=== PATIENT | male | born 1940 | race Caucasian/White ===

== ENCOUNTER → 2017-02-19 | Outpatient (CLI) | payer OTHER ==
[~2017-02-19] MED LIST: ACET-1256 PO; FINA5TAB PO; IMD/2 PO; ONDA-63 PO; XLD/500 PO
[2017-02-19 14:03] VITALS: BP 155/88; PULSE 72; TEMP 36.8; O2SAT 99
--- NOTE | 2017-02-19 16:13 | Radiation Oncology Follow-Up ---
Radiation Oncology Follow-Up Date of Visit Feb 19, 2017. (Kimberly Prince PA-C) Reason For Visit 6 month follow-up (Kimberly Prince PA-C) Radiation Completion Date finished 07-18-2016 (Kimberly Prince PA-C) Diagnosis (1) Rectal cancer Status: Resolved Onset Date: 04/24/2016 Histology Subtype: adenocarcinoma Stage: lll Permanent Comment: DIAGNOSIS: Rectal cancer, adenocarcinoma, [id number], stage IIIC with invasion into anterior pelvic structures (potentially bladder) 1 cycle of XELOX Status post completion of combined radiation and chemotherapy 07/18/2016 received 5040 cGy Chemotherapy comprised of Xeloda Status post low anterior resection 09/10/2016 coloproctostomy and diverting colostomy Stage ypT3 ypN0 Status post reversal of ileostomy 11/28/2016 Last Edited By: Kimberly Prince on Feb 19, 2017 15:00 (Kimberly Prince PA-C) History of Present Illness Mr. Burciaga is a 76-year-old gentleman who initially presented with bright red blood per rectum which started earlier this year. He was referred to Dr. Garcia for a colonoscopy on 03/07/2016 which revealed a friable and infiltrative partially obstructing large mass in the rectal sigmoid region that was about 15 cm from the anal verge. At the time of the procedure, the mass was noted to be circumferential in the scope could not pass through it. Biopsies were obtained which revealed invasive adenocarcinoma that was moderately differentiated. He then did undergo a CT abdomen and pelvis and thorax on 03/10/2016 which revealed indeterminate bilateral pulmonary nodules and a mass at the rectosigmoid junction. The patient was going to be set up for consideration of chemoradiation therapy however he did develop an obstruction which required admission to the hospital. He underwent an exploratory laparotomy by Dr. Esqueda in at the time of the procedure they found that the tumor was invading into the anterior pelvic wall and was deemed unresectable. During this procedure, the did perform a diverting colostomy. Additionally, they noted that there was potentially involvement of the bladder with fistula formation. During his procedure, he did develop several intra- abdominal abscesses and these were drained during his hospitalization. He did have a repeat imaging completed on April 302015 of the abdomen and pelvis which again revealed a proximal rectal mass as well as multiple pelvic abscesses and bilateral hydronephrosis. He was recently discharged to subacute rehabilitation and is now finally home. He was seen in consultation by Dr. Adnreas Barlow who discussed chemotherapy and radiation therapy consideration of surgery if the patient has an adequate response to treatment. He completed radiation therapy 07/18/2016. He received 5040 cGy. Chemotherapy was comprised of Xeloda. (Kimberly Prince PA-C) Interim History He underwent his planned low anterior resection and ileostomy formation on 09/10. The tumor was found to be 2.0 cm. The histology was high grade. Tumor invaded through the muscularis propria into the subserosal adipose tissue or the non-. Denies pericolonic and perirectal soft tissue but does not extend to the serosal surface. He had 12 lymph nodes examined and they were all negative for metastatic disease. (Kimberly Prince PA-C) Allergies Coded Allergies: No Known Allergies (Unverified , 10/17/16) Home Medications Scheduled Finasteride (Proscar), 5 MG PO QAM Scheduled PRN Acetaminophen (Tylenol), 500 MG PO for PRN Review of Systems Gastrointestinal: GI Comments: " stools are back to normal " Oral: Symptoms: No Problems Respiratory: Symptoms: WNL Urinary: Symptoms: Nocturia Comments: nocturia 1 to 2 times Skin: Symptoms: No Problems (Kimberly Prince PA-C) Physical Exam Vital Signs Date Time Temp Pulse Resp B/P Pulse Ox O2 Delivery O2 Flow Rate FiO2 02/19/17 14:03 36.8 72 18 155/88 99 Pain: Side: Bilateral Patient Pain Scale: 0 - 10 Initial Pain Intensity: 0.0 Fatigue: None General Appearance: no apparent distress Eyes: normal inspection, EOMI ENT: normal ENT inspection, hearing grossly normal Neck: no adenopathy Respiratory/Chest: lungs clear, no respiratory distress, no accessory muscle use Cardiovascular: regular rate, rhythm, no gallop, no murmur Abdomen: non tender, soft, no organomegaly Anal / Rectum: Rectal examination reveals normal sphincter tone. Suture line can be palpated and there are no masses. Prostate is enlarged. No rectal bleeding. Extremities: no pedal edema Neurologic/Psychiatric: no motor/sensory deficits, alert, normal mood/affect Skin: warm/dry Lymphatic: no adenopathy (Kimberly Prince PA-C) Laboratory Studies Test 11/21/16 05:11 11/22/16 05:40 11/23/16 05:11 White Blood Count 4.07 K/uL (4.8-10.8) 4.01 K/uL (4.8-10.8) Red Blood Count 5.46 M/uL (4.7-6.1) 5.57 M/uL (4.7-6.1) Hemoglobin 15.9 g/dL (14.0-18.0) 15.8 g/dL (14.0-18.0) Hematocrit 44.9 % (42-52) 45.1 % (42-52) Mean Corpuscular Volume 82.2 fL (80-100) 81.0 fL (80-100) Mean Corpuscular Hemoglobin 29.1 pg (25-34) 28.4 pg (25-34) Mean Corpuscular Hemoglobin Concent 35.4 g/dl (32-36) 35.0 g/dl (32-36) RDW Standard Deviation 40.9 fL (36.4-46.3) 38.9 fL (36.4-46.3) RDW Coefficient of Variation 15.1 % (11.5-14.5) 15.0 % (11.5-14.5) Platelet Count 227 K/uL (130-400) 232 K/uL (130-400) Mean Platelet Volume 9.7 fL (7.4-10.4) 9.9 fL (7.4-10.4) Nucleated RBC Absolute Count (auto) 0.02 K/uL (0-0) Nucleated Red Blood Cells % 0.6 % Total Bilirubin 0.9 mg/dl (0.2-1) Aspartate Amino Transferase (AST) 176 U/L (15-37) Alanine Aminotransferase (ALT) 397 U/L (12-78) Alkaline Phosphatase 183 U/L (45-117) Total Protein 6.3 gm/dl (6.4-8.2) Albumin 3.0 gm/dl (3.4-5.0) Globulin 3.3 gm/dl (2.5-4.0) Albumin/Globulin Ratio 0.9 (0.9-2) Sodium Level 136 mmol/L (136-145) 133 mmol/L (136-145) Potassium Level 3.2 mmol/L (3.5-5.1) 3.4 mmol/L (3.5-5.1) Chloride Level 99 mmol/L (98-107) 97 mmol/L (98-107) Carbon Dioxide Level 25 mmol/L (21-32) 25 mmol/L (21-32) Anion Gap 12.0 mmol/L (3-11) 11.0 mmol/L (3-11) Blood Urea Nitrogen 52 mg/dl (7-18) 50 mg/dl (7-18) Creatinine 1.20 mg/dl (0.60-1.40) 1.10 mg/dl (0.60-1.40) Est Creatinine Clear Calc Drug Dose 49.4 ml/min 50.6 ml/min Estimated GFR () 68.1 75.7 Estimated GFR (Non- 58.8 65.3 BUN/Creatinine Ratio 43.5 (10-20) 45.4 (10-20) Random Glucose 110 mg/dl (70-99) 99 mg/dl (70-99) Calcium Level 8.8 mg/dl (8.5-10.1) 9.0 mg/dl (8.5-10.1) (Kimberly Prince PA-C) Additional Studies Patient Information Name: GERMÁN BURCIAGA Leopoldo MCCANN (AGE) Sex: 1940 (76) M Billing #: [id number] MRN (Client MRN): [id number] Order #: Client Information Specimen Information Location: [facility] Collected Date: 09/10/2016 Copy To: Accession Date: 09/10/2016 Client Case #: Outside Client.: Reported Date: 09/14/2016 Report Type: Final Report Submitting: - Delano Esqueda DO Procedures/Addenda Present SURGICAL PATHOLOGY DIAGNOSIS Electronically Signed Out: Yin Mustafa MD -[facility] Lab A. Small bowel, resection: Portion of small bowel with mucosal erosion, acute serositis, and serosal fibrous adhesions. Surgical resection margins are viable. B. Appendix, appendectomy: Appendix with focal active inflammation and reactive epithelial change. Serosal fibrous adhesions. C. Rectum, lower anterior resection: Adenocarcinoma, poorly differentiated, 2.0 cm. Surgical resection margins are negative for carcinoma. Twelve lymph nodes, negative for carcinoma; (0/12). See synoptic report. D. 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 Stapled margin is negative for carcinoma. E. Colostomy and portion of colon, takedown: Portion of colon with focal ulceration and adjacent skin, consistent with colostomy site. F. EEA donuts, resection: Portion of colon with no specific pathologic change. Clinical History Rectal cancer, exploratory laparotomy. Synoptic Data Specimen: Rectum Procedure: Low anterior resection Specimen Length: 9.5 cm Tumor Site: Rectum Tumor Location: Not Specified Tumor Size: Greatest dimension: 2.0 cm Macroscopic Tumor Perforation: Not identified GERMÁN BURCIAGA [id number] Page 2 of 4 [facility] ([facility]), [address] [place] [address] [place] [address] . [facility] ([facility]), [address] [place] [address] [facility] ([facility]), [address] [place] [place] [address] . [facility] ([facility]), [address] [place] [address]. [facility] ([facility]), [address] [place] [address] [address] . Macroscopic Intactness of Mesorectum: Complete Histologic Type: Adenocarcinoma Histologic Grade: High-grade (poorly differentiated to undifferentiated) Microscopic Tumor Extension: Tumor invades through the muscularis propria into the subserosal adipose tissue or the nonperitonealized pericolic or perirectal soft tissues but does not extend to the serosal surface Margins: If all margins uninvolved by invasive carcinoma - Distance of invasive carcinoma from closest margin: 17 mm Specify margin: distal Treatment Effect: Residual cancer with evident tumor regression, but more than single cells or rare small groups of cancer cells (partial response, score 2) Lymph-Vascular Invasion: Not identified Perineural Invasion: Present Tumor Deposits: Not identified Pathologic Staging (pTNM): y (post-treatment) Primary Tumor (pT): pT3: Tumor invades through the muscularis propria into the subserosa or the nonperitonealized pericolic or perirectal soft tissues Regional Lymph Nodes (pN): pN0: No regional lymph node metastasis Number of lymph nodes examined: 12 Number of lymph nodes involved: 0 [This staging is based on AJCC cancer staging manual, 7th edition] Gross Description *A: Received fresh with a container labeled with "GERMÁN BURCIAGA", "[id number]" and "small bowel". The specimen consists of an intact dilated unoriented portion of small bowel measuring 22.0 x 3.0 cm. There is minimal attached mesenteric fat. The serosa is largely covered in thick fibrous adhesions. A measurable perforation is not identified. The lumen contains a scant amount of brown green fluid. The mucosa is focally flattened but has otherwise normal intestinal folding. The wall is slightly thickened and fibrous with edematous areas measuring up to 0.5 cm. Lesions or masses are not identified. Music Promoter sections are submitted in 5 cassettes with margins in cassettes A1-A2. *B: Received fresh with a container labeled with "GERMÁN BURCIAGA", "[id number]" and "appendix". The specimen consists of a slightly distorted intact appendix focally encased in mesoappendix measuring 7.0 x 1.5 cm. The visible serosa is ballard-pink and covered in adhesions. Sectioning reveals a slightly dilated lumen with plush mucosa and an edematous thickened fibrous wall measuring up to 0.4 cm. Measurable lesions or masses are not identified. Music Promoter sections are submitted in 3 cassettes with proximal margin in cassette B1 and bisected appendiceal tip in cassette B2. *C: Received fresh for frozen with a container labeled with "GERMÁN BURCIAGA", "[id number]" and "rectum". The specimen consists of a focally torn irregular portion of large bowel that has been previously oriented per the surgeon with a suture indicating distal measuring 9.5 cm in length and 3.5 cm in maximum diameter. There is a large tear in the approximate center of the specimen nearly the colon into two portions. There is moderate attached fat with prominent adhesions. The presumed mesorectum distal to the large tear appears complete and intact. The serosa at the proximal aspect is largely covered with adhesions. The lumen is empty and the mucosa is plush with faint polypoid-appearing areas in the distal half. Further sectioning reveals slightly indurated and fibrous change with adjacent fat necrosis extending into the soft tissues with an overall measurement of 2.0 x 2.0 x 1.2 cm. Measurable residual tumor is not grossly identified within this area. The area of polyploid change with associated fat necrosis and fibrous thickening are located 1.7 cm from the distal margin. The attached adipose tissues are removed and palpated for lymph nodes. A shave section of the distal margin is submitted in cassette FS C1. Benign. Frozen section diagnosis per Dr. Pierson to Dr. Esqueda. Additional hospital insurance representative sections are submitted. *D: Received fresh with a container labeled with "GERMÁN BURCIAGA", "[id number]" and "mucous fistula". The specimen consists of an irregular portion of bowel stapled at one end measuring 6.0 x 3.5 x 3.0 cm. The opposite end has a 0.4 x 0.4 cm fully probe patent fistula extending the length of the specimen. The mucosa is diffusely flattened and there are multiple hawk deeply embedded within the tissue at the end that corresponds to the fistula. Other lesions or masses are not identified. Music Promoter sections are submitted in 2 cassettes with stapled margin in cassette D1 and sections adjacent to end of fistula in cassette D2. GERMÁN BURCIAGA [id number] Page 3 of 4 [facility] ([facility]), [address] [place] [address] . [facility] ([facility]), [address] [place] [address] [facility] ([facility]), [address] [address] . [facility] ([facility]), [address] [place] [address]. [facility] ([facility]), [address] [place] [address] . *E: Received fresh with a container labeled with "GERMÁN BURCIAGA", "[id number]" and "colostomy and portion of colon". The specimen consists of an intact fully patent ostomy measuring 3.5 x 2.5 x 2.5 cm. There is a peripheral portion of attached skin measuring less than 0.1 cm in thickness. The lumen is empty and the mucosa is glistening and flat. Lesions or masses are not identified. Music Promoter sections are submitted in cassette E1 to include skin. An additional hospital insurance representative section to include skin is submitted in cassette E2 on 09/12/2016. *F: Received fresh with a container labeled with "GERMÁN BURCIAGA", "[id number]" and "EARL bridges". The specimen consists of 2 intact undesignated annular portions of bowel each with multiple hawk and sutures throughout measuring 1.9 and 2.4 cm. A hospital insurance representative section of each piece is submitted in cassette F1. Grossed By: NT Summary of Sections: *C: C1 proximal margin, C2 perpendicular section of radial margin, C3-C7 distal aspect of specimen with polypoid appearing mucosa and underlying fibrous areas with fat necrosis, C8 hospital insurance representative proximal bowel , C9-C11 each contain 4 intact lymph nodes, C12 contains 2 intact lymph nodes [facility] Intraoperative Diagnosis *C: FROZEN SECTION DIAGNOSIS: Benign. Frozen section diagnosis per Dr. Pierson to Dr. Esqueda. Microscopic Findings Part C: Histologic sections show a poorly differentiated invasive adenocarcinoma corresponding to the indurated area in the distal rectum identified grossly. There are scattered granulomas and numerous multinucleated giant cells surrounding calcified and foreign-type material. Case was discussed with Dr. Esqueda on 09/13/16. Microsatellite Instability Date Ordered: 09/13/2016 Electronically Signed Out: Yin Mustafa MD -[facility] Lab Date completed: 09/13/2016 Date Reported: 09/14/2016 Immunohistochemical Detection of Mismatch Repair Proteins Results: Normal (intact) expression of MLH1, MSH-2, MSH-6 and PMS2 in both adenocarcinoma cells and normal tissue. Table1. Summary of Immunostaining Results Marker/Tissue Adenocarcinoma Normal Tissue MLH-1 Positive Positive PMS-2 Positive Positive MSH-2 Positive Positive MSH-6 Positive Positive Comment: Deficient mismatch repair function usually manifests as immunohistochemically detectable absence of one or more mismatch repair (MMR) proteins (MLH-1, MSH-2, MSH-6 and PMS-2), which is the basis of our test. Immunohistochemical stains were performed on formalin-fixed, paraffin-embedded tissue block using antibodies against DNA MMR proteins including MLH-1, MSH-2, MSH-6, and PMS-2 with appropriate controls (including internal positive control). The sensitivity of immunohistochemical test of MMR GERMÁN BURCIAGA [id number] Page 4 of 4 [facility] ([facility]), [facility] [address] [facility] [address] . [facility] ([facility]), [address] [place] [address] [facility] ([facility]), [address] [facility] [place] [address] . [facility] ([facility]), [address] [place] [address]. [facility] ([facility]), [address] [place] [address] . [phone] proteins as a surrogate test for microsatellite instability (MSI) is approximately 90-95%. References: Misty SKINNER and Pernell ROLAND. 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 Adv Viktoria Pathol. 16(6):405-17, 2009. CPT Patient Information Name: GERMÁN BURCIAGA (AGE) Sex: 1940 (76) M Billing #: [id number] MRN (Client MRN): [id number] Order #: Client Information Specimen Information Location: DISCHARGE Collected Date: 11/28/2016 Copy To: Tati Cortes MD Accession Date: 11/28/2016 Client Case #: Outside Client.: Reported Date: 11/30/2016 Report Type: Final Report Submitting: - Delano Esqueda DO SURGICAL PATHOLOGY DIAGNOSIS Electronically Signed Out: Martha Pierson MD - [facility] Lab A. Ileostomy site, take down: Skin and small intestine anastomosis, consistent with ileostomy site. Clinical History Ileostomy status. Reversal ileostomy. Gross Description *A: Received fresh with a container labeled with "GERMÁN BURCIAGA", "[id number]" and "ileostomy" are 2 segments of unoriented small bowel which are partially joined to create a double barrel ostomy site. The ostomy site includes a 3.5 x 2.8 cm ring of pink-ballard skin. The deep small bowel margins of resection have been surgically stapled closed. The ostomy openings have been partially sutured. There is a very minimal amount of attached yellow adipose tissues. The bowel segments measure 4.5 and 3.5 cm in length. The ostomy sites are reopened and demonstrate patent lumens with intact and unremarkable appearing small bowel mucosa present. Music Promoter sections are submitted in cassette A1. Grossed By: LWN Microscopic Findings Microscopic examination performed. CPT Code(s): A; 12052 (Kimberly Prince PA-C) Assessment & Plan 9 plan: Continue regular follow-up with his PCP, Dr. Barlow, and colorectal surgeon. He does have an appointment to see Dr. Barlow 03/01/2017. He has an appointment to see 04/01/2017. We asked him to return to our office in 1 year. He may call if he has any questions or concerns in the interim. I reviewed with him Dr. Barlow will follow him in regards to any laboratory studies , scanning, or any further treatment post surgery. (Kimberly Prince PA-C) I agree with note created by Kimberly Prince PA-C. I reviewed the patient's chart and information with her. (Veeral. Espana MD) Total Time In Follow-Up I spent 25 minutes speaking to the patient performing examination. I spent 15 minutes reviewing information and completing this note. (Kimberly Prince PA-C) Copy To Delano Esqueda D.O.; Donnie Cates; Andreas Barlow M.D.
== END | disposition home or self-care (01) ==
LOC: C.ONC 13:52
PROVIDERS: ATTEND Physician Assistant Medical
DX: Z08 Encounter for follow-up examination after completed treatment for malignant neoplasm (principal); Z92.3 Personal history of irradiation; Z85.048 Personal history of other malignant neoplasm of rectum, rectosigmoid junction, and anus

== ENCOUNTER → 2017-11-18 | Day surgery (SDC) | payer OTHER ==
[~2017-11-18] VITALS: Ht 177.8 cm; Wt 94.5 kg
[~2017-11-18] MED LIST changes: +CEFAZOLIN 2000MG IV PUSH 10 ML IV SCH; -IMD/2 PO; +LACTATED RINGER'S 1000ML 1,000 ML IV SCH; -ONDA-63 PO; +ULT50X PO; -XLD/500 PO
[2017-11-18 10:10] VITALS: BP 178/91; PULSE 66; TEMP 36.4; O2SAT 97; Ht 177.8 cm; Wt 94.5 kg
== END | disposition home or self-care (01) ==
LOC: C.ACU 09:33
PROVIDERS: ATTEND Surgery
DX: C20 Malignant neoplasm of rectum (principal); C78.00 Secondary malignant neoplasm of unspecified lung

== ENCOUNTER 2017-11-21 04:55 | Inpatient (IN) | payer OTHER ==
[~2017-11-21] VITALS: Ht 177.8 cm; Wt 94.0 kg
[2017-11-21] VITALS (9 sets, daily range): BP systolic 122–156; BP diastolic 73–98; PULSE 63–102; TEMP 36.5–36.9; O2SAT 94–97; Ht 177.8 cm; Wt 94.0 kg
[~2017-11-21 04:55] MED LIST changes: -CEFAZOLIN 2000MG IV PUSH 10 ML IV SCH; -LACTATED RINGER'S 1000ML 1,000 ML IV SCH; -ULT50X PO
[2017-11-21] MEDS ORDERED: LACTATED RINGER'S 1000ML 1,000 ML IV SCH (06:00)
[2017-11-21] MEDS ORDERED: ONDANSETRON INJ 2 MG/ML 2 ML VIAL IV PRN ×2 (07:00→09:45)
[2017-11-21] MEDS ORDERED: EpHEDrine SULFATE INJ 50 MG/ML AMP IV PRN ×2 (07:00)
[2017-11-21] MEDS ORDERED: FENTANYL CITRATE INJ 50 MCG/1 ML 2 ML VIAL IV PRN (07:00)
[2017-11-21] MEDS ORDERED: ATROPINE SULFATE 0.1 MG/ML 5ML SYR IV PRN ×2 (07:00)
[2017-11-21] MEDS ORDERED: HYDROmorphone INJ 1 MG/ML SYR IV PRN (07:00)
[2017-11-21] MEDS ORDERED: PROPOFOL IV EMULSION 10 MG/ML 20 ML VIAL IV ONE (07:03)
[2017-11-21] MEDS ORDERED: ROCURONIUM BROMIDE 10 MG/ML 5 ML VIAL IV ONE (07:03)
[2017-11-21] MEDS ORDERED: LIDOCAINE HCL 2% 2 ML VIAL (20MG/ML) ONE (07:03)
[2017-11-21] MEDS ORDERED: FENTANYL CITRATE INJ 50 MCG/1 ML 2 ML VIAL ONE (07:04)
[2017-11-21] MEDS ORDERED: MIDAZOLAM HCL 1 MG/ML 2ML VIAL ONE (07:04)
[2017-11-21] MEDS ORDERED: LIDOCAINE HCL 1% 20 ML VIAL ONE (07:14)
[2017-11-21] MEDS ORDERED: BACITRACIN OINT 15 GM TUBE ONE (07:14)
[2017-11-21] MEDS ORDERED: BUPIVACAINE 0.5 % 5 MG/1 ML MPF 30ML VIAL ONE (07:14)
[2017-11-21] MEDS ORDERED: SODIUM CHLORIDE 0.9% PF 50 ML VIAL ONE (07:15)
[2017-11-21] MEDS ORDERED: BUPIVACAINE LIPOSOME 1/3% 266 MG/20 ML VIAL INFIL ONE (07:15)
--- NOTE | 2017-11-21 07:20 | History & Physical Bridge Note ---
H&P Re-Evaluation Bridge Note: I have examined the patient, reviewed the History & Physical and in the interval since the performance of the History & Physical I have noted the following changes of clinical significance: No changes noted
[2017-11-21] MEDS ORDERED: CEFAZOLIN SOD 2000MG/10 ML IV PUSH IV ONE (07:28)
--- NOTE | 2017-11-21 08:41 | [facility] Post Operative Brief Note ---
Immediate Operative Summary Operative Date Nov 21, 2017. Pre-Operative Diagnosis lung cancer, need port insertion for chemo Post-Operative Diagnosis same Procedure(s) Performed insertion port on LIJ Surgeon Genoveva Burton [employer] Promoter Surgeon(s) MARIBETH Ponce Estimated Blood Loss 5ml Findings patent LIJ Fluids (cc crystalloids) 300ml Specimens none Drains none Anesthesia general Complication(s) None Disposition
[2017-11-21] MEDS ORDERED: CEFAZOLIN SOD 1 GM VIAL ONE (08:47)
[2017-11-21] MEDS ORDERED: ONDANSETRON INJ 2 MG/ML 2 ML VIAL ONE (08:47)
[2017-11-21] MEDS ORDERED: DEXAMETHASONE SOD INJ 4 MG/ML VIAL ONE (08:47)
[2017-11-21] MEDS ORDERED: EpHEDrine SULFATE 50MG/5ML SYR ONE (08:59)
[2017-11-21] MEDS ORDERED: NEOSTIGMINE METHYLSULFATE 5 MG/5 ML SYR ONE (09:15)
[2017-11-21] MEDS ORDERED: GLYCOPYRROLATE INJ 0.2 MG/ML VIAL ONE (09:15)
--- NOTE | 2017-11-21 09:26 | OPERATIVE REPORT ---
DATE OF OPERATION: 11/21/2017 PREOPERATIVE DIAGNOSIS: Lung cancer in need of port reinserted for chemotherapy. POSTOPERATIVE DIAGNOSIS: Same. PROCEDURE: Port insertion on the left internal jugular vein. SURGEON: Dr. Genoveva Burton. EXHIBITION DESIGNER: Gala Cleveland PA-C. ANESTHESIA: General. ESTIMATED BLOOD LOSS: About 5 mL. FINDINGS: Patent left internal jugular vein. COMPLICATIONS: None. INDICATIONS FOR THE PROCEDURE: This is a 77-year-old gentleman who has new diagnosis of lung cancer of lung cancer. The patient will be required to do port insertion for the chemo. I did talk to the patient about the benefit and risk, alternate procedure. I indicated the risks may include but not limited such as bleeding, infection, injury to the lung, blood clot, dysfunction catheter. The patient understands. She signed informed consent and I answered all questions. DETAILS OF PROCEDURE: We brought the patient to the OR, put the patient in the supine position. The patient received SCD on bilateral legs to prevent DVT. Also, the patient received 2 grams Ancef IV for prophylactic antibiotic. The patient received general anesthesia without difficulty. Then the patient's left side of the neck and the left side upper chest tube was prepped and draped in routine sterile fashion. After time out, I put the patient on the Trendelenburg position and injection of local anesthesia on the left neck and left side upper chest by using 1% lidocaine mixed with 0.5% Marcaine then I made a 0.5 cm incision on the left side of the neck. Then I used ultrasound to guide, and used 15 gauge needle to puncture the left internal jugular vein without difficulty and easy blood return. We passed a wire through the needle, removed the needle. Then I used fluoro to confirm the wire into the right superior vena cava. In this moment, we catheter through left side upper chest to left side neck. Then we used the dilator catheter, advanced over the guidewire and removed the wire passed the catheter into the dilator sheath. Then we removed the sheath and used fluoro to confirm the catheter tip located superior vena cava. Then we fixed the port by using 2-0 Prolene on the chest wall at 3 points. Hemostasis was obtained using 2-0 Vicryl, closed the subcutaneous layer continuous running, used 4-0 Vicryl to close skin continuous running. Then we put the dressing on. The patient tolerated the procedure well and after the procedure the thoracic surgeon will do the lung procedure on this patient. After the procedure, I did talk to the patient and family member about OR finding and procedure we did. All the instrument, needle and sponge count correct x2 at the end of case. Also we used needle to puncture the port easily blood return and injection 10 mL heparin with saline. I attest to the content of the Intraoperative Record and any orders documented therein. Any exceptions are noted below. EL
[2017-11-21] MEDS ORDERED: ACETAMINOPHEN 500 MG TAB PO PRN (09:45)
[2017-11-21] MEDS ORDERED: MoRPHine SULFATE 2 MG/ML CARP IV PRN (09:45)
--- NOTE | 2017-11-21 09:48 | OPERATIVE REPORT ---
DATE OF OPERATION: 11/21/2017 PREOPERATIVE DIAGNOSIS: Multiple bilateral pulmonary nodules. POSTOPERATIVE DIAGNOSIS: Probable colorectal metastases. PROCEDURE: Left thoracoscopy with wedge resection left upper lobe nodule. SURGEON: Dr. León. ANESTHESIA: General anesthesia endotracheal intubation using a single lumen tube. SPECIFICS OF PROCEDURE: Mr. Baez is a 77-year-old male who has undergone a low anterior resection for a colorectal carcinoma which appears to have recurred. Interestingly enough, the patient's CEA level is normal. At any rate, he has evidence of spread in his abdomen but also has multiple pulmonary nodules. Dr. Bernardo Espana and I discussed this case and we have been unable to get a biopsy to give us histologic evidence that these nodules are indeed from his colorectal carcinoma. On 11/21/2017, the patient was brought to the operating room and underwent a Port-A-Cath insertion by Dr. Burton. This is in the left infraclavicular and internal jugular area. At the same time, I then turned the patient and did an uncomplicated thoracoscopic wedge resection. We did an Exparel block. He tolerated it well. PROCEDURE: The patient was brought to the operating room and placed in supine position. General anesthesia induced and after Dr. Burton had inserted the left internal jugular port which had its reservoir positioned in the infraclavicular area the patient was turned in the right lateral decubitus position and left chest prepped, draped in usual sterile fashion. We had a single lumen intubation, but we simply stopped ventilating for several seconds and I placed a Veress needle in about the fifth interspace anterior to the latissimus dorsi muscle and insufflated CO2. We then put a 5 mm port here and could see there were no adhesions. His lungs actually looked quite good. I then put a 5 mm port posteriorly at about the seventh interspace and another one at about the 7th interspace anteriorly. This was a 12 mm port. We then found the nodule in the upper lobe and using Endo-WILLIAM staplers I fired this several times to remove a generous wedge, put it in an Endobag and removed it through the 12 mm port. This was sent for frozen section. Exparel 266 mg and 20 mL of solution was mixed with 40 mL of normal saline to get a total of 60 mL. This was then used to perform an intrathoracic intercostal nerve block from the 2nd to the 11th rib by injecting in the interspace. A 24-American chest tube was then directed towards the apex through the 12 mm port anteriorly. It was sutured in place with heavy silk suture. The 4-0 Monocryl was used in running subcuticular fashion to reapproximate the wound edges. He tolerated it well and was extubated in the room. We essentially had no blood loss. I attest to the content of the Intraoperative Record and any orders documented therein. Any exception s are noted below.
--- NOTE | 2017-11-21 10:08 | Anesthesiology Progress Note ---
Anesthesia Post Op Note Date & Time Nov 21, 2017 at 10:08 Vital Signs Pain Intensity: 0 Vital Signs Past 12 Hours Date Time Temp Pulse Resp B/P (MAP) Pulse Ox O2 Delivery O2 Flow Rate FiO2 11/21/17 09:55 60 15 143/78 96 Oxymask 10 11/21/17 09:45 63 15 143/101 98 Oxymask 10 11/21/17 09:36 36.5 71 15 129/75 98 Oxymask 10 11/21/17 05:54 36.9 72 20 156/94 95 Room Air Notes Mental Status: alert / awake / arousable, participated in evaluation Pt Amnestic to Procedure: Yes Nausea / Vomiting: adequately controlled Pain: adequately controlled Airway Patency, RR, SpO2: stable & adequate BP & HR: stable & adequate Hydration State: stable & adequate Anesthetic Complications: no major complications apparent
--- NOTE | 2017-11-21 10:11 | DIAGNOSTIC IMAGING REPORT ---
CHEST ONE VIEW PORTABLE CLINICAL HISTORY: s/p aport insertion COMPARISON STUDY: PET/CT October 20, 2017 and chest radiograph December 07, 2016. FINDINGS: There has been interval placement of a left internal jugular [id number]. Catheter tip projects over the distal left brachiocephalic vein. A left-sided chest tube is in place. No pneumothorax is identified. Multiple pulmonary nodules are better depicted on recent PET CT and are consistent with metastatic disease. Cardiomediastinal silhouette is stable. There are postsurgical findings with a staple line within left upper lung. IMPRESSION: 1. No pneumothorax following placement of a left internal jugular [id number]. Catheter tip projects over distal left brachiocephalic vein. 2. No pneumothorax. Left chest tube in place. 3. Redemonstration of multiple pulmonary nodules which are better depicted on prior PET/CT and are consistent with metastatic disease. Electronically signed by: Todd Singleton M.D. 11/21/2017 10:09 AM Dictated Date/Time: 11/21/2017 10:06 AM
[2017-11-21] MEDS ORDERED: D5W AND 1/2NSS 1,000 ML IV SCH (12:20)
[2017-11-21] MEDS: OXYCODONE/ACETAMINOPHEN 5-325 TAB PO PRN ×2 (12:30→22:10)
[2017-11-21] MEDS ORDERED: KETOROLAC TROMETHAMINE 15 MG/ML VIAL IV. SCH (14:00)
[2017-11-21] MEDS: CEFAZOLIN IV 2,000 MG in SYRINGE 0 ML IV SCH (15:46)
[2017-11-21] MEDS: DOCUSATE SODIUM 100 MG CAP PO SCH (20:19)
[2017-11-21] MEDS: ENOXAPARIN 40 MG/0.4 ML SYR SQ SCH (20:19)
[2017-11-22] MEDS: CEFAZOLIN IV 2,000 MG in SYRINGE 0 ML IV SCH (00:11)
[2017-11-22 02:27] VITALS: BP 125/79; PULSE 64; TEMP 36.7; O2SAT 95
[2017-11-22] MEDS ORDERED: CEFAZOLIN SOD 2000MG/10 ML IV PUSH IV ONE (06:00)
[2017-11-22 07:39] VITALS: BP 158/90; PULSE 60; TEMP 36.8; O2SAT 96
[2017-11-22] MEDS ORDERED: ULT50X PO (07:47)
--- NOTE | 2017-11-22 07:50 | Discharge Instructions ---
Discharge Instructions Date of Service Nov 22, 2017. Admission Reason for Admission: Pulmonary Nodule, Rectal Cancer Mets To Lungs Discharge Discharge Diagnosis / Problem: colorectal carcinoma metastsis to lungs Discharge Goals Goal(s): Decrease discomfort (Use Tramadol as needed) Activity Recommendations Activity Limitations: as noted below Lifting Limitations: gradually increase as tolerated Exercise/Sports Limitations: gradually increase as tolerated May Resume Sexual Activity: when tolerated Shower/Bathe: may shower/bathe in 3 days Driving or Machine Use: resume 3 days after discharge . Instructions / Follow-Up Instructions / Follow-Up Remove all dressings on [place] and shower. My office will call you and arrange appointment for next week. Current Hospital Diet Patient's current hospital diet: Regular Diet Discharge Diet Recommended Diet: Regular Diet Procedures Procedures Performed: A-Port Insertion in Left Intrajugular vein - Dr. Burton Left Thoracoscopy with Wedge Resection - Dr. León Pending Studies Studies pending at discharge: yes List of pending studies: Final pathology Medical Emergencies . Who to Call and When: Medical Emergencies: If at any time you feel your situation is an emergency, please call 911 immediately. . Non-Emergent Contact Non-Emergency issues call your: Primary Care Provider, Surgeon Call Non-Emergent contact if: temperature is above 101.5 . "Provider Documentation" section prepared by Josiah León. . VTE Core Measure Inpt VTE Proph given/why not?: Enoxaparin (Lovenox)SQ, SCD's
--- NOTE | 2017-11-22 08:13 | DIAGNOSTIC IMAGING REPORT ---
CHEST ONE VIEW PORTABLE CLINICAL HISTORY: Chest tube removal. COMPARISON STUDY: Chest radiograph November 21, 2017. FINDINGS: The left chest tube has been removed. There is no pneumothorax. Multiple pulmonary nodules are again noted. These are unchanged. Cardiomediastinal silhouette is stable. There is no evidence of pulmonary edema. Surgical staple line within the left upper lung is noted. A left internal jugular [id number] remains in place. IMPRESSION: No pneumothorax following left chest tube removal. Electronically signed by: Todd Singleton M.D. 11/22/2017 8:11 AM Dictated Date/Time: 11/22/2017 8:09 AM
--- NOTE | 2017-11-22 08:16 | DISCHARGE SUMMARY ---
DATE OF DISCHARGE: 11/22/2017 DISCHARGE DIAGNOSES: Colorectal metastases to left lung. HOSPITAL COURSE: This is a very nice 77-year-old male who underwent a low anterior resection for his colorectal carcinoma. It appears he has recurrence. Dr. Bernardo Espana asked if we would do a biopsy and we felt that a thoracoscopic biopsy would be best. On 11/21/2017 the patient underwent a simple thoracoscopy with two 5 mm ports and a single 12 mm port. We wedged out a mass. On frozen section, this does appear to be colorectal metastases. He tolerated it well with no blood loss. He had no air leak. I pulled his chest tube out in less than 24 hours and discharged him. He tolerated it very well. Discharge instructions were given and I will see him next week in the office.
[2017-11-22 08:24] VITALS: BP 158/90; PULSE 60; TEMP 36.8; O2SAT 96
--- NOTE | 2017-11-22 08:27 | Anesthesiology Progress Note ---
Anesthesia Post Op Note Date & Time Nov 22, 2017 at 08:26 Vital Signs Pain Intensity: 1.0 Vital Signs Past 12 Hours Date Time Temp Pulse Resp B/P (MAP) Pulse Ox O2 Delivery O2 Flow Rate FiO2 11/22/17 07:39 36.8 60 16 158/90 (112) 96 Room Air 11/22/17 02:27 36.7 64 18 125/79 (94) 95 Room Air 11/22/17 00:22 Room Air 11/21/17 23:16 36.7 64 18 127/83 (98) 95 Room Air 11/21/17 20:49 36.8 77 17 129/80 (96) 94 Room Air Notes Mental Status: alert / awake / arousable, participated in evaluation Pt Amnestic to Procedure: Yes Nausea / Vomiting: adequately controlled Pain: adequately controlled Airway Patency, RR, SpO2: stable & adequate BP & HR: stable & adequate Hydration State: stable & adequate Anesthetic Complications: no major complications apparent
[2017-11-22] MEDS ORDERED: FINASTERIDE 5 MG TAB PO SCH (09:00)
[2017-11-22] MEDS: DOCUSATE SODIUM 100 MG CAP PO SCH (09:48)
[2017-11-22] MEDS: ENOXAPARIN 40 MG/0.4 ML SYR SQ SCH (10:25)
== END 2017-11-22 12:00 | disposition home or self-care (01) | DRG 167 ==
LOC: C.ACU 04:55 → C.MSN 07:15 → ENRESERV 09:59
PROVIDERS: ADMIT Surgery; ATTEND Surgery
PROC: 0BBG4ZX Excision of Left Upper Lung Lobe, Percutaneous Endoscopic Approach, Diagnostic (ICD-10-PCS; principal; 2017-11-21 07:15)
PROC: 0B9P30Z Drainage of Left Pleura with Drainage Device, Percutaneous Approach (ICD-10-PCS; principal; 2017-11-21 07:15)
PROC: 0JH60XZ Insertion of Tunneled Vascular Access Device into Chest Subcutaneous Tissue and Fascia, Open Approach (ICD-10-PCS; 2017-11-21 07:15)
PROC: 02HV33Z Insertion of Infusion Device into Superior Vena Cava, Percutaneous Approach (ICD-10-PCS; 2017-11-21 07:15)
DX: C78.02 Secondary malignant neoplasm of left lung (principal); C19 Malignant neoplasm of rectosigmoid junction; N40.0 Benign prostatic hyperplasia without lower urinary tract symptoms; I10 Essential (primary) hypertension; F17.200 Nicotine dependence, unspecified, uncomplicated; Z79.899 Other long term (current) drug therapy; Z80.0 Family history of malignant neoplasm of digestive organs

== ENCOUNTER 2017-11-22 23:22 | Inpatient (IN) | payer OTHER ==
[~2017-11-22] VITALS: Ht 177.8 cm; Wt 93.5 kg
[~2017-11-22 23:22] MED LIST changes: -ACET-1256 PO; +ULT50X PO
--- NOTE | 2017-11-22 23:41 | EMERGENCY ROOM VISIT NOTE ---
History Report prepared by Gr[place]: Kamran Lemus Under the Supervision of: Dr. Royer Alcantara M.D. First contact with patient: 23:27 Chief Complaint: ABDOMINAL PAIN Stated Complaint: UNABLE TO PEE, ABD PAIN History of Present Illness The patient is a 77 year old male who presents to the Emergency Room with complaints of intermittent abdominal pain that started at 1400. He rates his discomfort as a 6/10 in severity. The patient states that he has not been able to have a bowel movement starting two days ago. He reports that today he started to experience abdominal pain around 1400. The patient states that he took a Dulcolax to attempt to have a bowel movement, but denies any relief. He reports that he also took Tylenol at 2100 for his symptoms. The patient denies nausea, vomiting, urinary symptoms, and troubles with breathing. The patient reports a history of rectal cancer, which he had chemotherapy and an ileostomy for. He states that yesterday, he had a lung biopsy and a port put into place due to a concern for metastases of his rectal cancer. He reports that he also has a history of constipation. Source of History: patient Onset: 1400 Position: abdomen Symptom Intensity: 6/10 Timing: intermittent Modifying Factors (Relieving): tylenol, other (Dulcolax) Associated Symptoms: No SOB, No nausea, No vomiting, No urinary symptoms Review of Systems See HPI for pertinent positives & negatives. A total of 10 systems reviewed and were otherwise negative. Past Medical & Surgical Medical Problems: (1) Colorectal carcinoma (2) Lung metastases (3) Rectal cancer Family History FH: cancer FH: hypertension Heart disease Social History Smoking Status: Former Smoker Alcohol Use: none Drug Use: none Marital Status: Housing Status: lives with significant other Occupation Status: unemployed Current/Historical Medications Scheduled Finasteride (Proscar), 5 MG PO QAM Scheduled PRN Acetaminophen (Tylenol), 500 MG PO for PRN Allergies Coded Allergies: No Known Allergies (Unverified , 11/21/17) Physical Exam Vital Signs Date Time Temp Pulse Resp B/P (MAP) Pulse Ox O2 Delivery O2 Flow Rate FiO2 11/23/17 00:36 62 18 140/88 93 Room Air 11/22/17 23:24 36.5 93 20 160/95 95 Room Air Physical Exam GENERAL: Patient is well appearing and in no acute distress. HEENT: No acute trauma, normocephalic atraumatic, mucous membranes moist, no nasal congestion, no scleral icterus. NECK: No stridor, no adenopathy, no meningismus, trachea is midline. LUNGS: No dyspnea. Clear to auscultation and equal bilaterally. No wheeze, no rhonchi. HEART: Regular rate and rhythm. No murmurs, rubs, gallops appreciated. ABDOMEN: Soft, nontender, hyperactive bowel sound throughout the left abdomen, extensive scarring , no masses appreciated, no peritonitis. BACK: No midline tenderness, no CVA tenderness EXTREMITIES: Normal motion all extremities, no cyanosis, no edema. NEUROLOGIC: Alert and oriented, no acute motor or sensory deficits, no focal weakness, cranial nerves grossly intact. SKIN: No rash, no jaundice, no diaphoresis. Wound dressing over left flank and left upper chest. Medical Decision & Procedures ER Provider Diagnostic Interpretation: Radiology results and stated below per my review and radiologist interpretation: CT ABDOMEN & PELVIS: Impression: Postsurgical changes within the small bowel and colon. Dilated loops of small bowel seen throughout the abdomen, There are multiple focal areas of narrowing within the right hemipelvis. Findings my represent low-grade small bowel obstruction versus a nonspecific inflammatory or infectious enteritis. There is soft tissue density which adheres to the serosa of the small bowel loop in the mid pelvis (2-127), as well as within the small bowel mesentery (2-126) which is concerning for tumor implant. There is presacral thickening with nodular densities which may represent posttreatment changes versus metastatic disease. Numerous pulmonary nodules seen throughout the visualized lungs concerning for metastatic disease. Additional findings: Gallstones without CT evidence of acute cholecystitis. There are a couple punctate calcifications within the head of the pancreas, which are nonspecific. Left adrenal gland nodule measuring 2.7 cm, which measures low density suggesting a lipid rich adenoma. Spleen and right adrenal gland are unremarkable. Peripelvic cysts. Non-obstructing calculus within left kidney. No hydronephrosis. Calcifications within the posterior urinary bladder which may be prostatic in origin versus urinary bladder calculi. Enlarged prostate gland. Appendix is not visualized. Ventral hernia containing nonobstructed bowel. Radiologist: Sterling Hayden MD. Phone: Laboratory Results 11/23/17 00:24 Red Blood Count 4.87, Mean Corpuscular Volume 89.1, Mean Corpuscular Hemoglobin 31.0, Mean Corpuscular Hemoglobin Concent 34.8, Mean Platelet Volume 10.6, Neutrophils (%) (Auto) 84.8, Lymphocytes (%) (Auto) 5.5, Monocytes (%) (Auto) 9.2, Eosinophils (%) (Auto) 0.2, Basophils (%) (Auto) 0.1, Neutrophils # (Auto) 8.28, Lymphocytes # (Auto) 0.54, Monocytes # (Auto) 0.90, Eosinophils # (Auto) 0.02, Basophils # (Auto) 0.01 11/23/17 00:24 Test 11/23/17 00:10 11/23/17 00:24 Urine Color YELLOW Urine Appearance CLEAR (CLEAR) Urine pH 6.5 (4.5-7.5) Urine Specific Bolt 1.018 (1.000-1.030) Urine Protein NEG (NEG) Urine Glucose (UA) NEG (NEG) Urine Ketones NEG (NEG) Urine Occult Blood TRACE (NEG) Urine Nitrite NEG (NEG) Urine Bilirubin NEG (NEG) Urine Urobilinogen NEG (NEG) Urine Leukocyte Esterase NEG (NEG) Urine WBC (Auto) 1-5 /hpf (0-5) Urine RBC (Auto) 5-10 /hpf (0-4) Urine Hyaline Casts (Auto) 1-5 /lpf (0-5) Urine Epithelial Cells (Auto) 5-10 /lpf (0-5) Urine Bacteria (Auto) NEG (NEG) White Blood Count 9.77 K/uL (4.8-10.8) Red Blood Count 4.87 M/uL (4.7-6.1) Hemoglobin 15.1 g/dL (14.0-18.0) Hematocrit 43.4 % (42-52) Mean Corpuscular Volume 89.1 fL (80-100) Mean Corpuscular Hemoglobin 31.0 pg (25-34) Mean Corpuscular Hemoglobin Concent 34.8 g/dl (32-36) Platelet Count 178 K/uL (130-400) Mean Platelet Volume 10.6 fL (7.4-10.4) Neutrophils (%) (Auto) 84.8 % Lymphocytes (%) (Auto) 5.5 % Monocytes (%) (Auto) 9.2 % Eosinophils (%) (Auto) 0.2 % Basophils (%) (Auto) 0.1 % Neutrophils # (Auto) 8.28 K/uL (1.4-6.5) Lymphocytes # (Auto) 0.54 K/uL (1.2-3.4) Monocytes # (Auto) 0.90 K/uL (0.11-0.59) Eosinophils # (Auto) 0.02 K/uL (0-0.5) Basophils # (Auto) 0.01 K/uL (0-0.2) RDW Standard Deviation 45.5 fL (36.4-46.3) RDW Coefficient of Variation 13.9 % (11.5-14.5) Immature Granulocyte % (Auto) 0.2 % Immature Granulocyte # (Auto) 0.02 K/uL (0.00-0.02) Prothrombin Time 10.1 SECONDS (9.0-12.0) Prothromb Time International Ratio 1.0 (0.9-1.1) Activated Partial Thromboplast Time 26.3 SECONDS (21.0-31.0) Partial Thromboplastin Ratio 1.0 Anion Gap 8.0 mmol/L (3-11) Est Creatinine Clear Calc Drug Dose 73.3 ml/min Estimated GFR () 85.4 Estimated GFR (Non- 73.7 BUN/Creatinine Ratio 28.8 (10-20) Calcium Level 8.5 mg/dl (8.5-10.1) Total Bilirubin 0.6 mg/dl (0.2-1) Direct Bilirubin 0.1 mg/dl (0-0.2) Aspartate Amino Transf (AST/SGOT) 25 U/L (15-37) Alanine Aminotransferase (ALT/SGPT) 25 U/L (12-78) Alkaline Phosphatase 80 U/L (45-117) Total Protein 6.6 gm/dl (6.4-8.2) Albumin 3.1 gm/dl (3.4-5.0) Lipase 80 U/L (73-393) Laboratory results as reviewed by me. Medications Administered Medications (Trade) Dose Ordered Sig/Donny Route Start Time Stop Time Status Last Admin Dose Admin Sodium Chloride 1,000 ml @ 75 mls/hr [id number] STAT IV 11/23/17 00:13 11/23/17 02:36 DC 11/23/17 00:35 75 MLS/HR ED Course 2328: The patient was evaluated in room A03. A complete history and physical exam was performed. 0008: I reevaluated the patient and he is stable. 0013: Ordered Sodium Chloride 1000 ml @ 75 mls/hr IV. 0042: I discussed the patients case with Matt Ortega. He understands the patients condition and agrees to accept the patient. Medical Decision Differential: Functional, Impaction, Obstruction, Volvulus, Ischemic Bowel, Infectious, Neurologic, Metabolic, amongst other pathologies entertained. 77 yr old male arrives with constipation last few days and intermittent abdominal pain. History of extensive abdominal surgery. Sent for CT revealing SBO and with amount fluid in stomach felt that prophylactic NG tube reasonable. Fluids, NPO, and will bring in to medical service as he has current surgical abdomen. Medication Reconcilliation Current Medication List: was personally reviewed by me Blood Pressure Screening Patient's blood pressure: Elevated blood pressure Monitored by Hospitalist. Consults Time Called: 41 Consulting Physician: Matt Ortega Returned Call: 41 I discussed the patients case with Matt Ortega. He understands the patients condition and agrees to accept the patient. Impression Primary Impression: SBO (small bowel obstruction) Scribe Attestation The scribe's documentation has been prepared under my direction and personally reviewed by me in its entirety. I confirm that the note above accurately reflects all work, treatment, procedures, and medical decision making performed by me. Departure Information Dispostion Being Evaluated By Hospitalist Referrals Donnie Cates (PCP) Patient Instructions My [facility]
[2017-11-23] MEDS ORDERED: SODIUM CHLORIDE 0.9% 1000ML 1,000 ML IV STA (00:13)
[2017-11-23 00:37] LABS: BASO % 0.1 %; BASO ABS # 0.01 K/uL (0-0.2); EOS % 0.2 %; EOS ABS # 0.02 K/uL (0-0.5); HEMATOCRIT 43.4 % (42-52); HEMOGLOBIN 15.1 g/dL (14.0-18.0); IG# 0.02 K/uL (0.00-0.02); LYMPH % 5.5 %; LYMPH ABS # 0.54 K/uL (1.2-3.4); MEAN CELL VOLUME 89.1 fL (80-100); MEAN CORPUSCULAR HGB CONC 34.8 g/dl (32-36); MEAN PLATELET VOLUME 10.6 fL (7.4-10.4); MONO % 9.2 %; NEUT % 84.8 %; NEUT ABS # 8.28 K/uL (1.4-6.5); PLATELET COUNT 178 K/uL (130-400); RED CELL DISTRIBUTION WIDTH CV 13.9 % (11.5-14.5); RED CELL DISTRIBUTION WIDTH SD 45.5 fL (36.4-46.3); WHITE BLOOD COUNT 9.77 K/uL (4.8-10.8)
[2017-11-23 00:50] LABS: PTT PATIENT 26.3 SECONDS (21.0-31.0)
--- NOTE | 2017-11-23 00:53 | History and Physical ---
History & Physical Date & Time of Service: Nov 23, 2017 at 00:53 . Chief Complaint: abdominal pain . Primary Care Physician: Donnie Cates PA-C . History of Present Illness Source: patient, family, clinic records, hospital records 77 YO male followed by Donnie Cates PA-C for primary care and Dr. Bernardo Espana for Medical Oncology. History of rectal carcinoma diagnosed March 2016. [place] [facility] Takedown of colostomy, resection, ileostomy performed Sep 2016. Ileostomy reversed Nov. Received adjuvant chemotherapy and radiation. PET 10/30/07 showed multiple active lung nodules and multiple peritoneal implants. Colonoscopy 11/08/17 demonstrated stenosis at anastomosis. Admitted to [facility] 11/21 for thorascopic biopsy of left lung mass and placement of port for venous access. 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 Discharged yesterday morning. Presented to ED tonight with abdominal discomfort and distention. Abdominal pain is diffuse, moderately severe. Experiencing nausea, but no emesis. Last bowel movement 2-3 days prior to admission. Not passing any flatus. No fever. Tried Dulcolax tablets at home without relief. NGT placed in ED with some relief of the abdominal discomfort. . Past Medical/Surgical History Chronic and Resolved Medical Problems: (1) BPH (benign prostatic hypertrophy) Status: Chronic (2) Lung metastases Permanent Comment: thorascopic biopsy 11/21/17 - adenocarcinoma Status: Chronic (3) Rectal cancer Permanent Comment: DIAGNOSIS: Rectal cancer, adenocarcinoma, [id number], stage IIIC with invasion into anterior pelvic structures (potentially bladder) 1 cycle of XELOX Status post completion of combined radiation and chemotherapy 07/18/2016 received 5040 cGy Chemotherapy comprised of Xeloda Status post low anterior resection 09/10/2016 coloproctostomy and diverting colostomy Stage ypT3 ypN0 Status post reversal of ileostomy 11/28/2016 Status: Chronic Surgical Problems: (1) History of vascular access device Permanent Comment: Dr. Burton 11/21/17 Status: Chronic (2) Status post colostomy Permanent Comment: diverting colostomy for rectal Ca with obstruction 04/24/16 [facility] [place]: Chronic (3) Status post colostomy takedown Permanent Comment: with LAR and diverting loop ileostomy 09/10/16 [facility] Status: Chronic (4) Status post ileostomy Permanent Comment: 09/10/16, reversed 11/20/16 [facility] Status: Chronic . Family History FH: cancer FH: hypertension Heart disease Social History Smoking Status: Former Smoker Alcohol Use: none Drug Use: none Marital Status: Occupational Status: unemployed Immunizations History of Influenza Vaccine: Yes History of Pneumococcal: Yes Multi-Drug Resistant Organisms History of MDRO: No Allergies Coded Allergies: No Known Allergies (Unverified , 11/21/17) Home Medications Scheduled Finasteride (Proscar), 5 MG PO QAM Scheduled PRN Acetaminophen (Tylenol), 500 MG PO for PRN Review of Systems Constitutional: No fever, No weight loss (none recently) Eyes: No worsening of vision, No diplopia ENT: No nasal symptoms, No sore throat Respiratory: No cough, No shortness of breath Cardiovascular: No chest pain, No edema Abdomen: + problem reported (per HPI) Musculoskeletal: + joint pain (shoulder pain) Genitourinary - Male: + problem reported (nocturia x 2-3), No hematuria, No dysuria Neurologic: + problem reported (no headahces) Endocrine: No excessive thirst, No excessive urination Hematologic / Lymphatic: + abnormal bleeding/bruising (bruises easily), No swollen lymph nodes Integumentary: No rash Physical Exam Vital Signs Date Time Temp Pulse Resp B/P (MAP) Pulse Ox O2 Delivery O2 Flow Rate FiO2 11/23/17 00:36 62 18 140/88 93 Room Air 11/22/17 23:24 36.5 93 20 160/95 95 Room Air General Appearance: + moderate distress Head: normocephalic, atraumatic Eyes: normal inspection, PERRL, EOMI, sclerae normal, + pertinent finding ( conjunctivae clear) ENT: hearing grossly normal, pharynx normal, + pertinent finding (NGT with fresh blood) Neck: supple, no adenopathy, thyroid normal, no JVD, trachea midline, + pertinent finding (left neck bandaged) Respiratory/Chest: lungs clear, no respiratory distress, no accessory muscle use, + pertinent finding (left chest bandaged) Cardiovascular: regular rate, rhythm, no edema, no gallop, no JVD, no murmur, normal peripheral pulses Abdomen/GI: + pertinent finding (quiet bowel sounds, moderately distended, firm , diffuse moderate tenderness without rebound, no palpable masses or hepatosplenomegaly apprecated) Extremities/Musculoskelatal: normal inspection, no calf tenderness, normal capillary refill, no pedal edema Neurologic/Psych: director index II-XII nml as tested (PERRL, EOMI, no facial palsy), no motor/sensory deficits (motor strength upper and lower extremities grossly intact), alert, normal mood/affect, oriented x 3 Skin: normal color, warm/dry, no rash Lymphatic: no adenopathy (cervical) Diagnostics Laboratory Results Results Past 24 Hours Test 11/23/17 00:10 11/23/17 00:24 Range/Units Urine Color YELLOW Urine Appearance CLEAR CLEAR Urine pH 6.5 4.5-7.5 Urine Specific [place] 1.018 1.000-1.030 Urine Protein NEG NEG Urine Glucose (UA) NEG NEG Urine Ketones NEG NEG Urine Occult Blood TRACE NEG Urine Nitrite NEG NEG Urine Bilirubin NEG NEG Urine Urobilinogen NEG NEG Urine Leukocyte Esterase NEG NEG Urine WBC (Auto) 1-5 0-5 /hpf Urine RBC (Auto) 5-10 0-4 /hpf Urine Hyaline Casts (Auto) 1-5 0-5 /lpf Urine Epithelial Cells (Auto) 5-10 0-5 /lpf Urine Bacteria (Auto) NEG NEG White Blood Count 9.77 4.8-10.8 K/uL Red Blood Count 4.87 4.7-6.1 M/uL Hemoglobin 15.1 14.0-18.0 g/dL Hematocrit 43.4 42-52 % Mean Corpuscular Volume 89.1 80-100 fL Mean Corpuscular Hemoglobin 31.0 25-34 pg Mean Corpuscular Hemoglobin Concent 34.8 32-36 g/dl Platelet Count 178 130-400 K/uL Mean Platelet Volume 10.6 7.4-10.4 fL Neutrophils (%) (Auto) 84.8 % Lymphocytes (%) (Auto) 5.5 % Monocytes (%) (Auto) 9.2 % Eosinophils (%) (Auto) 0.2 % Basophils (%) (Auto) 0.1 % Neutrophils # (Auto) 8.28 1.4-6.5 K/uL Lymphocytes # (Auto) 0.54 1.2-3.4 K/uL Monocytes # (Auto) 0.90 0.11-0.59 K/uL Eosinophils # (Auto) 0.02 0-0.5 K/uL Basophils # (Auto) 0.01 0-0.2 K/uL RDW Standard Deviation 45.5 36.4-46.3 fL RDW Coefficient of Variation 13.9 11.5-14.5 % Immature Granulocyte % (Auto) 0.2 % Immature Granulocyte # (Auto) 0.02 0.00-0.02 K/uL Prothrombin Time 10.1 9.0-12.0 SECONDS Prothromb Time International Ratio 1.0 0.9-1.1 Activated Partial Thromboplast Time 26.3 21.0-31.0 SECONDS Partial Thromboplastin Ratio 1.0 Diagnostic Radiology ABDOMEN AND PELVIS CT WITHOUT CONTRAST FINDINGS: Multiple bilateral pulmonary nodules with the largest in the left lower lobe measuring 23 mm. Small foci of gas within the upper left abdominal wall may be due to prior chest tube placement. No pneumoperitoneum. No pneumatosis. Bilateral sacral insufficiency fractures. Cholelithiasis. A few punctate pancreatic calcifications. Mild intrahepatic bile duct dilatation the unenhanced spleen, and right adrenal gland are unremarkable. Left-sided nephrolithiasis. Multiple bilateral peripelvic renal cysts. An indeterminate 2.6 cm left adrenal gland nodule. Mild left hydroureteronephrosis to the level of the distal ureter as it crosses the iliac vessels. There is an abnormal soft tissue nodule/lymph node adjacent to the ureter at the site of transition which measures 1 cm. No obstructing stones. No bladder wall thickening. The bladder is mildly distended. There is enlarged prostate gland. Moderate rectal wall thickening. Presacral soft tissue abnormality. Anastomotic suture material at the rectosigmoid junction. Moderate well-formed stool within the majority of the colon. The appendix is likely surgically absent. A 1.9 cm ileocolic lymph node/soft tissue nodule. Small focal hernia within the left anterior abdominal wall containing a knuckle of small bowel. Trace mesenteric edema. Multiple distended gas and fluid-filled loops of small bowel seen within the abdomen. Mildly thickened loops of small bowel seen within the right lower quadrant which are slightly decompressed. Therefore, findings likely represent a partial small bowel obstruction. There is also a proximal transition point with the distended small bowel best seen on image 82 of 203 within the left midabdomen. Postsurgical changes seen within the left mid abdominal small bowel. 1.6 cm soft tissue nodule within the central mesentery and a 9 mm soft tissue nodule within the central mesentery on images 128 and 118. These abut a loop of small bowel. This is consistent with metastatic disease. IMPRESSION: 1. A few scattered soft tissue nodules seen within the abdomen consistent with metastatic disease. One of the soft tissue nodules is adjacent to the distal left ureter at the level of the iliac vessels with an associated transition point. Therefore, this could result in the mild left hydroureteronephrosis. 2. Bilateral pulmonary nodules consistent with metastatic disease. 3. Distended loops of small bowel within the mid to lower abdomen with mild thickening and narrowing within the distal loops of small bowel. Therefore, this favors a partial small bowel obstruction. There may also be a proximal transition point at the distended small bowel. Therefore, a developing closed loop obstruction is considered less likely but not entirely excluded. Surgical consultation is recommended. 4. Presacral soft tissue thickening which is nonspecific. However, this has a slightly nodular appearance and could also represent metastatic disease. 5. Moderate rectal wall thickening consistent with a nonspecific proctitis. 6. Cholelithiasis. 7. Left-sided nephrolithiasis. 8. Small left-sided ventral hernia containing a knuckle of small bowel. However, this does not result in a site of obstruction. Electronically signed by: Carlos Schafer M.D. 11/23/2017 7:06 AM Dictated Date/Time: 11/23/2017 6:52 AM . Impression Assessment and Plan BOWEL OBSTRUCTION History per HPI. CT demonstrates bowel obstruction as described. NGT placed in ED. Bowel rest, IV fluids, analgesics, anti-emetics. Consult General Surgery. Hopefully obstruction will improve with conservative management. If not, patient would like to return to [facility] where he has been followed by surgical team there. UGI BLEED Fresh blood noted via NGT after insertion. No melena reported. Suspect trauma from NGT placement. Empiric famotidine. Consult GI if ongoing concern. RECTAL CA History as summarized in HPI. Recently diagnosed with pulmonary mets. Management per Dr. sEpana. BPH Resume finasteride when able to take PO meds. VTE PROPHYLAXIS No anticoagulants due to bleeding via NGT + possible need for surgical intervention. SCD's. Ambulate as able. RESUSCITATION STATUS Discussed with patient and his family. He has a living will. He would like resuscitation attempted in the event of a cardiopulmonary arrest if there is a reasonable chance of a meaningful recovery, but does not want prolonged extraordinary measures if prognosis is poor. Therefore, code status = "Level 1" (full resuscitation). DISPOSITION Admit to Med-Surg Unit. Discharge disposition to be determined. Primary care follow-up with Donnie Cates PA-C. Medical Oncology follow-up with Dr. Espana. . Additional Copies To Donnie Cates
[2017-11-23 00:55] LABS: ALBUMIN 3.1 gm/dl (3.4-5.0); CALCIUM 8.5 mg/dl (8.5-10.1); CREATININE 0.99 mg/dl (0.60-1.40)
[2017-11-23 00:58] LABS: TOTAL PROTEIN 6.6 gm/dl (6.4-8.2)
[2017-11-23] MEDS ORDERED: ONDANSETRON INJ 2 MG/ML 2 ML VIAL IV PRN (01:00)
[2017-11-23] MEDS ORDERED: FAMOTIDINE IV INJ 20 MG in DEXTROSE 5% 100ML 100 ML IV ONE (02:30)
[2017-11-23] MEDS ORDERED: COUGH DROP (SUGAR FREE) LOZ 24 LOZ/1 BOX PO PRN (02:30)
[2017-11-23] MEDS ORDERED: LORAZEPAM INJ 0.5 MG in SYRINGE 0.25 ML IV PRN (02:45)
[2017-11-23] MEDS: FAMOTIDINE IV INJ 20 MG in SYRINGE 3 ML IV SCH ×3 (03:04→21:11)
[2017-11-23] MEDS: D5W AND 1/2NSS + 20MEQ KCL 1,000 ML IV SCH ×3 (03:07→16:11)
[2017-11-23 03:10] VITALS: BP 158/94
[2017-11-23 03:57] VITALS: O2SAT 93; Ht 177.8 cm; Wt 93.5 kg
[2017-11-23] MEDS: ACETAMINOPHEN IV 100 ML IV PRN ×2 (06:25→16:10)
[2017-11-23 06:52] LABS: HEMATOCRIT 42.3 % (42-52); HEMOGLOBIN 14.4 g/dL (14.0-18.0); MEAN CELL VOLUME 89.2 fL (80-100); MEAN CORPUSCULAR HEMOGLOBIN 30.4 pg (25-34); MEAN PLATELET VOLUME 10.5 fL (7.4-10.4); PLATELET COUNT 174 K/uL (130-400); RED CELL DISTRIBUTION WIDTH CV 13.8 % (11.5-14.5); RED CELL DISTRIBUTION WIDTH SD 45.3 fL (36.4-46.3); WHITE BLOOD COUNT 9.52 K/uL (4.8-10.8)
[2017-11-23 07:07] LABS: CALCIUM 8.3 mg/dl (8.5-10.1); CREATININE 0.89 mg/dl (0.60-1.40)
--- NOTE | 2017-11-23 07:07 | DIAGNOSTIC IMAGING REPORT ---
ABDOMEN AND PELVIS CT WITHOUT CONTRAST CT DOSE: 1092.14 mGy.cm HISTORY: Generalized abdominal pain. TECHNIQUE: Multiaxial CT images of the abdomen and pelvis were performed without the use of intravenous and oral contrast according to the standard department stone protocol. A dose lowering technique was utilized adhering to the principles of ALARA. COMPARISON STUDY: Outside hospital PET/CT 10/30/2017. FINDINGS: Multiple bilateral pulmonary nodules with the largest in the left lower lobe measuring 23 mm. Small foci of gas within the upper left abdominal wall may be due to prior chest tube placement. No pneumoperitoneum. No pneumatosis. Bilateral sacral insufficiency fractures. Cholelithiasis. A few punctate pancreatic calcifications. Mild intrahepatic bile duct dilatation the unenhanced spleen, and right adrenal gland are unremarkable. Left-sided nephrolithiasis. Multiple bilateral peripelvic renal cysts. An indeterminate 2.6 cm left adrenal gland nodule. Mild left hydroureteronephrosis to the level of the distal ureter as it crosses the iliac vessels. There is an abnormal soft tissue nodule/lymph node adjacent to the ureter at the site of transition which measures 1 cm. No obstructing stones. No bladder wall thickening. The bladder is mildly distended. There is enlarged prostate gland. Moderate rectal wall thickening. Presacral soft tissue abnormality. Anastomotic suture material at the rectosigmoid junction. Moderate well-formed stool within the majority of the colon. The appendix is likely surgically absent. A 1.9 cm ileocolic lymph node/soft tissue nodule. Small focal hernia within the left anterior abdominal wall containing a knuckle of small bowel. Trace mesenteric edema. Multiple distended gas and fluid-filled loops of small bowel seen within the abdomen. Mildly thickened loops of small bowel seen within the right lower quadrant which are slightly decompressed. Therefore, findings likely represent a partial small bowel obstruction. There is also a proximal transition point with the distended small bowel best seen on image 82 of 203 within the left midabdomen. Postsurgical changes seen within the left mid abdominal small bowel. 1.6 cm soft tissue nodule within the central mesentery and a 9 mm soft tissue nodule within the central mesentery on images 128 and 118. These abut a loop of small bowel. This is consistent with metastatic disease. IMPRESSION: 1. A few scattered soft tissue nodules seen within the abdomen consistent with metastatic disease. One of the soft tissue nodules is adjacent to the distal left ureter at the level of the iliac vessels with an associated transition point. Therefore, this could result in the mild left hydroureteronephrosis. 2. Bilateral pulmonary nodules consistent with metastatic disease. 3. Distended loops of small bowel within the mid to lower abdomen with mild thickening and narrowing within the distal loops of small bowel. Therefore, this favors a partial small bowel obstruction. There may also be a proximal transition point at the distended small bowel. Therefore, a developing closed loop obstruction is considered less likely but not entirely excluded. Surgical consultation is recommended. 4. Presacral soft tissue thickening which is nonspecific. However, this has a slightly nodular appearance and could also represent metastatic disease. 5. Moderate rectal wall thickening consistent with a nonspecific proctitis. 6. Cholelithiasis. 7. Left-sided nephrolithiasis. 8. Small left-sided ventral hernia containing a knuckle of small bowel. However, this does not result in a site of obstruction. Electronically signed by: Carlos Schafer M.D. 11/23/2017 7:06 AM Dictated Date/Time: 11/23/2017 6:52 AM
--- NOTE | 2017-11-23 07:18 | Medical Consult ---
Consultation Date of Consultation: Nov 23, 2017. Attending Physician: Aldair Lambert MD Reason for Consultation: Small Bowel Obstruction History of Present Illness Patient presented to the ED last night with intermittent abdominal pain that started around 1400. States he has not had a bowel movement in 2 days. He has tried taking tylenol for his pain without relief. He also tried taking some dulcolax to stimulate his bowels without success. Denies nausea and vomiting yesterday. States he felt a little nausea earlier this morning but that has passed. He feels his pain comes and goes but it is tolerable. Denies any problems with urination. Patient does have a history of colon cancer and underwent a bowel resection with ileostomy formation/reversal at [facility] in 2016. At this time he states he was started on chemo but never finished his regiment. He did however complete his post-surgical radiation therapy. States he had a recent PET scan performed which showed metastatic nodules in his lungs and what he believes was something in his colon as well. He underwent a Left thoracoscopy with wedge resection left upper lobe nodule with Dr. León on . The same day he also had a port placed with Dr. Burton. He was sent to have the port placed by Dr. Espana who will be managing his chemotherapy. Patient does state he has a history of constipation as well. Patient was admitted NPO with IV fluids and bowel rest due to a low grade SBO on CT. At this time some fluid was appreciated in his stomach and an NG tube was placed prophylactically. Patient does state that he had a colonoscopy with Dr. Bangura at [facility] approximately 2 weeks ago. He is unsure of the results. Past Medical/Surgical History Medical Problems: (1) Acute renal failure Status: Acute (2) Dehydration Status: Acute (3) SBO (small bowel obstruction) Status: Acute (4) Severe dehydration Status: Acute (5) Weakness Status: Acute Family History FH: cancer FH: hypertension Heart disease Social History Smoking Status: Former Smoker Drug Use: none Marital Status: Housing Status: lives with significant other Occupation Status: unemployed Allergies Coded Allergies: No Known Allergies (Unverified , 11/21/17) Current Inpatient Medications Current Inpatient Medications Medications (Trade) Dose Ordered Sig/Donny Route Start Time Stop Time Status Last Admin Dose Admin Ondansetron HCl (Zofran Inj) 4 mg Q6H PRN IV 11/23/17 01:00 12/23/17 00:59 Potassium Chloride/Dextrose/ Sod Cl 1,000 ml @ 150 mls/hr Q6H40M IV 11/23/17 03:00 12/23/17 02:59 11/23/17 03:07 150 MLS/HR Acetaminophen 100 ml @ 400 mls/hr Q8H PRN IV 11/23/17 02:30 12/23/17 02:29 Hydromorphone HCl (Dilaudid Inj) 0.5 mg Q2H PRN IV 11/23/17 02:30 12/07/17 02:29 Menthol (Nice Josse) 1 josse Q2H PRN PO 11/23/17 02:30 12/23/17 02:29 Famotidine 20 mg/ Syringe 5 ml @ 2.5 mls/min Q12 IV 11/23/17 03:00 12/23/17 02:59 11/23/17 03:04 2.5 MLS/MIN Lorazepam 0.5 mg/ Syringe 0.5 ml @ 0.5 mls/min Q6H PRN IV 11/23/17 02:45 12/23/17 02:44 Review of Systems Constitutional: No fever, No chills, No sweats, No weight loss Cardiovascular: No chest pain Abdomen: + pain (intermittent, generalized, reports 6/10 at worst), + nausea, No vomiting (reports some mild nausea this AM), No diarrhea, No constipation Genitourinary - Male: + urinary frequency, + urinary urgency, No dysuria Integumentary: No rash, No color change Physical Exam Date Time Temp Pulse Resp B/P (MAP) Pulse Ox O2 Delivery O2 Flow Rate FiO2 11/23/17 03:57 93 Room Air 11/23/17 03:10 158/94 (115) 11/23/17 01:33 62 18 151/89 93 11/23/17 00:36 62 18 140/88 93 Room Air 11/22/17 23:24 36.5 93 20 160/95 95 Room Air General Appearance: WD/WN, no apparent distress Head: normocephalic, atraumatic Eyes: normal inspection ENT: + pertinent finding (NG tube in place, right nare 250ml output today) Neck: trachea midline Respiratory/Chest: no respiratory distress, no accessory muscle use Abdomen/GI: no organomegaly, no pulsatile mass, + tenderness (mild, generalized ), + abnormal bowel sounds (mildly hyperactive), + distended (epigastric and periumbilical areas) Neurologic/Psych: alert, normal mood/affect, oriented x 3 Skin: normal color, warm/dry, no rash Laboratory Results Last 24 Hours Test 11/23/17 00:10 11/23/17 00:24 11/23/17 05:59 Urine Color YELLOW Urine Appearance CLEAR Urine pH 6.5 Urine Specific [place] 1.018 Urine Protein NEG Urine Glucose (UA) NEG Urine Ketones NEG Urine Occult Blood TRACE Urine Nitrite NEG Urine Bilirubin NEG Urine Urobilinogen NEG Urine Leukocyte Esterase NEG Urine WBC (Auto) 1-5 /hpf Urine RBC (Auto) 5-10 /hpf Urine Hyaline Casts (Auto) 1-5 /lpf Urine Epithelial Cells (Auto) 5-10 /lpf Urine Bacteria (Auto) NEG White Blood Count 9.77 K/uL Red Blood Count 4.87 M/uL Hemoglobin 15.1 g/dL Hematocrit 43.4 % Mean Corpuscular Volume 89.1 fL Mean Corpuscular Hemoglobin 31.0 pg Mean Corpuscular Hemoglobin Concent 34.8 g/dl Platelet Count 178 K/uL Mean Platelet Volume 10.6 fL Neutrophils (%) (Auto) 84.8 % Lymphocytes (%) (Auto) 5.5 % Monocytes (%) (Auto) 9.2 % Eosinophils (%) (Auto) 0.2 % Basophils (%) (Auto) 0.1 % Neutrophils # (Auto) 8.28 K/uL Lymphocytes # (Auto) 0.54 K/uL Monocytes # (Auto) 0.90 K/uL Eosinophils # (Auto) 0.02 K/uL Basophils # (Auto) 0.01 K/uL RDW Standard Deviation 45.5 fL RDW Coefficient of Variation 13.9 % Immature Granulocyte % (Auto) 0.2 % Immature Granulocyte # (Auto) 0.02 K/uL Prothrombin Time 10.1 SECONDS Prothromb Time International Ratio 1.0 Activated Partial Thromboplast Time 26.3 SECONDS Partial Thromboplastin Ratio 1.0 Sodium Level 138 mmol/L Potassium Level 4.0 mmol/L Chloride Level 106 mmol/L Carbon Dioxide Level 24 mmol/L Anion Gap 8.0 mmol/L Blood Urea Nitrogen 29 mg/dl Creatinine 0.99 mg/dl Est Creatinine Clear Calc Drug Dose 73.3 ml/min Estimated GFR () 85.4 Estimated GFR (Non- 73.7 BUN/Creatinine Ratio 28.8 Random Glucose 120 mg/dl Calcium Level 8.5 mg/dl Total Bilirubin 0.6 mg/dl Direct Bilirubin 0.1 mg/dl Aspartate Amino Transf (AST/SGOT) 25 U/L Alanine Aminotransferase (ALT/SGPT) 25 U/L Alkaline Phosphatase 80 U/L Total Protein 6.6 gm/dl Albumin 3.1 gm/dl Lipase 80 U/L Assessment & Plan Partial small bowel obstruction vs. enteritis Will discuss findings with Dr. Ellis Pain controlled, No leukocytosis Keep NPO, IV fluids, bowel rest. Keep NG tube for now (250ml output since placement) Will continue to follow Please contact with questions or concerns.
--- NOTE | 2017-11-23 10:47 | CONSULTATION REPORT ---
DATE OF CONSULTATION: 11/23/2017 HISTORY OF PRESENT ILLNESS: Mr. Baez is a very nice 77-year-old male who has metastatic colorectal carcinoma which is recurrent. Two days ago, I performed a thoracoscopic biopsy to prove that he does indeed have metastases. He did well and was discharged home in last 24 hours, only to return late last evening with signs and symptoms consistent with a small-bowel obstruction. Quite frankly, this is not surprising given his PET scan. His dressings are dry and this CT scan of his abdomen got his lower chest and there is no evidence of any fluid pneumothorax in his chest. Unfortunately, I believe this is probably due to his recurrent disease. Hopefully, he will open up. [facility]ERKeron
--- NOTE | 2017-11-23 11:10 | Surgery Progress Note ---
Surgery Progress Note Date of Service Nov 23, 2017. Subjective + feeling well, + flatus, + pain controlled, No bowel movement, No nausea, No vomiting Objective Vital Signs: Date Time Temp Pulse Resp B/P (MAP) Pulse Ox O2 Delivery O2 Flow Rate FiO2 11/23/17 08:31 Room Air 11/23/17 03:57 93 Room Air 11/23/17 03:10 158/94 (115) 11/23/17 01:33 62 18 151/89 93 11/23/17 00:36 62 18 140/88 93 Room Air 11/22/17 23:24 36.5 93 20 160/95 95 Room Air Laboratory Results: Results Past 24 Hours Test 11/23/17 00:10 11/23/17 00:24 11/23/17 05:59 Range/Units Urine Color YELLOW Urine Appearance CLEAR CLEAR Urine pH 6.5 4.5-7.5 Urine Specific [place] 1.018 1.000-1.030 Urine Protein NEG NEG Urine Glucose (UA) NEG NEG Urine Ketones NEG NEG Urine Occult Blood TRACE NEG Urine Nitrite NEG NEG Urine Bilirubin NEG NEG Urine Urobilinogen NEG NEG Urine Leukocyte Esterase NEG NEG Urine WBC (Auto) 1-5 0-5 /hpf Urine RBC (Auto) 5-10 0-4 /hpf Urine Hyaline Casts (Auto) 1-5 0-5 /lpf Urine Epithelial Cells (Auto) 5-10 0-5 /lpf Urine Bacteria (Auto) NEG NEG White Blood Count 9.77 9.52 4.8-10.8 K/uL Red Blood Count 4.87 4.74 4.7-6.1 M/uL Hemoglobin 15.1 14.4 14.0-18.0 g/dL Hematocrit 43.4 42.3 42-52 % Mean Corpuscular Volume 89.1 89.2 80-100 fL Mean Corpuscular Hemoglobin 31.0 30.4 25-34 pg Mean Corpuscular Hemoglobin Concent 34.8 34.0 32-36 g/dl Platelet Count 178 174 130-400 K/uL Mean Platelet Volume 10.6 10.5 7.4-10.4 fL Neutrophils (%) (Auto) 84.8 % Lymphocytes (%) (Auto) 5.5 % Monocytes (%) (Auto) 9.2 % Eosinophils (%) (Auto) 0.2 % Basophils (%) (Auto) 0.1 % Neutrophils # (Auto) 8.28 1.4-6.5 K/uL Lymphocytes # (Auto) 0.54 1.2-3.4 K/uL Monocytes # (Auto) 0.90 0.11-0.59 K/uL Eosinophils # (Auto) 0.02 0-0.5 K/uL Basophils # (Auto) 0.01 0-0.2 K/uL RDW Standard Deviation 45.5 45.3 36.4-46.3 fL RDW Coefficient of Variation 13.9 13.8 11.5-14.5 % Immature Granulocyte % (Auto) 0.2 % Immature Granulocyte # (Auto) 0.02 0.00-0.02 K/uL Prothrombin Time 10.1 9.0-12.0 SECONDS Prothromb Time International Ratio 1.0 0.9-1.1 Activated Partial Thromboplast Time 26.3 21.0-31.0 SECONDS Partial Thromboplastin Ratio 1.0 Sodium Level 138 139 136-145 mmol/L Potassium Level 4.0 4.0 3.5-5.1 mmol/L Chloride Level 106 108 98-107 mmol/L Carbon Dioxide Level 24 25 21-32 mmol/L Anion Gap 8.0 6.0 3-11 mmol/L Blood Urea Nitrogen 29 26 7-18 mg/dl Creatinine 0.99 0.89 0.60-1.40 mg/dl Est Creatinine Clear Calc Drug Dose 73.3 81.1 ml/min Estimated GFR () 85.4 96.3 Estimated GFR (Non- 73.7 83.1 BUN/Creatinine Ratio 28.8 28.7 10-20 Random Glucose 120 127 70-99 mg/dl Calcium Level 8.5 8.3 8.5-10.1 mg/dl Total Bilirubin 0.6 0.2-1 mg/dl Direct Bilirubin 0.1 0-0.2 mg/dl Aspartate Amino Transf (AST/SGOT) 25 15-37 U/L Alanine Aminotransferase (ALT/SGPT) 25 12-78 U/L Alkaline Phosphatase 80 45-117 U/L Total Protein 6.6 6.4-8.2 gm/dl Albumin 3.1 3.4-5.0 gm/dl Lipase 80 73-393 U/L Assessment & Plan 77-year-old male with small bowel obstruction Patient seen and examined with Dr. Galvez Pain is controlled, denies nausea, passing gas. Will keep NG tube until patient has bowel movement. Will continue to follow. Partial small bowel obstruction vs. enteritis Will discuss findings with Dr. Ellis Pain controlled, No leukocytosis Keep NPO, IV fluids, bowel rest. Keep NG tube for now (250ml output since placement) Will continue to follow Please contact with questions or concerns.
[2017-11-23] MEDS: HYDROmorphone INJ 0.5 MG/0.5 ML SYR IV PRN ×2 (12:50→21:07)
[2017-11-23 15:38] VITALS: BP 161/88; PULSE 63; TEMP 36.9; O2SAT 97
--- NOTE | 2017-11-23 18:13 | Progress Note ---
Internal Med Progress Note Date of Service: Nov 23, 2017. Provider Documentation: SUBJECTIVE: says he is feeling better abdominal pain improved no nausea says he is passing some gas afebrile no sob OBJECTIVE: Vital Signs-as noted below Exam: General alert and awake . not in distress ENT-Normal hearing Neck-no neck masses Lungs-Cta b/l no wheezing or crackles Heart-S1 and S2 heard regular No murmurs Abdomen-Soft Bowel sounds very sluggish non tender No distension Extremities-no edema no erythema Neuro-alert and awake moves extremities Lab data as noted below. ASSESSMENT & PLAN: BOWEL OBSTRUCTION on ct scan on NG tube iv fluids iv antiemetics and iv pain meds prn improving to continue ng tube for now appreciate surgery inputs. UGI BLEED Fresh blood noted via NGT after insertion. most likely trauma from NGT placement. On Empiric famotidine. Currently green fluid draining into NG tube Will Consult GI if ongoing concern. RECTAL CA History as per HPI. Recently diagnosed with pulmonary mets. Management per Heme/onco Dr. Espana. BPH To start on finasteride when able to take PO meds. VTE PROPHYLAXIS Not on anticoagulants due to bleeding via NGT and possible need for surgical intervention. SCD's. Ambulate as able. RESUSCITATION STATUS Full as per HPI DISPOSITION to be determined expect tp d/c home and f/u with pcp and heme/onco Vital Signs: Date Time Temp Pulse Resp B/P (MAP) Pulse Ox O2 Delivery O2 Flow Rate FiO2 11/23/17 15:38 36.9 63 16 161/88 (112) 97 Room Air 11/23/17 08:31 Room Air 11/23/17 03:57 93 Room Air 11/23/17 03:10 158/94 (115) 11/23/17 01:33 62 18 151/89 93 11/23/17 00:36 62 18 140/88 93 Room Air 11/22/17 23:24 36.5 93 20 160/95 95 Room Air Lab Results: Results Past 24 Hours Test 11/23/17 00:10 11/23/17 00:24 11/23/17 05:59 Range/Units Urine Color YELLOW Urine Appearance CLEAR CLEAR Urine pH 6.5 4.5-7.5 Urine Specific [place] 1.018 1.000-1.030 Urine Protein NEG NEG Urine Glucose (UA) NEG NEG Urine Ketones NEG NEG Urine Occult Blood TRACE NEG Urine Nitrite NEG NEG Urine Bilirubin NEG NEG Urine Urobilinogen NEG NEG Urine Leukocyte Esterase NEG NEG Urine WBC (Auto) 1-5 0-5 /hpf Urine RBC (Auto) 5-10 0-4 /hpf Urine Hyaline Casts (Auto) 1-5 0-5 /lpf Urine Epithelial Cells (Auto) 5-10 0-5 /lpf Urine Bacteria (Auto) NEG NEG White Blood Count 9.77 9.52 4.8-10.8 K/uL Red Blood Count 4.87 4.74 4.7-6.1 M/uL Hemoglobin 15.1 14.4 14.0-18.0 g/dL Hematocrit 43.4 42.3 42-52 % Mean Corpuscular Volume 89.1 89.2 80-100 fL Mean Corpuscular Hemoglobin 31.0 30.4 25-34 pg Mean Corpuscular Hemoglobin Concent 34.8 34.0 32-36 g/dl Platelet Count 178 174 130-400 K/uL Mean Platelet Volume 10.6 10.5 7.4-10.4 fL Neutrophils (%) (Auto) 84.8 % Lymphocytes (%) (Auto) 5.5 % Monocytes (%) (Auto) 9.2 % Eosinophils (%) (Auto) 0.2 % Basophils (%) (Auto) 0.1 % Neutrophils # (Auto) 8.28 1.4-6.5 K/uL Lymphocytes # (Auto) 0.54 1.2-3.4 K/uL Monocytes # (Auto) 0.90 0.11-0.59 K/uL Eosinophils # (Auto) 0.02 0-0.5 K/uL Basophils # (Auto) 0.01 0-0.2 K/uL RDW Standard Deviation 45.5 45.3 36.4-46.3 fL RDW Coefficient of Variation 13.9 13.8 11.5-14.5 % Immature Granulocyte % (Auto) 0.2 % Immature Granulocyte # (Auto) 0.02 0.00-0.02 K/uL Prothrombin Time 10.1 9.0-12.0 SECONDS Prothromb Time International Ratio 1.0 0.9-1.1 Activated Partial Thromboplast Time 26.3 21.0-31.0 SECONDS Partial Thromboplastin Ratio 1.0 Sodium Level 138 139 136-145 mmol/L Potassium Level 4.0 4.0 3.5-5.1 mmol/L Chloride Level 106 108 98-107 mmol/L Carbon Dioxide Level 24 25 21-32 mmol/L Anion Gap 8.0 6.0 3-11 mmol/L Blood Urea Nitrogen 29 26 7-18 mg/dl Creatinine 0.99 0.89 0.60-1.40 mg/dl Est Creatinine Clear Calc Drug Dose 73.3 81.1 ml/min Estimated GFR () 85.4 96.3 Estimated GFR (Non- 73.7 83.1 BUN/Creatinine Ratio 28.8 28.7 10-20 Random Glucose 120 127 70-99 mg/dl Calcium Level 8.5 8.3 8.5-10.1 mg/dl Total Bilirubin 0.6 0.2-1 mg/dl Direct Bilirubin 0.1 0-0.2 mg/dl Aspartate Amino Transf (AST/SGOT) 25 15-37 U/L Alanine Aminotransferase (ALT/SGPT) 25 12-78 U/L Alkaline Phosphatase 80 45-117 U/L Total Protein 6.6 6.4-8.2 gm/dl Albumin 3.1 3.4-5.0 gm/dl Lipase 80 73-393 U/L
[2017-11-23 18:26] VITALS: BP 154/77; PULSE 63
[2017-11-23 23:01] VITALS: BP 152/83; PULSE 61; TEMP 36.8; O2SAT 95
[2017-11-24] MEDS: D5W AND 1/2NSS + 20MEQ KCL 1,000 ML IV SCH ×3 (00:06→16:50)
[2017-11-24] MEDS: ACETAMINOPHEN IV 100 ML IV PRN (02:26)
[2017-11-24 05:41] LABS: HEMATOCRIT 39.8 % (42-52); HEMOGLOBIN 13.3 g/dL (14.0-18.0); MEAN CELL VOLUME 90.5 fL (80-100); MEAN CORPUSCULAR HEMOGLOBIN 30.2 pg (25-34); MEAN CORPUSCULAR HGB CONC 33.4 g/dl (32-36); MEAN PLATELET VOLUME 9.9 fL (7.4-10.4); PLATELET COUNT 157 K/uL (130-400); RED CELL DISTRIBUTION WIDTH CV 13.9 % (11.5-14.5); WHITE BLOOD COUNT 7.62 K/uL (4.8-10.8)
[2017-11-24 07:31] VITALS: BP 170/93; PULSE 68; TEMP 37.1; O2SAT 93
--- NOTE | 2017-11-24 07:55 | Surgery Progress Note ---
Surgery Progress Note Date of Service Nov 24, 2017. Subjective + feeling well, + ambulating, + bowel movement, + flatus, + pain controlled, No complaints, No nausea, No vomiting When entering room- NG tube was being clamped so patient could ambulate to bathroom. Objective Vital Signs: Date Time Temp Pulse Resp B/P (MAP) Pulse Ox O2 Delivery O2 Flow Rate FiO2 11/24/17 07:31 37.1 68 16 170/93 (118) 93 Room Air 11/23/17 23:45 Room Air 11/23/17 23:01 36.8 61 16 152/83 (106) 95 Room Air 11/23/17 18:26 63 154/77 (102) 11/23/17 16:30 Room Air 11/23/17 15:38 36.9 63 16 161/88 (112) 97 Room Air 11/23/17 08:31 Room Air Physical Exam: nasogastric drainage (output yesterday 480cc, 150cc so far today. ) General Appearance: WD/WN, no apparent distress Head: normocephalic, atraumatic Abdomen: non tender, + distended (improvment from yesterday ) Laboratory Results: Results Past 24 Hours Test 11/24/17 05:20 11/24/17 07:15 Range/Units White Blood Count 7.62 4.8-10.8 K/uL Red Blood Count 4.40 4.7-6.1 M/uL Hemoglobin 13.3 14.0-18.0 g/dL Hematocrit 39.8 42-52 % Mean Corpuscular Volume 90.5 80-100 fL Mean Corpuscular Hemoglobin 30.2 25-34 pg Mean Corpuscular Hemoglobin Concent 33.4 32-36 g/dl RDW Standard Deviation 46.0 36.4-46.3 fL RDW Coefficient of Variation 13.9 11.5-14.5 % Platelet Count 157 130-400 K/uL Mean Platelet Volume 9.9 7.4-10.4 fL Assessment & Plan 11/24/2017- Small Bowel Obstruction Pain controlled, denies nausea or vomiting, passing flatus, +BM NG tube in place- can remove. Will start patient on clear liquids and see how he tolerates. Afebrile Will continue to follow. Patient seen and examined with Dr. Ellis. 11/23/2017 77-year-old male with small bowel obstruction Patient seen and examined with Dr. Galvez Pain is controlled, denies nausea, passing gas. Will keep NG tube until patient has bowel movement. Will continue to follow. Partial small bowel obstruction vs. enteritis Will discuss findings with Dr. Ellis Pain controlled, No leukocytosis Keep NPO, IV fluids, bowel rest. Keep NG tube for now (250ml output since placement) Will continue to follow Please contact with questions or concerns.
[2017-11-24 08:03] LABS: CALCIUM 7.8 mg/dl (8.5-10.1); CREATININE 0.94 mg/dl (0.60-1.40)
[2017-11-24] MEDS: FAMOTIDINE IV INJ 20 MG in SYRINGE 3 ML IV SCH ×2 (08:44→20:42)
--- NOTE | 2017-11-24 09:44 | Progress Note ---
Progress Note Date of Service Nov 24, 2017. Progress Note Mr Baez looks good. NG is out. Tolerated a clear liquid breakfast. Left thoracoscopy incisions are clean, and dressings removed. May shower. Dr León
[2017-11-24 15:06] VITALS: BP 159/91; PULSE 67; TEMP 36.9; O2SAT 96
--- NOTE | 2017-11-24 16:28 | Progress Note ---
Internal Med Progress Note Date of Service: Nov 24, 2017. Provider Documentation: SUBJECTIVE: moved bowels- actually having diarrhea NG tube taken off tolerating liquid diet no nausea or abdominal pain no sob OBJECTIVE: Vital Signs-as noted below Exam: General alert and awake . not in distress ENT-Normal hearing Neck-no neck masses Lungs-Cta b/l no wheezing or crackles Heart-S1 and S2 heard regular No murmurs Abdomen-Soft Bowel sounds active non tender No distension Extremities-no edema no erythema Neuro-alert and awake moves extremities Lab data as noted below. ASSESSMENT & PLAN: BOWEL OBSTRUCTION on ct scan on NG tube iv fluids iv antiemetics and iv pain meds prn moving bowels off of NG tube tolerating liquid diet continue to monitor UGI BLEED Fresh blood noted via NGT after insertion. most likely trauma from NGT placement. On Empiric famotidine. Currently green fluid draining into NG tube Will Consult GI if ongoing concern. stable RECTAL CA History as per HPI. Recently diagnosed with pulmonary mets. Management per Heme/onco Dr. Espana. BPH Proscar VTE PROPHYLAXIS Not on anticoagulants due to bleeding via NGT and possible need for surgical intervention. SCD's. Ambulate RESUSCITATION STATUS Full as per HPI DISPOSITION possible d/c in am expect tp d/c home and f/u with pcp and heme/onco Vital Signs: Date Time Temp Pulse Resp B/P (MAP) Pulse Ox O2 Delivery O2 Flow Rate FiO2 11/24/17 15:06 36.9 67 16 159/91 (113) 96 Room Air 11/24/17 07:49 Room Air 11/24/17 07:31 37.1 68 16 170/93 (118) 93 Room Air 11/23/17 23:45 Room Air 11/23/17 23:01 36.8 61 16 152/83 (106) 95 Room Air 11/23/17 18:26 63 154/77 (102) 11/23/17 16:30 Room Air Lab Results: Results Past 24 Hours Test 11/24/17 05:20 11/24/17 07:15 Range/Units White Blood Count 7.62 4.8-10.8 K/uL Red Blood Count 4.40 4.7-6.1 M/uL Hemoglobin 13.3 14.0-18.0 g/dL Hematocrit 39.8 42-52 % Mean Corpuscular Volume 90.5 80-100 fL Mean Corpuscular Hemoglobin 30.2 25-34 pg Mean Corpuscular Hemoglobin Concent 33.4 32-36 g/dl RDW Standard Deviation 46.0 36.4-46.3 fL RDW Coefficient of Variation 13.9 11.5-14.5 % Platelet Count 157 130-400 K/uL Mean Platelet Volume 9.9 7.4-10.4 fL Sodium Level 138 136-145 mmol/L Potassium Level 4.0 3.5-5.1 mmol/L Chloride Level 108 98-107 mmol/L Carbon Dioxide Level 25 21-32 mmol/L Anion Gap 5.0 3-11 mmol/L Blood Urea Nitrogen 18 7-18 mg/dl Creatinine 0.94 0.60-1.40 mg/dl Est Creatinine Clear Calc Drug Dose 76.8 ml/min Estimated GFR () 90.9 Estimated GFR (Non- 78.4 BUN/Creatinine Ratio 19.4 10-20 Random Glucose 104 70-99 mg/dl Calcium Level 7.8 8.5-10.1 mg/dl
[2017-11-24 23:50] VITALS: BP 142/86; PULSE 71; TEMP 36.9; O2SAT 93
--- NOTE | 2017-11-25 07:19 | Surgery Progress Note ---
Surgery Progress Note Date of Service Nov 25, 2017. Subjective + feeling well, + ambulating, + bowel movement, + flatus, + pain controlled, No complaints, No nausea, No vomiting Objective Vital Signs: Date Time Temp Pulse Resp B/P (MAP) Pulse Ox O2 Delivery O2 Flow Rate FiO2 11/24/17 23:50 36.9 71 16 142/86 (104) 93 Room Air 11/24/17 23:00 Room Air 11/24/17 16:00 Room Air 11/24/17 15:06 36.9 67 16 159/91 (113) 96 Room Air 11/24/17 07:49 Room Air 11/24/17 07:31 37.1 68 16 170/93 (118) 93 Room Air General Appearance: WD/WN, no apparent distress Head: normocephalic, atraumatic Respiratory/Chest: no respiratory distress, no accessory muscle use Abdomen: soft, + pertinent finding (distention improving. ) Assessment & Plan 11/22/2017- Small Bowel Obstruction NG tube out- patient denies nausea or vomiting. Pain controlled. Tolerating clear liquids- will advance to full liquids and see how he does. Reporting multiple episodes of diarrhea between last night and this AM- reassured patient that this is not uncommon with a resolving SBO. Possible discharge today if pain is controlled and he tolerates advancing diet. 11/24/2017- Small Bowel Obstruction Pain controlled, denies nausea or vomiting, passing flatus, +BM NG tube in place- can remove. Will start patient on clear liquids and see how he tolerates. Afebrile Will continue to follow. Patient seen and examined with Dr. Ellis. 11/23/2017 77-year-old male with small bowel obstruction Patient seen and examined with Dr. Galvez Pain is controlled, denies nausea, passing gas. Will keep NG tube until patient has bowel movement. Will continue to follow. Partial small bowel obstruction vs. enteritis Will discuss findings with Dr. Ellis Pain controlled, No leukocytosis Keep NPO, IV fluids, bowel rest. Keep NG tube for now (250ml output since placement) Will continue to follow Please contact with questions or concerns.
[2017-11-25 07:51] VITALS: BP 150/84; PULSE 69; TEMP 37; O2SAT 93
[2017-11-25] MEDS: FAMOTIDINE IV INJ 20 MG in SYRINGE 3 ML IV SCH ×2 (08:21→20:40)
[2017-11-25] MEDS: D5W AND 1/2NSS + 20MEQ KCL 1,000 ML IV SCH (11:08)
[2017-11-25 15:40] VITALS: O2SAT 95
[2017-11-25 15:47] VITALS: BP 159/95; PULSE 61; TEMP 36.7; O2SAT 95
--- NOTE | 2017-11-25 19:02 | Progress Note ---
Internal Med Progress Note Date of Service: Nov 25, 2017. Provider Documentation: SUBJECTIVE: still having diarrhea but getting better denies nausea or abdominal pain tolerating regular diet' afebrile OBJECTIVE: Vital Signs-as noted below Exam: General alert and awake . not in distress ENT-Normal hearing Neck-no neck masses Lungs-Cta b/l no wheezing or crackles Heart-S1 and S2 heard regular No murmurs Abdomen-Soft Bowel sounds active non tender No distension Extremities-no edema no erythema Neuro-alert and awake moves extremities Lab data as noted below. ASSESSMENT & PLAN: BOWEL OBSTRUCTION on ct scan on NG tube iv fluids iv antiemetics and iv pain meds prn moving bowels off of NG tube tolerating regular having diarrhea now continue to monitor UGI BLEED Fresh blood noted via NGT after insertion. most likely trauma from NGT placement. On Empiric famotidine. Currently green fluid draining into NG tube Will Consult GI if ongoing concern. stable RECTAL CA History as per HPI. Recently diagnosed with pulmonary mets. Management per Heme/onco Dr. Espana. BPH Proscar VTE PROPHYLAXIS Not on anticoagulants due to bleeding via NGT and possible need for surgical intervention. SCD's. Ambulate RESUSCITATION STATUS Full as per HPI DISPOSITION possible d/c in am expect to d/c home and f/u with pcp and heme/onco Vital Signs: Date Time Temp Pulse Resp B/P (MAP) Pulse Ox O2 Delivery O2 Flow Rate FiO2 11/25/17 15:47 36.7 61 17 159/95 (116) 95 Room Air 11/25/17 15:40 95 Room Air 11/25/17 07:51 37.0 69 20 150/84 (106) 93 Room Air 11/25/17 07:35 Room Air 11/24/17 23:50 36.9 71 16 142/86 (104) 93 Room Air 11/24/17 23:00 Room Air
[2017-11-25 23:40] VITALS: BP 162/83; PULSE 64; TEMP 36.7; O2SAT 93
[2017-11-26 07:09] VITALS: BP 151/89; PULSE 60; TEMP 36.6; O2SAT 95
[2017-11-26] MEDS: D5W AND 1/2NSS + 20MEQ KCL 1,000 ML IV SCH (07:16)
[2017-11-26] MEDS ORDERED: FINASTERIDE 5 MG TAB PO SCH (09:00)
[2017-11-26] MEDS: FAMOTIDINE IV INJ 20 MG in SYRINGE 3 ML IV SCH (09:08)
--- NOTE | 2017-11-26 09:09 | Surgery Progress Note ---
Surgery Progress Note Date of Service Nov 26, 2017. Subjective + feeling well, + ambulating, + bowel movement, + flatus, + pain controlled, No complaints, No nausea, No vomiting Objective Vital Signs: Date Time Temp Pulse Resp B/P (MAP) Pulse Ox O2 Delivery O2 Flow Rate FiO2 11/26/17 07:09 36.6 60 19 151/89 (109) 95 Room Air 11/26/17 00:05 Room Air 11/25/17 23:40 36.7 64 16 162/83 (109) 93 Room Air 11/25/17 15:47 36.7 61 17 159/95 (116) 95 Room Air 11/25/17 15:40 95 Room Air 11/25/17 07:51 37.0 69 20 150/84 (106) 93 Room Air General Appearance: WD/WN, no apparent distress Respiratory/Chest: no respiratory distress, no accessory muscle use Abdomen: non tender, soft, + pertinent finding (abdominal distention greatly improved. ) Assessment & Plan 11/26/2017- Small Bowel Obstruction Patient happy that he stayed one more day- diarrhea stopped yesterday afternoon, tolerated regular diet, denies nausea or vomiting. Return precautions discussed with patient. Ok to discharge from gen sx standpoint- discharge per medicine team. 11/25/2017- Small Bowel Obstruction NG tube out- patient denies nausea or vomiting. Pain controlled. Tolerating clear liquids- will advance to full liquids and see how he does. Reporting multiple episodes of diarrhea between last night and this AM- reassured patient that this is not uncommon with a resolving SBO. Possible discharge today if pain is controlled and he tolerates advancing diet.
--- NOTE | 2017-11-26 12:21 | Discharge Instructions ---
Discharge Instructions Date of Service Nov 26, 2017. Admission Reason for Admission: Bowel Obstruction Discharge Discharge Diagnosis / Problem: SBO Discharge Goals Goal(s): Decrease discomfort, Improve function Activity Recommendations Activity Limitations: resume your previous activity . Instructions / Follow-Up Instructions / Follow-Up FOLLOWUP WITH FAMILY DOCTOR ON Nov 9:45AM FOLLOWUP WITH HEME/ONCO SCHEDULED Current Hospital Diet Patient's current hospital diet: Regular Diet Discharge Diet Recommended Diet: Regular Diet Pending Studies Studies pending at discharge: no Medical Emergencies . Who to Call and When: Medical Emergencies: If at any time you feel your situation is an emergency, please call 911 immediately. . Non-Emergent Contact Non-Emergency issues call your: Primary Care Provider . . "Provider Documentation" section prepared by Aldair Lambert. . VTE Core Measure Inpt VTE Proph given/why not?: SCD's
[2017-11-26 13:02] VITALS: BP 151/89; PULSE 60; TEMP 36.6; O2SAT 95
--- NOTE | 2017-11-26 14:07 | Progress Note ---
Internal Med Progress Note Date of Service: Nov 26, 2017. Provider Documentation: SUBJECTIVE: DIARRHEA ALMOST RESOLVED TOLERATING REGULAR DIET NO NAUSEA OR ABDOMINAL PAIN AFEBRILE OK TO GO HOME OBJECTIVE: Vital Signs-as noted below Exam: General alert and awake . not in distress ENT-Normal hearing Neck-no neck masses Lungs-Cta b/l no wheezing or crackles Heart-S1 and S2 heard regular No murmurs Abdomen-Soft Bowel sounds active non tender No distension Extremities-no edema no erythema Neuro-alert and awake moves extremities Lab data as noted below. ASSESSMENT & PLAN: BOWEL OBSTRUCTION on ct scan on NG tube iv fluids iv antiemetics and iv pain meds prn moving bowels off of NG tube tolerating regular then had diarrhea for couple of days which is resolved now continue to monitor UGI BLEED Fresh blood noted via NGT after insertion. most likely trauma from NGT placement. On Empiric famotidine. Will Consult GI if ongoing concern. stable RECTAL CA History as per HPI. Recently diagnosed with pulmonary mets. Management per Heme/onco Dr. Espana. BPH Proscar discharged home Vital Signs: Date Time Temp Pulse Resp B/P (MAP) Pulse Ox O2 Delivery O2 Flow Rate FiO2 11/26/17 13:02 36.6 60 19 95 Room Air 11/26/17 07:50 Room Air 11/26/17 07:09 36.6 60 19 151/89 (109) 95 Room Air 11/26/17 00:05 Room Air 11/25/17 23:40 36.7 64 16 162/83 (109) 93 Room Air 11/25/17 15:47 36.7 61 17 159/95 (116) 95 Room Air 11/25/17 15:40 95 Room Air
--- NOTE | 2017-11-26 14:08 | Discharge Summary ---
Discharge Summary Date of Service Nov 26, 2017. Discharge Summary Admission Date: Nov 23, 2017 at 00:56 Discharge Date: Nov 26, 2017 Discharge Disposition: Home Principal Diagnosis: SBO Secondary Diagnoses/Problems: (1) BPH (benign prostatic hypertrophy) Status: Chronic (2) Lung metastases Permanent Comment: thorascopic biopsy 11/21/17 - adenocarcinoma Status: Chronic (3) Rectal cancer Permanent Comment: DIAGNOSIS: Rectal cancer, adenocarcinoma, [id number], stage IIIC with invasion into anterior pelvic structures (potentially bladder) 1 cycle of XELOX Status post completion of combined radiation and chemotherapy 07/18/2016 received 5040 cGy Chemotherapy comprised of Xeloda Status post low anterior resection 09/10/2016 coloproctostomy and diverting colostomy Stage ypT3 ypN0 Status post reversal of ileostomy 11/28/2016 Status: Chronic Procedures: CT ABD/PELVIS: 1. A few scattered soft tissue nodules seen within the abdomen consistent with metastatic disease. One of the soft tissue nodules is adjacent to the distal left ureter at the level of the iliac vessels with an associated transition point. Therefore, this could result in the mild left hydroureteronephrosis. 2. Bilateral pulmonary nodules consistent with metastatic disease. 3. Distended loops of small bowel within the mid to lower abdomen with mild thickening and narrowing within the distal loops of small bowel. Therefore, this favors a partial small bowel obstruction. There may also be a proximal transition point at the distended small bowel. Therefore, a developing closed loop obstruction is considered less likely but not entirely excluded. Surgical consultation is recommended. 4. Presacral soft tissue thickening which is nonspecific. However, this has a slightly nodular appearance and could also represent metastatic disease. 5. Moderate rectal wall thickening consistent with a nonspecific proctitis. 6. Cholelithiasis. 7. Left-sided nephrolithiasis. 8. Small left-sided ventral hernia containing a knuckle of small bowel. However, this does not result in a site of obstruction. Consultations: SURGERY Medication Reconciliation Continued Medications: Acetaminophen (Tylenol) 500 Mg Tab 500 MG PO PRN for PRN, TAB Finasteride (Proscar) 5 Mg Tab 5 MG PO QAM, TAB Admission Information HPI (per Admitting provider): 77 YO male followed by Donnie Cates PA-C for primary care and Dr. Bernardo Espana for Medical Oncology. History of rectal carcinoma diagnosed March 2016. [place] [facility] [place] Takedown of colostomy, resection, ileostomy performed Sep 2016. Ileostomy reversed Nov. Received adjuvant chemotherapy and radiation. PET 10/30/07 showed multiple active lung nodules and multiple peritoneal implants. Colonoscopy 11/08/17 demonstrated stenosis at anastomosis. Admitted to [facility] 11/21 for thorascopic biopsy of left lung mass and placement of port for venous access. 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 Discharged yesterday morning. Presented to ED tonight with abdominal discomfort and distention. Abdominal pain is diffuse, moderately severe. Experiencing nausea, but no emesis. Last bowel movement 2-3 days prior to admission. Not passing any flatus. No fever. Tried Dulcolax tablets at home without relief. NGT placed in ED with some relief of the abdominal discomfort. . Physical Exam (per Admitting): General Appearance: + moderate distress Head: normocephalic, atraumatic Eyes: normal inspection, PERRL, EOMI, sclerae normal, + pertinent finding ( conjunctivae clear) ENT: hearing grossly normal, pharynx normal, + pertinent finding (NGT with fresh blood) Neck: supple, no adenopathy, thyroid normal, no JVD, trachea midline, + pertinent finding (left neck bandaged) Respiratory/Chest: lungs clear, no respiratory distress, no accessory muscle use, + pertinent finding (left chest bandaged) Cardiovascular: regular rate, rhythm, no edema, no gallop, no JVD, no murmur , normal peripheral pulses Abdomen/GI: + pertinent finding (quiet bowel sounds, moderately distended, firm, diffuse moderate tenderness without rebound, no palpable masses or hepatosplenomegaly apprecated) Extremities/Musculoskelatal: normal inspection, no calf tenderness, normal capillary refill, no pedal edema 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 most likely trauma from NGT placement. On Empiric famotidine. Will Consult GI if ongoing concern. stable RECTAL CA History as per HPI. Recently diagnosed with pulmonary mets. Management per Heme/onco Dr. Espana. BPH Proscar discharged home Total time spent on discharge = 35MINUTES This includes examination of the patient, discharge planning, medication reconciliation, and communication with other providers. Discharge Instructions Discharge Instructions Date of Service Nov 26, 2017. Admission Reason for Admission: Bowel Obstruction Discharge Discharge Diagnosis / Problem: SBO Discharge Goals Goal(s): Decrease discomfort, Improve function Activity Recommendations Activity Limitations: resume your previous activity . Instructions / Follow-Up Instructions / Follow-Up FOLLOWUP WITH FAMILY DOCTOR ON Nov 9:45AM FOLLOWUP WITH DANA/ONCErnesto SCHEDULED Current Hospital Diet Patient's current hospital diet: Regular Diet Discharge Diet Recommended Diet: Regular Diet Pending Studies Studies pending at discharge: no Medical Emergencies . Who to Call and When: Medical Emergencies: If at any time you feel your situation is an emergency, please call 911 immediately. . Non-Emergent Contact Non-Emergency issues call your: Primary Care Provider . . "Provider Documentation" section prepared by Aldair Lambert. . VTE Core Measure Inpt VTE Proph given/why not?: SCD's
[2018-01-02] MEDS ORDERED: ACET-1256 PO (08:33)
== END 2017-11-26 13:50 | disposition home or self-care (01) | DRG 389 ==
LOC: C.EDB 23:22 → C.MSN 11-23 00:56 → ENRESERV 11-23 01:07
PROVIDERS: ADMIT Hospitalist; ATTEND Internal Medicine
DX: K56.690 Other partial intestinal obstruction (principal); C20 Malignant neoplasm of rectum; C78.02 Secondary malignant neoplasm of left lung; C78.01 Secondary malignant neoplasm of right lung; K91.89 Other postprocedural complications and disorders of digestive system; K92.2 Gastrointestinal hemorrhage, unspecified; T88.8XXA Other specified complications of surgical and medical care, not elsewhere classified, initial encounter; N40.0 Benign prostatic hyperplasia without lower urinary tract symptoms; Z98.890 Other specified postprocedural states; Z90.49 Acquired absence of other specified parts of digestive tract; Z92.21 Personal history of antineoplastic chemotherapy; Z92.3 Personal history of irradiation; Z87.891 Personal history of nicotine dependence; Z82.49 Family history of ischemic heart disease and other diseases of the circulatory system

== ENCOUNTER → 2017-12-04 | Outpatient (CLI) | payer OTHER ==
[~2017-12-04] MED LIST changes: +ACET-1256 PO; +CHOL4POW PO; +DIPH-416 PO; +DPH/ PO; +ONDA-63 PO; +PROC10TA5 PO; +PRS5 PO; -ULT50X PO
--- NOTE | 2017-12-04 12:27 | DIAGNOSTIC IMAGING REPORT ---
CHEST 2 VIEWS ROUTINE CLINICAL HISTORY: R91.1 Pulmonary [id number] lung nodule COMPARISON STUDY: 11/22/2017 FINDINGS: Bilateral pulmonary nodules are again noted. These involve the right hilar region, as well as mid to lower lung regions on the left as well as right. These appear slightly increased in prominence bilaterally. No significant new or interval nodules are present. No evidence for cardiac enlargement. Central catheter at the juncture of the subclavian and superior vena cava regions. IMPRESSION: Bilateral parenchymal nodularity slightly increased in prominence compared to the prior study. The above report was generated using voice recognition software. It may contain grammatical, syntax or spelling errors. Electronically signed by: Saul Merino M.D. 12/04/2017 12:26 PM Dictated Date/Time: 12/04/2017 12:24 PM
== END | disposition home or self-care (01) ==
LOC: C.RAD1850 12:08
PROVIDERS: ATTEND Surgery
DX: R91.1 Solitary pulmonary nodule (principal)

== ENCOUNTER 2018-01-02 19:01 | Emergency (ER) | payer OTHER ==
[~2018-01-02] VITALS: Ht 177.8 cm; Wt 87.0 kg
[~2018-01-02 19:01] MED LIST changes: -CHOL4POW PO; -DIPH-416 PO; -DPH/ PO; -ONDA-63 PO; -PROC10TA5 PO; -PRS5 PO
[2018-01-02 19:16] VITALS: Ht 177.8 cm; Wt 87.0 kg
[2018-01-02] MEDS ORDERED: ONDA-63 PO (21:35)
[2018-01-02] MEDS ORDERED: DIPH-416 PO (21:35)
[2018-01-02] MEDS ORDERED: CMP/10 PO (21:35)
[2018-01-02] MEDS ORDERED: PRS5 PO (21:35)
[2018-01-02] MEDS ORDERED: ONDANSETRON INJ 2 MG/ML 2 ML VIAL IV STA (22:40)
[2018-01-02] MEDS ORDERED: SODIUM CHLORIDE 0.9% 1000ML 1,000 ML IV STA (22:40)
[2018-01-02 23:07] LABS: BASO % 0.1 %; BASO ABS # 0.01 K/uL (0-0.2); EOS % 2.5 %; HEMATOCRIT 44.3 % (42-52); HEMOGLOBIN 15.3 g/dL (14.0-18.0); IG# 0.06 K/uL (0.00-0.02); LYMPH % 11.6 %; LYMPH ABS # 0.94 K/uL (1.2-3.4); MEAN CELL VOLUME 87.4 fL (80-100); MEAN CORPUSCULAR HEMOGLOBIN 30.2 pg (25-34); MEAN CORPUSCULAR HGB CONC 34.5 g/dl (32-36); MEAN PLATELET VOLUME 10.5 fL (7.4-10.4); MONO % 9.4 %; MONO ABS # 0.76 K/uL (0.11-0.59); NEUT % 75.7 %; NEUT ABS # 6.12 K/uL (1.4-6.5); PLATELET COUNT 212 K/uL (130-400); RED CELL DISTRIBUTION WIDTH CV 13.4 % (11.5-14.5); RED CELL DISTRIBUTION WIDTH SD 42.4 fL (36.4-46.3); WHITE BLOOD COUNT 8.09 K/uL (4.8-10.8)
[2018-01-02 23:16] LABS: CALCIUM 8.8 mg/dl (8.5-10.1); CREATININE 1.08 mg/dl (0.60-1.40); POTASSIUM 3.2 mmol/L (3.5-5.1)
[2018-01-02 23:19] LABS: TOTAL PROTEIN 6.8 gm/dl (6.4-8.2)
--- NOTE | 2018-01-02 23:42 | EMERGENCY ROOM VISIT NOTE ---
History Report prepared by Grayson: Tasia Romero Under the Supervision of: Dr. Akshat Simmons M.D. First contact with patient: 22:23 Chief Complaint: DIARRHEA Stated Complaint: CHEMO TX LAST SAT, EXTREME DIARRHEA Nursing Triage Summary: Pt complains of diarrhea for a week. Pt has history of rectal cancer and is receiving chemo. History of Present Illness The patient is a 77 year old male with a past medical history of rectal cancer who presents to the ED with a cc of constant diarrhea beginning a few weeks ago. The patient notes that he is on chemotherapy and had his last chemo treatment last week. He states that he had a colonic stent placed with an endo clip on the . Positive for drinking well water, but notes that no one else is sick. Negative recent travel, recent antibiotic use, being outdoors recently, nausea, vomiting, and hematochezia. Source of History: patient Onset: a few weeks ago Position: other (global) Quality: other (global) Timing: constant Associated Symptoms: No nausea, No vomiting, No hematochezia Review of Systems See HPI for pertinent positives and negatives. A total of ten systems were reviewed and were otherwise negative. Past Medical & Surgical Medical Problems: (1) BPH (benign prostatic hypertrophy) (2) Lung metastases (3) Rectal cancer Surgical Problems: (1) History of vascular access device (2) Status post colostomy (3) Status post colostomy takedown (4) Status post ileostomy Family History FH: cancer FH: hypertension Heart disease Social History Smoking Status: Former Smoker Alcohol Use: none Drug Use: none Marital Status: Housing Status: lives with significant other Occupation Status: unemployed Current/Historical Medications Scheduled Cholestyramine Light (Cholestyramine Light), 1 PKT PO BID Diphenoxylate W/ Atropine (Lomotil), 1 TAB PO BID Finasteride (Finasteride), 5 MG PO QAM Scheduled PRN Acetaminophen (Tylenol), 1,000 MG PO Q8 PRN for Pain or Fever Diphenoxylate/Atropine (Lomotil), 1 TAB PO QID PRN for Diarrhea Ondansetron (Ondansetron HCl), 8 MG PO Q8H PRN for Nausea Prochlorperazine Maleate (Prochlorperazine Maleate), 10 MG PO Q6H PRN for Nausea Allergies Coded Allergies: No Known Allergies (Unverified , 11/21/17) Physical Exam Vital Signs Date Time Temp Pulse Resp B/P (MAP) Pulse Ox O2 Delivery O2 Flow Rate FiO2 01/03/18 01:26 36.8 99 19 132/102 96 01/03/18 00:35 92 19 137/96 94 Room Air 01/02/18 23:12 96 17 118/96 96 Room Air 01/02/18 21:16 91 01/02/18 21:10 94 20 130/94 95 Room Air 01/02/18 19:16 36.8 115 20 139/93 97 Room Air Physical Exam GENERAL: Awake, alert, well-appearing, NAD HENT: Normocephalic, atraumatic. EYES: Normal conjunctiva. Sclera non-icteric. NECK: Supple. No nuchal rigidity. FROM. RESPIRATORY: CTAB, no rhonchi, wheezing, crackles CARDIAC: RRR, no MRG ABDOMEN: Soft, NTND, BS+, surgical scars over the abdomen MSK: No chest wall TTP, no LE edema, port in left chest NEURO: GCS 15, CN 2-12 intact, moves all 4s on command SKIN: No rash or jaundice noted. Medical Decision & Procedures Laboratory Results 01/02/18 21:00 Red Blood Count 5.07, Mean Corpuscular Volume 87.4, Mean Corpuscular Hemoglobin 30.2, Mean Corpuscular Hemoglobin Concent 34.5, Mean Platelet Volume 10.5, Neutrophils (%) (Auto) 75.7, Lymphocytes (%) (Auto) 11.6, Monocytes (%) (Auto) 9.4, Eosinophils (%) (Auto) 2.5, Basophils (%) (Auto) 0.1, Neutrophils # (Auto) 6.12, Lymphocytes # (Auto) 0.94, Monocytes # (Auto) 0.76, Eosinophils # (Auto) 0.20, Basophils # (Auto) 0.01 01/02/18 21:00 Test 01/02/18 21:00 01/02/18 23:32 White Blood Count 8.09 K/uL (4.8-10.8) Red Blood Count 5.07 M/uL (4.7-6.1) Hemoglobin 15.3 g/dL (14.0-18.0) Hematocrit 44.3 % (42-52) Mean Corpuscular Volume 87.4 fL (80-100) Mean Corpuscular Hemoglobin 30.2 pg (25-34) Mean Corpuscular Hemoglobin Concent 34.5 g/dl (32-36) Platelet Count 212 K/uL (130-400) Mean Platelet Volume 10.5 fL (7.4-10.4) Neutrophils (%) (Auto) 75.7 % Lymphocytes (%) (Auto) 11.6 % Monocytes (%) (Auto) 9.4 % Eosinophils (%) (Auto) 2.5 % Basophils (%) (Auto) 0.1 % Neutrophils # (Auto) 6.12 K/uL (1.4-6.5) Lymphocytes # (Auto) 0.94 K/uL (1.2-3.4) Monocytes # (Auto) 0.76 K/uL (0.11-0.59) Eosinophils # (Auto) 0.20 K/uL (0-0.5) Basophils # (Auto) 0.01 K/uL (0-0.2) RDW Standard Deviation 42.4 fL (36.4-46.3) RDW Coefficient of Variation 13.4 % (11.5-14.5) Immature Granulocyte % (Auto) 0.7 % Immature Granulocyte # (Auto) 0.06 K/uL (0.00-0.02) Anion Gap 10.0 mmol/L (3-11) Est Creatinine Clear Calc Drug Dose 60.1 ml/min Estimated GFR () 76.9 Estimated GFR (Non- 66.3 BUN/Creatinine Ratio 20.9 (10-20) Calcium Level 8.8 mg/dl (8.5-10.1) Total Bilirubin 0.5 mg/dl (0.2-1) Direct Bilirubin 0.1 mg/dl (0-0.2) Aspartate Amino Transf (AST/SGOT) 37 U/L (15-37) Alanine Aminotransferase (ALT/SGPT) 60 U/L (12-78) Alkaline Phosphatase 111 U/L (45-117) Total Protein 6.8 gm/dl (6.4-8.2) Albumin 3.0 gm/dl (3.4-5.0) Lipase 78 U/L (73-393) Urine Color YELLOW Urine Appearance CLEAR (CLEAR) Urine pH 5.0 (4.5-7.5) Urine Specific Beasley 1.020 (1.000-1.030) Urine Protein NEG (NEG) Urine Glucose (UA) NEG (NEG) Urine Ketones 1+ (NEG) Urine Occult Blood NEG (NEG) Urine Nitrite NEG (NEG) Urine Bilirubin NEG (NEG) Urine Urobilinogen NEG (NEG) Urine Leukocyte Esterase NEG (NEG) Date/Time Source Procedure Growth Status 01/02/18 21:00 Stool C.difficile Toxin B Gene (PCR) - Final No C. difficile toxin B gene detected Complete Medications Administered Medications (Trade) Dose Ordered Sig/Donny Route Start Time Stop Time Status Last Admin Dose Admin Sodium Chloride 1,000 ml @ 999 mls/hr Q1H1M STAT IV 01/02/18 22:40 01/02/18 23:40 DC 01/02/18 22:40 999 MLS/HR Ondansetron HCl (Zofran Inj) 4 mg NOW STAT IV 01/02/18 22:40 01/02/18 22:42 DC 01/02/18 23:05 4 MG Magnesium Oxide (Mag-Ox Tab) 800 mg ONE STAT PO 01/03/18 00:47 01/03/18 00:48 DC 01/03/18 01:01 800 MG Potassium Chloride (Klor-Con M10) 40 meq STK-MED ONCE .ROUTE 01/03/18 00:54 01/03/18 00:55 DC 01/03/18 01:00 40 MEQ ECG Indication: weakness Rate (beats per minute): 92 Rhythm: sinus rhythm Findings: 1st degree AV block, Q waves (in leads 3 and aVF), left axis deviation, other (no other STS or TWI changes) Comparison ECG Date: 11/19/2016 Change: no significant change Change: Patient's electrocardiogram interpreted by me. ED Course 2232: The patient was evaluated in room C9. A complete history and physical exam was performed. 0048: I reevaluated the patient. Discussed results and discharge instructions: He verbalized understanding and agreement. The patient is ready for discharge. Medical Decision The patient is a 77 year old male with a past medical history of rectal cancer who presents to the ED with a cc of constant diarrhea beginning a few weeks ago. Differential diagnosis: Etiologies such as appendicitis, diverticulitis, PUD, biliary pathology, UTI, pancreatitis, obstruction, mesenteric ischemia, aortic pathology, infections, inflammatory bowel disease, renal colic, as well as others were entertained. Patient was seen and evaluated the bedside. Patient has had some persistent diarrhea has been ongoing for several weeks. Patient feels that he is dehydrated. Patient has had no blood. Patient had chemotherapy last week. No radiation. Patient did have a colonic sent as well as an occult click placed [place] [facility] [place] his colorectal surgeon. On exam the patient is fairly well- appearing. Patient does have a port in the left chest. Patient did have blood work completed. Patient's blood work was fairly unremarkable. Patient does have some prerenal azotemia likely consistent with dehydration. Patient did receive fluids. Patient did have mild hypokalemia which was repleted with magnesium and potassium. I do not believe that that the patient requires further evaluation and treatment at this time. Patient is otherwise fairly well -appearing has a normal white blood cell count. Patient is without fever. Patient was told he may try a short course of antidiarrheals. He was also told he may try some cholestyramine. Patient was told to follow-up with his PCP. Patient was deemed suitable for outpatient follow-up and treatment at this time. Patient was given strict follow-up, discharge, and return precautions. All questions were answered. Patient was deemed suitable for outpatient follow- up at this time. Patient agreed with the plan of care and was safely discharged home. The chart was completed utilizing [employer] Speech voice recognition software. Grammatical errors, random word insertions, pronoun errors, and incomplete sentences are an occasional consequence of this system due to software limitations, ambient noise, and hardware issues. Any formal questions or concerns about the content, text, or information contained within the body of this dictation should be directly addressed to the physician for clarification. Medication Reconcilliation Current Medication List: was personally reviewed by me Blood Pressure Screening Patient's blood pressure: Normal blood pressure Blood pressure disposition: Did not require urgent referral Impression Primary Impression: Diarrhea Additional Impression: Hypokalemia Scribe Attestation The scribe's documentation has been prepared under my direction and personally reviewed by me in its entirety. I confirm that the note above accurately reflects all work, treatment, procedures, and medical decision making performed by me. Departure Information Dispostion Home / Self-Care Prescriptions Diphenoxylate W/ Atropine (LOMOTIL) 1 Tab Tab 1 TAB PO BID for 5 Days, #10 TAB Prov: Akshat Simmons M.D. 01/03/18 Cholestyramine Light (CHOLESTYRAMINE LIGHT) 4 Gm/Dose Pow 1 PKT PO BID for 30 Days, #60 PKT Prov: Akshat Simmons M.D. 01/03/18 Referrals No Doctor, Assigned (PCP) Forms HOME CARE DOCUMENTATION FORM, IMPORTANT VISIT INFORMATION, WORK / SCHOOL INSTRUCTIONS Patient Instructions Diarrhea, Hypokalemia Dc, My [facility] Additional Instructions Please return to the emergency department if you have worsening or recurrent symptoms not amenable to at-home treatment. Please call for a follow-up appointment with her primary care physician. Please take your medications as prescribed. If you have other concerns and/or complaints please feel free to also call your primary care physician's office or return the ED for further evaluation, management, and treatment. You may take the Lomotil as directed. If you're diarrhea improves you may stop taking this. You may also take the cholestyramine. I would take this for the entire month to see if it helps with her diarrhea. Take your medications as prescribed. If taking an antibiotic consider taking a probiotic and/or eating yogurt, but at the least, please take with food as it can cause upset stomach. If culture results are not available at discharge, if they are positive for concern of infection, you will be informed of the results as soon as they are available. If you were seen between 11pm and 7AM all radiology reads will be re-read by our in house staff. If any major discrepancies are discovered, you will be notified. You have been examined and treated today on an emergency basis only. This is not a substitute for, or an effort to provide, complete comprehensive medical care. It is impossible to recognize and treat all injuries or illnesses in a single emergency department visit. It is therefore important that you follow up closely with [facility], your PCP, and/or your specialist(s). Call as soon as possible for an appointment. Thank you for your time and consideration. I look forward to speaking with you again soon. Please don't hesitate to call us if you have any questions. Problem Qualifiers Primary Impression: Diarrhea Diarrhea type: unspecified type Qualified Codes: R19.7 - Diarrhea, unspecified
[2018-01-03] MEDS ORDERED: POTASSIUM CHLORIDE 20 MEQ TABCR PO STA (00:47)
[2018-01-03] MEDS ORDERED: MAGNESIUM OXIDE 400 MG TAB PO STA (00:47)
[2018-01-03] MEDS ORDERED: POTASSIUM CHLORIDE 10 MEQ TABCR ONE (00:54)
[2018-01-03] MEDS ORDERED: CHOL4POW PO (01:00)
[2018-01-03] MEDS ORDERED: DPH/ PO (01:00)
[2018-01-03 01:26] VITALS: BP 132/102; PULSE 99; TEMP 36.8; O2SAT 96
== END 2018-01-03 01:27 | disposition home or self-care (01) ==
LOC: C.EDB 19:02 → C.EDC 01-03 01:27
DX: R19.7 Diarrhea, unspecified (principal); E87.6 Hypokalemia; C20 Malignant neoplasm of rectum; N40.0 Benign prostatic hyperplasia without lower urinary tract symptoms; Z87.891 Personal history of nicotine dependence; Z93.3 Colostomy status; Z93.2 Ileostomy status; Z98.890 Other specified postprocedural states; Z82.49 Family history of ischemic heart disease and other diseases of the circulatory system; Z79.899 Other long term (current) drug therapy

== ENCOUNTER 2018-12-23 21:45 | Inpatient (IN) ==
[2018-12-23] MEDS ORDERED: DICYCLOMINE HCL 10 MG/ML 2 ML AMP/VIAL IM ONE (22:11)
--- NOTE | 2018-12-23 22:12 | Emergency Department Note ---
ED Visit Note I have seen and examined this patient with Leidy Mayers and generally agree with the treatment plan as discussed. .
[2018-12-23] MEDS ORDERED: ONDANSETRON INJ 2 MG/ML 2 ML VIAL IV STA (22:13)
[2018-12-23] MEDS ORDERED: SODIUM CHLORIDE 0.9% 1000ML 1,000 ML IV SCH (22:15)
--- NOTE | 2018-12-23 23:04 | XRay Report ---
XR chest 1V portable CLINICAL HISTORY: Weakness. History of malignancy. COMPARISON STUDY: Chest radiograph November 22, 2017. FINDINGS: A left internal jugular [id number] is unchanged in position. 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 The lung volumes are diminished. There is no pneumo thorax. Note is made of cardiomegaly without evidence for pulmonary edema. There are suspected small bilateral pleural effusions. IMPRESSION: 1. Suspected small bilateral pleural effusions. 2. Diminished lung volumes. 3. Cardiomegaly without evidence for pulmonary edema. Electronically signed by: Todd Singleton M.D. 12/23/2018 11:03 PM
[2018-12-23 23:13] LABS: Alanine Aminotransferase 81 U/L (12-78); Albumin Level 2.9 gm/dl (3.4-5.0); Aspartate Aminotransferase 47 U/L (15-37); BUN Creatinine Ratio 20.2 (10-20); Blood Urea Nitrogen 27 mg/dl (7-18); Calcium 8.4 mg/dl (8.5-10.1); Carbon Dioxide 23 mmol/L (21-32); Chloride 99 mmol/L (98-107); Creatinine Clr Calc Pharmacy 52.4 ml/min; Est GFR (African American) 58.3; Est GFR (Non-African American) 50.3; Glucose 140 mg/dl (70-99); Magnesium 1.8 mg/dl (1.8-2.4); Potassium 4.1 mmol/L (3.5-5.1); Sodium 132 mmol/L (136-145)
[2018-12-23 23:23] LABS: Albumin Globulin Ratio 0.7 (0.9-2); Alkaline Phosphatase 109 U/L (45-117); Bilirubin,Total 1.4 mg/dl (0.2-1); Total Protein 6.9 gm/dl (6.4-8.2); Troponin I < 0.015 ng/ml (0-0.045)
[2018-12-23 23:29] LABS: ALC (manual) 0.15 K/uL (1.2-3.4); Dohle Bodies 1+; Hematocrit (blood only) 46.7 % (42-52); Hemoglobin 15.6 g/dL (14.0-18.0); Lymphocytes # (manual) 0.15 K/uL (1.2-3.4); Lymphocytes % (manual) 18.8 %; Mean Corpuscular Hgb Conc 33.4 g/dL (32-36); Mean Corpuscular Volume 92.3 fL (80-100); Mean Platelet Volume 10.4 fL (7.4-10.4); Monocytes % (manual) 12.5 %; Neutrophils % (manual) 68.7 %; Platelet Count 203 K/uL (130-400); Red Blood Count 5.06 M/uL (4.7-6.1); Toxic Vacuolation 1+; White Blood Count 0.81 K/uL (4.8-10.8)
[2018-12-24] MEDS ORDERED: IOVERSOL 100ml IV PRN (00:14)
[2018-12-24 00:50] LABS: Hepatitis B Surface Antigen Neg (Neg)
[2018-12-24] MEDS ORDERED: metroNIDAZOLE 500 MG/100 ML BAG IV STA (01:02)
[2018-12-24] MEDS ORDERED: DEXAMETHASONE SOD PHOSPHATE 4 MG in SYRINGE 0 ML IV STA (01:14)
[2018-12-24] MEDS ORDERED: SODIUM CHLORIDE 0.9% 1000ML 1,000 ML IV ONE ×3 (01:14→06:10)
[2018-12-24 01:18] LABS: Hepatitis C IgG 13Yrs+Old_Rflx Neg (Neg)
[2018-12-24 01:19] LABS: Appearance Urine Clear (Clear); Bilirubin Urine Negative (Negative); Color Urine Orange; Glucose Urine UA Negative (Negative); Ketones Urine Negative (Negative); Leukocyte Esterase Urine Negative (Negative); Nitrite Urine Negative (Negative); Protein Urine Negative (Negative); Specific Gravity Urine > 1.045 (1.000-1.030); Urobilinogen Urine Negative (Negative)
[2018-12-24] MEDS ORDERED: DEXAMETHASONE SOD INJ 4 MG/ML VIAL ONE (01:20)
--- NOTE | 2018-12-24 01:54 | History & Physical Report ---
Date of Service December 24, 2018 Assessment & Plan (1) Hypotension: Secondary to hypovolemia secondary to diarrheal illness secondary to chemotherapy induced colitis rule out C. difficile Possible sepsis in an immunocompromised patient metastatic colorectal cancer status post surgery, radiation, ongoing chemotherapy Rule out cardiac dysfunction as cause of hypotension given pericardial effusion on initial CT read Rule out adrenal insufficiency (hx steroid rx during chemotherapy sessions) Hyperglycemia possibly secondary to steroid Rx from recent chemotherapy rule out DM BPH past tobacco abuse Medical telemetry IVF, Decadron 1 dose now for possible adrenal insufficiency Stool C. difficile, IV Flagyl 1 dose for presumptive C. difficile for now Oral vancomycin course if stool C. difficile positive GI consult if with worsening diarrhea symptoms and stool C. difficile negative Cultures, lactic acid TTE RE hypotension, pericardial effusion on CT Check hemoglobin A1c DVT prophylaxis. Lovenox subcu Full code Total critical time was 40 minutes. History of Present Illness Chief Complaint: Diarrhea Primary Care Provider: Donnie Cates History obtained from patient, family, and records. Medical history significant for metastatic colorectal cancer status post surgery , radiation, ongoing chemotherapy, BPH status post surgery, past tobacco abuse. Recent confinement November 2017 for small bowel obstruction which improved with nonoperative management. Patient started by [facility] [place] on new chemotherapy medication 2 weeks ago due to disease progression noted on follow-up PET/CT done last November 2018. 3 days ago patient noted intermittent diarrhea symptoms at home about 10 times a day, with abdominal cramping. Watery, nonbloody. No nausea, no emesis, no chest pain no shortness of breath. Poor appetite. SBP noted to be 80s at the ER. Medical History as above Surgical History : Urologic procedures, bowel surgery, a port placement, TURP Family History : Stomach cancer Personal/Social history : Past tobacco abuse, no EtOH intake, lives with Allergies Allergy/AdvReac Type Severity Reaction Status Date / Time No Known Allergies Allergy Unverified 12/24/18 02:27 Home Medications Home Medications Medication Instructions Recorded Confirmed Type diphenoxylate-atropine [Lomotil] 1 tab PO QID PRN 12/24/18 12/24/18 History finasteride 5 mg PO QAM 12/24/18 12/24/18 History ibuprofen [Advil] 400 mg PO QID PRN 12/24/18 12/24/18 History ondansetron HCl 8 mg PO TID PRN 12/24/18 12/24/18 History pregabalin [Lyrica] 75 mg PO BID 12/24/18 12/24/18 History prochlorperazine maleate 10 mg PO DAILY PRN 12/24/18 12/24/18 History [Compazine] Past Med/Surg History Medical History BPH (benign prostatic hypertrophy) (Chronic) Lung metastases (Chronic) "thorascopic biopsy 11/21/17 - adenocarcinoma" Rectal cancer (Chronic 04/24/16) "DIAGNOSIS: Rectal cancer, adenocarcinoma, [id number], stage IIIC with invasion into anterior pelvic structures (potentially bladder) 1 cycle of XELOX Status post completion of combined radiation and chemotherapy 07/18/2016 received 5040 cGy Chemotherapy comprised of Xeloda Status post low anterior resection 09/10/2016 coloproctostomy and diverting colostomy Stage ypT3 ypN0 Status post reversal of ileostomy 11/28/2016" On 07/30/16 14:39 Kimberly Prince wrote "DIAGNOSIS: Rectal cancer, adenocarcinoma, [id number], stage IIIC with invasion into anterior pelvic structures (potentially bladder) Status post completion of combined radiation and chemotherapy 07/18/2016 received 5040 cGy Chemotherapy comprised of Xeloda" On 05/15/16 10:17 Verónica Espana wrote "DIAGNOSIS: Rectal cancer, adenocarcinoma, [id number], stage IIIC with invasion into anterior pelvic structures (potentially bladder) " Surgical History Status post colostomy (Chronic) "diverting colostomy for rectal Ca with obstruction [place]/16 [facility] [place] Status post colostomy takedown (Chronic) "with LAR and diverting loop ileostomy 09/10/16 [facility] [place] Status post ileostomy (Chronic) "09/10/16, reversed 11/20/16 [facility] [place] Social History Current Living Situation: Spouse Other Information That Helps Us Care for You: No Feels Safe at Home: Yes Safety Concerns: Feels Safe At This Time Smoking Status: Former smoker Hx Alcohol Use: No Beliefs That Will Affect Care: None Preferred Language: Luxembourgish Communication Ability: Effective Black Puller Required: No Review of Systems As per HPI, all 10 systems reviewed, all other ROS negative Physical Exam 2 Vital Signs (Past 24 Hours): Last Vital Signs Temp 37.3 C 12/23/18 21:45 Pulse 99 H 12/24/18 01:40 Resp 23 12/24/18 01:40 BP 95/66 L 12/24/18 00:38 Pulse Ox 94 12/24/18 01:40 Physical Exam: GENERAL: Comfortable, slightly anxious, no respiratory distress SKIN: Normal color, cool HEENT: Bespectacled, pink palpebral conjunctivae, no ptosis, dry buccal mucosa, surgical mask covering face NECK : Supple, no tenderness CHEST : CTA, no tenderness HEART : RRR, no obvious murmurs ABDOMEN: Some distention, healed incisional scars, nontender EXTREMITIES : No LE swelling/tenderness, no other conspicuous deformities noted NEUROLOGIC : Coherent, no facial asymmetry, no other gross focality Results & Data Laboratory Results Laboratory Results WBC 0.81 K/uL (4.8-10.8) L* 12/23/18 22:42 RBC 5.06 M/uL (4.7-6.1) 12/23/18 22:42 Hgb 15.6 g/dL (14.0-18.0) 12/23/18 22:42 Hct 46.7 % (42-52) 12/23/18 22:42 MCV 92.3 fL (80-100) 12/23/18 22:42 MCH 30.8 pg (25-34) 12/23/18 22:42 MCHC 33.4 g/dL (32-36) 12/23/18 22:42 RDW Std Deviation 47.0 fL (36.4-46.3) H 12/23/18 22:42 RDW Coeff of [place]ilda 14.0 % (11.5-14.5) 12/23/18 22:42 Plt Count 203 K/uL (130-400) 12/23/18 22:42 MPV 10.4 fL (7.4-10.4) 12/23/18 22:42 Neutrophils % (Manual) 68.7 % 12/23/18 22:42 Lymphocytes % (Manual) 18.8 % 12/23/18 22:42 Monocytes % (Manual) 12.5 % 12/23/18 22:42 Neutrophils # (Manual) 0.56 K/uL (1.4-6.5) L 12/23/18 22:42 Total Absolute Neuts 0.56 K/uL (1.4-6.5) L* 12/23/18 22:42 Lymphocytes # (Manual) 0.15 K/uL (1.2-3.4) L 12/23/18 22:42 Total Abs Lymphocytes 0.15 K/uL (1.2-3.4) L 12/23/18 22:42 Monocytes # (Manual) 0.10 K/uL (0.11-0.59) L 12/23/18 22:42 Toxic Vacuolation 1+ 12/23/18 22:42 Dohle Bodies 1+ 12/23/18 22:42 Sodium 132 mmol/L (136-145) L 12/23/18 22:42 Potassium 4.1 mmol/L (3.5-5.1) 12/23/18 22:42 Chloride 99 mmol/L (98-107) 12/23/18 22:42 Carbon Dioxide 23 mmol/L (21-32) 12/23/18 22:42 Anion Gap 10.0 (3-11) 12/23/18 22:42 BUN 27 mg/dl (7-18) H 12/23/18 22:42 Creatinine 1.35 mg/dl (0.6-1.4) 12/23/18 22:42 Est Cr Clr Drug Dosing 52.4 ml/min 12/23/18 22:42 Est GFR ( Amer) 58.3 12/23/18 22:42 Est GFR (Non-Af Amer) 50.3 12/23/18 22:42 BUN/Creatinine Ratio 20.2 (10-20) H 12/23/18 22:42 Glucose 140 mg/dl (70-99) H 12/23/18 22:42 Calcium 8.4 mg/dl (8.5-10.1) L 12/23/18 22:42 Magnesium 1.8 mg/dl (1.8-2.4) 12/23/18 22:42 Total Bilirubin 1.4 mg/dl (0.2-1) H 12/23/18 22:42 AST 47 U/L (15-37) H 12/23/18 22:42 ALT 81 U/L (12-78) H 12/23/18 22:42 Alkaline Phosphatase 109 U/L (45-117) 12/23/18 22:42 Troponin I < 0.015 ng/ml (0-0.045) 12/23/18 22:42 Total Protein 6.9 gm/dl (6.4-8.2) 12/23/18 22:42 Albumin 2.9 gm/dl (3.4-5.0) L 12/23/18 22:42 Globulin 4.0 gm/dl (2.5-4.0) 12/23/18 22:42 Albumin/Globulin Ratio 0.7 (0.9-2) L 12/23/18 22:42 TSH 0.905 uIu/ml (0.300-4.500) 12/23/18 22:42 Urine Color [place] 12/24/18 01:05 Urine Appearance Clear (Clear) 12/24/18 01:05 Urine pH 5.0 (4.5-7.5) 12/24/18 01:05 Ur Specific [place] > 1.045 (1.000-1.030) H 12/24/18 01:05 Urine Protein Negative (Negative) 12/24/18 01:05 Urine Glucose (UA) Negative (Negative) 12/24/18 01:05 Urine Ketones Negative (Negative) 12/24/18 01:05 Urine Blood Negative (Negative) 12/24/18 01:05 Urine Nitrite Negative (Negative) 12/24/18 01:05 Urine Bilirubin Negative (Negative) 12/24/18 01:05 Urine Urobilinogen Negative (Negative) 12/24/18 01:05 Ur Leukocyte Esterase Negative (Negative) 12/24/18 01:05 Hep Bs Antigen Neg (Neg) 12/23/18 22:42 Hepatitis C Antibody Neg (Neg) 12/23/18 22:42 Diagnostic Findings Chest x-ray showed 1. Suspected small bilateral pleural effusions. 2. Diminished lung volumes. 3. Cardiomegaly without evidence for pulmonary edema. EKG as per my interpretation : 120, sinus tachycardia, LAD, LAE CT abdomen pelvis initial read: Cholelithiasis, mild biliary dilatation without visualized intraductal stone. Diffuse colonic wall thickening suggesting colitis. Presacral edema. Appendectomy. Hernia through left rectus sheath at level of umbilicus containing short segment of small bowel without clear findings of strangulation. 2.7 cm left adrenal nodule. Trace pericardial effusion again noted.
--- NOTE | 2018-12-24 02:50 | Emergency Department Note ---
History of Present Illness General Chief complaint: Weakness Stated complaint: DIARRHEA, WEAKNESS History of Present Illness This 78-year-old presents to the ER complaining of weakness, nausea, diarrhea and abdominal cramping who is currently on chemotherapy for rectal carcinoma Location: Abdomen Quality: Weak Severity: Moderate Duration: Past few days Timing: Past few days Context: Symptoms persisted and patient came here Modifying factors: better with nothing; worse with activity Patient is on well water. No recent antibiotics. Patient denies chest pain, dyspnea, fevers, vomiting, back pain, urinary symptoms. He receives chemotherapy for 2 weeks and then he is off for a week. Dr. Espana is his oncologist. Home Medications Home Medications Medication Instructions Recorded Confirmed Type diphenoxylate-atropine [Lomotil] 1 tab PO QID PRN 12/24/18 12/24/18 History finasteride 5 mg PO QAM 12/24/18 12/24/18 History ibuprofen [Advil] 400 mg PO QID PRN 12/24/18 12/24/18 History ondansetron HCl 8 mg PO TID PRN 12/24/18 12/24/18 History pregabalin [Lyrica] 75 mg PO BID 12/24/18 12/24/18 History prochlorperazine maleate 10 mg PO DAILY PRN 12/24/18 12/24/18 History [Compazine] Allergies Allergy/AdvReac Type Severity Reaction Status Date / Time No Known Allergies Allergy Unverified 12/24/18 02:27 Past Med/Surg History Medical History BPH (benign prostatic hypertrophy) (Chronic) Lung metastases (Chronic) "thorascopic biopsy 11/21/17 - adenocarcinoma" Rectal cancer (Chronic 04/24/16) "DIAGNOSIS: Rectal cancer, adenocarcinoma, [id number], stage IIIC with invasion into anterior pelvic structures (potentially bladder) 1 cycle of XELOX Status post completion of combined radiation and chemotherapy 07/18/2016 received 5040 cGy Chemotherapy comprised of Xeloda Status post low anterior resection 09/10/2016 coloproctostomy and diverting colostomy Stage ypT3 ypN0 Status post reversal of ileostomy 11/28/2016" On 07/30/16 14:39 Kimberly Prince wrote "DIAGNOSIS: Rectal cancer, adenocarcinoma, [id number], stage IIIC with invasion into anterior pelvic structures (potentially bladder) Status post completion of combined radiation and chemotherapy 07/18/2016 received 5040 cGy Chemotherapy comprised of Xeloda" On 05/15/16 10:17 Rebeccaoni Espana wrote "DIAGNOSIS: Rectal cancer, adenocarcinoma, [id number], stage IIIC with invasion into anterior pelvic structures (potentially bladder) " Surgical History Status post colostomy (Chronic) "diverting colostomy for rectal Ca with obstruction 04/24/16 [facility] [place]" Status post colostomy takedown (Chronic) "with LAR and diverting loop ileostomy 09/10/16 [facility] [place]" Status post ileostomy (Chronic) "09/10/16, reversed 11/20/16 [facility] [place]" Social History Feels Safe at Home: Yes Smoking Status: Former smoker Review of Systems All systems reviewed & are unremarkable except as noted in HPI & below Physical Exam Vital Signs Vital Signs - 24 hr 12/23/18 21:45 12/23/18 22:04 12/23/18 22:45 Temperature 37.3 C Temperature Source Oral Sepsis Recent Fever Within 48 Hours No Sepsis New/Unexplained Change in Mental Status No Sepsis Action Taken by Nursing No Action Required Pulse Rate 122 H 119 H Respiratory Rate 19 29 H Respiratory Effort / Characteristics Non-Labored Respiratory Depth Normal Respiratory Pattern Regular Blood Pressure 123/90 Blood Pressure Mean 101 Pulse Oximetry 92 92 Oxygen Delivery Method Room Air Room Air 12/23/18 22:46 12/23/18 23:14 12/23/18 23:21 Temperature Temperature Source Sepsis Recent Fever Within 48 Hours Sepsis New/Unexplained Change in Mental Status Sepsis Action Taken by Nursing Pulse Rate 115 H 108 H Respiratory Rate 20 24 Respiratory Effort / Characteristics Respiratory Depth Respiratory Pattern Blood Pressure Blood Pressure Mean Pulse Oximetry 92 93 Oxygen Delivery Method Room Air 12/24/18 00:03 12/24/18 00:06 12/24/18 00:20 Temperature Temperature Source Sepsis Recent Fever Within 48 Hours Sepsis New/Unexplained Change in Mental Status Sepsis Action Taken by Nursing Pulse Rate 100 H 95 H Respiratory Rate 26 H 22 Respiratory Effort / Characteristics Respiratory Depth Respiratory Pattern Blood Pressure 101/63 Blood Pressure Mean 75 Pulse Oximetry 93 93 95 Oxygen Delivery Method Room Air 12/24/18 00:30 12/24/18 00:38 12/24/18 00:40 Temperature Temperature Source Sepsis Recent Fever Within 48 Hours Sepsis New/Unexplained Change in Mental Status Sepsis Action Taken by Nursing Pulse Rate 98 H 97 H 96 H Respiratory Rate 24 24 23 Respiratory Effort / Characteristics Respiratory Depth Respiratory Pattern Blood Pressure 83/61 L 95/66 L Blood Pressure Mean 68 75 Pulse Oximetry 90 94 93 Oxygen Delivery Method Room Air 12/24/18 01:09 12/24/18 01:20 12/24/18 01:40 Temperature Temperature Source Sepsis Recent Fever Within 48 Hours Sepsis New/Unexplained Change in Mental Status Sepsis Action Taken by Nursing Pulse Rate 99 H Respiratory Rate 23 Respiratory Effort / Characteristics Respiratory Depth Respiratory Pattern Blood Pressure Blood Pressure Mean Pulse Oximetry 95 93 94 Oxygen Delivery Method VITALS: Vitals are noted on the nurse's note and reviewed by myself. Vital signs mildly tachycardic. Slightly low blood pressure. GENERAL: White male dehydrated appearing, in no acute distress, nondiaphoretic, well-developed well-nourished. SKIN: The skin was without rashes, erythema, edema, or bruising. There is no tenting of the skin. Capillary reflex less than 2 seconds. HEAD: Normocephalic atraumatic. EARS: External auditory canals clear, tympanic membranes pearly harris without erythema or effusion bilaterally. EYES: Pupils equal round and reactive to light and accommodation. Conjunctivae without injection, sclerae without icterus. Extraocular movements intact. NOSE: Patent, turbinates without inflammation or discharge. No sinus tenderness. MOUTH: Mucous membranes dry. Pharynx without erythema or exudate. Uvula midline. Airway patent. Tongue does not deviate. NECK: Supple without nuchal rigidity. No lymphadenopathy. No thyromegaly. Cervical spine is nontender. No JVD. HEART: Regular rate and rhythm LUNGS: Clear to auscultation bilaterally without wheezes, rales or rhonchi. No retractions or accessory muscle use. ABDOMEN: Positive bowel sounds x 4. Normal tympanic percussion. Soft, mild diffuse tenderness without localized pain, without masses or organomegaly. Shirley sign negative. No guarding or rebound tenderness. No CVA tenderness MUSCULOSKELETAL: No muscle atrophy, erythema, or edema noted. NEURO: Patient was alert and oriented to person place and time. Normal sensation to light and sharp touch. No focal neurological deficits. Course Administered Medications Ioversol (Optiray 320 100ml) 100 ml IV ONCE PRN PRN Reason: Interaction Checking Stop: 12/28/18 00:13 Last Admin: 12/24/18 00:15 Dose: 92 ml Discontinued Medications Dexamethasone (Decadron) Confirm Administered Dose 4 mg .ROUTE .STK-MED ONE Stop: 12/24/18 01:21 Last Admin: 12/24/18 01:43 Dose: Not Given Dicyclomine HCl (Bentyl) 20 mg IM NOW ONE Stop: 12/23/18 22:12 Last Admin: 12/23/18 22:59 Dose: 20 mg Sodium Chloride (Nss 1000ml) 1,000 mls @ 999 mls/hr IV .Q1H1M CAROLINE Stop: 12/23/18 23:15 Last Infusion: 12/23/18 23:53 Dose: 0 mls/hr Admin: 12/23/18 23:00 Dose: 999 mls/hr Metronidazole (Flagyl) 500 mg in 100 mls @ 100 mls/hr IV NOW STA Stop: 12/24/18 02:01 Last Admin: 12/24/18 01:38 Dose: 100 mls/hr Sodium Chloride (Nss 1000ml) 1,000 mls @ 999 mls/hr IV .Q1H1M ONE Stop: 12/24/18 02:14 Last Admin: 12/24/18 01:43 Dose: 999 mls/hr Dexamethasone Sodium Phosphate (4 mg/ Syringe) 1 mls @ 1 mls/min IV NOW STA Stop: 12/24/18 01:15 Last Admin: 12/24/18 01:43 Dose: 1 mls/min Ondansetron HCl (Zofran) 4 mg IV NOW STA Stop: 12/23/18 22:14 Last Admin: 12/23/18 22:59 Dose: 4 mg Medical Decision Making Medical Records Attestation: I reviewed the patient's medical records. Home Medications Current Medication List: was personally reviewed by me Laboratory Data Attestation: I reviewed the patient's lab results. Result diagrams: 12/23/18 22:42 12/23/18 22:42 Lab Results 12/23/18 12/23/1819 Range/Units 22:42 22:42 22:42 WBC 0.81 L* (4.8-10.8) K/uL RBC 5.06 (4.7-6.1) M/uL Hgb 15.6 (14.0-18.0) g/dL Hct 46.7 (42-52) % MCV 92.3 (80-100) fL MCH 30.8 (25-34) pg MCHC 33.4 (32-36) g/dL RDW Std Deviation 47.0 H (36.4-46.3) fL RDW Coeff of Awilda 14.0 (11.5-14.5) % Plt Count 203 (130-400) K/uL MPV 10.4 (7.4-10.4) fL Neutrophils % (Manual) 68.7 % Lymphocytes % (Manual) 18.8 % Monocytes % (Manual) 12.5 % Neutrophils # (Manual) 0.56 L (1.4-6.5) K/uL Total Absolute Neuts 0.56 L* (1.4-6.5) K/uL Lymphocytes # (Manual) 0.15 L (1.2-3.4) K/uL Total Abs Lymphocytes 0.15 L (1.2-3.4) K/uL Monocytes # (Manual) 0.10 L (0.11-0.59) K/uL Toxic Vacuolation 1+ Dohle Bodies 1+ Sodium 132 L (136-145) mmol/L Potassium 4.1 (3.5-5.1) mmol/L Chloride 99 (98-107) mmol/L Carbon Dioxide 23 (21-32) mmol/L Anion Gap 10.0 (3-11) BUN 27 H (7-18) mg/dl Creatinine 1.35 (0.6-1.4) mg/dl Est Cr Clr Drug Dosing 52.4 ml/min Est GFR ( Amer) 58.3 Est GFR (Non-Af Amer) 50.3 BUN/Creatinine Ratio 20.2 H (10-20) Glucose 140 H (70-99) mg/dl Lactate (0.4-2.0) mmol/L Calcium 8.4 L (8.5-10.1) mg/dl Magnesium 1.8 (1.8-2.4) mg/dl Total Bilirubin 1.4 H (0.2-1) mg/dl AST 47 H (15-37) U/L ALT 81 H (12-78) U/L Alkaline Phosphatase 109 (45-117) U/L Troponin I < 0.015 (0-0.045) ng/ml Total Protein 6.9 (6.4-8.2) gm/dl Albumin 2.9 L (3.4-5.0) gm/dl Globulin 4.0 (2.5-4.0) gm/dl Albumin/Globulin Ratio 0.7 L (0.9-2) Procalcitonin (0-0.5) ng/ml TSH 0.905 (0.300-4.500) uIu/ml Urine Color Urine Appearance (Clear) Urine pH (4.5-7.5) Ur Specific Franklin (1.000-1.030) Urine Protein (Negative) Urine Glucose (UA) (Negative) Urine Ketones (Negative) Urine Blood (Negative) Urine Nitrite (Negative) Urine Bilirubin (Negative) Urine Urobilinogen (Negative) Ur Leukocyte Esterase (Negative) Stl C. diff Tox B Gene (Neg) Hep Bs Antigen Neg (Neg) Hepatitis C Antibody Neg (Neg) 12/24/18 12/24/18 12/24/18 Range/Units 01:05 01:05 01:28 WBC (4.8-10.8) K/uL RBC (4.7-6.1) M/uL Hgb (14.0-18.0) g/dL Hct (42-52) % MCV (80-100) fL MCH (25-34) pg MCHC (32-36) g/dL RDW Std Deviation (36.4-46.3) fL RDW Coeff of Awilda (11.5-14.5) % Plt Count (130-400) K/uL MPV (7.4-10.4) fL Neutrophils % (Manual) % Lymphocytes % (Manual) % Monocytes % (Manual) % Neutrophils # (Manual) (1.4-6.5) K/uL Total Absolute Neuts (1.4-6.5) K/uL Lymphocytes # (Manual) (1.2-3.4) K/uL Total Abs Lymphocytes (1.2-3.4) K/uL Monocytes # (Manual) (0.11-0.59) K/uL Toxic Vacuolation Dohle Bodies Sodium (136-145) mmol/L Potassium (3.5-5.1) mmol/L Chloride (98-107) mmol/L Carbon Dioxide (21-32) mmol/L Anion Gap (3-11) BUN (7-18) mg/dl Creatinine (0.6-1.4) mg/dl Est Cr Clr Drug Dosing ml/min Est GFR ( Amer) Est GFR (Non-Af Amer) BUN/Creatinine Ratio (10-20) Glucose (70-99) mg/dl Lactate 2.9 H* (0.4-2.0) mmol/L Calcium (8.5-10.1) mg/dl Magnesium (1.8-2.4) mg/dl Total Bilirubin (0.2-1) mg/dl AST (15-37) U/L ALT (12-78) U/L Alkaline Phosphatase (45-117) U/L Troponin I (0-0.045) ng/ml Total Protein (6.4-8.2) gm/dl Albumin (3.4-5.0) gm/dl Globulin (2.5-4.0) gm/dl Albumin/Globulin Ratio (0.9-2) Procalcitonin (0-0.5) ng/ml TSH (0.300-4.500) uIu/ml Urine Color [place] Urine Appearance Clear (Clear) Urine pH 5.0 (4.5-7.5) Ur Specific Franklin > 1.045 H (1.000-1.030) Urine Protein Negative (Negative) Urine Glucose (UA) Negative (Negative) Urine Ketones Negative (Negative) Urine Blood Negative (Negative) Urine Nitrite Negative (Negative) Urine Bilirubin Negative (Negative) Urine Urobilinogen Negative (Negative) Ur Leukocyte Esterase Negative (Negative) Stl C. diff Tox B Gene Neg C.diff Toxin B (Neg) Hep Bs Antigen (Neg) Hepatitis C Antibody (Neg) 12/24/18 Range/Units 01:28 WBC (4.8-10.8) K/uL RBC (4.7-6.1) M/uL Hgb (14.0-18.0) g/dL Hct (42-52) % MCV (80-100) fL MCH (25-34) pg MCHC (32-36) g/dL RDW Std Deviation (36.4-46.3) fL RDW Coeff of Awilda (11.5-14.5) % Plt Count (130-400) K/uL MPV (7.4-10.4) fL Neutrophils % (Manual) % Lymphocytes % (Manual) % Monocytes % (Manual) % Neutrophils # (Manual) (1.4-6.5) K/uL Total Absolute Neuts (1.4-6.5) K/uL Lymphocytes # (Manual) (1.2-3.4) K/uL Total Abs Lymphocytes (1.2-3.4) K/uL Monocytes # (Manual) (0.11-0.59) K/uL Toxic Vacuolation Dohle Bodies Sodium (136-145) mmol/L Potassium (3.5-5.1) mmol/L Chloride (98-107) mmol/L Carbon Dioxide (21-32) mmol/L Anion Gap (3-11) BUN (7-18) mg/dl Creatinine (0.6-1.4) mg/dl Est Cr Clr Drug Dosing ml/min Est GFR ( Amer) Est GFR (Non-Af Amer) BUN/Creatinine Ratio (10-20) Glucose (70-99) mg/dl Lactate (0.4-2.0) mmol/L Calcium (8.5-10.1) mg/dl Magnesium (1.8-2.4) mg/dl Total Bilirubin (0.2-1) mg/dl AST (15-37) U/L ALT (12-78) U/L Alkaline Phosphatase (45-117) U/L Troponin I (0-0.045) ng/ml Total Protein (6.4-8.2) gm/dl Albumin (3.4-5.0) gm/dl Globulin (2.5-4.0) gm/dl Albumin/Globulin Ratio (0.9-2) Procalcitonin 2.36 H (0-0.5) ng/ml TSH (0.300-4.500) uIu/ml Urine Color Urine Appearance (Clear) Urine pH (4.5-7.5) Ur Specific Franklin (1.000-1.030) Urine Protein (Negative) Urine Glucose (UA) (Negative) Urine Ketones (Negative) Urine Blood (Negative) Urine Nitrite (Negative) Urine Bilirubin (Negative) Urine Urobilinogen (Negative) Ur Leukocyte Esterase (Negative) Stl C. diff Tox B Gene (Neg) Hep Bs Antigen (Neg) Hepatitis C Antibody (Neg) Imaging Data Attestation: I personally reviewed and interpreted this imaging study as follows : Blood Pressure Blood Pressure Findings: Low blood pressure Blood Pressure Disposition: further management by hospitalist [facility] Narrative Prior records/ancillary studies reviewed and summarized above. Nursing notes reviewed. Additional history obtained from family. The patient's history was concerning for weakness, nausea, diarrhea, abdominal cramping. Differential diagnosis: Etiologies such as metabolic, infection, hypo/hyperglycemia, electrolyte abnormalities, cardiac sources, intracerebral event, toxicologic, neurologic, as well as others were entertained. Physical examination: As above. ER treatment provided: IV Lock IV fluids On reassessment the patient felt better. Diagnostics interpretation by me: ECG: Normal sinus, normal intervals, first-degree AV block, no acute ST-T wave changes, rate of 118. Left axis deviation. Impression sinus tachycardia with a first-degree AV block with left axis deviation interpreted by myself. Prior EKG is similar. Patient also has Q waves in the inferior leads. I think arrhythmia is unlikely. EKG shows normal sinus rhythm with no interval abnormalities such as QT prolongation or WPW. There are no findings to suggest Brugada syndrome. Cardiac monitoring in the emergency department reveals no tachycardic or bradycardic dysrhythmia. Hypertrophic cardiomyopathy was considered but there are no clear historical elements pointing toward this. EKG is not suggestive. The QRS voltage is not extremely large and there are no suggestive Q waves. The labs revealed negative urine. Mildly elevated LFTs. Hepatitis panel was sent Elevated lactic acid. Elevated pro-calcitonin. Euthyroid. Elevated glucose. White blood cell at 800. Imaging studies: CT ABDOMEN & PELVIS With Contrast: Compared to 11/22/17 Redemonstrated cholelithiasis. Mild biliary dilation without visualized intraductal stone. More focal right lobe intrahepatic dilation is a stable finding. Interval placement of a rectal stent. No obstruction. Diffuse colonic wall thickening with liquid luminal contents suggesting colitis/diarrheal illness. Presacral edema again noted. No loculated abscess. Multiple bowel anastomoses appear intact. Appendectomy. Multiple ventral hernias. Hernia through the left rectus sheath at the level of the umbilicus contains a short segment of small bowel. No clear findings of strangulation. 2.7 cm left adrenal nodule is stable in the interval. Trace pericardial effusion is again noted Radiologist: Romeo Pérez M.D. XR chest 1V portable CLINICAL HISTORY: Weakness. History of malignancy. COMPARISON STUDY: Chest radiograph November 22, 2017. FINDINGS: A left internal jugular [id number] is unchanged in position. 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 The lung volumes are diminished. There is no pneumothorax. Note is made of cardiomegaly without evidence for pulmonary edema. There are suspected small bilateral pleural effusions. IMPRESSION: 1. Suspected small bilateral pleural effusions. 2. Diminished lung volumes. 3. Cardiomegaly without evidence for pulmonary edema. Electronically signed by: Todd Singleton M.D. Consultation: A consultation was placed with the hospitalist, Dr. Cooley. The case was discussed and diagnostics were reviewed. The patient was evaluated in the ER for further treatment. Exam and history seem consistent with hypotension with weakness and diarrhea. He is dehydrated. He was hydrated as above. Blood pressure did slightly improve. Medicine was consulted. CT and x-rays with no acute findings. Stool sample was sent. C. difficile is negative. Patient is agreeable treatment plan of admission. By the evaluation outlined above emergent etiologies such as cardiac sources, intracerebral event, toxologic, neurologic, abnormalities blood glucose, metabolic, as well as others were deemed relatively unlikely. The pt informed about the findings as listed above. All questions were answered and pleased with the treatment. Case reviewed with my attending The chart was completed utilizing [employer] Speech voice recognition software. Grammatical errors, random word insertions, pronoun errors, and incomplete sentences are an occassional consequence of this system due to software limitations, ambient noise, and hardware issues. Any formal questions or concerns about the content, text, or information contained within the body of this dictation should be directly addressed to the physician bilingual medical assistant for clarification. Impression & Plan Acute hypotension, Diarrhea, Weakness, Acute dehydration Discharge Plan Visit Data Chief Complaint: Weakness Stated Complaint: DIARRHEA, WEAKNESS ED Provider: Baldemar Giordano ED Midlevel Provider: Flaquita Mayers Discharge Problem: Acute hypotension, Diarrhea, Weakness, Acute dehydration Patient Disposition: Being Evaluated by Hospitalist Condition: Fair Forms Stand Alone Forms: [facility] Prescriptions Prescriptions: No Action ondansetron HCl 8 mg Tablet 8 mg PO TID PRN (Reason: Nausea) RF: 0 diphenoxylate-atropine [Lomotil] 2.5-0.025 mg Tablet 1 tab PO QID PRN (Reason: Diarrhea) RF: 0 prochlorperazine maleate [Compazine] 10 mg Tablet 10 mg PO DAILY PRN (Reason: Nausea) RF: 0 ibuprofen [Advil] 200 mg Tablet 400 mg PO QID PRN (Reason: Pain) RF: 0 finasteride 5 mg tablet 5 mg PO QAM RF: 0 pregabalin [Lyrica] 75 mg capsule 75 mg PO BID RF: 0 Referrals Referrals: Donnie Cates PA [Primary Care Provider] -
[2018-12-24] MEDS ORDERED: SODIUM CHLORIDE 0.9% 1000ML 1,000 ML IV SCH ×2 (03:15→05:02)
[2018-12-24] MEDS ORDERED: TRAMADOL HCL 50 MG TABLET PO PRN (05:02)
[2018-12-24] MEDS ORDERED: NITROGLYCERIN SL 0.4 MG/TAB TAB SL PRN (05:02)
[2018-12-24] MEDS ORDERED: MAGNESIUM SULFATE / D5W 1 GM/100 ML BAG IV ONE (05:02)
[2018-12-24] MEDS ORDERED: ACETAMINOPHEN 325 MG TAB PO PRN (05:02)
[2018-12-24] MEDS ORDERED: MoRPHine SULFATE 2 MG/ML CARP IV PRN (05:02)
[2018-12-24] MEDS ORDERED: LORazepam 0.25 MG/0.5 ML VIAL IV PRN (05:02)
[2018-12-24 05:42] LABS: Hemoglobin 12.3 g/dL (14.0-18.0); Mean Corpuscular Hgb Conc 33.2 g/dL (32-36); Mean Corpuscular Volume 91.8 fL (80-100); Platelet Count 151 K/uL (130-400); RDW Coefficient of Variation 13.9 % (11.5-14.5); RDW Standard Deviation 46.4 fL (36.4-46.3); Red Blood Count 4.03 M/uL (4.7-6.1); White Blood Count 1.18 K/uL (4.8-10.8)
[2018-12-24 05:58] LABS: Albumin Level 2.1 gm/dl (3.4-5.0); BUN Creatinine Ratio 23.6 (10-20); Calcium 7.1 mg/dl (8.5-10.1); Creatinine Clr Calc Pharmacy 58.1 ml/min; Est GFR (African American) 67.2; Potassium 4.3 mmol/L (3.5-5.1)
[2018-12-24 06:00] LABS: Albumin Globulin Ratio 0.7 (0.9-2); Globulin 3.1 gm/dl (2.5-4.0); Total Protein 5.2 gm/dl (6.4-8.2)
[2018-12-24 06:04] LABS: Dohle Bodies 1+; Lymphocytes # (manual) 0.15 K/uL (1.2-3.4); Lymphocytes % (manual) 12.6 %; Monocytes # (manual) 0.14 K/uL (0.11-0.59); Monocytes % (manual) 11.7 %; Myelocytes # (manual) 0.01 K/uL (0-0); Myelocytes % (manual) 0.9 %; Neutrophils % (manual) 62.2 %; Reactive Lymphocytes # (manual) 0.15 K/uL; Toxic Vacuolation 1+
[2018-12-24 06:47] LABS: INR 1.1 (0.9-1.1); Prothrombin Time 11.2 Seconds (9.0-12.0)
[2018-12-24 06:56] LABS: Estimated Average Glucose 100 mg/dl
--- NOTE | 2018-12-24 07:30 | CT Scan Report ---
ABDOMEN AND PELVIS CT WITH IV CONTRAST CT DOSE: 1035.66 mGy.cm HISTORY: Acute generalized abdominal pain with history of rectal carcinoma. The patient is currently on chemotherapy regimen. pain, D, rectal CA on chemo TECHNIQUE: Multiaxial CT images of the abdomen and pelvis were performed following the use of intrave nous contrast. A dose lowering technique was utilized adhering to the principles of ALARA. COMPARISON STUDY: CT abdomen and pelvis 11/22/2017 FINDINGS: Subsegmental bibasilar atelectasis. Indeterminate 5 mm solid nodule of the left lower lobe on image 8 series 3. 4 mm solid nodule inferior segment lingula. The previously noted large pulmonary nodules o f the lung bases seen on study from 11/22/2017 are no longer identified. No pneumatosis or pneumoperi toneum identified. Study is mildly motion degraded. The imaged inferior cardiac chambers are mildly e nlarged. Trace pericardial effusion. Redemonstration of cholelithiasis. Mild intrahepatic and extrahepatic biliary ductal dilation without obstructing biliary stone or lesion identified. No definite CT evidence of acute cholecystitis. Stre ak artifact from positioning of the patient's upper extremities also limits the study. The spleen and right adrenal gland appear unremarkable. Soft tissue attenuating 2.8 x 2.5 cm circumscribed ovoid ma ss of the left adrenal gland previously measured 2.6 x 2.1 cm. Multiple renal sinus cysts about the kidneys, left greater than right. Nonobstructing calculi of the inferior pole left kidney measure up to 7 mm. There are no ureteral calculi or obstructive uropathy. Calcifications are noted within the distribution the dependent bladder/anterior prostate, unchanged. Prostamegaly with mild wall thickening the bladder suggestive of chronic bladder outlet obstruction. Calcification of the aorta without aneurysm. No adenopathy. No small bowel obstruction. Postoperative changes are noted throughout the bowel with multiple areas of anastomotic suture. Hernia about the l eft rectus sheath contains mesenteric fat and a portion of small bowel without obstruction, unchanged . Metallic stent is in place in the interval within the rectosigmoid. Circumferential wall thickening of the bowel with mucosal hyperemia within this distribution. Stent appears to be patent. Wall thick ening of the sigmoid colon proximal to the stent is also noted. Multiple fluid-filled loops of large bowel suggest diarrheal illness. Mild wall thickening is also noted about the splenic flexure. Modera te wall thickening with mucosal hyperemia about the terminal ileum. Persistent presacral soft tissue thickening/stranding. Markedly decreased size of the previously described soft tissue nodules about t he omentum and peritoneum. The previously described large nodules including a 1.9 cm lesion of the ab dominal right lower quadrant are not definitively seen on today's study. Mildly prominent lymph nodes adjacent to the sigmoid colon measure up to 6 mm. Soft tissues are unremarkable. Bones appear to be intact. There are no lytic or blastic suspicious maciel ny lesions identified. Remote appearing sacral insufficiency fractures. IMPRESSION: 1. Interval placement of a stent about the rectosigmoid. Wall thickening of the colon within this dis tribution likely correlates with the patient's known primary colorectal carcinoma. 2. Multifocal areas of wall thickening and mucosal hyperemia scattered throughout the colon and termi nal ileum are suggestive of a nonspecific colitis/enteritis. Fluid-filled loops of large bowel compat ible with associated diarrheal illness. 3. Cholelithiasis with mild intrahepatic and extrahepatic biliary ductal dilation. No obstructing francine iary stone or lesion identified. 4. Decreased size of the pulmonary nodules and scattered soft tissue nodules about the abdomen and pe lvis compatible with positive response to therapy. 5. Prostamegaly with bladder wall thickening suggestive of sequela of chronic bladder outlet obstruct ion. 6. Nonobstructing left nephrolithiasis. 7. Additional findings as above. Electronically signed by: Tate Adorno M.D. 12/24/2018 7:29 AM
[2018-12-24] MEDS: FINASTERIDE 5 MG TAB PO SCH (07:53)
[2018-12-24] MEDS: ENOXAPARIN INJ 40 MG/0.4 ML SYR SQ SCH (09:39)
[2018-12-24] MEDS: HEPARIN 100 UNIT/ML 5ML FLUSH FLUSH PRN (12:29)
--- NOTE | 2018-12-24 14:21 | Hospitalist Progress Note ---
Date of Service December 24, 2018 Assessment & Plan (1) Diarrhea: Differential diagnosis includes chemotherapy induced diarrhea and infectious etiology. Stool studies pending. (2) Hypotension: Blood pressure as low as 83/61. Serum lactate elevated, but could be secondary to various etiologies. Afebrile. Patient does not appear to be septic. Hypotension most likely secondary to volume depletion from diarrhea. Blood pressures improved. Follow. (3) Rectal cancer: Management per Heme / Onc. (4) Neutropenia: WBC 810 / ANC 560 at time of admission. Neutropenia probably secondary to chemo. WBC 1,180 / ANC 730 today. Follow. (5) DVT prophylaxis: SQ enoxaparin. Ambulate. (6) Discharge planning issues: Anticipated discharge to home. Primary care follow-up with Donnie Cates PA-C Medical Oncology follow-up with Dr. Bernardo Espana. Subjective Recheck for diarrhea and other problems. Patient was seen in his room around 1400. Feels somewhat better. Blood pressures improved. Still having diarrhea-5 loose stools thus far today without melena or hematochezia. Intermittent crampy abdominal pain. No nausea or vomiting. No fever. No chest pain. No cough or shortness of breath. Physical Exam 2 Vital Signs (Past 24 Hours): Last Vital Signs Temp 36.6 C 12/24/18 12:06 Pulse 68 12/24/18 12:06 Resp 16 12/24/18 12:06 BP 135/79 12/24/18 12:06 Pulse Ox 97 12/24/18 12:06 Constitutional: no acute distress Respiratory: no respiratory distress Auscultation: lungs clear to auscultation bilaterally Cardiovascular: Rate/Rhythm: regular rate and regular rhythm Heart Sounds: no gallop, no murmur and no cardiac rub Vessels: no JVD Extremities: + edema (trace pretibial); no calf tenderness Chest (Breasts): Chest: + vascular access device or port (left infraclavicular ) Gastrointestinal (Abdomen): Inspection/Auscultation: normal bowel sounds and + abdominal surgical scar (well-healed midline scar) Percussion/Palpation: abdomen soft; abdomen nontender Skin: no rashes, warm and dry Psychiatric: Orientation: alert and oriented x 3 Results & Data Laboratory Results Laboratory Results - last 24 hr 12/23/18 12/23/18 12/23/18 22:42 22:42 22:42 WBC 0.81 L* RBC 5.06 Hgb 15.6 Hct 46.7 MCV 92.3 MCH 30.8 MCHC 33.4 RDW Std Deviation 47.0 H RDW Coeff of Awilda 14.0 Plt Count 203 MPV 10.4 Neutrophils % (Manual) 68.7 Lymphocytes % (Manual) 18.8 Reactive Lymphs % (Man) Monocytes % (Manual) 12.5 Myelocytes % (Man) Neutrophils # (Manual) 0.56 L Total Absolute Neuts 0.56 L* Lymphocytes # (Manual) 0.15 L Reactive Lymphs # Total Abs Lymphocytes 0.15 L Monocytes # (Manual) 0.10 L Myelocytes # (Manual) Toxic Vacuolation 1+ Dohle Bodies 1+ PT INR Sodium 132 L Potassium 4.1 Chloride 99 Carbon Dioxide 23 Anion Gap 10.0 BUN 27 H Creatinine 1.35 Est Cr Clr Drug Dosing 52.4 Est GFR ( Amer) 58.3 Est GFR (Non-Af Amer) 50.3 BUN/Creatinine Ratio 20.2 H Glucose 140 H POC Glucose Estimat Average Glucose Hemoglobin A1c Lactate Calcium 8.4 L Magnesium 1.8 Total Bilirubin 1.4 H AST 47 H ALT 81 H Alkaline Phosphatase 109 Troponin I < 0.015 Total Protein 6.9 Albumin 2.9 L Globulin 4.0 Albumin/Globulin Ratio 0.7 L Procalcitonin TSH 0.905 Urine Color Urine Appearance Urine pH Ur Specific [place] Urine Protein Urine Glucose (UA) Urine Ketones Urine Blood Urine Nitrite Urine Bilirubin Urine Urobilinogen Ur Leukocyte Esterase Stl C. diff Tox B Gene Hep Bs Antigen Neg Hepatitis C Antibody Neg 12/24/18 12/24/18 12/24/18 01:05 01:05 01:28 WBC RBC Hgb Hct MCV MCH MCHC RDW Std Deviation RDW Coeff of [place]ilda Plt Count MPV Neutrophils % (Manual) Lymphocytes % (Manual) Reactive Lymphs % (Man) Monocytes % (Manual) Myelocytes % (Man) Neutrophils # (Manual) Total Absolute Neuts Lymphocytes # (Manual) Reactive Lymphs # Total Abs Lymphocytes Monocytes # (Manual) Myelocytes # (Manual) Toxic Vacuolation Dohle Bodies PT INR Sodium Potassium Chloride Carbon Dioxide Anion Gap BUN Creatinine Est Cr Clr Drug Dosing Est GFR ( Amer) Est GFR (Non-Af Amer) BUN/Creatinine Ratio Glucose POC Glucose Estimat Average Glucose Hemoglobin A1c Lactate 2.9 H* Calcium Magnesium Total Bilirubin AST ALT Alkaline Phosphatase Troponin I Total Protein Albumin Globulin Albumin/Globulin Ratio Procalcitonin TSH Urine Color [place] Urine Appearance Clear Urine pH 5.0 Ur Specific [place] > 1.045 H Urine Protein Negative Urine Glucose (UA) Negative Urine Ketones Negative Urine Blood Negative Urine Nitrite Negative Urine Bilirubin Negative Urine Urobilinogen Negative Ur Leukocyte Esterase Negative Stl C. diff Tox B Gene Neg C.diff Toxin B Hep Bs Antigen Hepatitis C Antibody 12/24/18 12/24/18 12/24/18 01:28 05:18 05:18 WBC 1.18 L RBC 4.03 L Hgb 12.3 L D Hct 37.0 L MCV 91.8 MCH 30.5 MCHC 33.2 RDW Std Deviation 46.4 H RDW Coeff of [place] 13.9 Plt Count 151 MPV 10.0 Neutrophils % (Manual) 62.2 Lymphocytes % (Manual) 12.6 Reactive Lymphs % (Man) 12.6 Monocytes % (Manual) 11.7 Myelocytes % (Man) 0.9 Neutrophils # (Manual) 0.73 L Total Absolute Neuts 0.73 L* Lymphocytes # (Manual) 0.15 L Reactive Lymphs # 0.15 Total Abs Lymphocytes 0.30 L Monocytes # (Manual) 0.14 Myelocytes # (Manual) 0.01 H Toxic Vacuolation 1+ Dohle Bodies 1+ PT INR Sodium 133 L Potassium 4.3 Chloride 107 Carbon Dioxide 23 Anion Gap 3.0 BUN 28 H Creatinine 1.20 Est Cr Clr Drug Dosing 58.1 Est GFR ( Amer) 67.2 Est GFR (Non-Af Amer) 58.0 BUN/Creatinine Ratio 23.6 H Glucose 161 H POC Glucose Estimat Average Glucose Hemoglobin A1c Lactate Calcium 7.1 L D Magnesium Total Bilirubin 1.0 AST 29 ALT 59 Alkaline Phosphatase 80 Troponin I Total Protein 5.2 L D Albumin 2.1 L Globulin 3.1 Albumin/Globulin Ratio 0.7 L Procalcitonin 2.36 H TSH Urine Color Urine Appearance Urine pH Ur Specific [place] Urine Protein Urine Glucose (UA) Urine Ketones Urine Blood Urine Nitrite Urine Bilirubin Urine Urobilinogen Ur Leukocyte Esterase Stl C. diff Tox B Gene Hep Bs Antigen Hepatitis C Antibody 12/24/18 12/24/18 12/24/18 05:18 05:21 06:08 WBC RBC Hgb Hct MCV MCH MCHC RDW Std Deviation RDW Coeff of [place] Plt Count MPV Neutrophils % (Manual) Lymphocytes % (Manual) Reactive Lymphs % (Man) Monocytes % (Manual) Myelocytes % (Man) Neutrophils # (Manual) Total Absolute Neuts Lymphocytes # (Manual) Reactive Lymphs # Total Abs Lymphocytes Monocytes # (Manual) Myelocytes # (Manual) Toxic Vacuolation Dohle Bodies PT 11.2 INR 1.1 Sodium Potassium Chloride Carbon Dioxide Anion Gap BUN Creatinine Est Cr Clr Drug Dosing Est GFR ( Amer) Est GFR (Non-Af Amer) BUN/Creatinine Ratio Glucose POC Glucose Estimat Average Glucose 100 Hemoglobin A1c 5.1 Lactate 2.1 H* Calcium Magnesium Total Bilirubin AST ALT Alkaline Phosphatase Troponin I Total Protein Albumin Globulin Albumin/Globulin Ratio Procalcitonin TSH Urine Color Urine Appearance Urine pH Ur Specific [place] Urine Protein Urine Glucose (UA) Urine Ketones Urine Blood Urine Nitrite Urine Bilirubin Urine Urobilinogen Ur Leukocyte Esterase Stl C. diff Tox B Gene Hep Bs Antigen Hepatitis C Antibody 12/24/18 12/24/18 12/24/18 07:49 09:47 11:12 WBC RBC Hgb Hct MCV MCH MCHC RDW Std Deviation RDW Coeff of [place]ilda Plt Count MPV Neutrophils % (Manual) Lymphocytes % (Manual) Reactive Lymphs % (Man) Monocytes % (Manual) Myelocytes % (Man) Neutrophils # (Manual) Total Absolute Neuts Lymphocytes # (Manual) Reactive Lymphs # Total Abs Lymphocytes Monocytes # (Manual) Myelocytes # (Manual) Toxic Vacuolation Dohle Bodies PT INR Sodium Potassium Chloride Carbon Dioxide Anion Gap BUN Creatinine Est Cr Clr Drug Dosing Est GFR ( Amer) Est GFR (Non-Af Amer) BUN/Creatinine Ratio Glucose POC Glucose 174 H 131 H Estimat Average Glucose Hemoglobin A1c Lactate 2.6 H* Calcium Magnesium Total Bilirubin AST ALT Alkaline Phosphatase Troponin I Total Protein Albumin Globulin Albumin/Globulin Ratio Procalcitonin TSH Urine Color Urine Appearance Urine pH Ur Specific [place] Urine Protein Urine Glucose (UA) Urine Ketones Urine Blood Urine Nitrite Urine Bilirubin Urine Urobilinogen Ur Leukocyte Esterase Stl C. diff Tox B Gene Hep Bs Antigen Hepatitis C Antibody _ (1) Diarrhea Diarrhea type: (2) Neutropenia Neutropenia type: secondary to cancer chemotherapy Qualified Code(s): D70.1 - Agranulocytosis secondary to cancer chemotherapy; T45.1X5A - Adverse effect of antineoplastic and immunosuppressive drugs, initial encounter
[2018-12-24] MEDS: PROCHLORPERAZINE 5 MG in SYRINGE 4 ML IV PRN (17:13)
[2018-12-25] MEDS: LOPERAMIDE HCL 2 MG CAP PO PRN ×5 (05:36→19:39)
[2018-12-25 07:15] LABS: BUN Creatinine Ratio 24.4 (10-20); Creatinine Clr Calc Pharmacy 73.3 ml/min; Est GFR (African American) 89.1; Est GFR (Non-African American) 76.9; Potassium 3.5 mmol/L (3.5-5.1)
[2018-12-25 07:21] LABS: Basophils # (auto) 0.01 K/uL (0-0.2); Basophils % (auto) 0.5 %; Eosinophils # (auto) 0.04 K/uL (0-0.5); Eosinophils % (auto) 2.2 %; Hematocrit (blood only) 38.5 % (42-52); Immature Granulocytes # (auto) 0.07 K/uL (0.00-0.02); Immature Granulocytes % (auto) 3.8 %; Lymphocytes # (auto) 0.49 K/uL (1.2-3.4); Lymphocytes % (auto) 26.3 %; Mean Corpuscular Hgb Conc 33.8 g/dL (32-36); Mean Corpuscular Volume 90.4 fL (80-100); Mean Platelet Volume 10.2 fL (7.4-10.4); Monocytes # (auto) 0.38 K/uL (0.11-0.59); Monocytes % (auto) 20.4 %; Neutrophils # (auto) 0.87 K/uL (1.4-6.5); Neutrophils % (auto) 46.8 %; Platelet Count 171 K/uL (130-400); RDW Coefficient of Variation 13.7 % (11.5-14.5); RDW Standard Deviation 44.9 fL (36.4-46.3); Red Blood Count 4.26 M/uL (4.7-6.1); White Blood Count 1.86 K/uL (4.8-10.8)
[2018-12-25 07:22] LABS: Toxic Granulation 1+; Toxic Vacuolation 1+
[2018-12-25] MEDS: FINASTERIDE 5 MG TAB PO SCH (07:29)
[2018-12-25] MEDS: ENOXAPARIN INJ 40 MG/0.4 ML SYR SQ SCH (07:30)
[2018-12-25] MEDS: PROCHLORPERAZINE 5 MG in SYRINGE 4 ML IV PRN (07:54)
[2018-12-25] MEDS: ONDANSETRON INJ 2 MG/ML 2 ML VIAL IV PRN (11:41)
[2018-12-25] MEDS: HEPARIN 100 UNIT/ML 5ML FLUSH FLUSH PRN (11:44)
--- NOTE | 2018-12-25 16:22 | Hospitalist Progress Note ---
Date of Service December 25, 2018 Assessment & Plan (1) Diarrhea: Differential diagnosis includes chemotherapy induced diarrhea and infectious etiology. Stool studies negative so far. Discussed with Heme/Onc. Diarrhea and CT findings probably due to chemo. (2) Hypotension: Blood pressure as low as 83/61. Serum lactate was elevated, but could be secondary to various etiologies. Afebrile. Patient does not appear to be septic. Leukopenia secondary to chemo, not sepsis. Hypotension most likely secondary to volume depletion from diarrhea. Blood pressures improved. Follow. (3) Rectal cancer: Management per Heme / Onc. (4) Neutropenia: WBC 810 / ANC 560 at time of admission. Neutropenia probably secondary to chemo. WBC 1,860 / ANC 730 today. Follow. (5) DVT prophylaxis: SQ enoxaparin. Ambulate. (6) Discharge planning issues: Anticipated discharge to home. Primary care follow-up with Donnie Cates PA-C Medical Oncology follow-up with Dr. Bernardo Espana. Subjective Recheck for diarrhea and other problems. Patient was seen in his room around 1610. Nausea and emesis this morning. Still having frequent loose stools without melena or hematochezia. Intermittent crampy abdominal pain. Weak. No fever. No chest pain. No cough or shortness of breath. Physical Exam 2 Vital Signs (Past 24 Hours): Last Vital Signs Temp 36.8 C 12/25/18 15:27 Pulse 82 12/25/18 15:27 Resp 16 12/25/18 15:27 BP 127/86 12/25/18 15:27 Pulse Ox 96 12/25/18 15:27 Constitutional: no acute distress Respiratory: no respiratory distress Auscultation: lungs clear to auscultation bilaterally Cardiovascular: Rate/Rhythm: regular rate and regular rhythm Heart Sounds: no gallop, no murmur and no cardiac rub Vessels: no JVD Extremities: + edema (trace pretibial); no calf tenderness Chest (Breasts): Chest: + vascular access device or port (left infraclavicular ) Gastrointestinal (Abdomen): Inspection/Auscultation: normal bowel sounds and + abdominal surgical scar (well-healed midline scar) Percussion/Palpation: abdomen soft; abdomen nontender Skin: no rashes, warm and dry Psychiatric: Orientation: alert and oriented x 3 Results & Data Laboratory Results Short CBC 12/25/18 Range/Units 06:31 WBC 1.86 L (4.8-10.8) K/uL Hgb 13.0 L (14.0-18.0) g/dL Hct 38.5 L (42-52) % Plt Count 171 (130-400) K/uL BMP 12/25/18 06:31 Sodium 133 L Potassium 3.5 D Chloride 104 Carbon Dioxide 23 BUN 23 H Creatinine 0.95 Glucose 119 H Calcium 8.0 L _ (1) Diarrhea Diarrhea type: (2) Neutropenia Neutropenia type: secondary to cancer chemotherapy Qualified Code(s): D70.1 - Agranulocytosis secondary to cancer chemotherapy; T45.1X5A - Adverse effect of antineoplastic and immunosuppressive drugs, initial encounter
[2018-12-25] MEDS: D5W AND LACTATED RINGERS 1,000 ML IV SCH (17:15)
[2018-12-26] MEDS: D5W AND LACTATED RINGERS 1,000 ML IV SCH ×4 (00:11→20:04)
[2018-12-26] MEDS: LOPERAMIDE HCL 2 MG CAP PO PRN ×4 (00:14→22:32)
[2018-12-26 05:35] LABS: Hemoglobin 12.8 g/dL (14.0-18.0); Mean Corpuscular Hgb Conc 33.7 g/dL (32-36); Mean Corpuscular Volume 91.1 fL (80-100); Mean Platelet Volume 9.7 fL (7.4-10.4); Platelet Count 183 K/uL (130-400); RDW Coefficient of Variation 13.7 % (11.5-14.5); RDW Standard Deviation 45.3 fL (36.4-46.3); Red Blood Count 4.17 M/uL (4.7-6.1); White Blood Count 2.24 K/uL (4.8-10.8)
[2018-12-26 05:52] LABS: BUN Creatinine Ratio 20.8 (10-20); Calcium 7.7 mg/dl (8.5-10.1); Creatinine Clr Calc Pharmacy 69.6 ml/min; Est GFR (African American) 83.8; Est GFR (Non-African American) 72.3; Potassium 3.4 mmol/L (3.5-5.1)
[2018-12-26 06:13] LABS: ALC (manual) 0.72 K/uL (1.2-3.4); Dohle Bodies 1+; Eosinophils # (manual) 0.02 K/uL (0-0.5); Lymphocytes # (manual) 0.27 K/uL (1.2-3.4); Lymphocytes % (manual) 12.2 %; Monocytes # (manual) 0.43 K/uL (0.11-0.59); Monocytes % (manual) 19.1 %; Myelocytes # (manual) 0.04 K/uL (0-0); Myelocytes % (manual) 1.7 %; Neutrophils % (manual) 46.1 %; Toxic Granulation 1+
[2018-12-26] MEDS: FINASTERIDE 5 MG TAB PO SCH (08:06)
[2018-12-26] MEDS: ENOXAPARIN INJ 40 MG/0.4 ML SYR SQ SCH (08:06)
[2018-12-26] MEDS: ONDANSETRON INJ 2 MG/ML 2 ML VIAL IV PRN (17:08)
--- NOTE | 2018-12-26 17:37 | Hospitalist Progress Note ---
Date of Service December 26, 2018 Assessment & Plan (1) Diarrhea: Differential diagnosis includes chemotherapy induced diarrhea and infectious etiology. Stool studies negative so far. Discussed with Heme/Onc. Diarrhea and CT findings probably due to chemo. Symptoms gradually improving. Advance diet as tolerated. (2) Hypotension: Blood pressure as low as 83/61. Serum lactate was elevated, but could be secondary to various etiologies. Afebrile. Patient does not appear to be septic. Leukopenia secondary to chemo, not sepsis. Hypotension most likely secondary to volume depletion from diarrhea. Blood pressures improved. Follow. (3) Rectal cancer: Management per Heme / Onc. (4) Neutropenia: WBC 810 / ANC 560 at time of admission. Neutropenia probably secondary to chemo. WBC 2240 / ANC 1030 today. Follow. (5) DVT prophylaxis: SQ enoxaparin. Ambulate. (6) Discharge planning issues: Anticipated discharge to home. Primary care follow-up with Donnie Cates PA-C Medical Oncology follow-up with Dr. Bernardo Espana. Subjective Recheck for diarrhea and other problems. Patient was seen in his room around 1730. Family visiting. Nausea improved; no emesis. Diarrhea less frequent. No melena or hematochezia. Intermittent crampy abdominal pain. Still weak. No fever. No chest pain. No cough or shortness of breath. Physical Exam 2 Vital Signs (Past 24 Hours): Last Vital Signs Temp 37 C 12/26/18 15:36 Pulse 82 12/26/18 15:36 Resp 20 12/26/18 15:36 BP 146/91 H 12/26/18 15:36 Pulse Ox 95 12/26/18 15:36 Constitutional: no acute distress Respiratory: no respiratory distress Auscultation: lungs clear to auscultation bilaterally Cardiovascular: Rate/Rhythm: regular rate and regular rhythm Heart Sounds: no gallop, no murmur and no cardiac rub Vessels: no JVD Extremities: + edema (trace pretibial); no calf tenderness Chest (Breasts): Chest: + vascular access device or port (left infraclavicular ) Gastrointestinal (Abdomen): Inspection/Auscultation: normal bowel sounds and + abdominal surgical scar (well-healed midline scar) Percussion/Palpation: abdomen soft; abdomen nontender Skin: no rashes, warm and dry Psychiatric: Orientation: alert and oriented x 3 Results & Data Laboratory Results Short CBC 12/26/18 Range/Units 05:18 WBC 2.24 L (4.8-10.8) K/uL Hgb 12.8 L (14.0-18.0) g/dL Hct 38.0 L (42-52) % Plt Count 183 (130-400) K/uL BMP 12/26/18 05:18 Sodium 136 Potassium 3.4 L Chloride 105 Carbon Dioxide 27 BUN 21 H Creatinine 1.00 Glucose 119 H Calcium 7.7 L _ (1) Diarrhea Diarrhea type: (2) Neutropenia Neutropenia type: secondary to cancer chemotherapy Qualified Code(s): D70.1 - Agranulocytosis secondary to cancer chemotherapy; T45.1X5A - Adverse effect of antineoplastic and immunosuppressive drugs, initial encounter
[2018-12-27] MEDS: D5W AND LACTATED RINGERS 1,000 ML IV SCH ×2 (02:06→08:01)
[2018-12-27] MEDS: LOPERAMIDE HCL 2 MG CAP PO PRN ×2 (08:00→12:55)
[2018-12-27] MEDS: FINASTERIDE 5 MG TAB PO SCH (08:01)
[2018-12-27] MEDS: ENOXAPARIN INJ 40 MG/0.4 ML SYR SQ SCH (08:02)
[2018-12-27 08:48] LABS: Hemoglobin 12.7 g/dL (14.0-18.0); Mean Corpuscular Hgb Conc 33.4 g/dL (32-36); Mean Corpuscular Volume 91.1 fL (80-100); Mean Platelet Volume 9.6 fL (7.4-10.4); Platelet Count 199 K/uL (130-400); RDW Coefficient of Variation 13.8 % (11.5-14.5); Red Blood Count 4.17 M/uL (4.7-6.1); White Blood Count 2.73 K/uL (4.8-10.8)
[2018-12-27 09:17] LABS: Potassium 3.2 mmol/L (3.5-5.1)
[2018-12-27 09:18] LABS: BUN Creatinine Ratio 13.8 (10-20); Calcium 7.9 mg/dl (8.5-10.1); Creatinine Clr Calc Pharmacy 76.2 ml/min; Est GFR (African American) 93.9
[2018-12-27 09:34] LABS: ALC (manual) 0.86 K/uL (1.2-3.4); Basophils # (manual) 0.02 K/uL (0-0.2); Basophils % (manual) 0.8 %; Lymphocytes # (manual) 0.28 K/uL (1.2-3.4); Lymphocytes % (manual) 10.2 %; Metamyelocytes # (manual) 0.02 K/uL (0-0); Metamyelocytes % (manual) 0.8 %; Monocytes # (manual) 0.55 K/uL (0.11-0.59); Monocytes % (manual) 20.3 %; Neutrophils % (manual) 46.7 %; Reactive Lymphocytes # (manual) 0.58 K/uL; Toxic Granulation 1+
--- NOTE | 2018-12-27 14:03 | Hospitalist Progress Note ---
Date of Service December 27, 2018 Assessment & Plan (1) Diarrhea: Differential diagnosis includes chemotherapy induced diarrhea and infectious etiology. Stool studies negative so far. Discussed with Heme/Onc. Diarrhea and CT findings probably due to chemo. Symptoms gradually improving, but still having frequent diarrhea. Try scheduled diphenoxylate / atropine. Advance diet as tolerated. (2) Hypotension: Blood pressure as low as 83/61. Serum lactate was elevated, but could be secondary to various etiologies. Afebrile. Patient does not appear to be septic. Leukopenia secondary to chemo, not sepsis. Hypotension most likely secondary to volume depletion from diarrhea. Blood pressures improved. Follow. (3) Rectal cancer: Management per Heme / Onc. (4) Neutropenia: WBC 810 / ANC 560 at time of admission. Neutropenia probably secondary to chemo. WBC 2730 / ANC 1270 today. Follow. (5) Hypokalemia: K as low as 3.2. Hypokalemia probably due to to diarrhea. K today = 3.2. Receiving IV replacement. Follow. (6) DVT prophylaxis: SQ enoxaparin. Ambulate. (7) Discharge planning issues: Anticipated discharge to home. Primary care follow-up with Donnie Cates PA-C Medical Oncology follow-up with Dr. Bernardo Espana. Subjective Recheck for diarrhea and other problems. Patient was seen in his room around 1400. Diet advanced to solids today. Still anorexic. Nausea improved; no emesis. Diarrhea less frequent; no melena or hematochezia. No abdominal pain. No fever. Fatigue improved. No chest pain. No cough or shortness of breath. Physical Exam 2 Vital Signs (Past 24 Hours): Last Vital Signs Temp 37.2 C 12/27/18 12:15 Pulse 60 12/27/18 12:15 Resp 18 12/27/18 12:15 BP 128/80 12/27/18 12:15 Pulse Ox 96 12/27/18 08:05 Constitutional: no acute distress Respiratory: no respiratory distress Auscultation: lungs clear to auscultation bilaterally Cardiovascular: Rate/Rhythm: regular rate and regular rhythm Heart Sounds: no gallop, no murmur and no cardiac rub Vessels: no JVD Extremities: + edema (trace pretibial); no calf tenderness Chest (Breasts): Chest: + vascular access device or port (left infraclavicular ) Gastrointestinal (Abdomen): Inspection/Auscultation: normal bowel sounds Percussion/Palpation: abdomen soft; abdomen nontender Skin: no rashes, warm and dry Psychiatric: Orientation: alert and oriented x 3 Results & Data Laboratory Results Short CBC 12/27/18 Range/Units 08:32 WBC 2.73 L (4.8-10.8) K/uL Hgb 12.7 L (14.0-18.0) g/dL Hct 38.0 L (42-52) % Plt Count 199 (130-400) K/uL BMP 12/27/18 08:32 Sodium 134 L Potassium 3.2 L Chloride 99 Carbon Dioxide 27 BUN 13 Creatinine 0.91 Glucose 120 H Calcium 7.9 L _ (1) Diarrhea Diarrhea type: (2) Neutropenia Neutropenia type: secondary to cancer chemotherapy Qualified Code(s): D70.1 - Agranulocytosis secondary to cancer chemotherapy; T45.1X5A - Adverse effect of antineoplastic and immunosuppressive drugs, initial encounter
[2018-12-27] MEDS ORDERED: DIPHENOXYLATE/ATROPINE 2.5/0.025MG TAB PO ONE (14:05)
[2018-12-27] MEDS: POTASSIUM CHLORIDE 40 MEQ in SODIUM CHLORIDE 0.9% 1000ML 1,000 ML IV SCH (14:47)
[2018-12-27] MEDS: DIPHENOXYLATE/ATROPINE 2.5/0.025MG TAB PO SCH (21:32)
[2018-12-28] MEDS: POTASSIUM CHLORIDE 40 MEQ in SODIUM CHLORIDE 0.9% 1000ML 1,000 ML IV SCH (03:09)
[2018-12-28 06:04] LABS: Basophils # (auto) 0.02 K/uL (0-0.2); Basophils % (auto) 0.6 %; Eosinophils # (auto) 0.08 K/uL (0-0.5); Eosinophils % (auto) 2.6 %; Hemoglobin 12.5 g/dL (14.0-18.0); Immature Granulocytes # (auto) 0.11 K/uL (0.00-0.02); Immature Granulocytes % (auto) 3.5 %; Lymphocytes # (auto) 0.62 K/uL (1.2-3.4); Lymphocytes % (auto) 19.9 %; Mean Corpuscular Hgb Conc 34.7 g/dL (32-36); Mean Corpuscular Volume 91.4 fL (80-100); Mean Platelet Volume 9.4 fL (7.4-10.4); Monocytes # (auto) 0.85 K/uL (0.11-0.59); Monocytes % (auto) 27.3 %; Neutrophils # (auto) 1.43 K/uL (1.4-6.5); Neutrophils % (auto) 46.1 %; Platelet Count 195 K/uL (130-400); RDW Coefficient of Variation 13.8 % (11.5-14.5); RDW Standard Deviation 45.9 fL (36.4-46.3); Red Blood Count 3.94 M/uL (4.7-6.1); White Blood Count 3.11 K/uL (4.8-10.8)
[2018-12-28 06:40] LABS: BUN Creatinine Ratio 12.8 (10-20); Calcium 7.7 mg/dl (8.5-10.1); Creatinine Clr Calc Pharmacy 83.5 ml/min; Est GFR (African American) 98.4; Est GFR (Non-African American) 84.9; Magnesium 1.9 mg/dl (1.8-2.4); Potassium 3.6 mmol/L (3.5-5.1)
[2018-12-28] MEDS: DIPHENOXYLATE/ATROPINE 2.5/0.025MG TAB PO SCH ×2 (07:55→14:18)
[2018-12-28] MEDS: FINASTERIDE 5 MG TAB PO SCH (07:55)
[2018-12-28] MEDS: ENOXAPARIN INJ 40 MG/0.4 ML SYR SQ SCH (07:56)
[2018-12-28] MEDS: ONDANSETRON INJ 2 MG/ML 2 ML VIAL IV PRN (07:59)
--- NOTE | 2018-12-28 09:36 | Hospitalist Progress Note ---
Date of Service December 28, 2018 Assessment & Plan (1) Diarrhea: Differential diagnosis includes chemotherapy induced diarrhea and infectious etiology. Stool studies negative so far. Discussed with Heme/Onc. Diarrhea and CT findings probably due to chemo. Symptoms gradually improving, but still having frequent diarrhea. Try scheduled diphenoxylate / atropine. Advance diet as tolerated. (2) Hypotension: Blood pressure as low as 83/61. Serum lactate was elevated, but could be secondary to various etiologies. Afebrile. Patient does not appear to be septic. Leukopenia secondary to chemo, not sepsis. Hypotension most likely secondary to volume depletion from diarrhea. Blood pressures improved. Follow. (3) Rectal cancer: Management per Heme / Onc. (4) Neutropenia: WBC 810 / ANC 560 at time of admission. Neutropenia probably secondary to chemo. WBC 3110 day of discharge. Follow. (5) Hypokalemia: K as low as 3.2. Hypokalemia probably due to to diarrhea. Receiving IV replacement. K 3.6 day of discharge. Follow. (6) DVT prophylaxis: SQ enoxaparin. Ambulate. (7) Discharge planning issues: Discharged to home. Primary care follow-up with Donnie Cates PA-C Medical Oncology follow-up with Dr. Bernardo Espana. Subjective Recheck for diarrhea and other problems. Feels better. Out of bed in chair. Tolerating diet. No nausea or vomiting. Diarrhea less frequent; no melena or hematochezia. No abdominal pain. No fever. Fatigue improved. No chest pain. No cough or shortness of breath. Ambulating in hallway. Physical Exam 2 Vital Signs (Past 24 Hours): Last Vital Signs Temp 36.8 C 12/28/18 07:26 Pulse 60 12/28/18 07:26 Resp 18 12/28/18 07:26 BP 115/75 12/28/18 07:26 Pulse Ox 95 12/28/18 07:26 Constitutional: no acute distress Respiratory: no respiratory distress Auscultation: lungs clear to auscultation bilaterally Cardiovascular: Rate/Rhythm: regular rate and regular rhythm Heart Sounds: no gallop, no murmur and no cardiac rub Vessels: no JVD Extremities: + edema (trace pretibial); no calf tenderness Chest (Breasts): Chest: + vascular access device or port (left infraclavicular ) Gastrointestinal (Abdomen): Inspection/Auscultation: normal bowel sounds Percussion/Palpation: abdomen soft; abdomen nontender Skin: no rashes, warm and dry Psychiatric: Orientation: alert and oriented x 3 _ (1) Diarrhea Diarrhea type: (2) Neutropenia Neutropenia type: secondary to cancer chemotherapy Qualified Code(s): D70.1 - Agranulocytosis secondary to cancer chemotherapy; T45.1X5A - Adverse effect of antineoplastic and immunosuppressive drugs, initial encounter
--- NOTE | 2018-12-31 05:12 | Discharge Summary ---
Date of Service December 31, 2018 Admission HPI Per Admitting Provider History obtained from patient, family, and records. Medical history significant for metastatic colorectal cancer status post surgery , radiation, ongoing chemotherapy, BPH status post surgery, past tobacco abuse. Recent confinement November 2017 for small bowel obstruction which improved with nonoperative management. Patient started by [facility] [place] [place] oncologist on new chemotherapy medication 2 weeks ago due to disease progression noted on follow-up PET/CT done last November 2018. 3 days ago patient noted intermittent diarrhea symptoms at home about 10 times a day, with abdominal cramping. Watery, nonbloody. No nausea, no emesis, no chest pain no shortness of breath. Poor appetite. SBP noted to be 80s at the ER. Admission Exam Per Admitting Provider GENERAL: Comfortable, slightly anxious, no respiratory distress SKIN: Normal color, cool HEENT: Bespectacled, pink palpebral conjunctivae, no ptosis, dry buccal mucosa, surgical mask covering face NECK : Supple, no tenderness CHEST : CTA, no tenderness HEART : RRR, no obvious murmurs ABDOMEN: Some distention, healed incisional scars, nontender EXTREMITIES : No LE swelling/tenderness, no other conspicuous deformities noted NEUROLOGIC : Coherent, no facial asymmetry, no other gross focality Principal Diagnosis hypotension dehydration hypokalemia diarrhea, chemotherapy-induced neutropenia, chemotherapy-induced colorectal carcinoma Discharge Data Allergies Allergy/AdvReac Type Severity Reaction Status Date / Time No Known Allergies Allergy Unverified 12/24/18 02:27 Consultations 12/24/18 01:41 ED Decision to Admit Stat Ordered Studies 12/23/18 22:15 CT abd pelvis IV con only Urgent Hospital Course (1) Diarrhea: Presented with severe diarrhea. Received chemo for colorectal Ca a few days prior to admission. Differential diagnosis includes chemotherapy induced diarrhea and infectious etiology. Stool studies negative so far. Discussed with Heme/Onc. Diarrhea and CT findings probably due to chemo. Symptoms gradually improved. Diet advanced and tolerated. Continue diphenoxylate / atropine as needed. (2) Hypotension: Blood pressure as low as 83/61. Serum lactate was elevated, but could be secondary to various etiologies. Afebrile. Patient does not appear to be septic. Leukopenia secondary to chemo, not sepsis. Hypotension most likely secondary to volume depletion from diarrhea. Resolved. (3) Rectal cancer: Management per Heme / Onc. (4) Neutropenia: WBC 810 / ANC 560 at time of admission. Neutropenia probably secondary to chemo. WBC 3110 day of discharge. Follow. (5) Hypokalemia: K as low as 3.2. Hypokalemia probably due to to diarrhea. Received IV replacement. K 3.6 day of discharge. Follow. (6) DVT prophylaxis: SQ enoxaparin. Ambulate. (7) Discharge planning issues: Discharged to home. Primary care follow-up with Donnie Cates PA-C Medical Oncology follow-up with Dr. Bernardo Espana. Total Time Total Time Spent Total Time Spent (In Minutes): 40 Discharge Plan Discharge Items Patient Disposition: Home - Self-Care Reason For Visit: severe diarrhea Discharge Diagnosis: severe diarrhea Condition: Good Discharge Goals: Decrease discomfort and Improve disease control Activity: Resume your previous activity Non-emergency contact: Primary Care Provider, Hospitalist and Oncologist Call non-emergency contact if: you have any medication questions and your symptoms worsen Diet: Heart Healthy Diet Comment: low fiber, low fat, limited dairy for 1 week Addtl Provider Instructions: APPOINTMENTS: HEMATOLOGY / ONCOLOGY 12/31/2018 8:15 AM Bernardo Espana MD PRIMARY CARE Donnie Cates PA-C OTHER INSTRUCTIONS: Seek medical attention if you have: * temperature above 101 * chest pain or trouble breathing * abdominal pain, nausea, vomiting * persistent / worsening diarrhea, dark stools or bloody stools * any unanswered questions or concerns Call 911 if symptoms are severe. Call if you have any questions or problems. My cell # is [phone]. You can also reach a [facility] hospitalist on duty at [facility] 24 hours a day by calling [phone]. Prescriptions: New diphenoxylate-atropine [Lomotil] 2.5-0.025 mg Tablet 1 tab PO QID PRN (Reason: Diarrhea) Qty: 20 RF: 2 Continue ondansetron HCl 8 mg Tablet 8 mg PO TID PRN (Reason: Nausea) RF: 0 prochlorperazine maleate [Compazine] 10 mg Tablet 10 mg PO DAILY PRN (Reason: Nausea) RF: 0 ibuprofen [Advil] 200 mg Tablet 400 mg PO QID PRN (Reason: Pain) RF: 0 finasteride 5 mg tablet 5 mg PO QAM RF: 0 pregabalin 75 mg capsule 75 mg PO BID RF: 0 Stand-Alone Forms: [facility] Discharge Orders: Discharge Order (Routine); Ordered 12/28/18 Ordered By: Donnie Diaz Admission Data Admit Date/Time: 12/24/18 01:56 Attending Provider: Donnie Diaz Admit Provider: Josiah Cooley Primary Care Provider: Donnie Cates Other Providers: Josiah Cooley Service: Telemetry Medical Other Interventions: Discharge Summary Assessment (RN) Last Done: 12/28/18 14:10 DC Date/Time DO NOT enter until pt leaves facility: 12/28/18 14:24
== END 2018-12-28 14:24 | disposition home or self-care (01) | DRG 315 ==
LOC: ED 21:45 → 2W 12-24 01:56

== ENCOUNTER 2020-01-11 18:44 | Inpatient (IN) ==
[2020-01-11] MEDS ORDERED: SODIUM CHLORIDE 0.9% 1000ML 1,000 ML IV ONE (19:03)
[2020-01-11 19:49] LABS: Basophils # (auto) 0.01 K/uL (0-0.2); Basophils % (auto) 0.2 %; Eosinophils # (auto) 0.04 K/uL (0-0.5); Eosinophils % (auto) 0.6 %; Hematocrit (blood only) 42.5 % (42-52); Immature Granulocytes # (auto) 0.04 K/uL (0.00-0.02); Immature Granulocytes % (auto) 0.6 %; Lymphocytes # (auto) 0.73 K/uL (1.2-3.4); Lymphocytes % (auto) 11.2 %; Mean Corpuscular Hgb Conc 32.9 g/dL (32-36); Mean Corpuscular Volume 81.9 fL (80-100); Mean Platelet Volume 10.6 fL (7.4-10.4); Monocytes % (auto) 3.1 %; Neutrophils # (auto) 5.47 K/uL (1.4-6.5); Neutrophils % (auto) 84.3 %; Platelet Count 266 K/uL (130-400); RDW Coefficient of Variation 16.3 % (11.5-14.5); RDW Standard Deviation 49.4 fL (36.4-46.3); Red Blood Count 5.19 M/uL (4.7-6.1); White Blood Count 6.49 K/uL (4.8-10.8)
[2020-01-11 20:09] LABS: Albumin Level 2.6 gm/dl (3.4-5.0); BUN Creatinine Ratio 32.1 (10-20); Calcium 8.4 mg/dl (8.5-10.1); Creatinine Clr Calc Pharmacy 57.5 ml/min; Est GFR (African American) 73.3; Est GFR (Non-African American) 63.3; Potassium 3.4 mmol/L (3.5-5.1)
[2020-01-11 20:12] LABS: Albumin Globulin Ratio 0.7 (0.9-2); Bilirubin,Total 0.8 mg/dl (0.2-1); Globulin 3.5 gm/dl (2.5-4.0); Total Protein 6.1 gm/dl (6.4-8.2)
[2020-01-11] MEDS ORDERED: IOVERSOL 100ml IV PRN (20:26)
--- NOTE | 2020-01-11 21:13 | CT Scan Report ---
ABDOMEN AND PELVIS CT WITH IV CONTRAST CT DOSE: 1030.66 mGy.cm HISTORY: Acute generalized abdominal pain in a patient with history of colorectal carcinoma and recta l stent colon ca w/ stent diarrhea and abd pain TECHNIQUE: Multiaxial CT images of the abdomen and pelvis were performed following the IV administrat ion of 90 cc of Optiray 320, A dose lowering technique was utilized adhering to the principles of [place] [facility]. COMPARISON STUDY: CT abdomen and pelvis 12/23/2018. FINDINGS: Mild dependent subsegmental bibasilar atelectasis. 3 mm solid nodule the basal left lower lobe previo usly measured 5 mm. Study is limited secondary to respiratory motion, lack of enteric contrast and up per extremity positioning. No pneumatosis or pneumoperitoneum. Imaged inferior cardiac chambers are u pper limits of normal in size. The spleen, and right adrenal gland are unremarkable. 2.5 cm lesion of the left gland has mildly decreased in size from comparison, previously 2.8 cm. Unchanged intrahepat ic biliary ductal dilation, notably within the posterior right hepatic lobe. No new hepatic mass lesi ons identified. Cholelithiasis with mild gallbladder distention. No CT evidence of acute cholecystiti s or choledocholithiasis. Common bile duct measures the upper limits of normal at 7 mm. Moderate gene ralized pancreatic atrophy. Pancreatic head calcifications suggest sequela of prior pancreatitis. Renal sinus cysts are noted bilaterally. Nonobstructing calculi of the inferior pole left kidney ruben ure up to 7 mm. No ureteral calculi or obstructive uropathy. Multiple calculi are noted within the de pendent urinary bladder lumen measuring up to 5-6 mm. Urinary bladder wall thickening and trabeculati on is noted with prostamegaly. Mixed plaque of the aorta without aneurysm. No new adenopathy or soft tissue nodules. 5 mm pericolonic lymph node on image 359 series 3 previously measured 6 mm. Stable positioning of the stent within the rectosigmoid with persistent irregular rectosigmoid wall t hickening. There is progressively decreased luminal diameter at the proximal portion of the stent, no w measuring up to approximately 3 mm transversely on image 374 series 3, previously measuring up to 1 .3 cm. Air-fluid levels of the colon are noted proximal to this area. Postoperative changes of the ce cum. Long segment wall thickening with mucosal hyperemia of the distal ileum is again noted measuring up to 8.4 cm on image 360 of series 3, improved from comparison study. Postoperative changes of prio r partial small bowel resection with multiple anastomotic sites. Additional area of wall thickening i s noted within the small bowel on image 331 series 3. No drainable fluid collection. No new suspiciou s bone lesions. IMPRESSION: 1. Unchanged positioning of the metallic stent of the rectosigmoid. There is progressively worsened i rregular rectosigmoid wall thickening resulting in decreased luminal diameter. Additionally, there is upstream large and small bowel dilation with air-fluid levels. Findings may be secondary to developi ng obstruction secondary to the patient's known colorectal neoplasm. 2. Multiple areas of small bowel wall thickening of the pelvis as above has decreased from the 019 exam and is suggestive of a nonspecific enteritis. 3. Decreased size of the bibasilar pulmonary nodules, left adrenal gland lesion and left pericolonic nodules suggestive of positive treatment response. 4. No pneumatosis or pneumoperitoneum. 5. Nonobstructing left nephrolithiasis with dependent urinary bladder calculi. 6. Prostamegaly with urinary bladder wall thickening and perivesicular stranding suggestive of chroni c bladder outlet obstruction. Correlate with urinalysis. 7. Additional findings as above. ACT 112: Negative or not required by law. The above report was generated using voice recognition software. It may contain grammatical, syntax o r spelling errors. Electronically signed by: Tate Adorno M.D. 01/11/2020 9:11 PM
[2020-01-11 22:02] LABS: Appearance Urine Clear (Clear); Bacteria Urine Automated Negative (Negative); Bilirubin Urine Negative (Negative); Blood Urine 1+ (Negative); Color Urine Dark Yellow; Epithelial Cell Urine Auto >30 /lpf (0-5); Glucose Urine UA Negative (Negative); Ketones Urine Trace (Negative); Leukocyte Esterase Urine Negative (Negative); Nitrite Urine Negative (Negative); Protein Urine Trace (Negative); Specific Gravity Urine > 1.045 (1.000-1.030); Urobilinogen Urine Negative (Negative)
[2020-01-11 22:15] LABS: Cast Urine Automated 0 /lpf (0-5); Mucus Urine Present (None Prsent)
--- NOTE | 2020-01-11 23:21 | Emergency Department Note ---
Entered by Renata Thacker acting as a scribe for Sterling Wesley DO History of Present Illness General Chief complaint: Diarrhea Stated complaint: CHEMO PT; NAUSEAS, VOMITING,DIARRHEA Source: patient History of Present Illness Onset (ago): day(s) 1 Location: buttocks (diarrhea) Pain Consistency: + other (worsening) Maximum Pain Intensity: 1 Relieved By: + none Associated symptoms: + denies other symptoms (burning urination), + loss of appetite, + nausea/vomiting, + weakness and + other (dehydration) The patient is a 79 year old M who presents to the Emergency Room with complaints of worsening diarrhea that started 1 day ago. He states that his diarrhea started yesterday evening. He notes that he experienced 10 episodes of diarrhea, yesterday. He states that he is currently experiencing weakness and dehydration due to his diarrhea. He adds that he is also currently experiencing nausea and vomiting. He notes that he vomited once today. He adds that he experienced abdominal pain last night, which he notes is now resolved. He states that he has not been eating and drinking much recently. He denies that he is currently experiencing burning urination. He states that he has a history of rectal cancer, a malignant neoplasm to his left lung, a colostomy, bowel resection, and an appendectomy. He notes that he has been receiving chemotherapy for his rectal cancer for the past 2 years. He adds that his last done of chemotherapy was on January 06. Home Medications Home Medications Medication Instructions Recorded Confirmed Type ibuprofen [Advil] 400 mg PO QID PRN 12/24/18 01/11/20 History pregabalin 75 mg PO BID 12/24/18 01/11/20 History prochlorperazine maleate 10 mg PO DAILY PRN 12/24/18 01/11/20 History [Compazine] diphenoxylate-atropine [Lomotil] 1 tab PO QID PRN #20 tab 12/28/18 01/11/20 Rx finasteride 5 mg tablet 5 mg PO DAILY #90 tab 12/07/19 01/11/20 Rx loperamide [Imodium A-D] 2 mg PO Q8H PRN 01/11/20 01/11/20 History potassium chloride 10 meq PO DAILY 01/11/20 01/11/20 History Allergies Allergy/AdvReac Type Severity Reaction Status Date / Time No Known Allergies Allergy Verified 01/11/20 21:39 Past Med/Surg History Social History Preferred Language: Libyan Communication Ability: Effective Forensics Team Director Required: No Beliefs That Will Affect Care: None marital status: Current Living Situation: Spouse Feels Safe at Home: Yes Smoking Status: Former smoker Tobacco Type: pipe ; Cigarettes Per Day: h/o 5 pipes per day x 15yrs ; Second Hand Exposure: No ; Hx Alcohol Use: No Hx Substance Use: No Review of Systems See HPI for pertinent positives & negatives. and A total of 10 systems reviewed and were otherwise negative Physical Exam Vital Signs Vital Signs - 24 hr 01/11/20 18:47 01/11/20 20:44 01/11/20 22:26 Temperature 36.6 C Temperature Source Oral Pulse Rate 118 H Pulse Rate [Radial] 86 87 Respiratory Rate 24 17 Respiratory Effort / Characteristics Non-Labored Spontaneous Respiratory Depth Normal Respiratory Pattern Regular Blood Pressure 115/87 Blood Pressure [Right Arm] 116/79 106/81 Blood Pressure Mean 96 Blood Pressure Mean [Right Arm] 91 89 Pulse Oximetry 97 96 96 Oxygen Delivery Method Room Air Room Air Room Air Sepsis Recent Fever Within 48 Hours No Sepsis Action Taken by Nursing No Action Required GENERAL: Sitting up in bed, Chronically-ill appearing in no acute distress, non- toxic. EYE EXAM: normal conjunctiva, PERRL and EOM's grossly intact OROPHARYNX: no exudate, no erythema, lips, buccal mucosa, and tongue normal and mucous membranes are dry NECK: supple, no nuchal rigidity, no adenopathy, non-tender LUNGS: Clear to auscultation. Normal chest wall mechanics HEART: no murmurs, S1 normal and S2 normal ABDOMEN: abdomen soft, non-tender, normo-active bowel sounds, no masses, no rebound or guarding. BACK: Back is symmetrical on inspection and there is no deformity, no midline tenderness, no CVA tenderness. SKIN: no rashes and no bruising UPPER EXTREMITIES: upper extremities are grossly normal. LOWER EXTREMITIES: No pitting edema. NEURO EXAM: Normal sensorium, cranial nerves II-XII grossly intact, normal speech, no gross weakness of arms, no gross weakness of legs. Course Course ED COURSE: Vital signs were reviewed and showed normal vital. The patients medical record was reviewed The above diagnostic studies were performed and reviewed. ED treatments and interventions as stated above. 1858: The patient was evaluated in room B2. A complete history and physical examination was performed. 2144: Upon reevaluation, the patient is doing no better. I discussed my findings with the patient and he understands and agrees with the treatment plan. 2151: I reviewed the patient's case with Dr. Evan Lambert, [facility] Hospitalist. He will evaluate the patient for further management. Based on the patients age, coexisting illnesses, exam and lab findings the decision to treat as an inpatient was made. The patient remained stable while under my care. The patient will be evaluated for further management. Administered Medications Ioversol (Optiray 320 100ml) 90 ml IV ONCE PRN PRN Reason: Interaction Checking Stop: 01/15/20 20:25 Last Admin: 01/11/20 20:26 Dose: 90 ml Documented by: [id number] Discontinued Medications Sodium Chloride (Nss 1000ml) 1,000 mls @ 999 mls/hr IV .Q1H1M ONE Stop: 01/11/20 20:03 Last Infusion: 01/11/20 21:15 Dose: 0 mls/hr Documented by: [id number] Admin: 01/11/20 19:46 Dose: 999 mls/hr Documented by: [id number] Medical Decision Making Differential Diagnosis Differential diagnoses includes but is not limited to gastritis, peptic ulcer disease, GERD, gallbladder disease, pancreatitis, small bowel obstruction, acute coronary syndrome, pericarditis, ischemic bowel, irritable bowel disease, i rritable bowel syndrome, appendicitis, diverticulitis, malignancy, hernia, urinary tract infection, torsion, perforation, trauma, infectious. Medical Records Attestation: I reviewed the patient's medical records. Home Medications Current Medication List: was personally reviewed by me Laboratory Data Attestation: I reviewed the patient's lab results. Result diagrams: 01/11/20 19:40 01/11/20 19:40 Lab Results 01/11/20 01/11/20 01/11/20 Range/Units 19:40 19:40 20:06 WBC 6.49 (4.8-10.8) K/uL RBC 5.19 (4.7-6.1) M/uL Hgb 14.0 (14.0-18.0) g/dL Hct 42.5 (42-52) % MCV 81.9 (80-100) fL MCH 27.0 (25-34) pg MCHC 32.9 (32-36) g/dL RDW Std Deviation 49.4 H (36.4-46.3) fL RDW Coeff of Awilda 16.3 H (11.5-14.5) % Plt Count 266 (130-400) K/uL MPV 10.6 H (7.4-10.4) fL Immature Gran % (Auto) 0.6 % Neut % (Auto) 84.3 % Lymph % (Auto) 11.2 % [place] % (Auto) 3.1 % Eos % (Auto) 0.6 % Baso % (Auto) 0.2 % Immature Gran # (Auto) 0.04 H (0.00-0.02) K/uL Neut # (Auto) 5.47 (1.4-6.5) K/uL Lymph # (Auto) 0.73 L (1.2-3.4) K/uL [place] # (Auto) 0.20 (0.11-0.59) K/uL Eos # (Auto) 0.04 (0-0.5) K/uL Baso # (Auto) 0.01 (0-0.2) K/uL Sodium 135 L (136-145) mmol/L Potassium 3.4 L (3.5-5.1) mmol/L Chloride 102 (98-107) mmol/L Carbon Dioxide 27 (21-32) mmol/L Anion Gap 6.0 (3-11) BUN 36 H (7-18) mg/dl Creatinine 1.11 (0.6-1.4) mg/dl Est Cr Clr Drug Dosing 57.5 ml/min Est GFR ( Amer) 73.3 Est GFR (Non-Af Amer) 63.3 BUN/Creatinine Ratio 32.1 H (10-20) Glucose 111 H (70-99) mg/dl Calcium 8.4 L (8.5-10.1) mg/dl Total Bilirubin 0.8 (0.2-1) mg/dl AST 60 H (15-37) U/L ALT 109 H (12-78) U/L Alkaline Phosphatase 127 H (45-117) U/L Total Protein 6.1 L (6.4-8.2) gm/dl Albumin 2.6 L (3.4-5.0) gm/dl Globulin 3.5 (2.5-4.0) gm/dl Albumin/Globulin Ratio 0.7 L (0.9-2) Lipase 44 L (73-393) U/L Urine Color Urine Appearance (Clear) Urine pH (4.5-7.5) Ur Specific [place] (1.000-1.030) Urine Protein (Negative) Urine Glucose (UA) (Negative) Urine Ketones (Negative) Urine Blood (Negative) Urine Nitrite (Negative) Urine Bilirubin (Negative) Urine Urobilinogen (Negative) Ur Leukocyte Esterase (Negative) Urine WBC (Auto) (0-5) /hpf Urine RBC (Auto) (0-4) /hpf U Hyaline Cast (Auto) (0-5) /lpf U Epithel Cells (Auto) (0-5) /lpf Urine Bacteria (Auto) (Negative) Urine Mucus (None Prsent) Stl C. diff Tox B Gene Negative Cdiff Gene (Neg) 01/11/20 Range/Units 21:25 WBC (4.8-10.8) K/uL RBC (4.7-6.1) M/uL Hgb (14.0-18.0) g/dL Hct (42-52) % MCV (80-100) fL MCH (25-34) pg MCHC (32-36) g/dL RDW Std Deviation (36.4-46.3) fL RDW Coeff of Awilda (11.5-14.5) % Plt Count (130-400) K/uL MPV (7.4-10.4) fL Immature Gran % (Auto) % Neut % (Auto) % Lymph % (Auto) % [place] % (Auto) % Eos % (Auto) % Baso % (Auto) % Immature Gran # (Auto) (0.00-0.02) K/uL Neut # (Auto) (1.4-6.5) K/uL Lymph # (Auto) (1.2-3.4) K/uL [place] # (Auto) (0.11-0.59) K/uL Eos # (Auto) (0-0.5) K/uL Baso # (Auto) (0-0.2) K/uL Sodium (136-145) mmol/L Potassium (3.5-5.1) mmol/L Chloride (98-107) mmol/L Carbon Dioxide (21-32) mmol/L Anion Gap (3-11) BUN (7-18) mg/dl Creatinine (0.6-1.4) mg/dl Est Cr Clr Drug Dosing ml/min Est GFR ( Amer) Est GFR (Non-Af Amer) BUN/Creatinine Ratio (10-20) Glucose (70-99) mg/dl Calcium (8.5-10.1) mg/dl Total Bilirubin (0.2-1) mg/dl AST (15-37) U/L ALT (12-78) U/L Alkaline Phosphatase (45-117) U/L Total Protein (6.4-8.2) gm/dl Albumin (3.4-5.0) gm/dl Globulin (2.5-4.0) gm/dl Albumin/Globulin Ratio (0.9-2) Lipase (73-393) U/L Urine Color Dark Yellow Urine Appearance Clear (Clear) Urine pH 6.0 (4.5-7.5) Ur Specific [place] > 1.045 H (1.000-1.030) Urine Protein Trace H (Negative) Urine Glucose (UA) Negative (Negative) Urine Ketones Trace H (Negative) Urine Blood 1+ H (Negative) Urine Nitrite Negative (Negative) Urine Bilirubin Negative (Negative) Urine Urobilinogen Negative (Negative) Ur Leukocyte Esterase Negative (Negative) Urine WBC (Auto) 5-10 H (0-5) /hpf Urine RBC (Auto) 5-10 H (0-4) /hpf U Hyaline Cast (Auto) 0 (0-5) /lpf U Epithel Cells (Auto) >30 H (0-5) /lpf Urine Bacteria (Auto) Negative (Negative) Urine Mucus Present A (None Prsent) Stl C. diff Tox B Gene (Neg) Imaging Data Radiologist's Impression: Radiology results as stated below per my review and the radiologist's interpretation: ABDOMEN AND PELVIS CT WITH IV CONTRAST CT DOSE: 1030.66 mGy.cm HISTORY: Acute generalized abdominal pain in a patient with history of colorectal carcinoma and rectal stent colon ca w/ stent diarrhea and abd pain TECHNIQUE: Multiaxial CT images of the abdomen and pelvis were performed following the IV administration of 90 cc of Optiray 320, A dose lowering technique was utilized adhering to the principles of ALARA. COMPARISON STUDY: CT abdomen and pelvis 12/23/2018. FINDINGS: Mild dependent subsegmental bibasilar atelectasis. 3 mm solid nodule the basal left lower lobe previously measured 5 mm. Study is limited secondary to respiratory motion, lack of enteric contrast and upper extremity positioning. No pneumatosis or pneumoperitoneum. Imaged inferior cardiac chambers are upper limits of normal in size. The spleen, and right adrenal gland are unremarkable. 2.5 cm lesion of the left gland has mildly decreased in size from comparison, previously 2.8 cm. Unchanged intrahepatic biliary ductal dilation, notably within the posterior right hepatic lobe. No new hepatic mass lesions identified. Cholelithiasis with mild gallbladder distention. No CT evidence of acute cholecystitis or choledocholithiasis. Common bile duct measures the upper limits of normal at 7 mm. Moderate generalized pancreatic atrophy. Pancreatic head calcifications suggest sequela of prior pancreatitis. Renal sinus cysts are noted bilaterally. Nonobstructing calculi of the inferior pole left kidney measure up to 7 mm. No ureteral calculi or obstructive uropathy. Multiple calculi are noted within the dependent urinary bladder lumen measuring up to 5-6 mm. Urinary bladder wall thickening and trabeculation is noted with prostamegaly. Mixed plaque of the aorta without aneurysm. No new adenopathy or soft tissue nodules. 5 mm pericolonic lymph node on image 359 series 3 previously measured 6 mm. Stable positioning of the stent within the rectosigmoid with persistent irregular rectosigmoid wall thickening. There is progressively decreased luminal diameter at the proximal portion of the stent, now measuring up to approximately 3 mm transversely on image 374 series 3, previously measuring up to 1.3 cm. Air- fluid levels of the colon are noted proximal to this area. Postoperative changes of the cecum. Long segment wall thickening with mucosal hyperemia of the distal ileum is again noted measuring up to 8.4 cm on image 360 of series 3, improved from comparison study. Postoperative changes of prior partial small bowel rese ction with multiple anastomotic sites. Additional area of wall thickening is noted within the small bowel on image 331 series 3. No drainable fluid collection. No new suspicious bone lesions. IMPRESSION: 1. Unchanged positioning of the metallic stent of the rectosigmoid. There is progressively worsened irregular rectosigmoid wall thickening resulting in decreased luminal diameter. Additionally, there is upstream large and small bowel dilation with air-fluid levels. Findings may be secondary to developing obstruction secondary to the patient's known colorectal neoplasm. 2. Multiple areas of small bowel wall thickening of the pelvis as above has decreased from the 12/23/2018 exam and is suggestive of a nonspecific enteritis. 3. Decreased size of the bibasilar pulmonary nodules, left adrenal gland lesion and left pericolonic nodules suggestive of positive treatment response. 4. No pneumatosis or pneumoperitoneum. 5. Nonobstructing left nephrolithiasis with dependent urinary bladder calculi. 6. Prostamegaly with urinary bladder wall thickening and perivesicular stranding suggestive of chronic bladder outlet obstruction. Correlate with urinalysis. 7. Additional findings as above. ACT 112: Negative or not required by law. The above report was generated using voice recognition software. It may contain grammatical, syntax or spelling errors. Electronically signed by: Tate Adorno M.D. 01/11/2020 9:11 PM Blood Pressure Blood Pressure Findings: Normal blood pressure Blood Pressure Disposition: did not require urgent referral MDM Narrative Patient is a 79-year-old male who presents the ER with a history of colon cancer which is metastatic to the lungs for diarrhea which is been present for the past 24 hours. IV was established blood work was obtained shows no significant leukocytosis or anemia. BMP with mild hypo-kalemia. LFTs with mild transaminitis. Albumin and protein were low. Lipase was low. UA was contaminated with multiple epithelial cells. C. difficile was negative. CT abdomen pelvis showed narrowing around the stent in the colon with a questionable upstream obstruction versus diarrhea. Do favor that this is likely viral in nature but cannot be certain. Patient was given IV fluids. He was clearly dehydrated. He was updated bedside. Discussed with the hospitalist for observation secondary to the findings on CT. Impression & Plan Abdominal pain, Diarrhea, Dehydration, Transaminitis Discharge Plan Visit Data Chief Complaint: Diarrhea Stated Complaint: CHEMO PT; NAUSEAS, VOMITING,DIARRHEA ED Provider: Sterling Wesley Discharge Problem: Abdominal pain, Diarrhea, Dehydration, Transaminitis Patient Disposition: Admitted As Inpatient Forms Stand Alone Forms: Likeeds Prescriptions Prescriptions: No Action finasteride 5 mg tablet 5 mg PO DAILY Qty: 90 RF: 3 prochlorperazine maleate [Compazine] 10 mg Tablet 10 mg PO DAILY PRN (Reason: Nausea) RF: 0 ibuprofen [Advil] 200 mg Tablet 400 mg PO QID PRN (Reason: Pain) RF: 0 pregabalin 75 mg capsule 75 mg PO BID RF: 0 diphenoxylate-atropine [Lomotil] 2.5-0.025 mg Tablet 1 tab PO QID PRN (Reason: Diarrhea) Qty: 20 RF: 2 potassium chloride 10 mEq tablet,ER particles/crystals 10 meq PO DAILY RF: 0 loperamide [Imodium A-D] 2 mg Tablet 2 mg PO Q8H PRN (Reason: Diarrhea) RF: 0 Referrals Referrals: Donnie Cates PA-C [Primary Care Provider] - Discharge Problem: Abdominal pain Qualifiers: Abdominal location: unspecified location Qualified Code(s): R10.9 - Unspecified abdominal pain Diarrhea Qualifiers: Diarrhea type: unspecified type Qualified Code(s): R19.7 - Diarrhea, unspecified The scribe's documentation has been prepared under my direction and personally reviewed by me in its entirety. I confirm that the note above accurately reflects all work, treatment, procedures, and medical decision making performed by me.
[2020-01-11] MEDS ORDERED: MoRPHine SULFATE 2 MG/ML CARP IV PRN (23:50)
[2020-01-11] MEDS ORDERED: LOPERAMIDE HCL 2 MG CAP PO PRN (23:57)
--- NOTE | 2020-01-12 00:16 | History and Physical Report ---
DATE OF ADMISSION: 01/11/2020 CHIEF COMPLAINT: Diarrhea. HISTORY OF PRESENT ILLNESS: This is a 79-year-old male with past medical history significant for BPH, status post TURP, history of hypertension, history of diarrhea in the past, history of metastatic rectal cancer history of diverting colostomy in April 2016 complicated with pelvic abscess which was drained by the IR. Currently getting chemo. Chemo was recently held for diarrhea, but again last dose was last Saturday. Since then,having several episodes of diarrhea at home. No blood in the stool. No abdominal pain. He had an episode of vomiting last night and thinks he is getting dehydrated, so came to the hospital. He also has colonic stent placement in the past. CAT scan done in the ER, unchanged position of the metallic stent of the rectosigmoid. There is question of developing obstruction secondary to patient's known colorectal neoplasm, nonspecific enteritis. Currently resting comfortably and hemodynamically stable. Denies any other complaints. Denies any headache. No blurred vision, no earache, no runny nose, no sore throat, no cough. No dysphagia, no odynophagia. Appetite is poor. He says he is losing weight. No fever, no chills, no chest pain, no shortness of breath. No hematuria or burning micturition, no swelling in the legs, no rash. ALLERGIES: No known drug allergies. PAST MEDICAL HISTORY: As mentioned above. PAST SURGICAL HISTORY: Colonoscopy, cystourethroscopy with ureteral stent, insertion of A-port, IR drainage of pelvic abscess, flexible sigmoidoscopy, laparoscopic colectomy partial with anastomosis, laparoscopic colectomy with coloproctostomy and colostomy, partial colectomy with TURP, closure of the enterostomy. MEDICATIONS: The patient is on Lomotil 1 tablet q.i.d. p.r.n., Proscar 5 mg p.o. daily p.r.n., Advil 400 mg p.o. b.i.d. p.r.n., Imodium 2 mg p.o. q. 8 hours p.r.n., potassium chloride 20 mEq p.o. daily, pregabalin 75 mg p.o. b.i.d., Compazine 10 mg p.o. daily p.r.n. FAMILY HISTORY: Significant for sister who had stomach cancer. SOCIAL HISTORY: , lives with his daughter and . Former smoker, quit in 2016. Smoked 5 packs a day for 15 years. No alcohol use, no drug use. REVIEW OF SYSTEMS: As per HPI. Rest of the review of systems negative. PHYSICAL EXAMINATION: GENERAL: The patient is of moderate build, not in acute distress. VITAL SIGNS: Temperature 36.6, pulse 87, respiratory rate 17, blood pressure 106/81, oxygen 96% on room air. HEENT: No pallor, no icterus. Pupils equal, round, and reactive to light. NECK: No JVD, no neck mass, no carotid bruit. CARDIOVASCULAR: S1, S2 heard, regular rate and rhythm, no murmur, no gallop. RESPIRATORY SYSTEM: Normal AP diameter. No accessory muscle use. No wheezing, no crackles. ABDOMEN: Soft, bowel sounds sluggish, nontender. No distention. CENTRAL NERVOUS SYSTEM: Cranial nerves II-XII grossly intact. Nonfocal. EXTREMITIES: No edema, no erythema. LABORATORY DATA: WBC 6.4, hemoglobin 14, hematocrit 42.5, platelets 266. Sodium 135, potassium 3.4, chloride 102, CO2 of 27, BUN 36, creatinine 1.1, serum glucose 111, calcium 8.4, AST 60, ALT 109, alkaline phosphatase 127, lipase 44. Urinalysis, trace amount of blood present, ketones present. Stool for C. diff negative. IMAGING DATA: CT of the abdomen and pelvis shows unchanged position of the metallic stent of the rectosigmoid. This progressively worsened, irregular rectosigmoid wall thickening resulting in decreased luminal diameter. Additionally, there is up stream large and small bowel dilatation with air fluid levels. Findings may be secondary to developing obstruction secondary to patient's known colorectal neoplasm. Multiple areas of small bowel wall thickening of the pelvis and is suggestive of nonspecific enteritis. Decreased size of the bibasilar pulmonary nodules, left adrenal gland lesion and left pericolonic nodule suggestive of positive treatment response. No pneumatosis or pneumoperitoneum. Nonobstructing left nephrolithiasis with dependent urinary bladder calculi, prostatomegaly with urinary bladder wall thickening and perivascular stranding suggestive of chronic bladder outlet obstruction. Correlate with urinalysis. ASSESSMENT AND PLAN: This is a 79-year-old male who presents with diarrhea and dehydration. 1. Diarrhea. The patient had recent admissions from diarrhea, thought to be from chemo. The chemo was held for some time and restarted and last dose was Saturday. Was getting dehydrated. We will give IV fluids, n.p.o. for now, and follow the stool cultures. C dfif negative 2. Possible colonic and small-bowel obstruction on the CAT scan. We will keep him n.p.o., IV fluids. Consult GI for further recommendation. History of metallic stent in the rectosigmoid, which is unchanged. 3. Rectosigmoid cancer with metastatic rectal cancer status post surgery and status post chemo, currently getting chemo. If any concerns, we will notify the hematology/oncology. Follows with hematology/oncology. 4. Benign prostatic hypertrophy, status post transurethral resection of prostate, on Proscar. 5. Hypertension. Currently not on any medications. We will monitor the blood pressure. 6. Deep venous thrombosis prophylaxis, sequential compression devices. DISPOSITION: Admit to medical floor. Expect to discharge home and follow with family doctor. PT and OT prior to discharge. Social service to help with discharge planning. EL
[2020-01-12] MEDS: DIPHENOXYLATE/ATROPINE 2.5/0.025MG TAB PO PRN ×2 (00:48→10:16)
[2020-01-12] MEDS: IBUPROFEN 200 MG TAB PO PRN ×2 (00:48→23:31)
[2020-01-12] MEDS: POTASSIUM CHLORIDE 10 MEQ in D5W AND NSS 1,000 ML IV SCH ×3 (00:53→20:36)
[2020-01-12 06:32] LABS: Basophils # (auto) 0.01 K/uL (0-0.2); Basophils % (auto) 0.3 %; Eosinophils # (auto) 0.05 K/uL (0-0.5); Eosinophils % (auto) 1.3 %; Hematocrit (blood only) 37.1 % (42-52); Hemoglobin 12.4 g/dL (14.0-18.0); Immature Granulocytes # (auto) 0.01 K/uL (0.00-0.02); Immature Granulocytes % (auto) 0.3 %; Lymphocytes # (auto) 0.56 K/uL (1.2-3.4); Lymphocytes % (auto) 14.8 %; Mean Corpuscular Hemoglobin 26.8 pg (25-34); Mean Corpuscular Hgb Conc 33.4 g/dL (32-36); Mean Corpuscular Volume 80.3 fL (80-100); Mean Platelet Volume 9.8 fL (7.4-10.4); Monocytes # (auto) 0.19 K/uL (0.11-0.59); Neutrophils # (auto) 2.96 K/uL (1.4-6.5); Neutrophils % (auto) 78.3 %; Platelet Count 247 K/uL (130-400); RDW Coefficient of Variation 16.3 % (11.5-14.5); RDW Standard Deviation 48.5 fL (36.4-46.3); Red Blood Count 4.62 M/uL (4.7-6.1); White Blood Count 3.78 K/uL (4.8-10.8)
[2020-01-12 07:10] LABS: BUN Creatinine Ratio 33.8 (10-20); Calcium 8.3 mg/dl (8.5-10.1); Creatinine Clr Calc Pharmacy 67.9 ml/min; Est GFR (African American) 89.6; Est GFR (Non-African American) 77.3; Magnesium 1.6 mg/dl (1.8-2.4); Potassium 3.3 mmol/L (3.5-5.1)
[2020-01-12] MEDS: POTASSIUM CHLORIDE 10 MEQ TABCR PO SCH (08:04)
[2020-01-12] MEDS: PREGABALIN 75 MG CAP PO SCH ×2 (08:18→20:36)
--- NOTE | 2020-01-12 08:58 | Gastrointestinal Consultation ---
Date of Consultation January 12, 2020 Assessment & Plan (1) Diarrhea: 79 year old male with metastatic colon CA on palliative chemotherap s/p colonic stenting of obstructive mass in 2018 who presents with diarrhea, CTAP concerning for progressively worsened irregular rectosigmoid wall thickening resulting in decreased luminal diameter w/ upstream large and small bowel dilation with air-fluid levels - Appreciate electrolyte correction - NPO - Hold lomotil/imodium/antidiarrhea - IVF maintenance - Check stool studies, c.diff - Will review imaging w/ attendings - Did discuss possibility of repeat colonoscopy for evaluation of colonic stent - Daily KUB - If he developed any obstructive type symptoms, consult general surgery - Once diet is advanced, he should be maintained on a post-colonic stent diet - Will follow. Thank you for allowing us to participate in the care of this patient. Please call with any acute changes, questions or concerns. Please see addendum below with additional recommendation from my supervising physician. Present on Admission?: Yes Supervising Physician Co-Signing Physician Notes I have seen and examined the patient and discussed the management with ODILON Parmar. 79 yo male with a history of prior rectal cancer, with a colonic stent, getting chemo, admitted for diarrhea. Imaging/labs reviewed. Clinically he is sleeping this afternoon and comfortable, HEENT - perrla, CV- rrr no mrg, Pulm- CTAB, Abd - soft nt nd +bs Discussed wtih Dr. jimenez and will plan to attempt to adjust the colonic/stent versus put stent within the stent tomorrow. Enemas tonite and tomorrow, NPO after midnite. History of Present Illness Reason for Consultation: diarrhea, colonic stent Requesting Physician: Joe Attending Physician: Karin Diaz MD History of Present Illness 79 year old male with history of HTN, BPH s/p TURP, metastatic rectal cancer diagnosed in March 2016 s/p diverting colostomy for obstructive mass s/p takedown of colostomy w/ LAR in September 2016 w/ recurrent disease s/p colonic stenting in [address] [place], last chemo dosing held for diarrhea, prior dose last saturday admitted for diarrhea, dehydration. Pt was seen and evaluated, chart reviewed. Pt notes intermittent issues with diarrhea/contipation since colonic stent and chemotherapy. He does not follow a colonic stent diet and uses imoidum/lomotil PRN. He endorses over the past 1-2 months his diarrhea has become more severe. Has more bad days than goods. No abdominal pain but some bloating before BM. No nausea, vomiting. Good appetite. Tolerating PO. STools have been loose, watery. Up to 4/5 times daily. Brown stools. No black or bloody stools. No fever, chills, CP, SOB. Is loosing some weight. CTAP 2020: Unchanged positioning of the metallic stent of the rectosigmoid. There is progressively worsened irregular rectosigmoid wall thickening resulting in decreased luminal diameter. Additionally, there is upstream large and small bowel dilation with air-fluid levels. Findings may be secondary to developing obstruction secondary to the patient's known colorectal neoplasm. Multiple areas of small bowel wall thickening of the pelvis as above has decreased from the 12/23/2018 exam and is suggestive of a nonspecific enteritis.Decreased size of the bibasilar pulmonary nodules, left adrenal gland lesion and left pericolonic nodules suggestive of positive treatment response. No pneumatosis or pneumoperitoneum. Nonobstructing left nephrolithiasis with dependent urinary bladder calculi. Prostamegaly with urinary bladder wall thickening and perivesicular stranding suggestive of chronic bladder outlet obstruction. Correlate with urinalysis. Additional findings as above. Allergies Allergy/AdvReac Type Severity Reaction Status Date / Time No Known Allergies Allergy Verified 01/11/20 21:39 Home Medications Home Medications Medication Instructions Recorded Confirmed Type ibuprofen [Advil] 400 mg PO QID PRN 12/24/18 01/11/20 History pregabalin 75 mg PO BID 12/24/18 01/11/20 History prochlorperazine maleate 10 mg PO DAILY PRN 12/24/18 01/11/20 History [Compazine] diphenoxylate-atropine [Lomotil] 1 tab PO QID PRN #20 tab 12/28/18 01/11/20 Rx finasteride 5 mg tablet 5 mg PO DAILY #90 tab 12/07/19 01/11/20 Rx loperamide [Imodium A-D] 2 mg PO Q8H PRN 01/11/20 01/11/20 History potassium chloride 10 meq PO DAILY 01/11/20 01/11/20 History Patient History Social History Preferred Language: P[place] Communication Ability: Effective Scrub Technician Required: No Beliefs That Will Affect Care: None marital status: Current Living Situation: Spouse and Family Other Information That Helps Us Care for You: No Feels Safe at Home: Yes Safety Concerns: Feels Safe At This Time Smoking Status: Former smoker Tobacco Type: pipe ; Cigarettes Per Day: h/o 5 pipes per day x 15yrs ; Do You Dip or Chew Tobacco: No ; Second Hand Exposure: No ; Hx Alcohol Use: No Hx Substance Use: No Review of Systems Constitutional: + fatigue and + weight loss; no fever and no chills Respiratory: no cough, no dyspnea and no pain on inspiration Cardiovascular: no chest pain, no radiating jaw, neck or arm pain and no dyspnea on exertion Gastrointestinal: + bloating and + diarrhea/loose stools; no abdominal pain, no heartburn, no nausea, no vomiting, no coffee ground emesis, no hematemesis, no pain with swallowing, no dysphagia, no cramping, no excessive flatulence, no change in bowel habits, no change in stools, no constipation, no fecal incontinence, no blood in stools and no melena Physical Exam Constitutional: + ill appearing (chronically ill); no acute distress Neck: trachea midline Respiratory: normal respiratory effort, lungs clear to auscultation Cardiovascular: Rate/Rhythm: regular rate and regular rhythm Gastrointestinal (Abdomen): normal bowel sounds, soft, nontender, no hepatosplenomegaly Results & Data ([facility]) Vital Signs (Past 12 Hours) Vital Signs Temp Pulse Pulse Resp BP BP Pulse Ox 01/12/20 08:01 36.4 C L 73 18 105/70 95 01/12/20 03:25 36.6 C 80 18 106/72 95 01/11/20 23:56 36.6 C 95 H 18 113/84 97 01/11/20 22:26 87 106/81 96 Laboratory Results 01/12/20 01/12/20 01/11/20 Range/Units 06:16 06:16 21:25 WBC 3.78 L (4.8-10.8) K/uL RBC 4.62 L (4.7-6.1) M/uL Hgb 12.4 L (14.0-18.0) g/dL Hct 37.1 L (42-52) % MCV 80.3 (80-100) fL MCH 26.8 (25-34) pg MCHC 33.4 (32-36) g/dL RDW Std Deviation 48.5 H (36.4-46.3) fL RDW Coeff of [place] 16.3 H (11.5-14.5) % Plt Count 247 (130-400) K/uL MPV 9.8 (7.4-10.4) fL Immature Gran % (Auto) 0.3 % Neut % (Auto) 78.3 % Lymph % (Auto) 14.8 % [place] % (Auto) 5.0 % Eos % (Auto) 1.3 % Baso % (Auto) 0.3 % Immature Gran # (Auto) 0.01 (0.00-0.02) K/uL Neut # (Auto) 2.96 (1.4-6.5) K/uL Lymph # (Auto) 0.56 L (1.2-3.4) K/uL [place] # (Auto) 0.19 (0.11-0.59) K/uL Eos # (Auto) 0.05 (0-0.5) K/uL Baso # (Auto) 0.01 (0-0.2) K/uL Sodium 137 (136-145) mmol/L Potassium 3.3 L (3.5-5.1) mmol/L Chloride 105 (98-107) mmol/L Carbon Dioxide 26 (21-32) mmol/L Anion Gap 6.0 (3-11) BUN 32 H (7-18) mg/dl Creatinine 0.94 (0.6-1.4) mg/dl Est Cr Clr Drug Dosing 67.9 ml/min Est GFR ( Amer) 89.6 Est GFR (Non-Af Amer) 77.3 BUN/Creatinine Ratio 33.8 H (10-20) Glucose 131 H (70-99) mg/dl Calcium 8.3 L (8.5-10.1) mg/dl Magnesium 1.6 L (1.8-2.4) mg/dl Total Bilirubin (0.2-1) mg/dl AST (15-37) U/L ALT (12-78) U/L Alkaline Phosphatase (45-117) U/L Total Protein (6.4-8.2) gm/dl Albumin (3.4-5.0) gm/dl Globulin (2.5-4.0) gm/dl Albumin/Globulin Ratio (0.9-2) Lipase (73-393) U/L Urine Color Dark Yellow Urine Appearance Clear (Clear) Urine pH 6.0 (4.5-7.5) Ur Specific [place] > 1.045 H (1.000-1.030) Urine Protein Trace H (Negative) Urine Glucose (UA) Negative (Negative) Urine Ketones Trace H (Negative) Urine Blood 1+ H (Negative) Urine Nitrite Negative (Negative) Urine Bilirubin Negative (Negative) Urine Urobilinogen Negative (Negative) Ur Leukocyte Esterase Negative (Negative) Urine WBC (Auto) 5-10 H (0-5) /hpf Urine RBC (Auto) 5-10 H (0-4) /hpf U Hyaline Cast (Auto) 0 (0-5) /lpf U Epithel Cells (Auto) >30 H (0-5) /lpf Urine Bacteria (Auto) Negative (Negative) Urine Mucus Present A (None Prsent) Stl C. diff Tox B Gene (Neg) 01/11/20 01/11/20 01/11/20 Range/Units 20:06 19:40 19:40 WBC 6.49 (4.8-10.8) K/uL RBC 5.19 (4.7-6.1) M/uL Hgb 14.0 (14.0-18.0) g/dL Hct 42.5 (42-52) % MCV 81.9 (80-100) fL MCH 27.0 (25-34) pg MCHC 32.9 (32-36) g/dL RDW Std Deviation 49.4 H (36.4-46.3) fL RDW Coeff of [place] 16.3 H (11.5-14.5) % Plt Count 266 (130-400) K/uL MPV 10.6 H (7.4-10.4) fL Immature Gran % (Auto) 0.6 % Neut % (Auto) 84.3 % Lymph % (Auto) 11.2 % [place] % (Auto) 3.1 % Eos % (Auto) 0.6 % Baso % (Auto) 0.2 % Immature Gran # (Auto) 0.04 H (0.00-0.02) K/uL Neut # (Auto) 5.47 (1.4-6.5) K/uL Lymph # (Auto) 0.73 L (1.2-3.4) K/uL [place] # (Auto) 0.20 (0.11-0.59) K/uL Eos # (Auto) 0.04 (0-0.5) K/uL Baso # (Auto) 0.01 (0-0.2) K/uL Sodium 135 L (136-145) mmol/L Potassium 3.4 L (3.5-5.1) mmol/L Chloride 102 (98-107) mmol/L Carbon Dioxide 27 (21-32) mmol/L Anion Gap 6.0 (3-11) BUN 36 H (7-18) mg/dl Creatinine 1.11 (0.6-1.4) mg/dl Est Cr Clr Drug Dosing 57.5 ml/min Est GFR ( Amer) 73.3 Est GFR (Non-Af Amer) 63.3 BUN/Creatinine Ratio 32.1 H (10-20) Glucose 111 H (70-99) mg/dl Calcium 8.4 L (8.5-10.1) mg/dl Magnesium (1.8-2.4) mg/dl Total Bilirubin 0.8 (0.2-1) mg/dl AST 60 H (15-37) U/L ALT 109 H (12-78) U/L Alkaline Phosphatase 127 H (45-117) U/L Total Protein 6.1 L (6.4-8.2) gm/dl Albumin 2.6 L (3.4-5.0) gm/dl Globulin 3.5 (2.5-4.0) gm/dl Albumin/Globulin Ratio 0.7 L (0.9-2) Lipase 44 L (73-393) U/L Urine Color Urine Appearance (Clear) Urine pH (4.5-7.5) Ur Specific [place] (1.000-1.030) Urine Protein (Negative) Urine Glucose (UA) (Negative) Urine Ketones (Negative) Urine Blood (Negative) Urine Nitrite (Negative) Urine Bilirubin (Negative) Urine Urobilinogen (Negative) Ur Leukocyte Esterase (Negative) Urine WBC (Auto) (0-5) /hpf Urine RBC (Auto) (0-4) /hpf U Hyaline Cast (Auto) (0-5) /lpf U Epithel Cells (Auto) (0-5) /lpf Urine Bacteria (Auto) (Negative) Urine Mucus (None Prsent) Stl C. diff Tox B Gene Negative Cdiff Gene (Neg) (1) Diarrhea Diarrhea type: unspecified type Qualified Code(s): R19.7 - Diarrhea, unspecified
[2020-01-12] MEDS: FINASTERIDE 5 MG TAB PO SCH (09:23)
--- NOTE | 2020-01-12 14:56 | Hospitalist Progress Note ---
Date of Service January 12, 2020 Assessment & Plan (1) Diarrhea: History of rectosigmoid cancer status post surgery and radiation therapy and currently on chemo Status post placement of rectal tube in the past Admitted with diarrhea associated with abdominal pain C. difficile has been negative, awaiting for stool culture Clinically a little bit better today Present on Admission?: Yes (2) Abdominal pain: As above (3) Rectal cancer: Rectosigmoid cancer with metastasis Status post surgery plus radiation treatment Ongoing chemo now (4) Bowel obstruction: Possible bowel obstruction as part imaging studies Still having diarrhea Appreciate GI input Likely to have colonoscopy tomorrow and possible changing and/or taking out the stent (5) Essential (primary) hypertension: Blood pressure remains stable DVT prophylaxis SCDs was placed on admission We will give heparin subcu Admission and Anticipated Discharge Date Admission Date: January 11, 2020 Subjective 01/12/2020 The patient was seen and examined in medical floor He still complains to have diarrhea but denies any abdominal distention and/or pain Denies any fever and/or chills Review of Systems Review of Systems: All systems reviewed and are unremarkable except as noted below Gastrointestinal: + diarrhea/loose stools; no abdominal pain, no bloating, no nausea and no vomiting Physical Exam Physical Exam: Lying in bed comfortably Constitutional: well developed, well nourished and + obese; not ill appearing Eyes: PERRL, conjunctivae normal, anicteric sclerae ENMT: external ear and nose normal, oropharynx normal Neck: trachea midline, no thyromegaly Respiratory: normal respiratory effort Auscultation: lungs clear to auscultation bilaterally Cardiovascular: Rate/Rhythm: regular rate and regular rhythm Heart Sounds: no murmur Gastrointestinal (Abdomen): Inspection/Auscultation: abdomen normal to inspection and normal bowel sounds (Exaggerated); abdomen not distended Percussion/Palpation: abdomen soft; abdomen nontender and no guarding Neurologic: Alert, awake and oriented x3. Generally weak Lymphatic: no cervical or axillary lymphadenopathy Results & Data ([facility]) Vital Signs (Past 12 Hours) Vital Signs Temp Pulse Resp BP Pulse Ox 01/12/20 13:08 36.5 C 68 18 105/72 96 01/12/20 08:01 36.4 C L 73 18 105/70 95 01/12/20 03:25 36.6 C 80 18 106/72 95 Laboratory Results Short CBC 01/11/20 01/12/20 Range/Units 19:40 06:16 WBC 6.49 3.78 L (4.8-10.8) K/uL Hgb 14.0 12.4 L (14.0-18.0) g/dL Hct 42.5 37.1 L (42-52) % Plt Count 266 247 (130-400) K/uL BMP 01/11/20 01/12/20 19:40 06:16 Sodium 135 L 137 Potassium 3.4 L 3.3 L Chloride 102 105 Carbon Dioxide 27 26 BUN 36 H 32 H Creatinine 1.11 0.94 Glucose 111 H 131 H Calcium 8.4 L 8.3 L Liver Function 01/11/20 Range/Units 19:40 Total Bilirubin 0.8 (0.2-1) mg/dl AST 60 H (15-37) U/L ALT 109 H (12-78) U/L Alkaline Phosphatase 127 H (45-117) U/L Albumin 2.6 L (3.4-5.0) gm/dl Urine 01/11/20 Range/Units 21:25 Urine Color Dark Yellow Urine Appearance Clear (Clear) Urine pH 6.0 (4.5-7.5) Ur Specific [place] > 1.045 H (1.000-1.030) Urine Protein Trace H (Negative) Urine Glucose (UA) Negative (Negative) Medications Administered Current Inpatient Medications Acetaminophen (Tylenol) 650 mg PO Q4H PRN PRN Reason: pain/fever Stop: 02/10/20 23:49 Diphenoxylate HCl/Atropine (Lomotil) 1 tab PO QID PRN PRN Reason: Diarrhea Stop: 02/10/20 23:49 Last Admin: 01/12/20 10:16 Dose: 1 tab Documented by: Finasteride (Proscar) 5 mg PO DAILY [facility] Stop: 02/11/20 08:59 Last Admin: 01/12/20 09:23 Dose: 5 mg Documented by: Heparin Sodium (Porcine) (Heparin Sod 100 Unit/Ml Flush) 5 ml FLUSH PRN PRN PRN Reason: Flush Stop: 02/11/20 06:59 Potassium Chloride 10 meq/ (Dextrose/Sodium Chloride) 1,005 mls @ 125 mls/hr IV .Q8H3M [facility] Stop: 02/11/20 00:14 Last Admin: 01/12/20 09:22 Dose: 125 mls/hr Documented by: Ibuprofen (Advil) 400 mg PO QID PRN PRN Reason: Pain Stop: 02/11/20 00:35 Last Admin: 01/12/20 00:48 Dose: 400 mg Documented by: Ioversol (Optiray 320 100ml) 90 ml IV ONCE PRN PRN Reason: Interaction Checking Stop: 01/15/20 20:25 Last Admin: 01/11/20 20:26 Dose: 90 ml Documented by: Loperamide HCl (Imodium) 2 mg PO Q8H PRN PRN Reason: Diarrhea Stop: 02/10/20 23:56 Morphine Sulfate (Morphine Sulfate) 2 mg IV Q4H PRN PRN Reason: Pain Stop: 01/25/20 23:49 Ondansetron HCl (Zofran) 4 mg IV Q6H PRN PRN Reason: Nausea Stop: 02/10/20 23:49 Potassium Chloride (Klor-Con M10) 10 meq PO DAILY [facility] Stop: 02/11/20 08:59 Last Admin: 01/12/20 08:04 Dose: 10 meq Documented by: Pregabalin (Lyrica) 75 mg PO BID [facility] Stop: 02/11/20 08:59 Last Admin: 01/12/20 08:18 Dose: 75 mg Documented by: (1) Diarrhea Diarrhea type: unspecified type Qualified Code(s): R19.7 - Diarrhea, unspecified (2) Abdominal pain Abdominal location: unspecified location Qualified Code(s): R10.9 - Unspecified abdominal pain
[2020-01-12] MEDS: POTASSIUM CHLORIDE / WTR 10 MEQ/100 ML PLCT IV SCH ×2 (16:04→17:22)
[2020-01-12] MEDS: MAGNESIUM SULFATE / D5W 1 GM/100 ML BAG IV SCH ×2 (16:04→17:22)
--- NOTE | 2020-01-12 17:12 | Anesthesiology Consultation ---
Date of Service January 12, 2020 Assessment & Plan (1) Encounter for pre-operative examination: Chart Review Chart Review: Acceptable Risk for Surgery and Patient NOT seen in Pre Admission Testing Consults Requested none History Surgery Operation Date: 01/13/20 07:00 Proposed Procedures p Colonic Stent Placement - Rafael Johnston MD Height/Weight Height: 5 ft 10.5 in Weight: 82.8 kg Allergies Allergy/AdvReac Type Severity Reaction Status Date / Time No Known Allergies Allergy Verified 01/11/20 21:39 Medications Home Medications Medication Instructions Recorded Confirmed Last Taken ibuprofen [Advil] 400 mg PO QID PRN 12/24/18 01/11/20 1 Week Ago ~05/26/19 pregabalin 75 mg PO BID 12/24/18 01/11/20 06/01/19 18:00 prochlorperazine maleate 10 mg PO DAILY PRN 12/24/18 01/11/20 Unknown [Compazine] diphenoxylate-atropine [Lomotil] 1 tab PO QID PRN #20 tab 12/28/18 01/11/20 06/01/19 12:00 finasteride 5 mg tablet 5 mg PO DAILY #90 tab 12/07/19 01/11/20 Unknown loperamide [Imodium A-D] 2 mg PO Q8H PRN 01/11/20 01/11/20 Unknown potassium chloride 10 meq PO DAILY 01/11/20 01/11/20 Unknown Active Medications Generic Name Dose Route Start Last Admin Trade Name Freq PRN Reason Stop Dose Admin Diphenoxylate HCl/Atropine 1 tab 01/11/20 23:50 01/12/20 10:16 Lomotil PO 02/10/20 23:49 1 tab QID PRN Administration Diarrhea Finasteride 5 mg 01/12/20 09:00 01/12/20 09:23 Proscar PO 02/11/20 08:59 5 mg DAILY CAROLINE Administration Potassium Chloride 10 meq/ 1,005 mls @ 125 mls/hr 01/12/20 00:15 01/12/20 09:22 Dextrose/Sodium Chloride IV 02/11/20 00:14 125 mls/hr .Q8H3M CAROLINE Administration Potassium Chloride 10 meq in 100 mls @ 100 mls/hr 01/12/20 16:00 01/12/20 16:04 K Kareem / Wtr IV 01/12/20 17:59 100 mls/hr Q1H CAROLINE Administration Magnesium Sulfate/Dextrose 1 gm in 100 mls @ 100 mls/hr 01/12/20 16:00 01/12/20 16:04 Magnesium Sulfate / D5w IV 01/12/20 17:59 100 mls/hr Q1H CAROLINE Administration Ibuprofen 400 mg 01/12/20 00:36 01/12/20 00:48 Advil PO 02/11/20 00:35 400 mg QID PRN Administration Pain Ioversol 90 ml 01/11/20 20:26 01/11/20 20:26 Optiray 320 100ml IV 01/15/20 20:25 90 ml ONCE PRN Administration Interaction Checking Potassium Chloride 10 meq 01/12/20 09:00 01/12/20 08:04 Klor-Con M10 PO 02/11/20 08:59 10 meq DAILY CAROLINE Administration Pregabalin 75 mg 01/12/20 09:00 01/12/20 08:18 Lyrica PO 02/11/20 08:59 75 mg BID CAROLINE Administration Past Medical History Medical History (Updated 01/12/20 @ 17:10 by Ahmet Farfan MD) BPH (benign prostatic hypertrophy) (Chronic) Chemotherapy-induced neuropathy Essential (primary) hypertension Lung metastases (Chronic) "thorascopic biopsy 11/21/17 - adenocarcinoma" Postoperative leak from A-port that was inserted 11/2017. Rectal cancer (Chronic 04/24/16) Status post completion of combined radiation and chemotherapy 07/18/2016 Status post low anterior resection 09/10/2016 coloproctostomy and diverting colostomy Status post reversal of ileostomy 11/28/2016 Now with mets, on chemotherapy. Progress note: Diarrhea. The patient had recent admissions from diarrhea, thought to be from chemo. The chemo was held for some time and restarted and last dose was Saturday. 2. Possible colonic and small-bowel obstruction on the CAT scan. We will keep him n.p.o., IV fluids. Consult GI for further recommendation. History of metallic stent in the rectosigmoid, which is unchanged. 3. Rectosigmoid cancer with metastatic rectal cancer status post surgery and status post chemo, currently getting chemo. Past Surgical History Surgical History H/O colonoscopy H/O cystoscopy H/O exploratory laparotomy 2015 H/O partial resection of colon H/O transurethral resection of prostate History of appendectomy History of bronchoscopy History of vascular access device Status post colostomy (Chronic) "d[place] col[place] rectal [place] with [place] [facility] Status post colostomy takedown (Chronic) "with LAR and diverting loop ileostomy 09[place]10/[place] [facility] [place] Status post ileostomy (Chronic) "09/10/16, reversed 11[place] [facility] [place] 06/02/[place]. Infusaport insertion, port removal left chest wall. MAC. no issues. Social History Smoking Status: Former smoker tobacco type: pipe Smoking cigarettes per day: h/o 5 pipes per day x 15yrs Do You Dip or Chew Tobacco: No Hx Alcohol Use: No Hx Substance Use: No substance use type: does not use Physical Exam Vital Signs Last Vital Signs Temp 36.4 C L 01/12/20 15:00 Pulse 67 01/12/20 15:00 Resp 20 01/12/20 15:00 BP 110/73 01/12/20 15:00 Pulse Ox 95 01/12/20 15:00 Testing Laboratory Results 01/12/20 06:16 01/12/20 06:16 Urine Color Dark Yellow 01/11/20 21:25 Urine Appearance Clear (Clear) 01/11/20 21:25 Urine pH 6.0 (4.5-7.5) 01/11/20 21:25 Ur Specific [place] > 1.045 (1.000-1.030) H 01/11/20 21:25 Urine Protein Trace (Negative) H 01/11/20 21:25 Urine Glucose (UA) Negative (Negative) 01/11/20 21:25 Urine Ketones Trace (Negative) H 01/11/20 21:25 Urine Nitrite Negative (Negative) 01/11/20 21:25 Ur Leukocyte Esterase Negative (Negative) 01/11/20 21:25 Urine WBC (Auto) 5-10 /hpf (0-5) H 01/11/20 21:25 Urine RBC (Auto) 5-10 /hpf (0-4) H 01/11/20 21:25 U Hyaline Cast (Auto) 0 /lpf (0-5) 01/11/20 21:25 U Epithel Cells (Auto) >30 /lpf (0-5) H 01/11/20 21:25 Urine Bacteria (Auto) Negative (Negative) 01/11/20 21:25 01/11/20 20:06 Escherichia coli Shiga Toxins Test - Preliminary Stool Stool Culture - Preliminary No Salmonella isolated to date, No Shigella isolated to date, No Campylobacter jejuni isolated to date. Electrocardiogram ECG 05/26/2019: Sinus rhythm with 1st degree AV block LAD Incomplete RBBB No change when compared to ECG 11/12/[address] abdomen 01/11/2020: 1. Unchanged positioning of the metallic stent of the rectosigmoid. There is progressively worsened irregular rectosigmoid wall thickening resulting in decreased luminal diameter. Additionally, there is upstream large and small maciel wel dilation with air-fluid levels. Findings may be secondary to developing obstruction secondary to the patient's known colorectal neoplasm. 2. Multiple areas of small bowel wall thickening of the pelvis as above has decreased from the 12/23/2018 exam and is suggestive of a nonspecific enteritis. 3. Decreased size of the bibasilar pulmonary nodules, left adrenal gland lesion and left pericolonic nodules suggestive of positive treatment response. 4. No pneumatosis or pneumoperitoneum. 5. Nonobstructing left nephrolithiasis with dependent urinary bladder calculi. 6. Prostamegaly with urinary bladder wall thickening and perivesicular stranding suggestive of chronic bladder outlet obstruction. Correlate with urinalysis.
[2020-01-12] MEDS: HEPARIN SOD 5,000 UNIT/0.5 ML VIAL SQ SCH (20:38)
[2020-01-13] MEDS: POTASSIUM CHLORIDE 10 MEQ in D5W AND NSS 1,000 ML IV SCH ×3 (04:41→23:26)
[2020-01-13 06:39] LABS: Hematocrit (blood only) 33.9 % (42-52); Hemoglobin 11.3 g/dL (14.0-18.0); Mean Corpuscular Hemoglobin 27.2 pg (25-34); Mean Corpuscular Hgb Conc 33.3 g/dL (32-36); Mean Corpuscular Volume 81.5 fL (80-100); Mean Platelet Volume 10.4 fL (7.4-10.4); Platelet Count 219 K/uL (130-400); RDW Coefficient of Variation 16.5 % (11.5-14.5); RDW Standard Deviation 49.5 fL (36.4-46.3); Red Blood Count 4.16 M/uL (4.7-6.1); White Blood Count 1.04 K/uL (4.8-10.8)
[2020-01-13 07:08] LABS: BUN Creatinine Ratio 31.6 (10-20); Calcium 7.9 mg/dl (8.5-10.1); Creatinine Clr Calc Pharmacy 74.2 ml/min; Est GFR (African American) 96.3; Est GFR (Non-African American) 83.1; Potassium 3.7 mmol/L (3.5-5.1)
[2020-01-13] MEDS: HEPARIN SOD 5,000 UNIT/0.5 ML VIAL SQ SCH ×2 (07:34→21:05)
[2020-01-13 08:01] LABS: Basophils # (auto) 0.01 K/uL (0-0.2); Eosinophils # (auto) 0.09 K/uL (0-0.5); Eosinophils % (auto) 8.7 %; Giant Platelets 1+; Immature Granulocytes # (auto) 0.01 K/uL (0.00-0.02); Lymphocytes # (auto) 0.39 K/uL (1.2-3.4); Lymphocytes % (auto) 37.5 %; Monocytes # (auto) 0.15 K/uL (0.11-0.59); Monocytes % (auto) 14.4 %; Neutrophils # (auto) 0.39 K/uL (1.4-6.5); Neutrophils % (auto) 37.4 %; Ovalocytes 1+
[2020-01-13] MEDS: POTASSIUM CHLORIDE 10 MEQ TABCR PO SCH (08:11)
[2020-01-13] MEDS: FINASTERIDE 5 MG TAB PO SCH (08:11)
[2020-01-13] MEDS: PREGABALIN 75 MG CAP PO SCH ×2 (08:11→21:04)
--- NOTE | 2020-01-13 08:46 | Gastroenterology Progress Note ---
Date of Service January 13, 2020 Assessment & Plan (1) Diarrhea: 79 year old male with metastatic colon CA on palliative chemotherapy s/p colonic stenting of obstructive mass in 2018 who presents with diarrhea, CTAP concerning for progressively worsened irregular rectosigmoid wall thickening resulting in decreased luminal diameter w/ upstream large and small bowel dilation with air-fluid levels - Will reach out to attending to discuss neutropenia - Please continue with enema prep - Please keep strict NPO - Appreciate electrolyte correction - Continue to plan for [id number] today - Hold lomotil/imodium/antidiarrhea - IVF maintenance - Check stool studies, c.diff - If he developed any obstructive type symptoms, consult general surgery - Once diet is advanced, he should be maintained on a post-colonic stent diet - Will follow. Thank you for allowing us to participate in the care of this patient. Please call with any acute changes, questions or concerns. Please see addendum below with additional recommendation from my supervising physician. Admission and Anticipated Discharge Date Admission Date: January 11, 2020 Supervising Physician Co-Signing Physician Notes I have seen and examined the patient and discussed the management with ODILON Parmar. 79 yo male for which GI was consulted for diarrhea two days ago. Has a a known distal colonic stent with ? obstruction on imaging. Bowel movements were improving. Noted to be neutropenic. Enema received overnite. PE - alert and oriented, HEENT - no scleral icterus, Neuro- cn's 2-12 intact, Abd - soft nt nd +bs Still planning for colonoscopy with possible stent within stent placement as long as neutropenia is not a contra-indication. Subjective Pt was seen and evaluated, chart reviewed Feels like his stools had decreased in frequency yesterday some more form as well Tolerated enema this AM no abd pain No nausea Is neutropenic this AM Review of Systems Constitutional: + fatigue and + weight loss; no fever and no chills Gastrointestinal: + bloating and + diarrhea/loose stools; no abdominal pain, no heartburn, no nausea, no vomiting, no coffee ground emesis, no hematemesis, no pain with swallowing, no dysphagia, no cramping, no excessive flatulence, no change in bowel habits, no change in stools, no constipation, no fecal incontinence, no blood in stools and no melena Physical Exam Constitutional: + ill appearing (chronically ill); no acute distress Neck: trachea midline Respiratory: normal respiratory effort, lungs clear to auscultation Cardiovascular: Rate/Rhythm: regular rate and regular rhythm Gastrointestinal (Abdomen): normal bowel sounds, soft, nontender, no hepatosplenomegaly Results & Data ([facility]) Vital Signs (Past 12 Hours) Vital Signs Temp Pulse Resp BP Pulse Ox 01/13/20 07:00 36.6 C 62 18 100/66 96 01/13/20 03:49 36.7 C 64 18 101/67 97 01/12/20 23:38 36.7 C 69 18 107/72 96 (1) Diarrhea Diarrhea type: unspecified type Qualified Code(s): R19.7 - Diarrhea, uns pecified
[2020-01-13] MEDS ORDERED: POTASSIUM CHLORIDE / WTR 10 MEQ/100 ML PLCT IV ONE (10:15)
[2020-01-13] MEDS ORDERED: fentaNYL citrate 100 MCG/2 ML VIAL ONE (13:07)
[2020-01-13] MEDS ORDERED: PROPOFOL IV EMULSION 10 MG/ML 20 ML VIAL IV ONE (13:16)
[2020-01-13] MEDS ORDERED: ONDANSETRON INJ 2 MG/ML 2 ML VIAL ONE (13:16)
[2020-01-13] MEDS ORDERED: LIDOCAINE HCL 2% 2 ML VIAL/AMP(20MG/ML) INFIL ONE (13:16)
[2020-01-13] MEDS ORDERED: SUCCINYLCHOLINE CHLORIDE 20 MG/ML 10 ML VIAL ONE (13:16)
[2020-01-13] MEDS ORDERED: ONDANSETRON INJ 2 MG/ML 2 ML VIAL IV PRN (14:13)
[2020-01-13] MEDS ORDERED: fentaNYL citrate 100 MCG/2 ML VIAL IV PRN (14:13)
[2020-01-13] MEDS ORDERED: ATROPINE SULFATE 0.1 MG/ML 10ML SYR IV PRN (14:13)
[2020-01-13] MEDS ORDERED: ePHEDrine sulfate 50 MG/ML AMP IV PRN (14:13)
--- NOTE | 2020-01-13 14:18 | History & Physical Bridge Note ---
Date of Service January 13, 2020 History & Physical Bridge Note I have examined the patient, reviewed the History & Physical and in the interval since the performance of the History & Physical I have noted the following changes of clinical significance: no changes noted Colonoscopy with stent placement
--- NOTE | 2020-01-13 14:59 | Operative Report ---
Post Operative Report Pre & Post Diagnosis Operation Date: 01/13/20 07:00 Pre-Op Diagnosis: Colonic obstruction Post-Op Diagnosis: Colonic obstruction I identified the patient and participated in the time-out.: Yes Procedure Operation Date: 01/13/20 07:00 Actual Procedures p Colonic Stent Placement - Rafael Johnston MD Surgeon Rafael Johnston MD Plush Dresser None Estimated Blood Loss 0 Findings See Below (colon obstruction, stent placed) Specimens None Description of Procedure Flex sig I attest to the content of the Intraoperative Record and any orders documented therein. Any exceptions are noted below.
--- NOTE | 2020-01-13 15:21 | Fluoroscopy Report ---
FL KUB CLINICAL HISTORY: COLONIC STENT PLACEMENT COMPARISON STUDY: CT scan dated 01/11/2020 FLUOROSCOPY TIME: 29 seconds. NUMBER OF FLUOROSCOPIC IMAGES: 5 FINDINGS: The initial image demonstrates an indwelling rectal stent. The second image demonstrates pl acement of a guidewire through the stent. The third image demonstrates placement of a coaxial stent. There is evidence for significant luminal narrowing of the stent. IMPRESSION: Fluoroscopic spot images demonstrating placement of a rectosigmoid stent through the exi sting stent. There is significant narrowing of the stent secondary to the patient's rectosigmoid mass . ACT 112: Negative or not required by law. Electronically signed by: Fernando Cisneros M.D. 01/13/2020 3:19 PM
--- NOTE | 2020-01-13 15:28 | GI REPORT ---
Patient Name: Stewart Baez Procedure Date: 01/13/2020 2:37 PM Date of : 1940 Admit Type: Inpatient Age: 79 Gender: Male Attending MD: Rafael Johnston MD Procedure: Flexible Sigmoidoscopy Providers: Rafael Johnston MD Referring MD: Nyae Saha M.d. Indications: Therapeutic procedure, Rectal cancer, For therapy of colonic obstruction Medicines: General Anesthesia Complications: No immediate complications. Estimated Blood Loss: Estimated blood loss: none. Procedure: Pre-Anesthesia Assessment: - Prior to the procedure, a History and Physical was performed, and patient medications, allergies and sensitivities were reviewed. The patient's tolerance of previous anesthesia was reviewed. - The risks and benefits of the procedure and the sedation options and risks were discussed with the patient. All questions were answered and informed consent was obtained. - Patient identification and proposed procedure were verified prior to the procedure by the physician and the nurse. The procedure was verified in the procedure room. - Pre-procedure physical examination revealed no contraindications to sedation. After obtaining informed consent, the endoscope was passed under direct vision. Throughout the procedure, the patient's blood pressure, pulse, and oxygen saturations were monitored continuously. The colonoscopy was performed without difficulty. The patient tolerated the procedure well. The quality of the bowel preparation was fair. The Endoscope was introduced through the anus and advanced to the descending colon. Findings: The perianal and digital rectal examinations were normal. A colonic stent was found in the rectum with extensive tumor ingrowth causing luminal stenosis with upstream colonic distention. The distal end is 3 cm from the anal verge. This could be traversed with ultraslim XP scope. A 0.035 in guidewire was placed deep in the colon. An Evolution controlled release stent, 25 mm x 10 cm was advanced over the wire and placed inside the current stent under fluoroscopic guidance. I personally interpreted the fluoroscopy images. The stent was in good position, distal end is 2 cm away from the anal verge and bridged the current stent on both ends. Stool flowed at the end of the procedure. Impression: - In situ stent in the rectum with tumor in growth causing luminal stenosis. This was stented (stent in stent) and bridged both ends of the in situ stent. Recommendation: - Return patient to [facility] for ongoing care. - Clear liquid diet today, then advance as tolerated to soft diet only. Follow post stent diet. - Use Miralax daily and avoid constipation. Rafael Johnston MD 01/13/2020 3:28:22 PM This report has been signed electronically. Note Initiated On: 01/13/2020 2:37 PM Number of Addenda: 0 I attest to the content of the Intraoperative Record and orders documented therein, exceptions below {[id number]}
--- NOTE | 2020-01-13 15:44 | Anesthesiology Progress Note ---
Date of Service January 13, 2020 Anesthesia Post Procedure Vital Signs Vital Signs: Temp Pulse Pulse Resp BP BP Pulse Ox 01/13/20 15:35 69 17 116/80 100 01/13/20 15:25 70 15 122/88 100 01/13/20 15:15 71 20 130/87 100 01/13/20 15:06 36.8 C 74 18 123/87 100 01/13/20 13:25 36.6 C 71 20 122/78 96 01/13/20 12:08 36.4 C L 66 18 100/69 96 01/13/20 07:00 36.6 C 62 18 100/66 96 01/13/20 03:49 36.7 C 64 18 101/67 97 01/12/20 23:38 36.7 C 69 18 107/72 96 01/12/20 19:29 36.3 C L 68 22 113/74 95 Transfer of Care Handoff Completed per policy Notes Mental Status: alert / awake / arousable Patient Amnestic to Procedure: Yes Nausea / Vomiting: adequately controlled Pain: adequately controlled Airway Patency, RR, SpO2: stable & adequate BP & HR: stable & adequate Hydration State: stable & adequate Anesthetic Complications: no major complications apparent
--- NOTE | 2020-01-13 16:40 | Hospitalist Progress Note ---
Date of Service January 13, 2020 Assessment & Plan (1) Diarrhea: History of rectosigmoid cancer status post surgery and radiation therapy and currently on chemo Status post placement of rectal tube in the past Admitted with diarrhea associated with abdominal pain C. difficile has been negative, awaiting for stool culture Clinically a better today Currently status post colonoscopy w/ stent in stent (01/13/2020), tolerated procedure well (2) Abdominal pain: As above (3) Rectal cancer: Rectosigmoid cancer with metastasis Status post surgery plus radiation treatment Ongoing chemo now Neutropenia - secondary to above - Neutropenic precautions (4) Bowel obstruction: Possible bowel obstruction as part imaging studies Still having diarrhea Appreciate GI input Now s/p colonoscopy with stent in stent (01/13/2020) (5) Essential (primary) hypertension: Blood pressure remains stable DVT prophylaxis SCDs was placed on admission heparin subcu Admission and Anticipated Discharge Date Admission Date: January 11, 2020 Subjective Pt is lying in bed, now s/p colonoscopy w/ [id number]. Currently feels well, tolerated procedure well. Denies any fevers, chills, chest pain, shortness of breath. Family at the bedside and updated. Discussed post stent diet for the future. Neutropenic ANC 0.39 -neutropenic precautions Review of Systems Review of Systems: All systems reviewed & are unremarkable except as noted in HPI & below Constitutional: no fever and no chills Respiratory: no cough and no dyspnea Cardiovascular: no chest pain, no palpitations and no edema Gastrointestinal: no abdominal pain Physical Exam Physical Exam: Physical Exam: Elderly male, lying in bed comfortably, in no acute distress Constitutional: well developed, well nourished and not ill appearing Eyes: PERRL, EOMI,conjunctivae normal, anicteric sclerae ENMT: external ear and nose normal, oropharynx normal Neck: trachea midline, no thyromegaly Respiratory: normal respiratory effort Auscultation: lungs clear to auscultation bilaterally, no wheezing, rhonchi, crackles Cardiovascular: Rate/Rhythm: regular rate and regular rhythm Heart Sounds: no murmur Gastrointestinal (Abdomen): Inspection/Auscultation: abdomen normal to inspection and normal bowel sounds (Exaggerated); abdomen not distended Percussion/Palpation: abdomen soft; abdomen nontender and no guarding Neurologic: Alert, awake and oriented x3. Generally weak Lymphatic: no cervical or axillary lymphadenopathy Results & Data ([facility]) Vital Signs (Past 12 Hours) Vital Signs Temp Pulse Pulse Resp BP BP Pulse Ox 01/13/20 16:00 36.6 C 69 18 119/82 100 01/13/20 15:45 36.9 C 68 16 121/83 100 01/13/20 15:35 69 17 116/80 100 01/13/20 15:25 70 15 122/88 100 01/13/20 15:15 71 20 130/87 100 01/13/20 15:06 36.8 C 74 18 123/87 100 01/13/20 13:25 36.6 C 71 20 122/78 96 01/13/20 12:08 36.4 C L 66 18 100/69 96 01/13/20 07:00 36.6 C 62 18 100/66 96 Laboratory Results 01/13/20 01/13/20 01/13/20 Range/Units 12:08 05:28 05:28 WBC (4.8-10.8) K/uL RBC (4.7-6.1) M/uL Hgb (14.0-18.0) g/dL Hct (42-52) % MCV (80-100) fL MCH (25-34) pg MCHC (32-36) g/dL RDW Std Deviation (36.4-46.3) fL RDW Coeff of Awilda (11.5-14.5) % Plt Count (130-400) K/uL MPV (7.4-10.4) fL Immature Gran % (Auto) % Neut % (Auto) % Lymph % (Auto) % [place] % (Auto) % Eos % (Auto) % Baso % (Auto) % Immature Gran # (Auto) (0.00-0.02) K/uL Neut # (Auto) (1.4-6.5) K/uL Lymph # (Auto) (1.2-3.4) K/uL [place] # (Auto) (0.11-0.59) K/uL Eos # (Auto) (0-0.5) K/uL Baso # (Auto) (0-0.2) K/uL Giant Platelets Ovalocytes Sodium 139 (136-145) mmol/L Potassium 3.7 (3.5-5.1) mmol/L Chloride 110 H (98-107) mmol/L Carbon Dioxide 25 (21-32) mmol/L Anion Gap 4.0 (3-11) BUN 27 H (7-18) mg/dl Creatinine 0.86 (0.6-1.4) mg/dl Est Cr Clr Drug Dosing 74.2 ml/min Est GFR ( Amer) 96.3 Est GFR (Non-Af Amer) 83.1 BUN/Creatinine Ratio 31.6 H (10-20) Glucose 109 H (70-99) mg/dl POC Glucose 91 (70-99) mg/dl Calcium 7.9 L (8.5-10.1) mg/dl Magnesium 2.0 (1.8-2.4) mg/dl 01/13/20 01/12/20 Range/Units 05:28 20:11 WBC 1.04 L (4.8-10.8) K/uL RBC 4.16 L (4.7-6.1) M/uL Hgb 11.3 L (14.0-18.0) g/dL Hct 33.9 L (42-52) % MCV 81.5 (80-100) fL MCH 27.2 (25-34) pg MCHC 33.3 (32-36) g/dL RDW Std Deviation 49.5 H (36.4-46.3) fL RDW Coeff of Awilda 16.5 H (11.5-14.5) % Plt Count 219 (130-400) K/uL MPV 10.4 (7.4-10.4) fL Immature Gran % (Auto) 1.0 % Neut % (Auto) 37.4 % Lymph % (Auto) 37.5 % [place] % (Auto) 14.4 % Eos % (Auto) 8.7 % Baso % (Auto) 1.0 % Immature Gran # (Auto) 0.01 (0.00-0.02) K/uL Neut # (Auto) 0.39 L* (1.4-6.5) K/uL Lymph # (Auto) 0.39 L (1.2-3.4) K/uL [place] # (Auto) 0.15 (0.11-0.59) K/uL Eos # (Auto) 0.09 (0-0.5) K/uL Baso # (Auto) 0.01 (0-0.2) K/uL Giant Platelets 1+ Ovalocytes 1+ Sodium (136-145) mmol/L Potassium (3.5-5.1) mmol/L Chloride (98-107) mmol/L Carbon Dioxide (21-32) mmol/L Anion Gap (3-11) BUN (7-18) mg/dl Creatinine (0.6-1.4) mg/dl Est Cr Clr Drug Dosing ml/min Est GFR ( Amer) Est GFR (Non-Af Amer) BUN/Creatinine Ratio (10-20) Glucose (70-99) mg/dl POC Glucose 102 H (70-99) mg/dl Calcium (8.5-10.1) mg/dl Magnesium (1.8-2.4) mg/dl Medications Administered Current Inpatient Medications Acetaminophen (Tylenol) 650 mg PO Q4H PRN PRN Reason: pain/fever Stop: 02/10/20 23:49 Diphenoxylate HCl/Atropine (Lomotil) 1 tab PO QID PRN PRN Reason: Diarrhea Stop: 02/10/20 23:49 Last Admin: 01/12/20 10:16 Dose: 1 tab Documented by: Finasteride (Proscar) 5 mg PO DAILY CAROLINE Stop: 02/11/20 08:59 Last Admin: 01/13/20 08:11 Dose: 5 mg Documented by: Heparin Sodium (Porcine) (Heparin Sod 100 Unit/Ml Flush) 5 ml FLUSH PRN PRN PRN Reason: Flush Stop: 02/11/20 06:59 Heparin Sodium (Porcine) (Heparin Sodium (Porcine)) 5,000 units SQ Q12 CAROLINE Stop: 02/11/20 20:59 Last Admin: 01/13/20 07:34 Dose: Not Given Documented by: Potassium Chloride 10 meq/ (Dextrose/Sodium Chloride) 1,005 mls @ 125 mls/hr IV .Q8H3M CAROLINE Stop: 02/11/20 00:14 Last Admin: 01/13/20 11:53 Dose: 125 mls/hr Documented by: Ibuprofen (Advil) 400 mg PO QID PRN PRN Reason: Pain Stop: 02/11/20 00:35 Last Admin: 01/12/20 23:31 Dose: 400 mg Documented by: Ioversol (Optiray 320 100ml) 90 ml IV ONCE PRN PRN Reason: Interaction Checking Stop: 01/15/20 20:25 Last Admin: 01/11/20 20:26 Dose: 90 ml Documented by: Morphine Sulfate (Morphine Sulfate) 2 mg IV Q4H PRN PRN Reason: Pain Stop: 01/25/20 23:49 Ondansetron HCl (Zofran) 4 mg IV Q6H PRN PRN Reason: Nausea Stop: 02/10/20 23:49 Polyethylene Glycol (Miralax Powder Packet) 17 gm PO BID CAROLINE Stop: 02/12/20 20:59 Potassium Chloride (Klor-Con M10) 10 meq PO DAILY CAROLINE Stop: 02/11/20 08:59 Last Admin: 01/13/20 08:11 Dose: 10 meq Documented by: Pregabalin (Lyrica) 75 mg PO BID CAROLINE Stop: 02/11/20 08:59 Last Admin: 01/13/20 08:11 Dose: 75 mg Documented by: (1) Diarrhea Diarrhea type: unspecified type Qualified Code(s): R19.7 - Diarrhea, u nspecified (2) Abdominal pain Abdominal location: unspecified location Qualified Code(s): R10.9 - Unspecified abdominal pain
[2020-01-13] MEDS: POLYETHYLENE (MIRALAX) 17 GM PACK PO SCH (21:04)
[2020-01-13] MEDS: IBUPROFEN 200 MG TAB PO PRN (23:21)
[2020-01-14] MEDS: ONDANSETRON INJ 2 MG/ML 2 ML VIAL IV PRN (00:37)
[2020-01-14] MEDS ORDERED: FAMOTIDINE 20 MG in SYRINGE 3 ML IV ONE (02:00)
[2020-01-14] MEDS: PROMETHAZINE HCL 12.5 MG in SODIUM CHLORIDE 0.9% 50 ML IV PRN (03:40)
[2020-01-14 05:42] LABS: Hematocrit (blood only) 37.5 % (42-52); Hemoglobin 12.3 g/dL (14.0-18.0); Mean Corpuscular Hemoglobin 26.9 pg (25-34); Mean Corpuscular Hgb Conc 32.8 g/dL (32-36); Mean Corpuscular Volume 82.1 fL (80-100); Platelet Count 228 K/uL (130-400); RDW Coefficient of Variation 16.3 % (11.5-14.5); RDW Standard Deviation 48.7 fL (36.4-46.3); Red Blood Count 4.57 M/uL (4.7-6.1); White Blood Count 1.11 K/uL (4.8-10.8)
[2020-01-14 06:14] LABS: Calcium 7.9 mg/dl (8.5-10.1); Creatinine Clr Calc Pharmacy 59.1 ml/min; Est GFR (African American) 75.8; Est GFR (Non-African American) 65.4; Magnesium 1.7 mg/dl (1.8-2.4); Potassium 3.9 mmol/L (3.5-5.1)
[2020-01-14 06:24] LABS: Dohle Bodies Occasional; Eosinophils # (auto) 0.01 K/uL (0-0.5); Eosinophils % (auto) 0.9 %; Giant Platelets 1+; Lymphocytes # (auto) 0.28 K/uL (1.2-3.4); Lymphocytes % (auto) 25.2 %; Monocytes # (auto) 0.23 K/uL (0.11-0.59); Monocytes % (auto) 20.7 %; Neutrophils # (auto) 0.59 K/uL (1.4-6.5); Neutrophils % (auto) 53.2 %; Ovalocytes 1+; Toxic Vacuolation Occasional
[2020-01-14] MEDS: POTASSIUM CHLORIDE 10 MEQ in D5W AND NSS 1,000 ML IV SCH ×2 (08:26→19:53)
[2020-01-14] MEDS: HEPARIN SOD 5,000 UNIT/0.5 ML VIAL SQ SCH ×2 (08:26→20:45)
[2020-01-14] MEDS: POLYETHYLENE (MIRALAX) 17 GM PACK PO SCH ×2 (08:27→20:44)
[2020-01-14] MEDS: POTASSIUM CHLORIDE 10 MEQ TABCR PO SCH (08:27)
[2020-01-14] MEDS: FINASTERIDE 5 MG TAB PO SCH (08:27)
[2020-01-14] MEDS: PREGABALIN 75 MG CAP PO SCH ×2 (08:31→20:44)
--- NOTE | 2020-01-14 09:03 | Gastroenterology Progress Note ---
Date of Service January 14, 2020 Assessment & Plan (1) Diarrhea: 79 year old male with metastatic colon CA on palliative chemotherapy s/p colonic stenting of obstructive mass in 2018 who presents with diarrhea, CTAP concerning for progressively worsened irregular rectosigmoid wall thickening resulting in decreased luminal diameter w/ upstream large and small bowel dilation with air-fluid levels. S/P colonoscopy w/ [id number] he did have some abd pain, nausea/vomiting last evening but suggests this has since resolved and now reports some fatigue and loose stools. - Clear liquid diet then advance to colonic stent diet as tolerated - Miralax daily - Appreciate electrolyte correction - Hold lomotil/imodium/antidiarrhea - IVF maintenance - If he developed any obstructive type symptoms, consult general surgery and obtain stat imaging - Will follow. Thank you for allowing us to participate in the care of this patient. Please call with any acute changes, questions or concerns. Please see addendum below with additional recommendation from my supervising physician. Admission and Anticipated Discharge Date Admission Date: January 11, 2020 Supervising Physician Co-Signing Physician Notes I have seen and examined the patient with ODILON Parmar. Colonic stent in stent placed yesterday. Diarrhea overnite. Replete k/mg. Consider KUB today given mild abdominal distension. Agree with further plan of care as above. Subjective Pt was seen and evaluated, chart reviewed S/P colonscopy w/ [id number] Did develop some abd pain, nausea, vomiting last evening This has since resolved Has not had issues with nausea/vomiting/pain post-anethesia in the past This AM feels well No rectal discomfort Continued loose stools Denies black/bloody stools Review of Systems Constitutional: + fatigue and + weight loss; no fever and no chills Gastrointestinal: + bloating and + diarrhea/loose stools; no abdominal pain, no heartburn, no nausea, no vomiting, no coffee ground emesis, no hematemesis, no pain with swallowing, no dysphagia, no cramping, no excessive flatulence, no change in bowel habits, no change in stools, no constipation, no fecal incontinence, no blood in stools and no melena Physical Exam Constitutional: + ill appearing (chronically ill); no acute distress Neck: trachea midline Respiratory: normal respiratory effort, lungs clear to auscultation Cardiovascular: Rate/Rhythm: regular rate and regular rhythm Gastrointestinal (Abdomen): normal bowel sounds, soft, nontender, no hepatosplenomegaly Results & Data ([facility]) Vital Signs (Past 12 Hours) Vital Signs Temp Pulse Resp BP BP Pulse Ox 01/14/20 07:28 36.6 C 74 18 95/62 L 96 01/14/20 03:21 36.9 C 96 H 18 103/73 94 01/13/20 23:08 37.3 C 110 H 18 116/83 93 (1) Diarrhea Diarrhea type: unspecified type Qualified Code(s): R19.7 - Diarrhea, unspecified
--- NOTE | 2020-01-14 12:35 | XRay Report ---
KUB CLINICAL HISTORY: Colonic stent. Abdominal distention. FINDINGS: 2 AP supine abdominal radiographs are correlated with abdominal CT dated 01/11/2020. A stent is again seen projecting over the rectosigmoid colon. There is significant gaseous distention of the small bowel loops which measure up to 6.4 cm in diameter. No evidence of intraperitoneal free air is seen on these supine images. Numerous pelvic phleboliths are observed. The skeletal structures are o steopenic and appear intact. IMPRESSION: 1. A rectosigmoid stent is unchanged in position. 2. Findings of bowel obstruction are similar to previous. Electronically signed by: Jony Elizondo M.D. 01/14/2020 12:34 PM
[2020-01-14] MEDS ORDERED: MAGNESIUM SULFATE / D5W 1 GM/100 ML BAG IV SCH (12:45)
--- NOTE | 2020-01-14 12:46 | Hospitalist Progress Note ---
Date of Service January 14, 2020 Assessment & Plan (1) Diarrhea: History of rectosigmoid cancer status post surgery and radiation therapy and currently on chemo Status post placement of rectal tube in the past Admitted with diarrhea associated with abdominal pain C. difficile has been negative, awaiting for stool culture Currently status post colonoscopy w/ stent in stent (01/13/2020), tolerated procedure well However developed vomiting several hours later KUB ordered and reviewed by GI this AM (01/14) Recommend close monitoring, miralax BID, ambulation If he develops any obstructive type symptoms, consult general surgery and obtain stat imaging (2) Abdominal pain: As above (3) Rectal cancer: Rectosigmoid cancer with metastasis Status post surgery plus radiation treatment Ongoing chemotherapy Neutropenia - secondary to above - Neutropenic precautions (4) Bowel obstruction: Possible bowel obstruction as part imaging studies Still having diarrhea Appreciate GI input Now s/p colonoscopy with stent in stent (01/13/2020) Had vomiting several hours later after the procedure KUB repeated by GI Currently denies any abd. pain, n/v (5) Essential (primary) hypertension: Blood pressure remains stable DVT prophylaxis: SCDs heparin subcu Admission and Anticipated Discharge Date Admission Date: January 11, 2020 Subjective Pt is lying in bed in no acute distress. Overnight had diarrhea and vomited. He is s/p colonoscopy w/ [id number] yesterday Neutropenic ANC 0.59 -neutropenic precautions KUB - ordered and reviewed by GI this morning. Review of Systems Review of Systems: All systems reviewed & are unremarkable except as noted in HPI & below Constitutional: no fever and no chills Respiratory: no cough and no dyspnea Cardiovascular: no chest pain, no palpitations and no edema Gastrointestinal: + vomiting (last night) and + diarrhea/loose stools; no abdominal pain Physical Exam Physical Exam: Physical Exam: Elderly male, lying in bed comfortably, in no acute distress Constitutional: well developed, well nourished and not ill appearing Eyes: PERRL, EOMI,conjunctivae normal, anicteric sclerae ENMT: external ear and nose normal, oropharynx normal Neck: trachea midline, no thyromegaly Respiratory: normal respiratory effort Auscultation: lungs clear to auscultation bilaterally, no wheezing, rhonchi, crackles Cardiovascular: Rate/Rhythm: regular rate and regular rhythm Heart Sounds: no murmur Gastrointestinal (Abdomen): Inspection/Auscultation: abdomen normal to inspection and normal bowel sounds; abdomen not distended Percussion/Palpation: abdomen soft; abdomen nontender and no guarding Neurologic: Alert, awake and oriented x3. Generally weak Results & Data ([facility]) Vital Signs (Past 12 Hours) Vital Signs Temp Pulse Resp BP Pulse Ox 01/14/20 11:15 36.3 C L 77 18 99/67 L 97 01/14/20 07:28 36.6 C 74 18 95/62 L 96 01/14/20 03:21 36.9 C 96 H 18 103/73 94 Laboratory Results 01/14/20 01/14/20 01/14/20 Range/Units 07:49 05:01 05:01 WBC 1.11 L (4.8-10.8) K/uL RBC 4.57 L (4.7-6.1) M/uL Hgb 12.3 L (14.0-18.0) g/dL Hct 37.5 L (42-52) % MCV 82.1 (80-100) fL MCH 26.9 (25-34) pg MCHC 32.8 (32-36) g/dL RDW Std Deviation 48.7 H (36.4-46.3) fL RDW Coeff of Awilda 16.3 H (11.5-14.5) % Plt Count 228 (130-400) K/uL MPV 10.0 (7.4-10.4) fL Immature Gran % (Auto) 0.0 % Neut % (Auto) 53.2 % Lymph % (Auto) 25.2 % [place] % (Auto) 20.7 % Eos % (Auto) 0.9 % Baso % (Auto) 0.0 % Immature Gran # (Auto) 0.00 (0.00-0.02) K/uL Neut # (Auto) 0.59 L* (1.4-6.5) K/uL Lymph # (Auto) 0.28 L (1.2-3.4) K/uL [place] # (Auto) 0.23 (0.11-0.59) K/uL Eos # (Auto) 0.01 (0-0.5) K/uL Baso # (Auto) 0.00 (0-0.2) K/uL Toxic Vacuolation Occasional Dohle Bodies Occasional Giant Platelets 1+ Ovalocytes 1+ Sodium 139 (136-145) mmol/L Potassium 3.9 (3.5-5.1) mmol/L Chloride 110 H (98-107) mmol/L Carbon Dioxide 24 (21-32) mmol/L Anion Gap 5.0 (3-11) BUN 22 H (7-18) mg/dl Creatinine 1.08 (0.6-1.4) mg/dl Est Cr Clr Drug Dosing 59.1 ml/min Est GFR ( Amer) 75.8 Est GFR (Non-Af Amer) 65.4 POC Glucose 134 H (70-99) mg/dl Fasting Glucose 175 H (70-99) mg/dl Calcium 7.9 L (8.5-10.1) mg/dl Magnesium 1.7 L (1.8-2.4) mg/dl Medications Administered Current Inpatient Medications Acetaminophen (Tylenol) 650 mg PO Q4H PRN PRN Reason: pain/fever Stop: 02/10/20 23:49 Diphenoxylate HCl/Atropine (Lomotil) 1 tab PO QID PRN PRN Reason: Diarrhea Stop: 02/10/20 23:49 Last Admin: 01/12/20 10:16 Dose: 1 tab Documented by: Finasteride (Proscar) 5 mg PO DAILY [facility] Stop: 02/11/20 08:59 Last Admin: 01/14/20 08:27 Dose: 5 mg Documented by: Heparin Sodium (Porcine) (Heparin Sod 100 Unit/Ml Flush) 5 ml FLUSH PRN PRN PRN Reason: Flush Stop: 02/11/20 06:59 Heparin Sodium (Porcine) (Heparin Sodium (Porcine)) 5,000 units SQ Q12 [facility] Stop: 02/11/20 20:59 Last Admin: 01/14/20 08:26 Dose: 5,000 units Documented by: Potassium Chloride 10 meq/ (Dextrose/Sodium Chloride) 1,005 mls @ 125 mls/hr IV .Q8H3M [facility] Stop: 02/11/20 00:14 Last Admin: 01/14/20 08:26 Dose: 125 mls/hr Documented by: Promethazine HCl 12.5 mg/ (Sodium Chloride) 50.5 mls @ 202 mls/hr IV Q6H PRN PRN Reason: Nausea And Vomiting Stop: 02/13/20 01:44 Last Infusion: 01/14/20 04:10 Dose: Infused Documented by: Magnesium Sulfate/Dextrose (Magnesium Sulfate / D5w) 1 gm in 100 mls @ 100 mls/hr IV TODAY@1245 [facility] Stop: 01/14/20 13:44 Sodium Chloride (Nss) 500 mls @ 125 mls/hr IV .Q4H [facility] Stop: 02/13/20 12:14 Ibuprofen (Advil) 400 mg PO QID PRN PRN Reason: Pain Stop: 02/11/20 00:35 Last Admin: 01/13/20 23:21 Dose: 400 mg Documented by: Ioversol (Optiray 320 100ml) 90 ml IV ONCE PRN PRN Reason: Interaction Checking Stop: 01/15/20 20:25 Last Admin: 01/11/20 20:26 Dose: 90 ml Documented by: Morphine Sulfate (Morphine Sulfate) 2 mg IV Q4H PRN PRN Reason: Pain Stop: 01/25/20 23:49 Ondansetron HCl (Zofran) 4 mg IV Q6H PRN PRN Reason: Nausea Stop: 02/10/20 23:49 Last Admin: 01/14/20 00:37 Dose: 4 mg Documented by: Polyethylene Glycol (Miralax Powder Packet) 17 gm PO BID [facility] Stop: 02/12/20 20:59 Last Admin: 01/14/20 08:27 Dose: Not Given Documented by: Potassium Chloride (Klor-Con M10) 10 meq PO DAILY [facility] Stop: 02/11/20 08:59 Last Admin: 01/14/20 08:27 Dose: 10 meq Documented by: Pregabalin (Lyrica) 75 mg PO BID [facility] Stop: 02/11/20 08:59 Last Admin: 01/14/20 08:31 Dose: 75 mg Documented by: (1) Diarrhea Diarrhea type: unspecified type Qualified Code(s): R19.7 - Diarrhea, unspecified (2) Abdominal pain Abdominal location: unspecified location Qualified Code(s): R10.9 - Unspecified abdominal pain
[2020-01-14] MEDS: SODIUM CHLORIDE 0.9% 500 ML IV SCH ×2 (12:48→18:41)
[2020-01-15] MEDS: SODIUM CHLORIDE 0.9% 500 ML IV SCH ×4 (01:03→20:17)
[2020-01-15 05:49] LABS: Hematocrit (blood only) 39.2 % (42-52); Hemoglobin 12.6 g/dL (14.0-18.0); Mean Corpuscular Hemoglobin 26.5 pg (25-34); Mean Corpuscular Hgb Conc 32.1 g/dL (32-36); Mean Corpuscular Volume 82.5 fL (80-100); Mean Platelet Volume 10.6 fL (7.4-10.4); Platelet Count 221 K/uL (130-400); RDW Coefficient of Variation 16.6 % (11.5-14.5); RDW Standard Deviation 50.4 fL (36.4-46.3); Red Blood Count 4.75 M/uL (4.7-6.1); White Blood Count 2.83 K/uL (4.8-10.8)
[2020-01-15 06:25] LABS: Calcium 8.1 mg/dl (8.5-10.1); Creatinine Clr Calc Pharmacy 62.6 ml/min; Est GFR (African American) 81.2; Est GFR (Non-African American) 70.1; Magnesium 1.8 mg/dl (1.8-2.4); Potassium 3.4 mmol/L (3.5-5.1)
[2020-01-15] MEDS: POLYETHYLENE (MIRALAX) 17 GM PACK PO SCH ×2 (09:02→20:12)
[2020-01-15] MEDS: HEPARIN SOD 5,000 UNIT/0.5 ML VIAL SQ SCH ×2 (09:04→20:12)
[2020-01-15] MEDS: POTASSIUM CHLORIDE 10 MEQ TABCR PO SCH (09:05)
[2020-01-15] MEDS: FINASTERIDE 5 MG TAB PO SCH (09:05)
[2020-01-15] MEDS: PREGABALIN 75 MG CAP PO SCH ×2 (09:07→20:13)
[2020-01-15] MEDS: IBUPROFEN 200 MG TAB PO PRN (13:19)
--- NOTE | 2020-01-15 21:58 | Hospitalist Progress Note ---
Date of Service January 15, 2020 Assessment & Plan (1) Diarrhea: History of rectosigmoid cancer status post surgery and radiation therapy and currently on chemo Status post placement of rectal tube in the past Admitted with diarrhea associated with abdominal pain C. difficile has been negative, awaiting for stool culture Currently status post colonoscopy w/ stent in stent (01/13/2020), tolerated procedure well However developed vomiting several hours later KUB ordered and reviewed by GI (01/14) Recommend close monitoring, miralax BID, ambulation If he develops any obstructive type symptoms, consult general surgery and obtain stat imaging Currently continues to have diarrhea, poor oral intake, on clear liquid diet (2) Abdominal pain: As above (3) Rectal cancer: Rectosigmoid cancer with metastasis Status post surgery plus radiation treatment Ongoing chemotherapy Neutropenia - secondary to above - Neutropenic precautions (4) Bowel obstruction: Possible bowel obstruction as part imaging studies Still having diarrhea Appreciate GI input Now s/p colonoscopy with stent in stent (01/13/2020) Had vomiting several hours later after the procedure KUB repeated by GI Currently denies any abd. pain, n/v but continues to have diarrhea (5) Essential (primary) hypertension: Blood pressure remains stable DVT prophylaxis: SCDs heparin subcu Admission and Anticipated Discharge Date Admission Date: January 11, 2020 Subjective Pt is lying in bed in no acute distress. Had several episodes of diarrhea, refused miralax ordered by GI, feeling discouraged. Discussed w/ the pt and family the need for miralax. Discussed w/ Patricia today from [facility] to cont. miralax and when able advance to low residue/ post-stent diet. Pt has poor oral intake. He is s/p colonoscopy w/ [id number] 2 days ago. Review of Systems Review of Systems: All systems reviewed & are unremarkable except as noted in HPI & below Constitutional: no fever and no chills Respiratory: no cough and no dyspnea Cardiovascular: no chest pain, no dyspnea on exertion and no palpitations Gastrointestinal: + diarrhea/loose stools; no abdominal pain, no nausea and no vomiting Physical Exam Physical Exam: Physical Exam: Elderly male, lying in bed comfortably, in no acute distress Constitutional: well developed, well nourished Eyes: PERRL, EOMI,conjunctivae normal, anicteric sclerae ENMT: external ear and nose normal, oropharynx normal Neck: trachea midline, no thyromegaly Respiratory: normal respiratory effort Auscultation: lungs clear to auscultation bilaterally, no wheezing, rhonchi, crackles Cardiovascular: Rate/Rhythm: regular rate and regular rhythm Heart Sounds: no murmur Gastrointestinal (Abdomen): Inspection/Auscultation: abdomen normal to inspection and normal bowel sounds; abdomen mildly distended Percussion/Pal pation: abdomen soft; abdomen nontender Neurologic: Alert, awake and oriented x3. Generally weak Results & Data ([facility]) Vital Signs (Past 12 Hours) Vital Signs Temp Pulse Resp BP Pulse Ox 01/15/20 19:45 36.8 C 85 20 101/70 94 01/15/20 16:00 36.7 C 114 H 18 99/69 L 94 Laboratory Results 01/15/20 01/15/20 01/15/20 Range/Units 07:54 05:19 05:19 WBC 2.83 L (4.8-10.8) K/uL RBC 4.75 (4.7-6.1) M/uL Hgb 12.6 L (14.0-18.0) g/dL Hct 39.2 L (42-52) % MCV 82.5 (80-100) fL MCH 26.5 (25-34) pg MCHC 32.1 (32-36) g/dL RDW Std Deviation 50.4 H (36.4-46.3) fL RDW Coeff of Awilda 16.6 H (11.5-14.5) % Plt Count 221 (130-400) K/uL MPV 10.6 H (7.4-10.4) fL Sodium 139 (136-145) mmol/L Potassium 3.4 L (3.5-5.1) mmol/L Chloride 110 H (98-107) mmol/L Carbon Dioxide 23 (21-32) mmol/L Anion Gap 6.0 (3-11) BUN 24 H (7-18) mg/dl Creatinine 1.02 (0.6-1.4) mg/dl Est Cr Clr Drug Dosing 62.6 ml/min Est GFR ( Amer) 81.2 Est GFR (Non-Af Amer) 70.1 POC Glucose 103 H (70-99) mg/dl Fasting Glucose 101 H (70-99) mg/dl Calcium 8.1 L (8.5-10.1) mg/dl Magnesium 1.8 (1.8-2.4) mg/dl Medications Administered Current Inpatient Medications Acetaminophen (Tylenol) 650 mg PO Q4H PRN PRN Reason: pain/fever Stop: 02/10/20 23:49 Diphenoxylate HCl/Atropine (Lomotil) 1 tab PO QID PRN PRN Reason: Diarrhea Stop: 02/10/20 23:49 Last Admin: 01/12/20 10:16 Dose: 1 tab Documented by: Finasteride (Proscar) 5 mg PO DAILY [facility] Stop: 02/11/20 08:59 Last Admin: 01/15/20 09:05 Dose: 5 mg Documented by: Heparin Sodium (Porcine) (Heparin Sod 100 Unit/Ml Flush) 5 ml FLUSH PRN PRN PRN Reason: Flush Stop: 02/11/20 06:59 Heparin Sodium (Porcine) (Heparin Sodium (Porcine)) 5,000 units SQ Q12 [facility] Stop: 02/11/20 20:59 Last Admin: 01/15/20 20:12 Dose: 5,000 units Documented by: Promethazine HCl 12.5 mg/ (Sodium Chloride) 50.5 mls @ 202 mls/hr IV Q6H PRN PRN Reason: Nausea And Vomiting Stop: 02/13/20 01:44 Last Infusion: 01/14/20 04:10 Dose: Infused Documented by: Sodium Chloride (Nss) 500 mls @ 80 mls/hr IV .Q6H15M [facility] Stop: 02/13/20 12:14 Last Admin: 01/15/20 20:17 Dose: 80 mls/hr Documented by: Ibuprofen (Advil) 400 mg PO QID PRN PRN Reason: Pain Stop: 02/11/20 00:35 Last Admin: 01/15/20 13:19 Dose: 400 mg Documented by: Morphine Sulfate (Morphine Sulfate) 2 mg IV Q4H PRN PRN Reason: Pain Stop: 01/25/20 23:49 Ondansetron HCl (Zofran) 4 mg IV Q6H PRN PRN Reason: Nausea Stop: 02/10/20 23:49 Last Admin: 01/14/20 00:37 Dose: 4 mg Documented by: Polyethylene Glycol (Miralax Powder Packet) 17 gm PO BID [facility] Stop: 02/12/20 20:59 Last Admin: 01/15/20 20:12 Dose: 17 gm Documented by: Potassium Chloride (Klor-Con M10) 10 meq PO DAILY [facility] Stop: 02/11/20 08:59 Last Admin: 01/15/20 09:05 Dose: 10 meq Documented by: Pregabalin (Lyrica) 75 mg PO BID [facility] Stop: 02/11/20 08:59 Last Admin: 01/15/20 20:13 Dose: 75 mg Documented by: (1) Diarrhea Diarrhea type: unspecified type Qualified Code(s): R19.7 - Diarrhea, unspecified (2) Abdominal pain Abdominal location: unspecified location Qualified Code(s): R10.9 - Unspecified abdominal pain
[2020-01-16] MEDS: POTASSIUM CHLORIDE / WTR 10 MEQ/100 ML PLCT IV SCH ×7 (00:05→21:58)
[2020-01-16] MEDS: SODIUM CHLORIDE 0.9% 500 ML IV SCH ×2 (00:17→21:02)
[2020-01-16] MEDS: HEPARIN 100 UNIT/ML 5ML FLUSH FLUSH PRN (05:38)
[2020-01-16 06:22] LABS: Basophils # (auto) 0.01 K/uL (0-0.2); Basophils % (auto) 0.3 %; Eosinophils # (auto) 0.04 K/uL (0-0.5); Eosinophils % (auto) 1.1 %; Hematocrit (blood only) 36.4 % (42-52); Hemoglobin 11.9 g/dL (14.0-18.0); Immature Granulocytes # (auto) 0.03 K/uL (0.00-0.02); Immature Granulocytes % (auto) 0.8 %; Lymphocytes # (auto) 0.53 K/uL (1.2-3.4); Lymphocytes % (auto) 14.6 %; Mean Corpuscular Hgb Conc 32.7 g/dL (32-36); Mean Corpuscular Volume 82.5 fL (80-100); Mean Platelet Volume 10.7 fL (7.4-10.4); Monocytes # (auto) 0.64 K/uL (0.11-0.59); Monocytes % (auto) 17.6 %; Neutrophils # (auto) 2.38 K/uL (1.4-6.5); Neutrophils % (auto) 65.6 %; Platelet Count 188 K/uL (130-400); RDW Coefficient of Variation 16.9 % (11.5-14.5); RDW Standard Deviation 51.1 fL (36.4-46.3); Red Blood Count 4.41 M/uL (4.7-6.1); White Blood Count 3.63 K/uL (4.8-10.8)
[2020-01-16 06:49] LABS: BUN Creatinine Ratio 33.8 (10-20); Calcium 8.1 mg/dl (8.5-10.1); Creatinine Clr Calc Pharmacy 66.5 ml/min; Est GFR (African American) 87.4; Est GFR (Non-African American) 75.4; Magnesium 1.8 mg/dl (1.8-2.4); Phosphorus 2.9 mg/dl (2.5-4.9); Potassium 3.4 mmol/L (3.5-5.1)
[2020-01-16] MEDS: ONDANSETRON INJ 2 MG/ML 2 ML VIAL IV PRN ×2 (08:24→16:00)
[2020-01-16] MEDS: HEPARIN SOD 5,000 UNIT/0.5 ML VIAL SQ SCH ×2 (08:25→21:03)
[2020-01-16] MEDS: FINASTERIDE 5 MG TAB PO SCH (08:25)
[2020-01-16] MEDS: POTASSIUM CHLORIDE 10 MEQ TABCR PO SCH (08:25)
[2020-01-16] MEDS: POLYETHYLENE (MIRALAX) 17 GM PACK PO SCH ×2 (08:26→21:04)
[2020-01-16] MEDS: PREGABALIN 75 MG CAP PO SCH ×2 (08:28→21:08)
--- NOTE | 2020-01-16 08:59 | Hospitalist Progress Note ---
Date of Service January 16, 2020 Assessment & Plan (1) Diarrhea: History of rectosigmoid cancer status post surgery and radiation therapy and currently on chemo Status post placement of rectal tube in the past Admitted with diarrhea associated with abdominal pain C. difficile has been negative, awaiting for stool culture Currently status post colonoscopy w/ stent in stent (01/13/2020), tolerated procedure well However developed vomiting several hours later KUB ordered and reviewed by GI (01/14) Recommend close monitoring, miralax BID, ambulation If he develops any obstructive type symptoms, consult general surgery and obtain stat imaging Currently continues to have diarrhea, poor oral intake, on clear liquid diet Restart IVF, discourage PO intake (2) Abdominal pain: As above (3) Rectal cancer: Rectosigmoid cancer with metastasis Status post surgery plus radiation treatment Ongoing chemotherapy Neutropenia - resolved - secondary to above - Neutropenic precautions Hypokalemia, hypomagnesemia - secondary to poor oral intake - replete and monitor (4) Bowel obstruction: Possible bowel obstruction as part imaging studies Still having diarrhea Appreciate GI input Now s/p colonoscopy with stent in stent (01/13/2020) Had vomiting several hours later after the procedure KUB repeated by GI Currently denies any abd. pain, + n/v, continues to have diarrhea Restarted IVF, discouraged PO intake (5) Essential (primary) hypertension: Blood pressure remains stable DVT prophylaxis: SCDs heparin subcu Admission and Anticipated Discharge Date Admission Date: January 11, 2020 Subjective No longer neutropenic He is s/p colonoscopy w/ [id number] 3 days ago. Continues to have emesis and loose stools. Denies fever, chills, chest pain, shortness of breath. 01/15 Pt is lying in bed in no acute distress. Had several episodes of diarrhea, refused miralax ordered by GI, feeling discouraged. Discussed w/ the pt and family the need for miralax. Discussed w/ Patricia today from GI to cont. miralax and when able advance to low residue/ post-stent diet. Pt has poor oral intake. Review of Systems Review of Systems: All systems reviewed & are unremarkable except as noted in HPI & below Constitutional: no fever and no chills Respiratory: no cough and no dyspnea Cardiovascular: no chest pain and no palpitations Gastrointestinal: + nausea, + vomiting and + diarrhea/loose stools Physical Exam Physical Exam: Physical Exam: Elderly male, lying in bed comfortably, in no acute distress Constitutional: well developed, well nourished Eyes: PERRL, EOMI,conjunctivae normal, anicteric sclerae ENMT: external ear and nose normal, oropharynx normal Neck: trachea midline, no thyromegaly Respiratory: normal respiratory effort Auscultation: lungs clear to auscultation bilaterally, no wheezing, rhonchi, crackles Cardiovascular: Rate/Rhythm: regular rate and regular rhythm Heart Sounds: no murmur Gastrointestinal (Abdomen): Inspection/Auscultation: abdomen normal to inspection and normal bowel sounds; abdomen mildly distended Percussion/Palpat ion: abdomen soft; abdomen nontender Neurologic: Alert, awake and oriented x3. Generally weak Results & Data ([facility]) Vital Signs (Past 12 Hours) Vital Signs Temp Pulse Resp BP Pulse Ox 01/16/20 07:39 36.5 C 108 H 16 135/90 96 01/16/20 04:00 36.5 C 89 20 96/68 L 98 01/15/20 23:54 36.3 C L 80 18 98/64 L 95 Laboratory Results 01/16/20 01/16/20 Range/Units 05:38 05:38 WBC 3.63 L (4.8-10.8) K/uL RBC 4.41 L (4.7-6.1) M/uL Hgb 11.9 L (14.0-18.0) g/dL Hct 36.4 L (42-52) % MCV 82.5 (80-100) fL MCH 27.0 (25-34) pg MCHC 32.7 (32-36) g/dL RDW Std Deviation 51.1 H (36.4-46.3) fL RDW Coeff of Awilda 16.9 H (11.5-14.5) % Plt Count 188 (130-400) K/uL MPV 10.7 H (7.4-10.4) fL Immature Gran % (Auto) 0.8 % Neut % (Auto) 65.6 % Lymph % (Auto) 14.6 % [place] % (Auto) 17.6 % Eos % (Auto) 1.1 % Baso % (Auto) 0.3 % Immature Gran # (Auto) 0.03 H (0.00-0.02) K/uL Neut # (Auto) 2.38 (1.4-6.5) K/uL Lymph # (Auto) 0.53 L (1.2-3.4) K/uL [place] # (Auto) 0.64 H (0.11-0.59) K/uL Eos # (Auto) 0.04 (0-0.5) K/uL Baso # (Auto) 0.01 (0-0.2) K/uL Sodium 140 (136-145) mmol/L Potassium 3.4 L (3.5-5.1) mmol/L Chloride 110 H (98-107) mmol/L Carbon Dioxide 25 (21-32) mmol/L Anion Gap 5.0 (3-11) BUN 32 H (7-18) mg/dl Creatinine 0.96 (0.6-1.4) mg/dl Est Cr Clr Drug Dosing 66.5 ml/min Est GFR ( Amer) 87.4 Est GFR (Non-Af Amer) 75.4 BUN/Creatinine Ratio 33.8 H (10-20) Glucose 93 (70-99) mg/dl Calcium 8.1 L (8.5-10.1) mg/dl Phosphorus 2.9 (2.5-4.9) mg/dl Magnesium 1.8 (1.8-2.4) mg/dl Medications Administered Current Inpatient Medications Acetaminophen (Tylenol) 650 mg PO Q4H PRN PRN Reason: pain/fever Stop: 02/10/20 23:49 Diphenoxylate HCl/Atropine (Lomotil) 1 tab PO QID PRN PRN Reason: Diarrhea Stop: 02/10/20 23:49 Last Admin: 01/12/20 10:16 Dose: 1 tab Documented by: Finasteride (Proscar) 5 mg PO DAILY [facility] Stop: 02/11/20 08:59 Last Admin: 01/16/20 08:25 Dose: 5 mg Documented by: Heparin Sodium (Porcine) (Heparin Sod 100 Unit/Ml Flush) 5 ml FLUSH PRN PRN PRN Reason: Flush Stop: 02/11/20 06:59 Last Admin: 01/16/20 05:38 Dose: 5 ml Documented by: Heparin Sodium (Porcine) (Heparin Sodium (Porcine)) 5,000 units SQ Q12 [facility] Stop: 02/11/20 20:59 Last Admin: 01/16/20 08:25 Dose: 5,000 units Documented by: Promethazine HCl 12.5 mg/ (Sodium Chloride) 50.5 mls @ 202 mls/hr IV Q6H PRN PRN Reason: Nausea And Vomiting Stop: 02/13/20 01:44 Last Infusion: 01/14/20 04:10 Dose: Infused Documented by: Sodium Chloride (Nss) 500 mls @ 80 mls/hr IV .Q6H15M [facility] Stop: 02/13/20 12:14 Last Admin: 01/16/20 00:17 Dose: Not Given Documented by: Magnesium Sulfate/Dextrose (Magnesium Sulfate / D5w) 1 gm in 100 mls @ 100 mls/hr IV Q1H [facility] Stop: 01/16/20 11:29 Potassium Chloride (K Kareem / Wtr) 10 meq in 100 mls @ 100 mls/hr IV Q1H [facility] Stop: 01/16/20 09:55 Ibuprofen (Advil) 400 mg PO QID PRN PRN Reason: Pain Stop: 02/11/20 00:35 Last Admin: 01/15/20 13:19 Dose: 400 mg Documented by: Morphine Sulfate (Morphine Sulfate) 2 mg IV Q4H PRN PRN Reason: Pain Stop: 01/25/20 23:49 Ondansetron HCl (Zofran) 4 mg IV Q6H PRN PRN Reason: Nausea Stop: 02/10/20 23:49 Last Admin: 01/16/20 08:24 Dose: 4 mg Documented by: Polyethylene Glycol (Miralax Powder Packet) 17 gm PO BID [facility] Stop: 02/12/20 20:59 Last Admin: 01/16/20 08:26 Dose: 17 gm Documented by: Potassium Chloride (Klor-Con M10) 10 meq PO DAILY [facility] Stop: 02/11/20 08:59 Last Admin: 01/16/20 08:25 Dose: 10 meq Documented by: Pregabalin (Lyrica) 75 mg PO BID [facility] Stop: 02/11/20 08:59 Last Admin: 01/16/20 08:28 Dose: 75 mg Documented by: (1) Diarrhea Diarrhea type: unspecified type Qualified Code(s): R19.7 - Diarrhea, unspecified (2) Abdominal pain Abdominal location: unspecified location Qualified Code(s): R10.9 - Unspecified abdominal pain
[2020-01-16] MEDS: MAGNESIUM SULFATE / D5W 1 GM/100 ML BAG IV SCH ×2 (10:07→11:12)
[2020-01-16] MEDS: IBUPROFEN 200 MG TAB PO PRN (16:03)
[2020-01-16] MEDS ORDERED: SODIUM CHLORIDE 0.9% 1000ML 1,000 ML IV SCH (20:15)
[2020-01-17] MEDS: HEPARIN 100 UNIT/ML 5ML FLUSH FLUSH PRN ×2 (02:07→12:33)
[2020-01-17] MEDS: SODIUM CHLORIDE 0.9% 500 ML IV SCH ×4 (02:10→21:04)
[2020-01-17] MEDS: PROMETHAZINE HCL 12.5 MG in SODIUM CHLORIDE 0.9% 50 ML IV PRN (04:16)
[2020-01-17 06:09] LABS: Hematocrit (blood only) 38.9 % (42-52); Hemoglobin 12.5 g/dL (14.0-18.0); Immature Granulocytes # (auto) 0.03 K/uL (0.00-0.02); Immature Granulocytes % (auto) 0.7 %; Lymphocytes # (auto) 0.33 K/uL (1.2-3.4); Lymphocytes % (auto) 8.2 %; Mean Corpuscular Hemoglobin 26.2 pg (25-34); Mean Corpuscular Hgb Conc 32.1 g/dL (32-36); Mean Corpuscular Volume 81.4 fL (80-100); Mean Platelet Volume 10.7 fL (7.4-10.4); Monocytes # (auto) 0.72 K/uL (0.11-0.59); Monocytes % (auto) 17.9 %; Neutrophils # (auto) 2.95 K/uL (1.4-6.5); Neutrophils % (auto) 73.2 %; Platelet Count 225 K/uL (130-400); RDW Standard Deviation 50.8 fL (36.4-46.3); Red Blood Count 4.78 M/uL (4.7-6.1); White Blood Count 4.03 K/uL (4.8-10.8)
[2020-01-17 06:46] LABS: BUN Creatinine Ratio 40.7 (10-20); Creatinine Clr Calc Pharmacy 65.8 ml/min; Est GFR (African American) 86.3; Est GFR (Non-African American) 74.5; Magnesium 2.2 mg/dl (1.8-2.4); Potassium 2.9 mmol/L (3.5-5.1)
[2020-01-17] MEDS: IBUPROFEN 200 MG TAB PO PRN (07:17)
--- NOTE | 2020-01-17 07:19 | Hospitalist Progress Note ---
Date of Service January 17, 2020 Assessment & Plan (1) Diarrhea: History of rectosigmoid cancer status post surgery and radiation therapy and currently on chemo Status post placement of rectal tube in the past Admitted with diarrhea associated with abdominal pain C. difficile has been negative, awaiting for stool culture Currently status post colonoscopy w/ stent in stent (01/13/2020), tolerated procedure well However developed vomiting several hours later KUB ordered and reviewed by GI (01/14) Recommend close monitoring, miralax BID, ambulation If he develops any obstructive type symptoms, consult general surgery and obtain stat imaging Currently (01/17) continues to have diarrhea, nausea/vomiting, poor oral intake, on clear liquid diet - obtained KUB and subsequently CT abdomen - showed dilated small and large bowel above the stent. - GI contacted, recommend to give enema and cont. IVF and potassium supplementation. S/p flex sig, rectal tube placement (01/17), findings c/w colonic pseudo- obstruction Restart IVF, discourage PO intake (2) Abdominal pain: As above (3) Rectal cancer: Rectosigmoid cancer with metastasis Status post surgery plus radiation treatment Ongoing chemotherapy Neutropenia - resolved - secondary to above - Neutropenic precautions Hypokalemia, hypomagnesemia - secondary to poor oral intake, GI loss/diarrhea - replete and monitor (4) Bowel obstruction: Possible bowel obstruction as part imaging studies Still having diarrhea Appreciate GI input Now s/p colonoscopy with stent in stent (01/13/2020) Had vomiting several hours later after the procedure KUB repeated by GI Currently (01/17) continues to have diarrhea, nausea/vomiting, poor oral intake, on clear liquid diet - obtained KUB and subsequently CT abdomen - showed dilated small and large bowel above the stent. - GI contacted, recommend to give enema and cont. IVF and potassium supplementation. S/p flex sig, rectal tube placement (01/17) to help w/colonic decompression, findings c/w colonic pseudo-obstruction Restart IVF, discourage PO intake (5) Essential (primary) hypertension: Blood pressure remains stable DVT prophylaxis: SCDs heparin subcu Admission and Anticipated Discharge Date Admission Date: January 11, 2020 Subjective Pt is lying in bed, uncomfortable,has nausea and vomiting with abdominal distension, cont. to have watery diarrhea. KUB and subsequently CT abdomen obtained - showed dilated small and large bowel above the stent. GI contacted, recommend to give enema and cont. IVF and potassium supplementation. He likely has colonic pseudo-obstruction, the diarrhea stool argues against stent occlusion. Review of Systems Review of Systems: All systems reviewed and are unremarkable except as noted below Gastrointestinal: + nausea, + vomiting and + diarrhea/loose stools Physical Exam Physical Exam: Physical Exam: Elderly male, lying in bed, appears uncomfortable Constitutional: well developed, well nourished Eyes: PERRL, EOMI,conjunctivae normal, anicteric sclerae ENMT: external ear and nose normal, oropharynx normal Neck: trachea midline, no thyromegaly Respiratory: normal respiratory effort Auscultation: lungs clear to auscultation bilaterally, no wheezing, rhonchi, crackles Cardiovascular: Rate/Rhythm: regular rate and regular rhythm Heart Sounds: no murmur Gastrointestinal (Abdomen): Inspection/Auscultation:positive bowel sounds; abdomen somewhat distended, but soft nontender Neurologic: Alert, awake and oriented x3. Generally weak Results & Data ([facility]) Vital Signs (Past 12 Hours) Vital Signs Temp Pulse Resp BP BP Pulse Ox 01/17/20 07:15 36.7 C 104 H 18 118/86 95 01/16/20 23:30 37.0 C 101 H 20 119/81 96 Laboratory Results 01/17/20 01/17/20 Range/Units 05:53 05:53 WBC 4.03 L (4.8-10.8) K/uL RBC 4.78 (4.7-6.1) M/uL Hgb 12.5 L (14.0-18.0) g/dL Hct 38.9 L (42-52) % MCV 81.4 (80-100) fL MCH 26.2 (25-34) pg MCHC 32.1 (32-36) g/dL RDW Std Deviation 50.8 H (36.4-46.3) fL RDW Coeff of Awilda 17.0 H (11.5-14.5) % Plt Count 225 (130-400) K/uL MPV 10.7 H (7.4-10.4) fL Immature Gran % (Auto) 0.7 % Neut % (Auto) 73.2 % Lymph % (Auto) 8.2 % Dunn % (Auto) 17.9 % Eos % (Auto) 0.0 % Baso % (Auto) 0.0 % Immature Gran # (Auto) 0.03 H (0.00-0.02) K/uL Neut # (Auto) 2.95 (1.4-6.5) K/uL Lymph # (Auto) 0.33 L (1.2-3.4) K/uL Dunn # (Auto) 0.72 H (0.11-0.59) K/uL Eos # (Auto) 0.00 (0-0.5) K/uL Baso # (Auto) 0.00 (0-0.2) K/uL Sodium 141 (136-145) mmol/L Potassium 2.9 L (3.5-5.1) mmol/L Chloride 109 H (98-107) mmol/L Carbon Dioxide 26 (21-32) mmol/L Anion Gap 6.0 (3-11) BUN 40 H (7-18) mg/dl Creatinine 0.97 (0.6-1.4) mg/dl Est Cr Clr Drug Dosing 65.8 ml/min Est GFR ( Amer) 86.3 Est GFR (Non-Af Amer) 74.5 BUN/Creatinine Ratio 40.7 H (10-20) Glucose 110 H (70-99) mg/dl Calcium 8.0 L (8.5-10.1) mg/dl Phosphorus 3.0 (2.5-4.9) mg/dl Magnesium 2.2 (1.8-2.4) mg/dl (1) Diarrhea Diarrhea type: unspecified type Qualified Code(s): R19.7 - Diarrhea, unspecified (2) Abdominal pain Abdominal location: unspecified location Qualified Code(s): R10.9 - Unspecified abdominal pain
[2020-01-17] MEDS: POTASSIUM CHLORIDE / WTR 10 MEQ/100 ML PLCT IV SCH ×7 (07:42→19:26)
[2020-01-17] MEDS ORDERED: POTASSIUM CHLORIDE 20 MEQ TABCR PO ONE (07:45)
--- NOTE | 2020-01-17 08:14 | XRay Report ---
KUB CLINICAL HISTORY: Colonic stent. Abdominal distention. FINDINGS: 2 AP supine abdominal radiographs are compared to study dated 01/14/2020 and correlated with abdominal CT dated 01/11/2020. A stent is again seen projecting over the rectosigmoid colon. There is unchanged gaseous distention of the small bowel loops which measure up to 6 6.6 4 cm in diameter. No evidence of intraperitoneal free air is seen on these supine images. Numerous pelvic phleboliths are observed. The skeletal structures are osteopenic and appear intact. IMPRESSION: 1. A rectosigmoid stent is unchanged in position. 2. Findings of bowel obstruction are similar to previous. Electronically signed by: Jony Elizondo M.D. 01/17/2020 8:13 AM
[2020-01-17] MEDS: PREGABALIN 75 MG CAP PO SCH ×2 (08:50→20:52)
[2020-01-17] MEDS: POTASSIUM CHLORIDE 10 MEQ TABCR PO SCH (08:50)
[2020-01-17] MEDS: POLYETHYLENE (MIRALAX) 17 GM PACK PO SCH ×2 (08:51→22:34)
[2020-01-17] MEDS: FINASTERIDE 5 MG TAB PO SCH (08:52)
[2020-01-17] MEDS ORDERED: ACETAMINOPHEN 1,000 MG/100 ML VIAL IV PRN (08:53)
[2020-01-17] MEDS ORDERED: POTASSIUM CHLORIDE / WTR 20 MEQ/100 ML PLCT IV ONE (09:30)
[2020-01-17] MEDS: HEPARIN SOD 5,000 UNIT/0.5 ML VIAL SQ SCH ×2 (09:47→20:54)
--- NOTE | 2020-01-17 10:14 | CT Scan Report ---
CT SCAN OF THE ABDOMEN AND PELVIS WITHOUT IV CONTRAST CLINICAL HISTORY: Bowel obstruction. Colorectal carcinoma and rectal stent. COMPARISON STUDY: KUB dated 01/17/2020. Abdominal CT dated 01/11/2020. TECHNIQUE: CT scan of the abdomen and pelvis is performed from the lung bases to the proximal femora. Images are reviewed in the axial, sagittal, and coronal planes. IV contrast was not administered for this examination as per the referring clinician. Note that the examination was performed in signific antly suboptimal fashion without oral and IV contrast. The examination is also degraded by streak art ifact from the arms which could not be elevated above the abdomen and motion artifact. A dose lowerin g technique was utilized adhering to the principles of ALARA. CT DOSE: 1209.01 mGycm FINDINGS: Lung bases: The heart is normal in size and there is a small pericardial effusion. There are trace pl eural effusions with bibasilar scarring/atelectasis. No airspace consolidation is seen at the lung ba ses typical for pneumonia. Lower lobe pulmonary nodules are unchanged from 01/11/2020. The largest is seen in the lingula on image #24 and measures 10 mm. Liver: Evaluation of the liver is degraded by streak artifact. The unenhanced liver is normal in size , contour, and attenuation. There is no intrahepatic biliary ductal dilatation. Gallbladder: There are calcified gallstones with no CT evidence of acute cholecystitis. Spleen: Normal in size and attenuation. Pancreas: The unenhanced pancreas is atrophic. 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 Adrenal glands: A 2.6 cm left adrenal nodule is unchanged. The right adrenal gland is normal in appea aranza. Kidneys: The unenhanced kidneys are atrophic. There is no hydronephrosis. Numerous parapelvic cysts a re similar to previous. Nonobstructing left renal calculi are unchanged. There is no evidence of cont our deforming renal mass lesion. Abdominal vasculature: The abdominal aorta is normal in course and caliber noting moderate atheroscle rotic calcification. Bowel: There are overlapping stents within the rectosigmoid colon. Rectosigmoid wall thickening is li joya related to known neoplasm. The colon upstream to the stents is dilated and fluid-filled. The cec um measures up to 9 cm in diameter. There is evidence of right hemicolectomy with ileocolic anastomos is. A small bowel anastomosis is present in the pelvis. The small bowel loops are distended and fluid -filled, measuring up to 4 cm diameter. Thick-walled small bowel loops seen in the pelvis previously have improved. A mildly thick-walled loop in the central pelvis is seen on image #360. Peritoneum: There is no intraperitoneal free air or abdominal ascites. Lymphadenopathy: None. Pelvic viscera: The prostate gland is enlarged and heterogeneous noting median lobe hypertrophy. The bladder wall is mildly thickened and trabeculated indicating chronic outlet obstruction. There are pr ostatic calcifications as well as possible bladder calculi. Peripheral soft tissue thickening may be treatment related. Skeletal structures: The skeletal structures are osteopenic. No lytic or blastic lesions are seen. IMPRESSION: 1. Significantly suboptimal examination without oral and IV contrast. The examination is also comprom ised by streak and motion. 2. There are overlapping stents within the rectosigmoid colon. 3. Findings are consistent with persistent colonic obstruction. There is increased colonic dilatation as compared to the 01/11/2020 examination. 4. Cholelithiasis and left-sided nephrolithiasis. 5. Mildly thick-walled loops of small bowel in the pelvis has improved from previous. 6. Trace pleural effusions. 7. Additional findings as above. ACT 112: Negative or not required by law. Electronically signed by: Jony Elizondo M.D. 01/17/2020 10:13 AM
[2020-01-17] MEDS ORDERED: SOD PHOSPHATE/SOD BIPHOSPHATE ENEMA 132 ML BTL PR ONE ×2 (10:45→13:00)
--- NOTE | 2020-01-17 11:58 | Progress Note ---
Date of Service January 17, 2020 Assessment & Plan Admission and Anticipated Discharge Date Admission Date: January 11, 2020 Subjective I have seen and examined the patient today, he has nausea and vomiting with abdominal distension, these symptoms had initially improved after placed the stent then recurred back. He is having water diarrhea since the stent placement. He has Hypokalemia and potassium is 2.9 On exam abdomen is distended but soft and nontender. CT scan showed dilated small and large bowel above the stent. He likely has colonic pseudo-obstruction from profound hypokalemia, the diarrhea stool argues against stent occlusion. Recommend: Give Rectal enema now and again after 2 hrs. Correct his hypokalemia aggressively. I will plan for a Flex sig with rectal tube insertion to decompress the colon till his potassium gets corrected. Results & Data ([facility]) Vital Signs (Past 12 Hours) Vital Signs Temp Pulse Resp BP Pulse Ox 01/17/20 07:15 36.7 C 104 H 18 118/86 95
[2020-01-17] MEDS ORDERED: MINERAL OIL 30 ML UDC ONE (13:06)
--- NOTE | 2020-01-17 13:43 | Operative Report ---
Post Operative Report Pre & Post Diagnosis Operation Date: 01/13/20 07:00 Pre-Op Diagnosis: Colonic obstruction Post-Op Diagnosis: Colonic obstruction Operation Date: 01/17/20 13:15 Pre-Op Diagnosis: DIARRHEA I identified the patient and participated in the time-out.: Yes Procedure Operation Date: 01/13/20 07:00 Actual Procedures p Colonic Stent Placement - Rafael Johnston MD Operation Date: 01/17/20 13:15 <No data on this case meets the specified criteria> Surgeon Rafael Johnston MD Radiology Services Manager None Estimated Blood Loss 0 Findings See Below (No obstruction, stent is patent and wide open, + [place] (no motility).) Specimens None Description of Procedure Flex sig I attest to the content of the Intraoperative Record and any orders documented therein. Any exceptions are noted below.
[2020-01-17] MEDS ORDERED: POTASSIUM CHLORIDE / WTR 10 MEQ/100 ML PLCT IV SCH (13:45)
--- NOTE | 2020-01-17 14:05 | GI REPORT ---
Patient Name: Stewart Baez Procedure Date: 01/17/2020 1:06 PM Date of : 1940 Admit Type: Inpatient Age: 79 Gender: Male Attending MD: Rafael Johnston MD Procedure: Flexible Sigmoidoscopy Providers: Rafael Johnston MD Referring MD: Keith Cardoza Md Indications: Abnormal CT of the GI tract, For therapy of colonic pseudoobstruction Medicines: None Complications: No immediate complications. Estimated Blood Loss: Estimated blood loss: none. Procedure: Pre-Anesthesia Assessment: - Prior to the procedure, a History and Physical was performed, and patient medications, allergies and sensitivities were reviewed. The patient's tolerance of previous anesthesia was reviewed. - The risks and benefits of the procedure and the sedation options and risks were discussed with the patient. All questions were answered and informed consent was obtained. - Patient identification and proposed procedure were verified prior to the procedure by the physician and the nurse. The procedure was verified in the procedure room. - Pre-procedure physical examination revealed no contraindications to sedation. After obtaining informed consent, the endoscope was passed under direct vision. Throughout the procedure, the patient's blood pressure, pulse, and oxygen saturations were monitored continuously. The scope was introduced through the anus and advanced to the terminal ileum. The flexible sigmoidoscopy was accomplished without difficulty. The patient tolerated the procedure well. The quality of the bowel preparation was fair. Findings: The perianal and digital rectal examinations were normal. The ileum appeared normal. There is likely an ileocolonic anastomosis. A metallic colonic stent in stent was found in the recto-sigmoid colon and was wide open and patent and the colonoscopy could easily advance through the stent. The lumen of the colon (entire examined portion) was mildly dilated with no appreciated motility consistent with [place]'s syndrome. The colon was decompressed and a colonic decompression tube was placed. Impression: - Widely patent colonic stent with no colonic obstruction. 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 A colonic decompression tube was placed deep in the colon. Recommendation: - Return patient to [facility] for ongoing care. - Correct hypokalemia. - Avoid Opioids. - Out of bed to chair and encourage ambulation. - Flush the rectal tube Q8 hrs with water. - Plan to remove the rectal tube in 48 hrs once pseudo-obstruction/ileus resolves. Rafael Johnston MD 01/17/2020 2:04:49 PM This report has been signed electronically. Note Initiated On: 01/17/2020 1:06 PM Number of Addenda: 0 I attest to the content of the Intraoperative Record and orders documented therein, exceptions below {[id number]}
[2020-01-17 16:04] LABS: BUN Creatinine Ratio 45.4 (10-20); Calcium 7.8 mg/dl (8.5-10.1); Creatinine Clr Calc Pharmacy 72.6 ml/min; Est GFR (African American) 95.4; Est GFR (Non-African American) 82.3; Potassium 3.4 mmol/L (3.5-5.1)
[2020-01-17] MEDS: LACTATED RINGER'S 1,000 ML IV SCH (20:51)
[2020-01-18 00:21] LABS: Hematocrit (blood only) 35.7 % (42-52); Hemoglobin 11.9 g/dL (14.0-18.0)
[2020-01-18 00:38] LABS: BUN Creatinine Ratio 50.4 (10-20); Calcium 8.3 mg/dl (8.5-10.1); Creatinine Clr Calc Pharmacy 76.9 ml/min; Est GFR (African American) 97.7; Est GFR (Non-African American) 84.3; Magnesium 2.1 mg/dl (1.8-2.4); Potassium 3.1 mmol/L (3.5-5.1)
[2020-01-18] MEDS: POTASSIUM CHLORIDE 20 MEQ TABCR PO ONE ×2 (01:30→02:02)
[2020-01-18] MEDS: POTASSIUM CHLORIDE / WTR 10 MEQ/100 ML PLCT IV SCH ×13 (01:32→23:47)
[2020-01-18] MEDS: LACTATED RINGER'S 1,000 ML IV SCH ×2 (06:20→18:07)
[2020-01-18 06:35] LABS: Calcium 7.8 mg/dl (8.5-10.1); Est GFR (African American) 101.3; Est GFR (Non-African American) 87.4; Magnesium 2.1 mg/dl (1.8-2.4); Potassium 3.4 mmol/L (3.5-5.1)
--- NOTE | 2020-01-18 06:56 | Hospitalist Progress Note ---
Date of Service January 18, 2020 Assessment & Plan (1) Diarrhea: History of rectosigmoid cancer status post surgery and radiation therapy and currently on chemo Status post placement of rectal tube in the past Admitted with diarrhea associated with abdominal pain C. difficile has been negative, awaiting for stool culture Currently status post colonoscopy w/ stent in stent (01/13/2020), tolerated procedure well However developed vomiting several hours later KUB ordered and reviewed by GI (01/14) Recommend close monitoring, miralax BID, ambulation If he develops any obstructive type symptoms, consult general surgery and obtain stat imaging Yesterday (01/17) continued to have diarrhea, nausea/vomiting, poor oral intake, on clear liquid diet - obtained KUB and subsequently CT abdomen - showed dilated small and large bowel above the stent. - GI contacted, recommend to give enema and cont. IVF and potassium supplementation. S/p flex sig, rectal tube placement (01/17), findings c/w colonic pseudo- obstruction Restart IVF,supplement K, discourage PO intake, ambulation - rectal tube dislodged this AM (01/18) however pt clinically much improved, less distention and less pain, no n/v (2) Abdominal pain: As above (3) Rectal cancer: Rectosigmoid cancer with metastasis Status post surgery plus radiation treatment Ongoing chemotherapy Neutropenia - resolved - secondary to above - Neutropenic precautions Hypokalemia, hypomagnesemia - secondary to poor oral intake, GI loss/diarrhea - replete and monitor (4) Bowel obstruction: Possible bowel obstruction as part imaging studies Still having diarrhea Appreciate GI input Now s/p colonoscopy with stent in stent (01/13/2020) Had vomiting several hours later after the procedure KUB repeated by GI Currently (01/17) continues to have diarrhea, nausea/vomiting, poor oral intake, on clear liquid diet - obtained KUB and subsequently CT abdomen - showed dilated small and large bowel above the stent. - GI contacted, recommend to give enema and cont. IVF and potassium supplementation. S/p flex sig, rectal tube placement (01/17) to help w/colonic decompression, findings c/w colonic pseudo-obstruction Restart IVF,supplement K, discourage PO intake, ambulation - rectal tube dislodged this AM (01/18) however pt clinically much improved, less distention and less pain, no n/v (5) Essential (primary) hypertension: Blood pressure remains stable DVT prophylaxis: SCDs heparin subcu Admission and Anticipated Discharge Date Admission Date: January 11, 2020 Subjective Pt feels much better today, diagnosed with colonic pseudo-obstruction yesterday, s/p rectal tube placement for decompression. Abdomen much less distended, and much less painful. Pt denies any nausea or vomiting. Encouraged ambulation - pt was sitting in the chair and walked in the hallway today. Review of Systems Review of Systems: All systems reviewed & are unremarkable except as noted in HPI & below Constitutional: no fever and no chills Respiratory: no cough and no dyspnea Cardiovascular: no chest pain and no palpitations Gastrointestinal: + abdominal pain (much improved) and + diarrhea/loose stools; no nausea and no vomiting Physical Exam Physical Exam: Physical Exam: Elderly male, lying in bed, appears uncomfortable Constitutional: well developed, well nourished Eyes: PERRL, EOMI,conjunctivae normal, anicteric sclerae ENMT: external ear and nose normal, oropharynx normal Neck: trachea midline, no thyromegaly Respiratory: normal respiratory effort Auscultation: lungs clear to auscultation bilaterally, no wheezing, rhonchi, crackles Cardiovascular: Rate/Rhythm: regular rate and regular rhythm Heart Sounds: no murmur Gastrointestinal (Abdomen): Inspection/Auscultation:positive bowel sounds; abdomen somewhat distended, but soft nontender Neurologic: Alert, awake and oriented x3. Generally weak Results & Data ([facility]) Vital Signs (Past 12 Hours) Vital Signs Temp Pulse Resp BP Pulse Ox 01/18/20 04:00 36.7 C 90 19 127/82 96 01/17/20 23:09 36.7 C 97 H 20 127/80 96 01/17/20 19:02 36.4 C L 102 H 20 112/86 96 Laboratory Results 01/18/20 01/18/20 01/18/20 Range/Units 05:28 00:00 00:00 Hgb 11.9 L (14.0-18.0) g/dL Hct 35.7 L (42-52) % Sodium 141 142 (136-145) mmol/L Potassium 3.4 L 3.1 L (3.5-5.1) mmol/L Chloride 112 H 111 H (98-107) mmol/L Carbon Dioxide 24 24 (21-32) mmol/L Anion Gap 5.0 8.0 (3-11) BUN 39 H 42 H (7-18) mg/dl Creatinine 0.76 0.83 (0.6-1.4) mg/dl Est Cr Clr Drug Dosing 84.0 76.9 ml/min Est GFR ( Amer) 101.3 97.7 Est GFR (Non-Af Amer) 87.4 84.3 BUN/Creatinine Ratio 51.0 H 50.4 H (10-20) Glucose 74 80 (70-99) mg/dl Calcium 7.8 L 8.3 L (8.5-10.1) mg/dl Magnesium 2.1 2.1 (1.8-2.4) mg/dl 01/17/20 Range/Units 15:28 Hgb (14.0-18.0) g/dL Hct (42-52) % Sodium 140 (136-145) mmol/L Potassium 3.4 L D (3.5-5.1) mmol/L Chloride 110 H (98-107) mmol/L Carbon Dioxide 26 (21-32) mmol/L Anion Gap 4.0 (3-11) BUN 40 H (7-18) mg/dl Creatinine 0.88 (0.6-1.4) mg/dl Est Cr Clr Drug Dosing 72.6 ml/min Est GFR ( Amer) 95.4 Est GFR (Non-Af Amer) 82.3 BUN/Creatinine Ratio 45.4 H (10-20) Glucose 111 H (70-99) mg/dl Calcium 7.8 L (8.5-10.1) mg/dl Magnesium (1.8-2.4) mg/dl Medications Administered Current Inpatient Medications Acetaminophen (Tylenol) 650 mg PO Q4H PRN PRN Reason: pain/fever Stop: 02/10/20 23:49 Diphenoxylate HCl/Atropine (Lomotil) 1 tab PO QID PRN PRN Reason: Diarrhea Stop: 02/10/20 23:49 Last Admin: 01/12/20 10:16 Dose: 1 tab Documented by: Finasteride (Proscar) 5 mg PO DAILY CAROLINE Stop: 02/11/20 08:59 Last Admin: 01/17/20 08:52 Dose: Not Given Documented by: Heparin Sodium (Porcine) (Heparin Sod 100 Unit/Ml Flush) 5 ml FLUSH PRN PRN PRN Reason: Flush Stop: 02/11/20 06:59 Last Admin: 01/17/20 12:33 Dose: 5 ml Documented by: Heparin Sodium (Porcine) (Heparin Sodium (Porcine)) 5,000 units SQ Q12 CAROLINE Stop: 02/11/20 20:59 Last Admin: 01/17/20 20:54 Dose: 5,000 units Documented by: Promethazine HCl 12.5 mg/ (Sodium Chloride) 50.5 mls @ 202 mls/hr IV Q6H PRN PRN Reason: Nausea And Vomiting Stop: 02/13/20 01:44 Last Infusion: 01/17/20 05:07 Dose: Infused Documented by: Acetaminophen (Ofirmev) 1,000 mg in 100 mls @ 400 mls/hr IV Q8H PRN PRN Reason: Moderate Pain Stop: 01/20/20 08:52 Last Infusion: 01/17/20 10:07 Dose: Infused Documented by: Lactated Ringer's (Lr) 1,000 mls @ 100 mls/hr IV .Q10H CAROLINE Stop: 02/16/20 19:44 Last Admin: 01/18/20 06:20 Dose: 100 mls/hr Documented by: Potassium Chloride (K Kareem / Wtr) 10 meq in 100 mls @ 100 mls/hr IV Q1H STA Stop: 01/18/20 07:53 Ibuprofen (Advil) 400 mg PO QID PRN PRN Reason: Pain Stop: 02/11/20 00:35 Last Admin: 01/16/20 16:03 Dose: 400 mg Documented by: Morphine Sulfate (Morphine Sulfate) 2 mg IV Q4H PRN PRN Reason: Pain Stop: 01/25/20 23:49 Ondansetron HCl (Zofran) 4 mg IV Q6H PRN PRN Reason: Nausea Stop: 02/10/20 23:49 Last Admin: 01/16/20 16:00 Dose: 4 mg Documented by: Polyethylene Glycol (Miralax Powder Packet) 17 gm PO BID CAROLINE Stop: 02/12/20 20:59 Last Admin: 01/17/20 22:34 Dose: Not Given Documented by: Potassium Chloride (Klor-Con M10) 10 meq PO DAILY CAROLINE Stop: 02/11/20 08:59 Last Admin: 01/17/20 08:50 Dose: Not Given Documented by: Pregabalin (Lyrica) 75 mg PO BID [facility] Stop: 02/11/20 08:59 Last Admin: 01/17/20 20:52 Dose: 75 mg Documented by: (1) Diarrhea Diarrhea type: unspecified type Qualified Code(s): R19.7 - Diarrhea, unspec ified (2) Abdominal pain Abdominal location: unspecified location Qualified Code(s): R10.9 - Unspecified abdominal pain
[2020-01-18] MEDS: POTASSIUM CHLORIDE 10 MEQ TABCR PO SCH (08:27)
[2020-01-18] MEDS: FINASTERIDE 5 MG TAB PO SCH (08:29)
[2020-01-18] MEDS: HEPARIN SOD 5,000 UNIT/0.5 ML VIAL SQ SCH ×2 (08:29→21:35)
[2020-01-18] MEDS: PREGABALIN 75 MG CAP PO SCH ×2 (08:33→21:35)
[2020-01-18] MEDS: POLYETHYLENE (MIRALAX) 17 GM PACK PO SCH ×2 (08:34→20:42)
[2020-01-18 13:24] LABS: Calcium 7.7 mg/dl (8.5-10.1); Creatinine Clr Calc Pharmacy 85.1 ml/min; Est GFR (African American) 101.8; Est GFR (Non-African American) 87.9; Potassium 3.6 mmol/L (3.5-5.1)
--- NOTE | 2020-01-18 13:29 | Gastroenterology Progress Note ---
Date of Service January 18, 2020 Assessment & Plan (1) Pseudo-obstruction of colon: This is a 79 y/o man with PMHx metastatic colon CA on palliative chemotherapy s/p colonic stent of obstructive mass in 2018, s/p colonoscopy last week with [id number] placed, subsequently developed recurrent n/v, abd distention and underwent flexible sigmoidoscopy yesterday demonstrating widely patent colonic stent with no obstruction, with colonic decompression tube placed. Symptoms felt to be related to colonic pseudo-obstruction due to profound hypokalemia. - Overnight potassium improved to 3.4; his symptoms of n/v/distention have greatly improved however his rectal tube has dislodged - He is passing minimal stool, gas - Recommend OOB as tolerated, frequent position changes with assistance as needed - Continue monitoring potassium and keep WNL - Would check KUB in the AM - Keep NPO in the event he would require subsequent decompression (2) Abdominal distention: (3) Hypokalemia: Admission and Anticipated Discharge Date Admission Date: January 11, 2020 Supervising Physician Co-Signing Physician Notes Patient with a history of colonic pseudoobstruction status post colonic decompression on Saturday. The patient notes that his abdominal discomfort is much improved and the rectal tube fell out earlier today. The patient notes that he is passing a small amount of stool and flatus spontaneously and is walking the [place] without difficulty. Recommendations Daily KUB Avoid use of narcotics and benzodiazepines If worsening distention noted tomorrow we could certainly consider a repeat decompression Subjective Pt seen and examined today. No acute events overnight; he felt much better after decompression. Output from rectal tube has been approx 500 mL; this AM it did spontaneously dislodge. He has had minimal stool output and gas since it came out. Potassium improved to 3.4 with supplementation. Denies abd pain, nausea, vomiting, hematemesis, melena, hematochezia Review of Systems Constitutional: as per Subjective / HPI; no fever and no chills Respiratory: no cough and no dyspnea Cardiovascular: no chest pain, no dyspnea and no edema Gastrointestinal: as per Subjective / HPI Genitourinary: no dysuria and no hematuria Integumentary: no rash Physical Exam Constitutional: WD/WN, vitals as above Respiratory: normal respiratory effort, lungs clear to auscultation Cardiovascular: Rate/Rhythm: regular rate and regular rhythm Gastrointestinal (Abdomen): Inspection/Auscultation: abdomen normal to inspection and + hypoactive bowel sounds; abdomen not distended Percussion/Palpation: abdomen soft; abdomen nontender and no guarding Skin: no rashes, warm and dry Psychiatric: A+Ox3, euthymic affect Results & Data ([facility]) Vital Signs (Past 12 Hours) Vital Signs Temp Pulse Resp BP Pulse Ox 01/18/20 07:12 36.8 C 92 H 20 119/79 96 01/18/20 04:00 36.7 C 90 19 127/82 96 Laboratory Results 01/18/20 01/18/20 01/18/20 Range/Units 12:45 05:28 00:00 Hgb (14.0-18.0) g/dL Hct (42-52) % Sodium 140 141 142 (136-145) mmol/L Potassium 3.6 3.4 L 3.1 L (3.5-5.1) mmol/L Chloride 111 H 112 H 111 H (98-107) mmol/L Carbon Dioxide 23 24 24 (21-32) mmol/L Anion Gap 6.0 5.0 8.0 (3-11) BUN 37 H 39 H 42 H (7-18) mg/dl Creatinine 0.75 0.76 0.83 (0.6-1.4) mg/dl Est Cr Clr Drug Dosing 85.1 84.0 76.9 ml/min Est GFR ( Amer) 101.8 101.3 97.7 Est GFR (Non-Af Amer) 87.9 87.4 84.3 BUN/Creatinine Ratio 50.0 H 51.0 H 50.4 H (10-20) Glucose 74 74 80 (70-99) mg/dl Calcium 7.7 L 7.8 L 8.3 L (8.5-10.1) mg/dl Magnesium 2.1 2.1 (1.8-2.4) mg/dl 01/18/20 01/17/20 Range/Units 00:00 15:28 Hgb 11.9 L (14.0-18.0) g/dL Hct 35.7 L (42-52) % Sodium 140 (136-145) mmol/L Potassium 3.4 L D (3.5-5.1) mmol/L Chloride 110 H (98-107) mmol/L Carbon Dioxide 26 (21-32) mmol/L Anion Gap 4.0 (3-11) BUN 40 H (7-18) mg/dl Creatinine 0.88 (0.6-1.4) mg/dl Est Cr Clr Drug Dosing 72.6 ml/min Est GFR ( Amer) 95.4 Est GFR (Non-Af Amer) 82.3 BUN/Creatinine Ratio 45.4 H (10-20) Glucose 111 H (70-99) mg/dl Calcium 7.8 L (8.5-10.1) mg/dl Magnesium (1.8-2.4) mg/dl
[2020-01-18] MEDS: IBUPROFEN 200 MG TAB PO PRN (18:54)
[2020-01-18 21:52] LABS: Calcium 8.2 mg/dl (8.5-10.1); Est GFR (African American) 101.3; Est GFR (Non-African American) 87.4; Potassium 3.4 mmol/L (3.5-5.1)
[2020-01-19] MEDS: POTASSIUM CHLORIDE / WTR 10 MEQ/100 ML PLCT IV SCH ×9 (00:42→22:17)
[2020-01-19] MEDS: LACTATED RINGER'S 1,000 ML IV SCH (04:05)
[2020-01-19 06:57] LABS: BUN Creatinine Ratio 50.7 (10-20); Calcium 7.7 mg/dl (8.5-10.1); Creatinine Clr Calc Pharmacy 93.9 ml/min; Est GFR (Non-African American) 91.5; Magnesium 1.9 mg/dl (1.8-2.4); Potassium 3.4 mmol/L (3.5-5.1)
[2020-01-19] MEDS ORDERED: POTASSIUM CHLORIDE 20 MEQ TABCR PO STA ×2 (07:27→20:36)
[2020-01-19] MEDS ORDERED: MAGNESIUM SULFATE / D5W 1 GM/100 ML BAG IV ONE (07:45)
--- NOTE | 2020-01-19 08:20 | Gastroenterology Progress Note ---
Date of Service January 19, 2020 Assessment & Plan (1) Pseudo-obstruction of colon: 79 y/o man w/ history of metastatic colon CA on palliative chemotherapy s/p colonic stent of obstructive mass in 2018, s/p colonoscopy last week with [id number] placed, subsequently developed recurrent n/v, abd distention and underwent flexible sigmoidoscopy yesterday demonstrating widely patent colonic stent with no obstruction, with colonic decompression tube placed. Symptoms felt to be related to colonic pseudo-obstruction due to profound hypokalemia. - Await KUB - He is passing minimal stool, gas - Recommend OOB as tolerated, frequent position changes with assistance as needed - Continue monitoring potassium and keep WNL (2) Abdominal distention: (3) Hypokalemia: Admission and Anticipated Discharge Date Admission Date: January 11, 2020 Supervising Physician Co-Signing Physician Notes The patient notes that he does feel improved today. He did pass stool spontaneously in addition to gas. His abdominal x-ray does show continued dilation of the transverse colon at approximately 8 cm. Recommendations Advance diet as tolerated, consider a full liquid diet today Repeat a KUB tomorrow If patient continues to have improvement perhaps he could be discharged tomorrow or the next day Subjective Pt was seen and evaluated, chart reviewed KUB this AM was ordered but yet to be obtained No concerns this AM Denies abd pain, nausea, vomiting Did pass stool overnight No fever, chills, CP, SOB Review of Systems Constitutional: as per Subjective / HPI; no fever and no chills Gastrointestinal: as per Subjective / HPI Physical Exam Constitutional: + ill appearing (chronically ill); no acute distress Neck: trachea midline Respiratory: normal respiratory effort, lungs clear to auscultation Cardiovascular: Rate/Rhythm: regular rate and regular rhythm Gastrointestinal (Abdomen): normal bowel sounds, soft, nontender, no hepatosplenomegaly Results & Data ([facility]) Vital Signs (Past 12 Hours) Vital Signs Temp Pulse Resp BP Pulse Ox 01/19/20 07:04 36.7 C 63 18 138/82 96 01/19/20 03:00 36.3 C L 92 H 20 138/89 96 01/18/20 23:45 36.7 C 94 H 20 134/88 95
[2020-01-19] MEDS: HEPARIN SOD 5,000 UNIT/0.5 ML VIAL SQ SCH ×2 (08:55→22:00)
[2020-01-19] MEDS: PREGABALIN 75 MG CAP PO SCH ×2 (08:56→21:07)
[2020-01-19] MEDS: POLYETHYLENE (MIRALAX) 17 GM PACK PO SCH ×2 (08:56→21:08)
[2020-01-19] MEDS: POTASSIUM CHLORIDE 10 MEQ TABCR PO SCH (08:56)
[2020-01-19] MEDS: FINASTERIDE 5 MG TAB PO SCH (08:56)
--- NOTE | 2020-01-19 08:56 | Hospitalist Progress Note ---
Date of Service January 19, 2020 Assessment & Plan (1) Diarrhea: History of rectosigmoid cancer status post surgery and radiation therapy and currently on chemo Status post placement of rectal tube in the past Admitted with diarrhea associated with abdominal pain C. difficile has been negative, stool culture - negative Currently status post colonoscopy w/ stent in stent (01/13/2020), tolerated procedure well However developed vomiting several hours later KUB ordered and reviewed by GI (01/14) Recommend close monitoring, miralax BID, ambulation If he develops any obstructive type symptoms, consult general surgery and obtain stat imaging On (01/17) continued to have diarrhea, nausea/vomiting, poor oral intake, on clear liquid diet - obtained KUB and subsequently CT abdomen - showed dilated small and large bowel above the stent. - GI contacted, recommend to give tap water enema and cont. IVF and potassium supplementation. S/p flex sig, rectal tube placement (01/17), findings c/w colonic pseudo- obstruction Restart IVF,supplement K, discourage PO intake, ambulation - rectal tube dislodged (01/18) however pt clinically much improved, less distention and less pain, no n/v - 01/19, passed 2 small formed stools, no n/v, no abd.pain,KUB essentially unchanged, pt tired of water and broth, asking for orange juice, will give him OJ and will cont. 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 Status post surgery plus radiation treatment Ongoing chemotherapy Neutropenia - resolved - secondary to above - Neutropenic precautions Hypokalemia, hypomagnesemia - secondary to poor oral intake, GI loss/diarrhea - replete and monitor (4) Bowel obstruction: Possible bowel obstruction as part imaging studies Having watery diarrhea on admission Appreciate GI input Now s/p colonoscopy with stent in stent (01/13/2020) Had vomiting several hours later after the procedure KUB repeated by GI (01/17) continues to have diarrhea, nausea/vomiting, poor oral intake, on clear liquid diet - obtained KUB and subsequently CT abdomen - showed dilated small and large bowel above the stent. - GI contacted, recommend to give enema and cont. IVF and potassium supplementation. S/p flex sig, rectal tube placement (01/17) to help w/colonic decompression, findings c/w colonic pseudo-obstruction Restarted IVF,supplement K, discourage PO intake, ambulation - rectal tube dislodged (01/18) however pt clinically much improved, less distention and less pain, no n/v - 01/19, passed 2 small formed stools, no n/v, no significant abd. pain, KUB unchanged (5) Essential (primary) hypertension: Blood pressure remains stable DVT prophylaxis: SCDs heparin subcu Admission and Anticipated Discharge Date Admission Date: January 11, 2020 Subjective Pt is lying in bed in NAD. Abd. pain much improved. Pt passed two small formed stool. No nausea or vomiting. Says he is tired of water and broth, would like some cold orange juice. Gave him potassium pill PO, said it was difficult for him. Will give him sips of cold orange juice and will monitor him. K cont. replacement. Review of Systems Review of Systems: All systems reviewed & are unremarkable except as noted in HPI & below All systems reviewed and are unremarkable except as noted below Constitutional: no fever and no chills Respiratory: no cough and no dyspnea Cardiovascular: no chest pain and no palpitations Gastrointestinal: + abdominal pain (much improved) and + diarrhea/loose stools (much improved); no nausea and no vomiting Physical Exam Physical Exam: Physical Exam: Elderly male, lying in bed, in NAD Constitutional: well developed, well nourished Eyes: PERRL, EOMI,conjunctivae normal, anicteric sclerae ENMT: external ear and nose normal, oropharynx normal Neck: trachea midline, no thyromegaly Respiratory: normal respiratory effort Auscultation: lungs clear to auscultation bilaterally, no wheezing, rhonchi, crackles Cardiovascular: Rate/Rhythm: regular rate and regular rhythm Heart Sounds: no murmur Gastrointestinal (Abdomen): Inspection/Auscultation:positive bowel sounds; abdomen somewhat distended, but soft, and nontender Neurologic: Alert, awake and oriented x3. Generally weak Results & Data ([facility]) Vital Signs (Past 12 Hours) Vital Signs Temp Pulse Resp BP Pulse Ox 01/19/20 07:04 36.7 C 63 18 138/82 96 01/19/20 03:00 36.3 C L 92 H 20 138/89 96 01/18/20 23:45 36.7 C 94 H 20 134/88 95 Laboratory Results 01/19/20 01/18/20 01/18/20 Range/Units 05:26 21:19 12:45 Sodium 141 141 140 (136-145) mmol/L Potassium 3.4 L 3.4 L 3.6 (3.5-5.1) mmol/L Chloride 111 H 111 H 111 H (98-107) mmol/L Carbon Dioxide 23 22 23 (21-32) mmol/L Anion Gap 7.0 8.0 6.0 (3-11) BUN 35 H 35 H 37 H (7-18) mg/dl Creatinine 0.68 0.76 0.75 (0.6-1.4) mg/dl Est Cr Clr Drug Dosing 93.9 84.0 85.1 ml/min Est GFR ( Amer) 106.0 101.3 101.8 Est GFR (Non-Af Amer) 91.5 87.4 87.9 BUN/Creatinine Ratio 50.7 H 46.0 H 50.0 H (10-20) Glucose 66 L 72 74 (70-99) mg/dl Calcium 7.7 L 8.2 L 7.7 L (8.5-10.1) mg/dl Magnesium 1.9 (1.8-2.4) mg/dl Medications Administered Current Inpatient Medications Acetaminophen (Tylenol) 650 mg PO Q4H PRN PRN Reason: pain/fever Stop: 02/10/20 23:49 Diphenoxylate HCl/Atropine (Lomotil) 1 tab PO QID PRN PRN Reason: Diarrhea Stop: 02/10/20 23:49 Last Admin: 01/12/20 10:16 Dose: 1 tab Documented by: Finasteride (Proscar) 5 mg PO DAILY [facility] Stop: 02/11/20 08:59 Last Admin: 01/18/20 08:29 Dose: 5 mg Documented by: Heparin Sodium (Porcine) (Heparin Sod 100 Unit/Ml Flush) 5 ml FLUSH PRN PRN PRN Reason: Flush Stop: 02/11/20 06:59 Last Admin: 01/17/20 12:33 Dose: 5 ml Documented by: Heparin Sodium (Porcine) (Heparin Sodium (Porcine)) 5,000 units SQ Q12 [facility] Stop: 02/11/20 20:59 Last Admin: 01/18/20 21:35 Dose: 5,000 units Documented by: Promethazine HCl 12.5 mg/ (Sodium Chloride) 50.5 mls @ 202 mls/hr IV Q6H PRN PRN Reason: Nausea And Vomiting Stop: 02/13/20 01:44 Last Infusion: 01/17/20 05:07 Dose: Infused Documented by: Acetaminophen (Ofirmev) 1,000 mg in 100 mls @ 400 mls/hr IV Q8H PRN PRN Reason: Moderate Pain Stop: 01/20/20 08:52 Last Infusion: 01/17/20 10:07 Dose: Infused Documented by: Lactated Ringer's (Lr) 1,000 mls @ 60 mls/hr IV .[id number] [facility] Stop: 02/16/20 19:44 Last Infusion: 01/19/20 07:33 Dose: 0 mls/hr Documented by: Potassium Chloride (K Kareem / Wtr) 10 meq in 100 mls @ 100 mls/hr IV Q1H [facility] Stop: 01/19/20 11:14 Last Admin: 01/19/20 07:35 Dose: 100 mls/hr Documented by: Ibuprofen (Advil) 400 mg PO QID PRN PRN Reason: Pain Stop: 02/11/20 00:35 Last Admin: 01/18/20 18:54 Dose: 400 mg Documented by: Morphine Sulfate (Morphine Sulfate) 2 mg IV Q4H PRN PRN Reason: Pain Stop: 01/25/20 23:49 Ondansetron HCl (Zofran) 4 mg IV Q6H PRN PRN Reason: Nausea Stop: 02/10/20 23:49 Last Admin: 01/16/20 16:00 Dose: 4 mg Documented by: Polyethylene Glycol (Miralax Powder Packet) 17 gm PO BID [facility] Stop: 02/12/20 20:59 Last Admin: 01/18/20 20:42 Dose: Not Given Documented by: Potassium Chloride (Klor-Con M10) 10 meq PO DAILY [facility] Stop: 02/11/20 08:59 Last Admin: 01/18/20 08:27 Dose: Not Given Documented by: Pregabalin (Lyrica) 75 mg PO BID [facility] Stop: 02/11/20 08:59 Last Admin: 01/18/20 21:35 Dose: 75 mg Documented by: (1) Diarrhea Diarrhea type: unspecified type Qualified Code(s): R19.7 - Diarrhea, unspecified (2) Abdominal pain Abdominal location: unspecified location Qualified Code(s): R10.9 - Unspecified abdominal pain
--- NOTE | 2020-01-19 09:08 | XRay Report ---
KUB HISTORY: follow up ileus COMPARISON: Abdomen and pelvis CT 01/17/2010 KUB 01/17/2020. FINDINGS: There are 2 stents at the rectosigmoid junction which are unchanged in position. Dilated ga s-filled loops of large and small bowel are similar to the prior study. The transverse colon measures up to 8 cm in diameter. No renal calculi. No ureteral calculi. No pneumoperitoneum or pneumatosis. IMPRESSION: 1. No change in the position of the rectosigmoid junction stents. 2. Dilated gas-filled loops of large and small bowel are also similar to the prior study. The transit ion point is located at the colonic stents. Therefore, this is consistent with a persistent large bow el obstruction. ACT 112: Negative or not required by law. Electronically signed by: Carlos Schafer M.D. 01/19/2020 9:07 AM
[2020-01-19] MEDS: POTASSIUM CHLORIDE 10 MEQ in D5W AND NSS 1,000 ML IV SCH (12:38)
[2020-01-19] MEDS: IBUPROFEN 200 MG TAB PO PRN (13:23)
[2020-01-19 16:20] LABS: BUN Creatinine Ratio 47.7 (10-20); Calcium 7.9 mg/dl (8.5-10.1); Creatinine Clr Calc Pharmacy 93.9 ml/min; Est GFR (Non-African American) 91.5; Potassium 3.5 mmol/L (3.5-5.1)
[2020-01-20] MEDS: POTASSIUM CHLORIDE / WTR 10 MEQ/100 ML PLCT IV SCH ×2 (00:24→01:27)
[2020-01-20] MEDS: ACETAMINOPHEN 325 MG TAB PO PRN (00:30)
[2020-01-20 00:38] LABS: BUN Creatinine Ratio 50.8 (10-20); Calcium 7.6 mg/dl (8.5-10.1); Creatinine Clr Calc Pharmacy 101.4 ml/min; Est GFR (African American) 109.4; Est GFR (Non-African American) 94.4; Potassium 3.6 mmol/L (3.5-5.1)
[2020-01-20 07:12] LABS: BUN Creatinine Ratio 47.4 (10-20); Calcium 7.8 mg/dl (8.5-10.1); Creatinine Clr Calc Pharmacy 98.2 ml/min; Est GFR (Non-African American) 93.2; Potassium 3.3 mmol/L (3.5-5.1)
--- NOTE | 2020-01-20 07:46 | XRay Report ---
XR KUB/Abdomen 1 view CLINICAL HISTORY: 79 years-old Male presenting with assess colonic dilation. TECHNIQUE: Single supine view of the abdomen was obtained. COMPARISON: 01/19/[address] from 01/17/2020. FINDINGS: Persistent moderate gaseous distention of large bowel. Apparent diameter of the descending colon ruben ures 7 cm, previously 7.3 cm, grossly unchanged. Colon is distended to the level of the stents. Overl apping stents in place within the rectosigmoid junction as on prior exam. No change in position or ap pearance of the stents. No gross pneumoperitoneum align for supine technique. Suture margin projects over the left lower abdomen. Allowing for bowel gas and stool, no calcifications to suggest nephrolithiasis. Degenerative changes of the spine. Lung bases clear. IMPRESSION: 1. No improvement in the degree of gaseous distention of colon. Persistent large bowel obstruction, which may be partial. 2. Unchanged position of the rectosigmoid stents. ACT 112: Negative or not required by law. Electronically signed by: Peter Smith M.D. 01/20/2020 7:44 AM
[2020-01-20] MEDS: POTASSIUM CHLORIDE 10 MEQ TABCR PO SCH (07:51)
[2020-01-20] MEDS: POLYETHYLENE (MIRALAX) 17 GM PACK PO SCH ×2 (07:51→20:17)
[2020-01-20] MEDS: FINASTERIDE 5 MG TAB PO SCH (08:30)
[2020-01-20] MEDS: POTASSIUM CHLORIDE 10 MEQ in D5W AND NSS 1,000 ML IV SCH (08:30)
[2020-01-20] MEDS: PREGABALIN 75 MG CAP PO SCH ×2 (08:30→20:22)
[2020-01-20] MEDS: HEPARIN SOD 5,000 UNIT/0.5 ML VIAL SQ SCH ×2 (08:31→20:17)
[2020-01-20] MEDS: D5NSS + 20MEQ KCL 20 MEQ/1,000 ML BAG IV SCH ×2 (09:28→23:01)
--- NOTE | 2020-01-20 09:38 | Gastroenterology Progress Note ---
Date of Service January 20, 2020 Assessment & Plan (1) Pseudo-obstruction of colon: 79 y/o man w/ history of metastatic colon CA on palliative chemotherapy s/p colonic stent of obstructive mass in 2018, s/p colonoscopy last week with [id number] placed, subsequently developed recurrent n/v, abd distention and underwent flexible sigmoidoscopy yesterday demonstrating widely patent colonic stent with no obstruction, with colonic decompression tube placed. Symptoms felt to be related to colonic pseudo-obstruction due to profound hypokalemia. - Full liquid today, can advance to colonic stent low residue diet as tolerated - Colace 100 mg twice daily - Miralax 1 capful twice daily - He is passing minimal stool, gas - Recommend OOB as tolerated, frequent position changes with assistance as needed - Continue monitoring potassium and keep WNL Will sign off. Call with any questions or concerns. (2) Abdominal distention: (3) Hypokalemia: Admission and Anticipated Discharge Date Admission Date: January 11, 2020 Supervising Physician Co-Signing Physician Notes I saw and evaluated the patient. His KUB does seem to indicate that the colonic dilation continues to improve. I would recommend starting the patient on a bowel regimen to include MiraLAX 17 g/day and Colace 200 mg/day. Please call us with any additional questions or concerns. Subjective Pt was seen and evaluated, chart reviewed KUB largely unchanged No concerns this AM Denies abd pain, nausea, vomiting Did pass stool overnight Hungry, does not want clear liquids No fever, chills, CP, SOB Review of Systems Constitutional: as per Subjective / HPI; no fever and no chills Gastrointestinal: as per Subjective / HPI Physical Exam Constitutional: + ill appearing (chronically ill); no acute distress Neck: trachea midline Respiratory: normal respiratory effort, lungs clear to auscultation Cardiovascular: Rate/Rhythm: regular rate and regular rhythm Gastrointestinal (Abdomen): normal bowel sounds, soft, nontender, no hepatosplenomegaly Results & Data ([facility]) Vital Signs (Past 12 Hours) Vital Signs Temp Pulse Resp BP BP Pulse Ox 01/20/20 06:53 36.7 C 72 20 145/87 H 93 01/20/20 03:57 36.4 C L 62 18 151/98 H 95 01/19/20 23:28 36.8 C 97 H 20 147/97 H 97
--- NOTE | 2020-01-20 16:07 | Hospitalist Progress Note ---
Date of Service January 20, 2020 Assessment & Plan (1) Rectal cancer: Rectosigmoid cancer with metastasis Status post surgery plus radiation treatment Ongoing chemotherapy Status post colonoscopy w/ stent in stent (01/13/2020), Admitted with possible ileus/obstruction Status post colonoscopy with restenting S/p flex sig, rectal tube placement (01/17), findings c/w colonic pseudo- obstruction Appreciate GI input and recommendation Has been having diarrhea without any significant obstructive symptoms Clinically better today Will advance diet as tolerated Neutropenia - resolved - secondary to above - Neutropenic precautions Hypokalemia, hypomagnesemia - secondary to poor oral intake, GI loss/diarrhea - replete and monitor -Still remains hypokalemic (2) Diarrhea: History of rectosigmoid cancer status post surgery and radiation therapy and currently on chemo Status post placement of rectal tube in the past Admitted with diarrhea associated with abdominal pain C. difficile has been negative, stool culture - negative If he develops any obstructive type symptoms, consult general surgery and obtain stat imaging GI contacted, recommend to give tap water enema and cont. IVF and potassium supplementation. S/p flex sig, rectal tube placement (01/17), findings c/w colonic pseudo- obstruction Restart IVF,supplement K, discourage PO intake, ambulation - rectal tube dislodged (01/18) however pt clinically much improved, less distention and less pain, no n/v -KUB still showing gas-filled intestines but no evidence of obstruction -We will advance diet as tolerated as per recommendation from GI (3) Abdominal pain: Denies any abdominal pain (4) Bowel obstruction: Possible bowel obstruction as part imaging studies Having watery diarrhea on admission Appreciate GI input Now s/p colonoscopy with stent in stent (01/13/2020) Had vomiting several hours later after the procedure KUB repeated by GI (01/17) continues to have diarrhea, nausea/vomiting, poor oral intake, on clear liquid diet - obtained KUB and subsequently CT abdomen - showed dilated small and large bowel above the stent. - GI contacted, recommend to give enema and cont. IVF and potassium supplementation. S/p flex sig, rectal tube placement (01/17) to help w/colonic decompression, findings c/w colonic pseudo-obstruction Restarted IVF,supplement K, discourage PO intake, ambulation - rectal tube dislodged (01/18) however pt clinically much improved, less distention and less pain, no n/v - 01/19, passed 2 small formed stools, no n/v, no significant abd. pain, KUB unchanged -KUB showed gaseous distention of the intestine but no obstruction -Gastroenterology service signed off and advised to advance diet as tolerated (5) Essential (primary) hypertension: Blood pressure remains stable DVT prophylaxis: SCDs heparin subcu We will get PT and OT evaluation Advised more ambulation Admission and Anticipated Discharge Date Admission Date: January 11, 2020 Subjective 01/20/2020 The patient was seen and examined in medical floor He remains generally weak and lethargic Has been passing liquid stool and denies any abdominal distention, nausea and or vomiting or any pain Denies any other significant symptoms Review of Systems Review of Systems: All systems reviewed and are unremarkable except as noted below Gastrointestinal: + diarrhea/loose stools; no abdominal pain, no bloating, no nausea and no vomiting Physical Exam Physical Exam: Lying in bed comfortably but looks depressed Constitutional: + ill appearing; no acute distress Eyes: PERRL, conjunctivae normal, anicteric sclerae ENMT: external ear and nose normal, oropharynx normal Neck: trachea midline, no thyromegaly Respiratory: normal respiratory effort Auscultation: lungs clear to auscultation bilaterally Cardiovascular: Rate/Rhythm: regular rate and regular rhythm Heart Sounds: no murmur Gastrointestinal (Abdomen): Inspection/Auscultation: abdomen normal to inspe ction and normal bowel sounds Percussion/Palpation: abdomen soft; abdomen nontender Musculoskeletal: No acute arthritis Neurologic: Alert, awake and oriented x3. Generally weak Lymphatic: no cervical or axillary lymphadenopathy Results & Data ([facility]) Vital Signs (Past 12 Hours) Vital Signs Temp Pulse Resp BP Pulse Ox 01/20/20 15:22 36.8 C 96 H 18 126/85 96 01/20/20 06:53 36.7 C 72 20 145/87 H 93 Laboratory Results BMP 01/19/20 01/19/20 01/20/20 15:30 23:53 05:45 Sodium 139 140 142 Potassium 3.5 3.6 3.3 L Chloride 111 H 111 H 112 H Carbon Dioxide 23 25 23 BUN 33 H 32 H 31 H Creatinine 0.68 0.63 0.65 Glucose 84 100 H 121 H Calcium 7.9 L 7.6 L 7.8 L Medications Administered Current Inpatient Medications Acetaminophen (Tylenol) 650 mg PO Q4H PRN PRN Reason: pain/fever Stop: 02/10/20 23:49 Last Admin: 01/20/20 00:30 Dose: 650 mg Documented by: Diphenoxylate HCl/Atropine (Lomotil) 1 tab PO QID PRN PRN Reason: Diarrhea Stop: 02/10/20 23:49 Last Admin: 01/12/20 10:16 Dose: 1 tab Documented by: Finasteride (Proscar) 5 mg PO DAILY [facility] Stop: 02/11/20 08:59 Last Admin: 01/20/20 08:30 Dose: 5 mg Documented by: Heparin Sodium (Porcine) (Heparin Sod 100 Unit/Ml Flush) 5 ml FLUSH PRN PRN PRN Reason: Flush Stop: 02/11/20 06:59 Last Admin: 01/17/20 12:33 Dose: 5 ml Documented by: Heparin Sodium (Porcine) (Heparin Sodium (Porcine)) 5,000 units SQ Q12 [facility] Stop: 02/11/20 20:59 Last Admin: 01/20/20 08:31 Dose: 5,000 units Documented by: Promethazine HCl 12.5 mg/ (Sodium Chloride) 50.5 mls @ 202 mls/hr IV Q6H PRN PRN Reason: Nausea And Vomiting Stop: 02/13/20 01:44 Last Infusion: 01/17/20 05:07 Dose: Infused Documented by: Lactated Ringer's (Lr) 1,000 mls @ 60 mls/hr IV .[id number] [facility] Stop: 02/16/20 19:44 Last Infusion: 01/19/20 07:33 Dose: 0 mls/hr Documented by: Potassium Chloride/Dextrose/Sod Cl (D5nss + 20meq Kcl) 20 meq in 1,000 mls @ 100 mls/hr IV .Q10H [facility] Stop: 01/21/20 14:29 Last Admin: 01/20/20 09:28 Dose: 100 mls/hr Documented by: Ibuprofen (Advil) 400 mg PO QID PRN PRN Reason: Pain Stop: 02/11/20 00:35 Last Admin: 01/19/20 13:23 Dose: 400 mg Documented by: Morphine Sulfate (Morphine Sulfate) 2 mg IV Q4H PRN PRN Reason: Pain Stop: 01/25/20 23:49 Ondansetron HCl (Zofran) 4 mg IV Q6H PRN PRN Reason: Nausea Stop: 02/10/20 23:49 Last Admin: 01/16/20 16:00 Dose: 4 mg Documented by: Polyethylene Glycol (Miralax Powder Packet) 17 gm PO BID [facility] Stop: 02/12/20 20:59 Last Admin: 01/20/20 07:51 Dose: Not Given Documented by: Potassium Chloride (Klor-Con M10) 10 meq PO DAILY [facility] Stop: 02/11/20 08:59 Last Admin: 01/20/20 07:51 Dose: 10 meq Documented by: Pregabalin (Lyrica) 75 mg PO BID [facility] Stop: 02/11/20 08:59 Last Admin: 01/20/20 08:30 Dose: 75 mg Documented by: (1) Diarrhea Diarrhea type: unspecified type Qualified Code(s): R19.7 - Diarrhea, unspecified (2) Abdominal pain Abdominal location: unspecified location Qualified Code(s): R10.9 - Unspecified abdominal pain
[2020-01-21] MEDS ORDERED: Nursing to Pharmacy Communication ONE (00:07)
[2020-01-21 05:48] LABS: Hematocrit (blood only) 35.4 % (42-52); Hemoglobin 11.5 g/dL (14.0-18.0); Mean Corpuscular Hemoglobin 26.7 pg (25-34); Mean Corpuscular Hgb Conc 32.5 g/dL (32-36); Mean Corpuscular Volume 82.3 fL (80-100); Mean Platelet Volume 10.2 fL (7.4-10.4); Platelet Count 193 K/uL (130-400); RDW Coefficient of Variation 17.4 % (11.5-14.5); RDW Standard Deviation 52.3 fL (36.4-46.3); White Blood Count 5.88 K/uL (4.8-10.8)
[2020-01-21 06:15] LABS: BUN Creatinine Ratio 39.9 (10-20); Calcium 7.8 mg/dl (8.5-10.1); Creatinine Clr Calc Pharmacy 91.2 ml/min; Est GFR (African American) 104.8; Est GFR (Non-African American) 90.4; Magnesium 1.8 mg/dl (1.8-2.4); Potassium 3.3 mmol/L (3.5-5.1)
[2020-01-21 06:16] LABS: Phosphorus 1.9 mg/dl (2.5-4.9)
[2020-01-21 06:18] LABS: ANC (manual) 4.92 K/uL (1.4-6.5); Dohle Bodies 1+; Lymphocytes # (manual) 0.26 K/uL (1.2-3.4); Lymphocytes % (manual) 4.5 %; Metamyelocytes # (manual) 0.11 K/uL (0-0); Metamyelocytes % (manual) 1.8 %; Monocytes # (manual) 0.38 K/uL (0.11-0.59); Monocytes % (manual) 6.4 %; Myelocytes # (manual) 0.21 K/uL (0-0); Myelocytes % (manual) 3.6 %; Neutrophils # (manual) 4.92 K/uL (1.4-6.5); Neutrophils % (manual) 83.7 %; Ovalocytes 1+; Toxic Granulation 1+
[2020-01-21] MEDS: POTASSIUM CHLORIDE 10 MEQ TABCR PO SCH (08:47)
[2020-01-21] MEDS: PREGABALIN 75 MG CAP PO SCH ×2 (08:47→22:11)
[2020-01-21] MEDS: FINASTERIDE 5 MG TAB PO SCH (08:47)
[2020-01-21] MEDS: POLYETHYLENE (MIRALAX) 17 GM PACK PO SCH ×2 (08:47→21:23)
[2020-01-21] MEDS: HEPARIN SOD 5,000 UNIT/0.5 ML VIAL SQ SCH ×2 (08:48→22:11)
[2020-01-21] MEDS: D5NSS + 20MEQ KCL 20 MEQ/1,000 ML BAG IV SCH (09:02)
--- NOTE | 2020-01-21 09:41 | Gastroenterology Progress Note ---
Date of Service January 21, 2020 Assessment & Plan (1) Pseudo-obstruction of colon: 79 y/o man w/ history of metastatic colon CA on palliative chemotherapy s/p colonic stent of obstructive mass in 2018, s/p colonoscopy last week with [id number] placed, subsequently developed recurrent n/v, abd distention and underwent flexible sigmoidoscopy yesterday demonstrating widely patent colonic stent with no obstruction, with colonic decompression tube placed. Symptoms felt to be related to colonic pseudo-obstruction due to profound hypokalemia. - Full liquid today, can advance to colonic stent low residue diet as tolerated - Colace 100 mg twice daily - Miralax 1 capful twice daily - He is passing minimal stool, gas - Recommend OOB as tolerated, frequent position changes with assistance as needed - Continue monitoring potassium and keep WNL Will sign off. Call with any questions or concerns. (2) Abdominal distention: (3) Hypokalemia: Admission and Anticipated Discharge Date Admission Date: January 11, 2020 Supervising Physician Co-Signing Physician Notes I saw and evaluated the patient this morning. He is presently ambulating in the halls. It appears that he is now having spontaneous bowel movements. Recommendations Continue with MiraLAX 17 g/day Colace 200 mg/day Please call with any questions or concerns GI to sign off Subjective Pt was seen and evaluated, chart reviewed OOB in chair Tired, weak tolerating PO but not much of an appetite stools loose No pains, nausea, vomiting, black/bloody stools Review of Systems Constitutional: no fever, no chills and no fatigue Respiratory: no cough and no dyspnea Cardiovascular: no chest pain and no radiating jaw, neck or arm pain Gastrointestinal: no abdominal pain, no coffee ground emesis, no hematemesis, no blood in stools and no melena Physical Exam Constitutional: + ill appearing; no acute distress Neck: trachea midline Respiratory: normal respiratory effort Cardiovascular: Rate/Rhythm: regular rate and regular rhythm Gastrointestinal (Abdomen): normal bowel sounds, soft, nontender, no hepatosplenomegaly Results & Data ([facility]) Vital Signs (Past 12 Hours) Vital Signs Temp Pulse Resp BP Pulse Ox 01/21/20 07:22 36.4 C L 85 16 127/87 96 01/21/20 03:49 36.3 C L 84 18 122/82 97 01/20/20 23:15 36.7 C 94 H 18 137/87 96
[2020-01-21] MEDS ORDERED: POTASSIUM PHOS 3 MMOL/1 ML INFUSION IV STA (11:43)
[2020-01-21] MEDS ORDERED: POTASSIUM CHLORIDE 20 MEQ TABCR PO ONE (12:15)
[2020-01-21] MEDS ORDERED: POTASSIUM PHOSPHATE 30 MMOL in SODIUM CHLORIDE 0.9% 500 ML IV ONE (12:15)
--- NOTE | 2020-01-21 16:01 | Hospitalist Progress Note ---
Date of Service January 21, 2020 Assessment & Plan (1) Rectal cancer: Rectosigmoid cancer with metastasis Status post surgery plus radiation treatment Ongoing chemotherapy Status post colonoscopy w/ stent in stent (01/13/2020), Admitted with possible ileus/obstruction Status post colonoscopy with restenting S/p flex sig, rectal tube placement (01/17), findings c/w colonic pseudo- obstruction Appreciate GI input and recommendation Has been having diarrhea without any significant obstructive symptoms Clinically better today Will advance diet as tolerated Slow improvement and tolerating diet We will continue physical therapy Severe anorexia We will try oral Megace Neutropenia - resolved - secondary to above - Neutropenic precautions Hypokalemia, hypomagnesemia - secondary to poor oral intake, GI loss/diarrhea - replete and monitor -Still remains hypokalemic -Supplemented and will be given regular doses to continue (2) Diarrhea: History of rectosigmoid cancer status post surgery and radiation therapy and currently on chemo Status post placement of rectal tube in the past Admitted with diarrhea associated with abdominal pain C. difficile has been negative, stool culture - negative If he develops any obstructive type symptoms, consult general surgery and obtain stat imaging GI contacted, recommend to give tap water enema and cont. IVF and potassium supplementation. S/p flex sig, rectal tube placement (01/17), findings c/w colonic pseudo- obstruction Restart IVF,supplement K, discourage PO intake, ambulation - rectal tube dislodged (01/18) however pt clinically much improved, less distention and less pain, no n/v -KUB still showing gas-filled intestines but no evidence of obstruction -We will advance diet as tolerated as per recommendation from GI -Diarrhea seems to be under control (3) Abdominal pain: Denies any abdominal pain (4) Bowel obstruction: Possible bowel obstruction as part imaging studies Having watery diarrhea on admission Appreciate GI input Now s/p colonoscopy with stent in stent (01/13/2020) Had vomiting several hours later after the procedure KUB repeated by GI (01/17) continues to have diarrhea, nausea/vomiting, poor oral intake, on clear liquid diet - obtained KUB and subsequently CT abdomen - showed dilated small and large bowel above the stent. - GI contacted, recommend to give enema and cont. IVF and potassium supplementation. S/p flex sig, rectal tube placement (01/17) to help w/colonic decompression, findings c/w colonic pseudo-obstruction Restarted IVF,supplement K, discourage PO intake, ambulation - rectal tube dislodged (01/18) however pt clinically much improved, less distention and less pain, no n/v - 01/19, passed 2 small formed stools, no n/v, no significant abd. pain, KUB unchanged -KUB showed gaseous distention of the intestine but no obstruction -Gastroenterology service signed off and advised to advance diet as tolerated -No signs or symptoms of bowel obstruction (5) Essential (primary) hypertension: Blood pressure remains stable DVT prophylaxis: SCDs heparin subcu We will get PT and OT evaluation Advised more ambulation Admission and Anticipated Discharge Date Admission Date: January 11, 2020 Subjective 01/20/2020 The patient was seen and examined in medical floor He remains generally weak and lethargic Has been passing liquid stool and denies any abdominal distention, nausea and or vomiting or any pain Denies any other significant symptoms 01/21/2020 Patient was seen and examined in medical floor He has been stable Complains to have anorexia Denies any abdominal distention and/or pain Was advised to ambulate more Review of Systems Review of Systems: All systems reviewed and are unremarkable except as noted below Gastrointestinal: + diarrhea/loose stools; no abdominal pain, no bloating, no nausea and no vomiting Physical Exam Physical Exam: Lying in bed comfortably but looks depressed Constitutional: well developed, well nourished, + ill appearing and + obese; no acute distress Eyes: PERRL, conjunctivae normal, anicteric sclerae ENMT: external ear and nose normal, oropharynx normal Neck: trachea midline, no thyromegaly Respiratory: normal respiratory effort Auscultation: lungs clear to auscultation bilaterally Cardiovascular: Rate/Rhythm: regular rate and regular rhythm Heart Sounds: no murmur Gastrointestinal (Abdomen): Inspection/Auscultation: abdomen normal to inspection and normal bowel sounds; abdomen not distended Percussion/Palpation: abdomen soft; abdomen nontender and no guarding Musculoskeletal: Denies any acute arthritis involving any of the joints Neurologic: Remains extremely weak and lethargic Lymphatic: no cervical or axillary lymphadenopathy Results & Data ([facility]) Vital Signs (Past 12 Hours) Vital Signs Temp Pulse Resp BP Pulse Ox 01/21/20 15:12 36.9 C 103 H 20 106/74 96 01/21/20 11:11 36.4 C L 92 H 16 121/86 94 01/21/20 07:22 36.4 C L 85 16 127/87 96 Laboratory Results Short CBC 01/21/20 Range/Units 05:13 WBC 5.88 (4.8-10.8) K/uL Hgb 11.5 L (14.0-18.0) g/dL Hct 35.4 L (42-52) % Plt Count 193 (130-400) K/uL BMP 01/21/20 05:13 Sodium 144 Potassium 3.3 L Chloride 115 H Carbon Dioxide 24 BUN 28 H Creatinine 0.70 Glucose 150 H Calcium 7.8 L Medications Administered Current Inpatient Medications Acetaminophen (Tylenol) 650 mg PO Q4H PRN PRN Reason: pain/fever Stop: 02/10/20 23:49 Last Admin: 01/20/20 00:30 Dose: 650 mg Documented by: Diphenoxylate HCl/Atropine (Lomotil) 1 tab PO QID PRN PRN Reason: Diarrhea Stop: 02/10/20 23:49 Last Admin: 01/12/20 10:16 Dose: 1 tab Documented by: Finasteride (Proscar) 5 mg PO DAILY [facility] Stop: 02/11/20 08:59 Last Admin: 01/21/20 08:47 Dose: 5 mg Documented by: Heparin Sodium (Porcine) (Heparin Sod 100 Unit/Ml Flush) 5 ml FLUSH PRN PRN PRN Reason: Flush Stop: 02/11/20 06:59 Last Admin: 01/17/20 12:33 Dose: 5 ml Documented by: Heparin Sodium (Porcine) (Heparin Sodium (Porcine)) 5,000 units SQ Q12 [facility] Stop: 02/11/20 20:59 Last Admin: 01/21/20 08:48 Dose: 5,000 units Documented by: Promethazine HCl 12.5 mg/ (Sodium Chloride) 50.5 mls @ 202 mls/hr IV Q6H PRN PRN Reason: Nausea And Vomiting Stop: 02/13/20 01:44 Last Infusion: 01/17/20 05:07 Dose: Infused Documented by: Lactated Ringer's (Lr) 1,000 mls @ 60 mls/hr IV .[id number] [facility] Stop: 02/16/20 19:44 Last Infusion: 01/20/20 19:24 Dose: Infused Documented by: Potassium Chloride/Dextrose/Sod Cl (D5nss + 20meq Kcl) 20 meq in 1,000 mls @ 100 mls/hr IV .Q10H [facility] Stop: 01/21/20 18:59 Last Admin: 01/21/20 09:02 Dose: 100 mls/hr Documented by: Potassium Phosphate 30 mmol/ (Sodium Chloride) 510 mls @ 88 mls/hr IV ONE ONE Stop: 01/21/20 18:02 Last Admin: 01/21/20 13:32 Dose: 88 mls/hr Documented by: Ibuprofen (Advil) 400 mg PO QID PRN PRN Reason: Pain Stop: 02/11/20 00:35 Last Admin: 01/19/20 13:23 Dose: 400 mg Documented by: Megestrol Acetate (Megace) 400 mg PO QAM [facility] Stop: 02/20/20 13:44 Morphine Sulfate (Morphine Sulfate) 2 mg IV Q4H PRN PRN Reason: Pain Stop: 01/25/20 23:49 Ondansetron HCl (Zofran) 4 mg IV Q6H PRN PRN Reason: Nausea Stop: 02/10/20 23:49 Last Admin: 01/16/20 16:00 Dose: 4 mg Documented by: Polyethylene Glycol (Miralax Powder Packet) 17 gm PO BID [facility] Stop: 02/12/20 20:59 Last Admin: 01/21/20 08:47 Dose: Not Given Documented by: Potassium Chloride (Klor-Con M20) 20 meq PO BID [facility] Stop: 02/20/20 20:59 Pregabalin (Lyrica) 75 mg PO BID [facility] Stop: 02/11/20 08:59 Last Admin: 01/21/20 08:47 Dose: 75 mg Documented by: (1) Diarrhea Diarrhea type: unspecified type Qualified Code(s): R19.7 - Diarrhea, unspecified (2) Abdominal pain Abdominal location: unspecified location Qualified Code(s): R10.9 - Unspecified abdominal pain
[2020-01-21] MEDS: HEPARIN 100 UNIT/ML 5ML FLUSH FLUSH PRN (20:02)
[2020-01-21] MEDS: MEGESTROL ACETATE SUSP 400 MG/10 ML UDC PO SCH (20:39)
[2020-01-21] MEDS: POTASSIUM CHLORIDE 20 MEQ TABCR PO SCH (20:41)
[2020-01-22] MEDS: HEPARIN 100 UNIT/ML 5ML FLUSH FLUSH PRN ×3 (00:34→09:10)
[2020-01-22 06:32] LABS: Basophils # (auto) 0.03 K/uL (0-0.2); Basophils % (auto) 0.5 %; Eosinophils # (auto) 0.03 K/uL (0-0.5); Eosinophils % (auto) 0.5 %; Hematocrit (blood only) 37.2 % (42-52); Immature Granulocytes # (auto) 0.17 K/uL (0.00-0.02); Immature Granulocytes % (auto) 2.6 %; Lymphocytes # (auto) 0.57 K/uL (1.2-3.4); Lymphocytes % (auto) 8.7 %; Mean Corpuscular Hemoglobin 26.7 pg (25-34); Mean Corpuscular Hgb Conc 32.3 g/dL (32-36); Mean Corpuscular Volume 82.7 fL (80-100); Mean Platelet Volume 10.5 fL (7.4-10.4); Monocytes # (auto) 0.78 K/uL (0.11-0.59); Monocytes % (auto) 11.9 %; Neutrophils # (auto) 4.99 K/uL (1.4-6.5); Neutrophils % (auto) 75.8 %; Platelet Count 217 K/uL (130-400); RDW Coefficient of Variation 17.9 % (11.5-14.5); RDW Standard Deviation 53.5 fL (36.4-46.3); White Blood Count 6.57 K/uL (4.8-10.8)
[2020-01-22 07:01] LABS: BUN Creatinine Ratio 38.9 (10-20); Calcium 7.8 mg/dl (8.5-10.1); Creatinine Clr Calc Pharmacy 113.9 ml/min; Est GFR (African American) 110.9; Est GFR (Non-African American) 95.7; Magnesium 1.7 mg/dl (1.8-2.4); Potassium 3.3 mmol/L (3.5-5.1)
[2020-01-22 07:04] LABS: Phosphorus 2.8 mg/dl (2.5-4.9)
[2020-01-22] MEDS: POTASSIUM CHLORIDE 20 MEQ TABCR PO SCH ×2 (08:29→21:27)
[2020-01-22] MEDS: FINASTERIDE 5 MG TAB PO SCH (08:29)
[2020-01-22] MEDS: MEGESTROL ACETATE SUSP 400 MG/10 ML UDC PO SCH (08:29)
[2020-01-22] MEDS: HEPARIN SOD 5,000 UNIT/0.5 ML VIAL SQ SCH ×2 (08:30→21:26)
[2020-01-22] MEDS: POLYETHYLENE (MIRALAX) 17 GM PACK PO SCH ×2 (08:31→21:26)
[2020-01-22] MEDS: PREGABALIN 75 MG CAP PO SCH ×2 (08:35→21:27)
[2020-01-22] MEDS ORDERED: POTASSIUM CHLORIDE 20 MEQ TABCR PO STA (08:38)
[2020-01-22 12:21] LABS: Alanine Aminotransferase 45 U/L (12-78); Albumin Level 1.7 gm/dl (3.4-5.0); Alkaline Phosphatase 103 U/L (45-117); Aspartate Aminotransferase 31 U/L (15-37); Bilirubin Direct < 0.1 mg/dl (0-0.2); Bilirubin,Total 0.3 mg/dl (0.2-1); Total Protein 4.8 gm/dl (6.4-8.2)
--- NOTE | 2020-01-22 13:17 | Palliative Care Consultation ---
Date of Consultation January 22, 2020 Assessment & Plan (1) Goals of care, counseling/discussion: -79 year old male patient with PMH rectal cancer dx 2016 s/p XRT, on ongoing palliative chemotherapy prior to arrival, presented to the hospital 10 days ago with diarrhea, vomiting, and abdominal distention. Patient was found to have pseudo-obstruction and underwent colonoscopy with colonic stent placement on 01/13 and flex sig with rectal tube placement on 01/17. The rectal tube became dislodged, but his condition has improved. His diarrhea has improved, he is tolerating oral intake. GI has signed off. Hospitalist spoke with patient's oncologist who stated that patient's condition overall is deteriorating and further treatment is uncertain. Palliative care is consulted for goals of care. -Met with patient along with Dr. Manriquez in room 457-2. He is pleasant, AA&O x4. -Patient states that he is feeling somewhat better since coming to the hospital. he continues to have loose bowel movements, but this has been happening since his colostomy was reversed. he has no control over his bowels, this is normal for him. -Patient states that he knows his options for further treatment are limited, if any at all. He plans to have a conversation with Dr. Espana, his oncologist, as an outpatient to make final decision. -We discussed that if/when he is done with chemo or decides not to have any more, he could certainly have home hospice care. -Patient states that he does have a living will. He does not want any heroics at the end of life. We discussed CODE STATUS, and patient stated he wants to be do not resuscitate/do not intubate. I explained that if patient is still here on Saturday I will stop by to discuss POLST form. -Patient denies any pain or discomforts at this time, no symptom management needs. he was started on Megace here in the hospital and says that his oral intake was improved today. -Plan is for home with home health. He has a and three of his five adult children living with him. He has lots of support. (2) Pseudo-obstruction of colon: (3) Diarrhea: Diarrhea type: unspecified type Qualified Code(s): R19.7 - Diarrhea, unspecified (4) Rectal cancer: Supervising Physician Co-Signing Physician Notes Chart reviewed, patient seen and examined, collaborated with ODILON Reynolds. No family at bedside. PE: Alert and oriented, NAD HEENT: EOMI, hearing within normal limits Respirations: Clear breath sounds bilaterally CV: Regular rate, positive lower extremity edema Abdomen: Distended, nontender with light palpation, diminished bowel sounds Extremities: Generalized weakness Neuro: Alert and oriented Agree with above note, assessment and plan as per ODILON Reynolds. Will continue to follow and assist patient with medical decision making. History of Present Illness Attending Physician: Karin Diaz MD History of Present Illness This 79 year old male patient with PMH rectal cancer dx 2016 s/p XRT, on ongoing palliative chemotherapy prior to arrival, presented to the hospital 10 days ago with diarrhea, vomiting, and abdominal distention. Patient was found to have pseudo-obstruction and underwent colonoscopy with colonic stent placement on 01/13 and flex sig with rectal tube placement on 01/17. The rectal tube became dislodged, but his condition has improved. His diarrhea has improved, he is tolerating oral intake. GI has signed off. Hospitalist spoke with patient's oncologist who stated that patient's condition overall is deteriorating and further treatment is uncertain. Palliative care is consulted for goals of care. Thank you kindly for this consult. Allergies Allergy/AdvReac Type Severity Reaction Status Date / Time No Known Allergies Allergy Verified 01/11/20 21:39 Home Medications Home Medications Medication Instructions Recorded Confirmed Type ibuprofen [Advil] 400 mg PO QID PRN 12/24/18 01/11/20 History pregabalin 75 mg PO BID 12/24/18 01/11/20 History prochlorperazine maleate 10 mg PO DAILY PRN 12/24/18 01/11/20 History [Compazine] diphenoxylate-atropine [Lomotil] 1 tab PO QID PRN #20 tab 12/28/18 01/11/20 Rx finasteride 5 mg tablet 5 mg PO DAILY #90 tab 12/07/19 01/11/20 Rx loperamide [Imodium A-D] 2 mg PO Q8H PRN 01/11/20 01/11/20 History potassium chloride 10 meq PO DAILY 01/11/20 01/11/20 History Patient History Social History Preferred Language: Kazakh Communication Ability: Effective Um Specialist Required: No Beliefs That Will Affect Care: None marital status: Current Living Situation: Spouse and Family Other Information That Helps Us Care for You: No Feels Safe at Home: Yes Safety Concerns: Feels Safe At This Time Smoking Status: Former smoker Tobacco Type: pipe ; Cigarettes Per Day: h/o 5 pipes per day x 15yrs ; Do You Dip or Chew Tobacco: No ; Second Hand Exposure: No ; Hx Alcohol Use: No Hx Substance Use: No Review of Systems Review of Systems: Const: + weakness ENMT: No dysphagia Resp: No SOB, no cough Cardio: No chest pain, + BLE edema GI: No abdominal pain, no N/V MS: No musculoskeletal pain Neuro: No confusion Psych: No anxiety, no depression Physical Exam Constitutional: + overweight; no acute distress ENMT: external ear and nose normal, oropharynx normal Respiratory: normal respiratory effort; no labored breathing Cardiovascular: Rate/Rhythm: regular rate and regular rhythm Extremities: + edema (+2 BLE) Gastrointestinal (Abdomen): Inspection/Auscultation: normal bowel sounds Percussion/Palpation: abdomen soft; abdomen nontender Skin: + pallor Neurologic: moves all extremities and awake; not confused Psychiatric: A+Ox3, euthymic affect Insight: good insight Results & Data Vital Signs (Past 12 Hours) Vital Signs Temp Pulse Resp BP Pulse Ox 01/22/20 07:18 36.9 C 91 H 20 137/91 96 01/22/20 04:00 36.3 C L 90 19 133/86 94 Coding Level of Care Code 87672 Inpt Consult Level 3 Diagnoses Goals of care, counseling/discussion Z71.89 Pseudo-obstruction of colon K59.8 Diarrhea R19.7 Diarrhea type: unspecified type Rectal cancer C20 Time Spent (min) 70 Time Spent Midlevel 70 minutes with >50% of the time spent at bedside with patient discussing condition and GOC.
--- NOTE | 2020-01-22 16:17 | Hospitalist Progress Note ---
Date of Service January 22, 2020 Assessment & Plan (1) Rectal cancer: Rectosigmoid cancer with metastasis Status post surgery plus radiation treatment Ongoing chemotherapy Status post colonoscopy w/ stent in stent (01/13/2020), Admitted with possible ileus/obstruction Status post colonoscopy with restenting S/p flex sig, rectal tube placement (01/17), findings c/w colonic pseudo- obstruction Appreciate GI input and recommendation Has been having diarrhea without any significant obstructive symptoms Diarrhea seems to be better but continues to have profound weakness Remains hemodynamically stable with blood pressure on the lower side of normal Trying to eat but has profound anorexia We will prescribed Megace to stimulate appetite Case discussed in detail with the daughter and the Discussed with Dr. Espana and there is no plan for any further palliative chemotherapy until his general condition improves Palliative care consulted and appreciate their input and recommendation Severe anorexia We will try oral Megace Diet advanced as tolerated Neutropenia - resolved - secondary to above - Neutropenic precautions Hypokalemia, hypomagnesemia - secondary to poor oral intake, GI loss/diarrhea - replete and monitor -Still remains hypokalemic -Supplemented and will be given regular doses to continue -Remains hypokalemic with potassium around 3.3 -We will continue oral supplement and will be given regularly (2) Diarrhea: History of rectosigmoid cancer status post surgery and radiation therapy and currently on chemo Status post placement of rectal tube in the past Admitted with diarrhea associated with abdominal pain C. difficile has been negative, stool culture - negative If he develops any obstructive type symptoms, consult general surgery and obtain stat imaging GI contacted, recommend to give tap water enema and cont. IVF and potassium supplementation. S/p flex sig, rectal tube placement (01/17), findings c/w colonic pseudo- obstruction Restart IVF,supplement K, discourage PO intake, ambulation - rectal tube dislodged (01/18) however pt clinically much improved, less distention and less pain, no n/v -KUB still showing gas-filled intestines but no evidence of obstruction -We will advance diet as tolerated as per recommendation from GI -Diarrhea seems to be under control (3) Abdominal pain: Denies any abdominal pain (4) Bowel obstruction: Possible bowel obstruction as part imaging studies Having watery diarrhea on admission Appreciate GI input Now s/p colonoscopy with stent in stent (01/13/2020) Had vomiting several hours later after the procedure KUB repeated by GI (01/17) continues to have diarrhea, nausea/vomiting, poor oral intake, on clear liquid diet - obtained KUB and subsequently CT abdomen - showed dilated small and large bowel above the stent. - GI contacted, recommend to give enema and cont. IVF and potassium supplementation. S/p flex sig, rectal tube placement (01/17) to help w/colonic decompression, find ings c/w colonic pseudo-obstruction Restarted IVF,supplement K, discourage PO intake, ambulation - rectal tube dislodged (01/18) however pt clinically much improved, less distention and less pain, no n/v - 01/19, passed 2 small formed stools, no n/v, no significant abd. pain, KUB unchanged -KUB showed gaseous distention of the intestine but no obstruction -Gastroenterology service signed off and advised to advance diet as tolerated -No signs or symptoms of bowel obstruction (5) Essential (primary) hypertension: Blood pressure remains stable DVT prophylaxis: SCDs heparin subcu We will get PT and OT evaluation Advised more ambulation Admission and Anticipated Discharge Date Admission Date: January 11, 2020 Subjective 01/20/2020 The patient was seen and examined in medical floor He remains generally weak and lethargic Has been passing liquid stool and denies any abdominal distention, nausea and or vomiting or any pain Denies any other significant symptoms 01/21/2020 Patient was seen and examined in medical floor He has been stable Complains to have anorexia Denies any abdominal distention and/or pain Was advised to ambulate more 01/22/2020 Patient was seen and examined in medical floor in presence of the family members He remains stable but continues to have extremely weak and tired Has been anorexic Diarrhea seems to be under control and does not have any symptoms of obstruction Review of Systems Review of Systems: All systems reviewed and are unremarkable except as noted below Gastrointestinal: + diarrhea/loose stools; no abdominal pain, no bloating, no nausea and no vomiting Physical Exam Physical Exam: Lying in bed comfortably but looks depressed Constitutional: well developed, well nourished, + ill appearing and + obese; no acute distress Eyes: PERRL, conjunctivae normal, anicteric sclerae ENMT: external ear and nose normal, oropharynx normal Neck: trachea midline, no thyromegaly Respiratory: normal respiratory effort Auscultation: lungs clear to auscultation bilaterally Cardiovascular: Rate/Rhythm: regular rate and regular rhythm Heart Sounds: no murmur Gastrointestinal (Abdomen): Inspection/Auscultation: abdomen normal to inspection, + abdomen distended and normal bowel sounds Percussion/Palpation: abdomen soft; abdomen nontender and no guarding Neurologic: moves all extremities; no focal motor deficits Generally weak and lethargic Lymphatic: no cervical or axillary lymphadenopathy Results & Data ([facility]) Vital Signs (Past 12 Hours) Vital Signs Temp Pulse Resp BP Pulse Ox 01/22/20 15:15 36.4 C L 93 H 20 104/72 96 01/22/20 07:18 36.9 C 91 H 20 137/91 96 Laboratory Results Short CBC 01/22/20 Range/Units 05:15 WBC 6.57 (4.8-10.8) K/uL Hgb 12.0 L (14.0-18.0) g/dL Hct 37.2 L (42-52) % Plt Count 217 (130-400) K/uL BMP 01/22/20 05:15 Sodium 145 Potassium 3.3 L Chloride 117 H Carbon Dioxide 23 BUN 24 H Creatinine 0.61 Glucose 105 H Calcium 7.8 L Liver Function 01/22/20 Range/Units 05:15 Total Bilirubin 0.3 (0.2-1) mg/dl Direct Bilirubin < 0.1 (0-0.2) mg/dl AST 31 (15-37) U/L ALT 45 (12-78) U/L Alkaline Phosphatase 103 (45-117) U/L Albumin 1.7 L (3.4-5.0) gm/dl Medications Administered Current Inpatient Medications Acetaminophen (Tylenol) 650 mg PO Q4H PRN PRN Reason: pain/fever Stop: 02/10/20 23:49 Last Admin: 01/20/20 00:30 Dose: 650 mg Documented by: Diphenoxylate HCl/Atropine (Lomotil) 1 tab PO QID PRN PRN Reason: Diarrhea Stop: 02/10/20 23:49 Last Admin: 01/12/20 10:16 Dose: 1 tab Documented by: Finasteride (Proscar) 5 mg PO DAILY [facility] Stop: 02/11/20 08:59 Last Admin: 01/22/20 08:29 Dose: 5 mg Documented by: Heparin Sodium (Porcine) (Heparin Sod 100 Unit/Ml Flush) 5 ml FLUSH PRN PRN PRN Reason: Flush Stop: 02/11/20 06:59 Last Admin: 01/22/20 09:10 Dose: 5 ml Documented by: Heparin Sodium (Porcine) (Heparin Sodium (Porcine)) 5,000 units SQ Q12 [facility] Stop: 02/11/20 20:59 Last Admin: 01/22/20 08:30 Dose: 5,000 units Documented by: Promethazine HCl 12.5 mg/ (Sodium Chloride) 50.5 mls @ 202 mls/hr IV Q6H PRN PRN Reason: Nausea And Vomiting Stop: 02/13/20 01:44 Last Infusion: 01/17/20 05:07 Dose: Infused Documented by: Lactated Ringer's (Lr) 1,000 mls @ 60 mls/hr IV .[id number] [facility] Stop: 02/16/20 19:44 Last Infusion: 01/20/20 19:24 Dose: Infused Documented by: Ibuprofen (Advil) 400 mg PO QID PRN PRN Reason: Pain Stop: 02/11/20 00:35 Last Admin: 01/19/20 13:23 Dose: 400 mg Documented by: Megestrol Acetate (Megace) 400 mg PO QAM [facility] Stop: 02/20/20 13:44 Last Admin: 01/22/20 08:29 Dose: 400 mg Documented by: Morphine Sulfate (Morphine Sulfate) 2 mg IV Q4H PRN PRN Reason: Pain Stop: 01/25/20 23:49 Ondansetron HCl (Zofran) 4 mg IV Q6H PRN PRN Reason: Nausea Stop: 02/10/20 23:49 Last Admin: 01/16/20 16:00 Dose: 4 mg Documented by: Polyethylene Glycol (Miralax Powder Packet) 17 gm PO BID [facility] Stop: 02/12/20 20:59 Last Admin: 01/22/20 08:31 Dose: Not Given Documented by: Potassium Chloride (Klor-Con M20) 20 meq PO BID [facility] Stop: 02/20/20 20:59 Last Admin: 01/22/20 08:29 Dose: 20 meq Documented by: Pregabalin (Lyrica) 75 mg PO BID [facility] Stop: 02/11/20 08:59 Last Admin: 01/22/20 08:35 Dose: 75 mg Documented by: (1) Diarrhea Diarrhea type: unspecified type Qualified Code(s): R19.7 - Diarrhea, unspecified (2) Abdominal pain Abdominal location: unspecified location Qualified Code(s): R10.9 - Unspecified abdominal pain
[2020-01-23] MEDS ORDERED: ALUMINUM/MAGNESIUM/SIMETH (MAALOX MAX) 30 ML UDC PO STA ×2 (01:58→20:36)
[2020-01-23] MEDS: HEPARIN SOD 5,000 UNIT/0.5 ML VIAL SQ SCH ×2 (08:06→20:47)
[2020-01-23] MEDS: POTASSIUM CHLORIDE 20 MEQ TABCR PO SCH ×4 (08:08→20:55)
[2020-01-23] MEDS: FINASTERIDE 5 MG TAB PO SCH (08:08)
[2020-01-23] MEDS: MEGESTROL ACETATE SUSP 400 MG/10 ML UDC PO SCH (08:08)
[2020-01-23] MEDS: POLYETHYLENE (MIRALAX) 17 GM PACK PO SCH ×2 (08:16→20:35)
[2020-01-23] MEDS: PREGABALIN 75 MG CAP PO SCH ×2 (08:18→20:35)
[2020-01-23] MEDS: HEPARIN 100 UNIT/ML 5ML FLUSH FLUSH PRN ×3 (08:53→18:39)
[2020-01-23 11:38] LABS: BUN Creatinine Ratio 22.6 (10-20); Calcium 8.1 mg/dl (8.5-10.1); Creatinine Clr Calc Pharmacy 57.9 ml/min; Est GFR (African American) 66.7; Est GFR (Non-African American) 57.6; Potassium 2.9 mmol/L (3.5-5.1)
[2020-01-23] MEDS: ONDANSETRON INJ 2 MG/ML 2 ML VIAL IV PRN (14:48)
[2020-01-23] MEDS ORDERED: POTASSIUM CHLORIDE 20 MEQ TABCR PO STA (14:54)
--- NOTE | 2020-01-23 14:54 | Hospitalist Progress Note ---
Date of Service January 23, 2020 Assessment & Plan (1) Rectal cancer: Rectosigmoid cancer with metastasis Status post surgery plus radiation treatment Ongoing chemotherapy Status post colonoscopy w/ stent in stent (01/13/2020), Admitted with possible ileus/obstruction Status post colonoscopy with restenting S/p flex sig, rectal tube placement (01/17), findings c/w colonic pseudo- obstruction Appreciate GI input and recommendation Has been having diarrhea without any significant obstructive symptoms Diarrhea seems to be better but continues to have profound weakness Remains hemodynamically stable with blood pressure on the lower side of normal Trying to eat but has profound anorexia We will prescribed Megace to stimulate appetite Case discussed in detail with the daughter and the Discussed with Dr. Espana and there is no plan for any further palliative chemotherapy until his general condition improves Palliative care consulted and appreciate their input and recommendation Continues to have diarrhea and electrolyte imbalance We will continue supplementing potassium Severe anorexia We will try oral Megace Diet advanced as tolerated Neutropenia - resolved - secondary to above - Neutropenic precautions Hypokalemia, hypomagnesemia - secondary to poor oral intake, GI loss/diarrhea - replete and monitor -Still remains hypokalemic -Supplemented and will be given regular doses to continue -Remains hypokalemic with potassium around 3.3 -We will continue oral supplement and will be given regularly -Potassium is 2.9 today -We will give more supplementation (2) Diarrhea: History of rectosigmoid cancer status post surgery and radiation therapy and currently on chemo Status post placement of rectal tube in the past Admitted with diarrhea associated with abdominal pain C. difficile has been negative, stool culture - negative If he develops any obstructive type symptoms, consult general surgery and obtain stat imaging GI contacted, recommend to give tap water enema and cont. IVF and potassium supplementation. S/p flex sig, rectal tube placement (01/17), findings c/w colonic pseudo- obstruction Restart IVF,supplement K, discourage PO intake, ambulation - rectal tube dislodged (01/18) however pt clinically much improved, less distention and less pain, no n/v -KUB still showing gas-filled intestines but no evidence of obstruction -We will advance diet as tolerated as per recommendation from GI -Diarrhea seems to be under control -Continues to have diarrhea with electrolyte loss (3) Abdominal pain: Denies any abdominal pain (4) Bowel obstruction: Possible bowel obstruction as part imaging studies Having watery diarrhea on admission Appreciate GI input Now s/p colonoscopy with stent in stent (01/13/2020) Had vomiting several hours later after the procedure KUB repeated by GI (01/17) continues to have diarrhea, nausea/vomiting, poor oral intake, on clear liquid diet - obtained KUB and subsequently CT abdomen - showed dilated small and large bowel above the stent. - GI contacted, recommend to give enema and cont. IVF and potassium supplementation. S/p flex sig, rectal tube placement (01/17) to help w/colonic decompression, f indings c/w colonic pseudo-obstruction Restarted IVF,supplement K, discourage PO intake, ambulation - rectal tube dislodged (01/18) however pt clinically much improved, less distention and less pain, no n/v - 01/19, passed 2 small formed stools, no n/v, no significant abd. pain, KUB unchanged -KUB showed gaseous distention of the intestine but no obstruction -Gastroenterology service signed off and advised to advance diet as tolerated -No signs or symptoms of bowel obstruction (5) Essential (primary) hypertension: Blood pressure remains stable DVT prophylaxis: SCDs heparin subcu We will get PT and OT evaluation Advised more ambulation Admission and Anticipated Discharge Date Admission Date: January 11, 2020 Subjective 01/20/2020 The patient was seen and examined in medical floor He remains generally weak and lethargic Has been passing liquid stool and denies any abdominal distention, nausea and or vomiting or any pain Denies any other significant symptoms 01/21/2020 Patient was seen and examined in medical floor He has been stable Complains to have anorexia Denies any abdominal distention and/or pain Was advised to ambulate more 01/22/2020 Patient was seen and examined in medical floor in presence of the family members He remains stable but continues to have extremely weak and tired Has been anorexic Diarrhea seems to be under control and does not have any symptoms of obstruction 01/23/2020 The patient was seen and examined in medical floor He looks a little bit better today Denies any abdominal pain Continues to have ongoing diarrhea Review of Systems 2 Review of Systems: All systems reviewed and are unremarkable except as noted below Gastrointestinal: + diarrhea/loose stools; no abdominal pain, no bloating, no nausea and no vomiting Physical Exam Physical Exam: Lying in bed comfortably but looks depressed Constitutional: well developed, well nourished, + ill appearing and + obese; no acute distress Eyes: PERRL, conjunctivae normal, anicteric sclerae ENMT: external ear and nose normal, oropharynx normal Neck: trachea midline, no thyromegaly Respiratory: normal respiratory effort Auscultation: lungs clear to auscultation bilaterally Cardiovascular: Rate/Rhythm: regular rate and regular rhythm Heart Sounds: no murmur Gastrointestinal (Abdomen): Inspection/Auscultation: + abdomen distended and normal bowel sounds Percussion/Palpation: abdomen soft; abdomen nontender and no guarding Musculoskeletal: No acute arthritis involving any joint Neurologic: moves all extremities; no focal motor deficits Lymphatic: no cervical or axillary lymphadenopathy Results & Data ([facility]) Vital Signs (Past 12 Hours) Vital Signs Temp Pulse Resp BP Pulse Ox 01/23/20 07:26 36.7 C 82 18 117/83 94 Laboratory Results [facility] 01/23/20 11:07 Sodium 143 Potassium 2.9 L Chloride 114 H Carbon Dioxide 23 BUN 27 H Creatinine 1.20 D Glucose 108 H Calcium 8.1 L Cardiac Enzymes 01/23/20 01/23/20 Range/Units 02:44 08:53 Troponin I < 0.015 < 0.015 (0-0.045) ng/ml Medications Administered Current Inpatient Medications Acetaminophen (Tylenol) 650 mg PO Q4H PRN PRN Reason: pain/fever Stop: 02/10/20 23:49 Last Admin: 01/20/20 00:30 Dose: 650 mg Documented by: Diphenoxylate HCl/Atropine (Lomotil) 1 tab PO QID PRN PRN Reason: Diarrhea Stop: 02/10/20 23:49 Last Admin: 01/12/20 10:16 Dose: 1 tab Documented by: Finasteride (Proscar) 5 mg PO DAILY [facility] Stop: 02/11/20 08:59 Last Admin: 01/23/20 08:08 Dose: 5 mg Documented by: Heparin Sodium (Porcine) (Heparin Sod 100 Unit/Ml Flush) 5 ml FLUSH PRN PRN PRN Reason: Flush Stop: 02/11/20 06:59 Last Admin: 01/23/20 14:52 Dose: 5 ml Documented by: Heparin Sodium (Porcine) (Heparin Sodium (Porcine)) 5,000 units SQ Q12 [facility] Stop: 02/11/20 20:59 Last Admin: 01/23/20 08:06 Dose: 5,000 units Documented by: Promethazine HCl 12.5 mg/ (Sodium Chloride) 50.5 mls @ 202 mls/hr IV Q6H PRN PRN Reason: Nausea And Vomiting Stop: 02/13/20 01:44 Last Infusion: 01/17/20 05:07 Dose: Infused Documented by: Lactated Ringer's (Lr) 1,000 mls @ 60 mls/hr IV .[id number] [facility] Stop: 02/16/20 19:44 Last Infusion: 01/20/20 19:24 Dose: Infused Documented by: Ibuprofen (Advil) 400 mg PO QID PRN PRN Reason: Pain Stop: 02/11/20 00:35 Last Admin: 01/19/20 13:23 Dose: 400 mg Documented by: Megestrol Acetate (Megace) 400 mg PO QAM [facility] Stop: 02/20/20 13:44 Last Admin: 01/23/20 08:08 Dose: 400 mg Documented by: Morphine Sulfate (Morphine Sulfate) 2 mg IV Q4H PRN PRN Reason: Pain Stop: 01/25/20 23:49 Ondansetron HCl (Zofran) 4 mg IV Q6H PRN PRN Reason: Nausea Stop: 02/10/20 23:49 Last Admin: 01/23/20 14:48 Dose: 4 mg Documented by: Polyethylene Glycol (Miralax Powder Packet) 17 gm PO BID [facility] Stop: 02/12/20 20:59 Last Admin: 01/23/20 08:16 Dose: Not Given Documented by: Potassium Chloride (Klor-Con M20) 20 meq PO TID [facility] Stop: 02/21/20 20:59 Last Admin: 01/23/20 13:14 Dose: 20 meq Documented by: Pregabalin (Lyrica) 75 mg PO BID [facility] Stop: 02/11/20 08:59 Last Admin: 01/23/20 08:18 Dose: 75 mg Documented by: (1) Diarrhea Diarrhea type: unspecified type Qualified Code(s): R19.7 - Diarrhea, unspecified (2) Abdominal pain Abdominal location: unspecified location Qualified Code(s): R10.9 - Unspecified abdominal pain
[2020-01-23] MEDS: POTASSIUM CHLORIDE / WTR 10 MEQ/100 ML PLCT IV SCH ×2 (16:12→17:24)
[2020-01-23] MEDS: IBUPROFEN 200 MG TAB PO PRN (16:21)
--- NOTE | 2020-01-23 18:10 | Electrocardiogram Report ---
Test Reason : Blood Pressure : / mmHG Vent. Rate : 104 BPM Atrial Rate : 104 BPM P-R Int : 216 ms QRS Dur : 088 ms QT Int : 350 ms P-R-T Axes : 043 -19 050 degrees QTc Int : 460 ms Sinus tachycardia with 1st degree A-V block Abnormal ECG When compared with ECG of 23-DEC-2018 22:21, Criteria for Inferior infarct are no longer Present Nonspecific T wave abnormality now evident in Anterior leads Confirmed by Delano Teixeira ([id number] on 01/23/2020 6:09:34 PM Referred By: Bernardo Espana Confirmed By:Elliott Teixeira
[2020-01-23] MEDS ORDERED: ALUMINUM/MAGNESIUM/SIMETH (MAALOX MAX) 30 ML UDC ONE (20:45)
[2020-01-24] MEDS: ONDANSETRON INJ 2 MG/ML 2 ML VIAL IV PRN (05:23)
[2020-01-24] MEDS: HEPARIN 100 UNIT/ML 5ML FLUSH FLUSH PRN (05:39)
[2020-01-24 07:37] LABS: BUN Creatinine Ratio 29.2 (10-20); Calcium 7.9 mg/dl (8.5-10.1); Creatinine Clr Calc Pharmacy 46.9 ml/min; Est GFR (African American) 57.4; Est GFR (Non-African American) 49.5; Potassium 3.4 mmol/L (3.5-5.1)
[2020-01-24] MEDS: POTASSIUM CHLORIDE 20 MEQ TABCR PO SCH ×3 (08:22→20:25)
[2020-01-24] MEDS: MEGESTROL ACETATE SUSP 400 MG/10 ML UDC PO SCH (08:23)
[2020-01-24] MEDS: HEPARIN SOD 5,000 UNIT/0.5 ML VIAL SQ SCH ×2 (08:23→20:25)
[2020-01-24] MEDS: POLYETHYLENE (MIRALAX) 17 GM PACK PO SCH ×2 (08:24→20:20)
[2020-01-24] MEDS: FINASTERIDE 5 MG TAB PO SCH (08:24)
[2020-01-24] MEDS: PREGABALIN 75 MG CAP PO SCH ×2 (08:38→20:25)
[2020-01-24] MEDS ORDERED: DIPHENOXYLATE/ATROPINE 2.5/0.025MG TAB PO ONE (11:18)
[2020-01-24] MEDS: ACETAMINOPHEN 325 MG TAB PO PRN (14:10)
[2020-01-24] MEDS: LOPERAMIDE HCL 2 MG CAP PO PRN ×2 (14:11→16:20)
--- NOTE | 2020-01-24 15:19 | Hospitalist Progress Note ---
Date of Service January 24, 2020 Assessment & Plan (1) Rectal cancer: Rectosigmoid cancer with metastasis Status post surgery plus radiation treatment Ongoing chemotherapy Status post colonoscopy w/ stent in stent (01/13/2020), Admitted with possible ileus/obstruction Status post colonoscopy with restenting S/p flex sig, rectal tube placement (01/17), findings c/w colonic pseudo- obstruction Appreciate GI input and recommendation Has been having diarrhea without any significant obstructive symptoms Diarrhea seems to be better but continues to have profound weakness Remains hemodynamically stable with blood pressure on the lower side of normal Trying to eat but has profound anorexia We will prescribed Megace to stimulate appetite Case discussed in detail with the daughter and the Discussed with Dr. Espana and there is no plan for any further palliative chemotherapy until his general condition improves Palliative care consulted and appreciate their input and recommendation Continues to have diarrhea and electrolyte imbalance Potassium is 3.4 today-we will continue supplement Severe anorexia We will try oral Megace Diet advanced as tolerated Has been tolerating regular diet-smaller more than 1 time Neutropenia - resolved - secondary to above - Neutropenic precautions Hypokalemia, hypomagnesemia - secondary to poor oral intake, GI loss/diarrhea - replete and monitor -Still remains hypokalemic -Supplemented and will be given regular doses to continue -Remains hypokalemic with potassium around 3.3 -We will continue oral supplement and will be given regularly -Potassium is 2.9 today -We will give more supplementation (2) Diarrhea: History of rectosigmoid cancer status post surgery and radiation therapy and currently on chemo Status post placement of rectal tube in the past Admitted with diarrhea associated with abdominal pain C. difficile has been negative, stool culture - negative If he develops any obstructive type symptoms, consult general surgery and obtain stat imaging GI contacted, recommend to give tap water enema and cont. IVF and potassium supplementation. S/p flex sig, rectal tube placement (01/17), findings c/w colonic pseudo- obstruction Restart IVF,supplement K, discourage PO intake, ambulation - rectal tube dislodged (01/18) however pt clinically much improved, less distention and less pain, no n/v -KUB still showing gas-filled intestines but no evidence of obstruction -We will advance diet as tolerated as per recommendation from GI -Diarrhea seems to be under control -Continues to have diarrhea with electrolyte loss -Stool for C. difficile toxin has been negative -We will try to keep Imodium to control diarrhea (3) Abdominal pain: Denies any abdominal pain (4) Bowel obstruction: Possible bowel obstruction as part imaging studies Having watery diarrhea on admission Appreciate GI input Now s/p colonoscopy with stent in stent (01/13/2020) Had vomiting several hours later after the procedure KUB repeated by GI (01/17) continues to have diarrhea, nausea/vomiting, poor oral intake, on clear liquid diet - obtained KUB and subsequently CT abdomen - showed dilated small and large bowel above the stent. - GI contacted, recommend to give enema and cont. IVF and potassium supplementation. S/p flex sig, rectal tube placement (01/17) to help w/colonic decompression, findings c/w colonic pseudo-obstruction Restarted IVF,supplement K, discourage PO intake, ambulation - rectal tube dislodged (01/18) however pt clinically much improved, less distention and less pain, no n/v - 01/19, passed 2 small formed stools, no n/v, no significant abd. pain, KUB unchanged -KUB showed gaseous distention of the intestine but no obstruction -Gastroenterology service signed off and advised to advance diet as tolerated -No signs or symptoms of bowel obstruction (5) Essential (primary) hypertension: Blood pressure remains stable DVT prophylaxis: SCDs heparin subcu We will get PT and OT evaluation Advised more ambulation Admission and Anticipated Discharge Date Admission Date: January 11, 2020 Subjective 01/20/2020 The patient was seen and examined in medical floor He remains generally weak and lethargic Has been passing liquid stool and denies any abdominal distention, nausea and or vomiting or any pain Denies any other significant symptoms 01/21/2020 Patient was seen and examined in medical floor He has been stable Complains to have anorexia Denies any abdominal distention and/or pain Was advised to ambulate more 01/22/2020 Patient was seen and examined in medical floor in presence of the family members He remains stable but continues to have extremely weak and tired Has been anorexic Diarrhea seems to be under control and does not have any symptoms of obstruction 01/23/2020 The patient was seen and examined in medical floor He looks a little bit better today Denies any abdominal pain Continues to have ongoing diarrhea 01/24/2020 The patient was seen and examined in medical unit He has been complaining of diarrhea but overall condition seems to be better Denies any abdominal distention or any increase in pain He has had an episode of abdominal pain while eating yesterday Review of Systems Review of Systems: All systems reviewed and are unremarkable except as noted below Gastrointestinal: + diarrhea/loose stools; no abdominal pain, no bloating, no nausea and no vomiting Physical Exam Physical Exam: Lying in bed comfortably Constitutional: well developed, well nourished, + ill appearing, + obese and + edematous; no acute distress Eyes: PERRL, conjunctivae normal, anicteric sclerae ENMT: external ear and nose normal, oropharynx normal Neck: trachea midline, no thyromegaly Respiratory: normal respiratory effort Auscultation: lungs clear to auscultation bilaterally Cardiovascular: Rate/Rhythm: regular rate and regular rhythm Heart Sounds: no murmur Gastrointestinal (Abdomen): Inspection/Auscultation: + abdomen distended and normal bowel sounds Percussion/Palpation: abdomen soft; abdomen nontender and no guarding Neurologic: moves all extremities; no focal motor deficits Lymphatic: no cervical or axillary lymphadenopathy Results & Data ([facility]) Vital Signs (Past 12 Hours) Vital Signs Temp Pulse Resp BP Pulse Ox 01/24/20 07:25 36.6 C 112 H 16 122/85 91 Laboratory Results [facility] 01/24/20 05:40 Sodium 143 Potassium 3.4 L D Chloride 112 H Carbon Dioxide 25 BUN 40 H Creatinine 1.36 Glucose 115 H Calcium 7.9 L Medications Administered Current Inpatient Medications Acetaminophen (Tylenol) 650 mg PO Q4H PRN PRN Reason: pain/fever Stop: 02/10/20 23:49 Last Admin: 01/24/20 14:10 Dose: 650 mg Documented by: Finasteride (Proscar) 5 mg PO DAILY [facility] Stop: 02/11/20 08:59 Last Admin: 01/24/20 08:24 Dose: 5 mg Documented by: Heparin Sodium (Porcine) (Heparin Sod 100 Unit/Ml Flush) 5 ml FLUSH PRN PRN PRN Reason: Flush Stop: 02/11/20 06:59 Last Admin: 01/24/20 05:39 Dose: 5 ml Documented by: Heparin Sodium (Porcine) (Heparin Sodium (Porcine)) 5,000 units SQ Q12 [facility] Stop: 02/11/20 20:59 Last Admin: 01/24/20 08:23 Dose: 5,000 units Documented by: Promethazine HCl 12.5 mg/ (Sodium Chloride) 50.5 mls @ 202 mls/hr IV Q6H PRN PRN Reason: Nausea And Vomiting Stop: 02/13/20 01:44 Last Infusion: 01/17/20 05:07 Dose: Infused Documented by: Lactated Ringer's (Lr) 1,000 mls @ 60 mls/hr IV .[id number] [facility] Stop: 02/16/20 19:44 Last Infusion: 01/20/20 19:24 Dose: Infused Documented by: Ibuprofen (Advil) 400 mg PO QID PRN PRN Reason: Pain Stop: 02/11/20 00:35 Last Admin: 01/23/20 16:21 Dose: 400 mg Documented by: Loperamide HCl (Imodium) 2 mg PO Q4H PRN PRN Reason: Diarrhea Stop: 02/23/20 12:30 Last Admin: 01/24/20 14:11 Dose: 2 mg Documented by: Megestrol Acetate (Megace) 400 mg PO QAM [facility] Stop: 02/20/20 13:44 Last Admin: 01/24/20 08:23 Dose: 400 mg Documented by: Morphine Sulfate (Morphine Sulfate) 2 mg IV Q4H PRN PRN Reason: Pain Stop: 01/25/20 23:49 Ondansetron HCl (Zofran) 4 mg IV Q6H PRN PRN Reason: Nausea Stop: 02/10/20 23:49 Last Admin: 01/24/20 05:23 Dose: 4 mg Documented by: Polyethylene Glycol (Miralax Powder Packet) 17 gm PO BID [facility] Stop: 02/12/20 20:59 Last Admin: 01/24/20 08:24 Dose: Not Given Documented by: Potassium Chloride (Klor-Con M20) 20 meq PO TID [facility] Stop: 02/21/20 20:59 Last Admin: 01/24/20 14:12 Dose: 20 meq Documented by: Pregabalin (Lyrica) 75 mg PO BID [facility] Stop: 02/11/20 08:59 Last Admin: 01/24/20 08:38 Dose: 75 mg Documented by: (1) Diarrhea Diarrhea type: unspecified type Qualified Code(s): R19.7 - Diarrhea, unspecified (2) Abdominal pain Abdominal location: unspecified location Qualified Code(s): R10.9 - Unspecified abdominal pain
[2020-01-25] MEDS: HEPARIN 100 UNIT/ML 5ML FLUSH FLUSH PRN ×2 (05:23→08:23)
[2020-01-25 06:20] LABS: Basophils # (auto) 0.02 K/uL (0-0.2); Basophils % (auto) 0.2 %; Hematocrit (blood only) 38.1 % (42-52); Hemoglobin 12.5 g/dL (14.0-18.0); Immature Granulocytes # (auto) 0.14 K/uL (0.00-0.02); Immature Granulocytes % (auto) 1.1 %; Lymphocytes # (auto) 0.77 K/uL (1.2-3.4); Lymphocytes % (auto) 6.3 %; Mean Corpuscular Hemoglobin 26.7 pg (25-34); Mean Corpuscular Hgb Conc 32.8 g/dL (32-36); Mean Corpuscular Volume 81.4 fL (80-100); Mean Platelet Volume 10.8 fL (7.4-10.4); Monocytes # (auto) 1.15 K/uL (0.11-0.59); Monocytes % (auto) 9.4 %; Neutrophils # (auto) 10.18 K/uL (1.4-6.5); Platelet Count 278 K/uL (130-400); RDW Coefficient of Variation 18.5 % (11.5-14.5); RDW Standard Deviation 53.6 fL (36.4-46.3); Red Blood Count 4.68 M/uL (4.7-6.1); White Blood Count 12.26 K/uL (4.8-10.8)
[2020-01-25 06:58] LABS: BUN Creatinine Ratio 40.2 (10-20); Calcium 8.1 mg/dl (8.5-10.1); Creatinine Clr Calc Pharmacy 51.5 ml/min; Est GFR (African American) 64.1; Est GFR (Non-African American) 55.3; Potassium 3.3 mmol/L (3.5-5.1)
[2020-01-25] MEDS: HEPARIN SOD 5,000 UNIT/0.5 ML VIAL SQ SCH ×2 (08:12→20:51)
[2020-01-25] MEDS: POTASSIUM CHLORIDE 20 MEQ TABCR PO SCH ×3 (08:13→20:51)
[2020-01-25] MEDS: FINASTERIDE 5 MG TAB PO SCH (08:13)
[2020-01-25] MEDS: MEGESTROL ACETATE SUSP 400 MG/10 ML UDC PO SCH (08:13)
[2020-01-25] MEDS: POLYETHYLENE (MIRALAX) 17 GM PACK PO SCH ×2 (08:13→20:51)
[2020-01-25] MEDS: LOPERAMIDE HCL 2 MG CAP PO PRN (08:19)
[2020-01-25] MEDS: PREGABALIN 75 MG CAP PO SCH ×2 (08:19→20:51)
[2020-01-25] MEDS: ONDANSETRON INJ 2 MG/ML 2 ML VIAL IV PRN (08:23)
[2020-01-25] MEDS ORDERED: POTASSIUM CHLORIDE 20 MEQ TABCR PO STA (08:27)
--- NOTE | 2020-01-25 13:59 | Hospitalist Progress Note ---
Date of Service January 25, 2020 Assessment & Plan (1) Rectal cancer: Rectosigmoid cancer with metastasis Status post surgery plus radiation treatment Ongoing chemotherapy Status post colonoscopy w/ stent in stent (01/13/2020), Admitted with possible ileus/obstruction Status post colonoscopy with restenting S/p flex sig, rectal tube placement (01/17), findings c/w colonic pseudo- obstruction Appreciate GI input and recommendation Has been having diarrhea without any significant obstructive symptoms Diarrhea seems to be better but continues to have profound weakness Remains hemodynamically stable with blood pressure on the lower side of normal Trying to eat but has profound anorexia We will prescribed Megace to stimulate appetite Case discussed in detail with the daughter and the Discussed with Dr. Espana and there is no plan for any further palliative chemotherapy until his general condition improves Palliative care consulted and appreciate their input and recommendation Continues to have diarrhea and electrolyte imbalance Discussed with his oncologist who has previously discussed with the patient about hospice care if there is no improvement of his general condition Discussed with the patient about hospice care at home and he is agreeable with that Palliative care is in agreement with the management We will plan to arrange discharge at home with hospice in a day or 2 Severe anorexia We will try oral Megace Diet advanced as tolerated Has been tolerating regular diet-smaller more than 1 time Neutropenia - resolved - secondary to above - Neutropenic precautions Hypokalemia, hypomagnesemia - secondary to poor oral intake, GI loss/diarrhea - replete and monitor -Still remains hypokalemic -Supplemented and will be given regular doses to continue -Remains hypokalemic with potassium around 3.3 -We will continue oral supplement and will be given regularly -Potassium is 2.9 today -We will give more supplementation -We will continue oral supplement of electrolyte (2) Diarrhea: History of rectosigmoid cancer status post surgery and radiation therapy and currently on chemo Status post placement of rectal tube in the past Admitted with diarrhea associated with abdominal pain C. difficile has been negative, stool culture - negative If he develops any obstructive type symptoms, consult general surgery and obtain stat imaging GI contacted, recommend to give tap water enema and cont. IVF and potassium supplementation. S/p flex sig, rectal tube placement (01/17), findings c/w colonic pseudo- obstruction Restart IVF,supplement K, discourage PO intake, ambulation - rectal tube dislodged (01/18) however pt clinically much improved, less distention and less pain, no n/v -KUB still showing gas-filled intestines but no evidence of obstruction -We will advance diet as tolerated as per recommendation from GI -Diarrhea seems to be under control -Continues to have diarrhea with electrolyte loss -Stool for C. difficile toxin has been negative -We will try to keep Imodium to control diarrhea -Continue Imodium (3) Abdominal pain: Denies any abdominal pain (4) Bowel obstruction: Possible bowel obstruction as part imaging studies Having watery diarrhea on admission Appreciate GI input Now s/p colonoscopy with stent in stent (01/13/2020) Had vomiting several hours later after the procedure KUB repeated by GI (01/17) continues to have diarrhea, nausea/vomiting, poor oral intake, on clear liquid diet - obtained KUB and subsequently CT abdomen - showed dilated small and large bowel above the stent. - GI contacted, recommend to give enema and cont. IVF and potassium supplementation. S/p flex sig, rectal tube placement (01/17) to help w/colonic decompression, findings c/w colonic pseudo-obstruction Restarted IVF,supplement K, discourage PO intake, ambulation - rectal tube dislodged (01/18) however pt clinically much improved, less distention and less pain, no n/v - 01/19, passed 2 small formed stools, no n/v, no significant abd. pain, KUB unchanged -KUB showed gaseous distention of the intestine but no obstruction -Gastroenterology service signed off and advised to advance diet as tolerated -No signs or symptoms of bowel obstruction (5) Essential (primary) hypertension: Blood pressure remains stable DVT prophylaxis: SCDs heparin subcu We will get PT and OT evaluation Advised more ambulation Admission and Anticipated Discharge Date Admission Date: January 11, 2020 Subjective 01/20/2020 The patient was seen and examined in medical floor He remains generally weak and lethargic Has been passing liquid stool and denies any abdominal distention, nausea and or vomiting or any pain Denies any other significant symptoms 01/21/2020 Patient was seen and examined in medical floor He has been stable Complains to have anorexia Denies any abdominal distention and/or pain Was advised to ambulate more 01/22/2020 Patient was seen and examined in medical floor in presence of the family members He remains stable but continues to have extremely weak and tired Has been anorexic Diarrhea seems to be under control and does not have any symptoms of obstruction 01/23/2020 The patient was seen and examined in medical floor He looks a little bit better today Denies any abdominal pain Continues to have ongoing diarrhea 01/24/2020 The patient was seen and examined in medical unit He has been complaining of diarrhea but overall condition seems to be better Denies any abdominal distention or any increase in pain He has had an episode of abdominal pain while eating yesterday 01/25/2020 Patient was seen and examined in medical floor His condition remains more or less same without any improvement Abdominal distention and minimal pain are persisting Anorexia is a real problem Continues to have diarrhea and electrolyte imbalance Review of Systems Review of Systems: All systems reviewed and are unremarkable except as noted below Gastrointestinal: + diarrhea/loose stools; no abdominal pain, no bloating, no nausea and no vomiting Physical Exam Physical Exam: Lying in bed without any acute symptoms Constitutional: well developed, well nourished, + ill appearing, + obese and + edematous; no acute distress Eyes: PERRL, conjunctivae normal, anicteric sclerae ENMT: external ear and nose normal, oropharynx normal Neck: trachea midline, no thyromegaly Respiratory: normal respiratory effort Auscultation: lungs clear to auscultation bilaterally Cardiovascular: Rate/Rhythm: regular rate and regular rhythm Heart Sounds: no murmur Gastrointestinal (Abdomen): Inspection/Auscultation: + abdomen distended and + hypoactive bowel sounds Percussion/Palpation: abdomen soft; abdomen nontender and no guarding Neurologic: moves all extremities; no focal motor deficits Lymphatic: no cervical or axillary lymphadenopathy Results & Data ([facility]) Vital Signs (Past 12 Hours) Vital Signs Temp Pulse Resp BP Pulse Ox 01/25/20 07:29 36.7 C 108 H 16 119/89 93 01/25/20 03:59 36.7 C 104 H 18 107/74 97 Laboratory Results Short CBC 01/25/20 Range/Units 05:23 WBC 12.26 H (4.8-10.8) K/uL Hgb 12.5 L (14.0-18.0) g/dL Hct 38.1 L (42-52) % Plt Count 278 (130-400) K/uL BMP 01/25/20 05:23 Sodium 144 Potassium 3.3 L Chloride 109 H Carbon Dioxide 28 BUN 50 H Creatinine 1.24 Glucose 102 H Calcium 8.1 L Medications Administered Current Inpatient Medications Acetaminophen (Tylenol) 650 mg PO Q4H PRN PRN Reason: pain/fever Stop: 02/10/20 23:49 Last Admin: 01/24/20 14:10 Dose: 650 mg Documented by: Finasteride (Proscar) 5 mg PO DAILY [facility] Stop: 02/11/20 08:59 Last Admin: 01/25/20 08:13 Dose: 5 mg Documented by: Heparin Sodium (Porcine) (Heparin Sod 100 Unit/Ml Flush) 5 ml FLUSH PRN PRN PRN Reason: Flush Stop: 02/11/20 06:59 Last Admin: 01/25/20 08:23 Dose: 5 ml Documented by: Heparin Sodium (Porcine) (Heparin Sodium (Porcine)) 5,000 units SQ Q12 [facility] Stop: 02/11/20 20:59 Last Admin: 01/25/20 08:12 Dose: 5,000 units Documented by: Promethazine HCl 12.5 mg/ (Sodium Chloride) 50.5 mls @ 202 mls/hr IV Q6H PRN PRN Reason: Nausea And Vomiting Stop: 02/13/20 01:44 Last Infusion: 01/17/20 05:07 Dose: Infused Documented by: Lactated Ringer's (Lr) 1,000 mls @ 60 mls/hr IV .[id number] [facility] Stop: 02/16/20 19:44 Last Infusion: 01/20/20 19:24 Dose: Infused Documented by: Ibuprofen (Advil) 400 mg PO QID PRN PRN Reason: Pain Stop: 02/11/20 00:35 Last Admin: 01/23/20 16:21 Dose: 400 mg Documented by: Loperamide HCl (Imodium) 2 mg PO Q4H PRN PRN Reason: Diarrhea Stop: 02/23/20 12:30 Last Admin: 01/25/20 08:19 Dose: 2 mg Documented by: Megestrol Acetate (Megace) 400 mg PO QAM [facility] Stop: 02/20/20 13:44 Last Admin: 01/25/20 08:13 Dose: 400 mg Documented by: Morphine Sulfate (Morphine Sulfate) 2 mg IV Q4H PRN PRN Reason: Pain Stop: 01/25/20 23:49 Ondansetron HCl (Zofran) 4 mg IV Q6H PRN PRN Reason: Nausea Stop: 02/10/20 23:49 Last Admin: 01/25/20 08:23 Dose: 4 mg Documented by: Polyethylene Glycol (Miralax Powder Packet) 17 gm PO BID [facility] Stop: 02/12/20 20:59 Last Admin: 01/25/20 08:13 Dose: Not Given Documented by: Potassium Chloride (Klor-Con M20) 20 meq PO TID [facility] Stop: 02/21/20 20:59 Last Admin: 01/25/20 08:13 Dose: 20 meq Documented by: Pregabalin (Lyrica) 75 mg PO BID [facility] Stop: 02/11/20 08:59 Last Admin: 01/25/20 08:19 Dose: 75 mg Documented by: (1) Diarrhea Diarrhea type: unspecified type Qualified Code(s): R19.7 - Diarrhea, unspecified (2) Abdominal pain Abdominal location: unspecified location Qualified Code(s): R10.9 - Unspecified abdominal pain
--- NOTE | 2020-01-25 14:02 | Palliative Care Progress Note ---
Date of Service January 25, 2020 Assessment & Plan (1) Goals of care, counseling/discussion: -Patient continues to be extremely weak.His appetite is poor. Periods of nausea. -Patient states he just wants to go home. -Dr. Diaz was present during part of my visit. Dr. Diaz had spoken with DR. Espana again today regarding patient's prognosis and further plans. Patient is currently not a candidate for any further palliative chemotherapy. Patient stated, "As far as I'm concerned, I'm with any more chemo anyway." -Patient is wanting to go home with hospice care. Dr. Diaz plans to call patient's daughter to discuss. I attempted to call patient's , but no answer. Will stop by this afternoon or tomorrow to talk with patient and family again. -Patient states that he is not currently nauseated, but he sometimes gets indigestion or hiccups. I offered some PRN medication for hiccups, but patient stated, "It really doesn't bother me right now." He denies any pain or other discomforts. -We will continue to follow. (2) Pseudo-obstruction of colon: (3) Diarrhea: (4) Rectal cancer: Subjective Patient continues to be weak. Not eating or drinking well. Review of Systems Review of Systems: Const: + weakness; +poor appetite ENMT: No dysphagia Resp: No SOB, no cough Cardio: No chest pain, + BLE edema GI: No abdominal pain, no N/V MS: No musculoskeletal pain Neuro: No confusion Psych: No anxiety, no depression Physical Exam Constitutional: + overweight; no acute distress ENMT: external ear and nose normal, oropharynx normal Respiratory: normal respiratory effort; no labored breathing Cardiovascular: Rate/Rhythm: regular rate and regular rhythm Extremities: + edema (+2 BLE) Gastrointestinal (Abdomen): Inspection/Auscultation: normal bowel sounds Percussion/Palpation: abdomen soft; abdomen nontender Skin: + pallor Neurologic: moves all extremities and awake; not confused Psychiatric: A+Ox3, euthymic affect Insight: good insight Results & Data Vital Signs (Past 12 Hours) Vital Signs Temp Pulse Resp BP Pulse Ox 01/25/20 07:29 36.7 C 108 H 16 119/89 93 01/25/20 03:59 36.7 C 104 H 18 107/74 97 Coding Level of Care Code 18537 Subseq Hosp Care Lvl 3 Diagnoses Goals of care, counseling/discussion Z71.89 Pseudo-obstruction of colon K59.8 Diarrhea R19.7 Diarrhea type: unspecified type Rectal cancer C20 Time Spent (min) 35 Time Spent Midlevel 35 minutes with >50% of the time spent at bedside with patient and physician discussing condition and GOC. (1) Diarrhea Diarrhea type: unspecified type Qualified Code(s): R19.7 - Diarrhea, unspecified
[2020-01-25] MEDS: IBUPROFEN 200 MG TAB PO PRN (15:33)
[2020-01-25] MEDS ORDERED: ALUMINUM/MAGNESIUM SUSP 30 ML UDC PO PRN (18:06)
--- NOTE | 2020-01-25 21:34 | XRay Report ---
KUB CLINICAL HISTORY: Nausea and vomiting. History of bowel obstruction. COMPARISON STUDY: CT of the abdomen and pelvis January 17, 2020. KUB January 20, 2020. FINDINGS: 2 metallic stents which extends from the sigmoid colon to the rectum are again noted. Moder ate gaseous distention of small and large bowel has slightly presented September 19, 2020. Sensitivity for detection of free air is diminished on this unenhanced exam but none is identified. IMPRESSION: Slight improvement in moderate gaseous distention of small and large bowel since prior ex am. ACT 112: Negative or not required by law. Electronically signed by: Todd Singleton M.D. 01/25/2020 9:32 PM
[2020-01-26] MEDS: HEPARIN 100 UNIT/ML 5ML FLUSH FLUSH PRN (05:16)
[2020-01-26 07:03] LABS: BUN Creatinine Ratio 39.8 (10-20); Calcium 7.9 mg/dl (8.5-10.1); Creatinine Clr Calc Pharmacy 40.2 ml/min; Est GFR (African American) 47.5; Magnesium 2.2 mg/dl (1.8-2.4); Phosphorus 3.3 mg/dl (2.5-4.9); Potassium 4.4 mmol/L (3.5-5.1)
[2020-01-26] MEDS: POLYETHYLENE (MIRALAX) 17 GM PACK PO SCH (09:29)
[2020-01-26] MEDS: POTASSIUM CHLORIDE 20 MEQ TABCR PO SCH ×2 (09:30→14:19)
[2020-01-26] MEDS: MEGESTROL ACETATE SUSP 400 MG/10 ML UDC PO SCH (09:30)
[2020-01-26] MEDS: HEPARIN SOD 5,000 UNIT/0.5 ML VIAL SQ SCH (09:31)
[2020-01-26] MEDS: FINASTERIDE 5 MG TAB PO SCH (09:31)
[2020-01-26] MEDS: PREGABALIN 75 MG CAP PO SCH (09:34)
[2020-01-26] MEDS: ACETAMINOPHEN 325 MG TAB PO PRN (12:26)
--- NOTE | 2020-01-26 13:17 | Hospitalist Progress Note ---
Date of Service January 26, 2020 Assessment & Plan (1) Rectal cancer: Rectosigmoid cancer with metastasis Status post surgery plus radiation treatment Ongoing chemotherapy Status post colonoscopy w/ stent in stent (01/13/2020), Admitted with possible ileus/obstruction Status post colonoscopy with restenting S/p flex sig, rectal tube placement (01/17), findings c/w colonic pseudo- obstruction Appreciate GI input and recommendation Has been having diarrhea without any significant obstructive symptoms Diarrhea seems to be better but continues to have profound weakness Remains hemodynamically stable with blood pressure on the lower side of normal Trying to eat but has profound anorexia We will prescribed Megace to stimulate appetite Case discussed in detail with the daughter and the Discussed with Dr. Espana and there is no plan for any further palliative chemotherapy until his general condition improves Palliative care consulted and appreciate their input and recommendation Continues to have diarrhea and electrolyte imbalance Discussed with his oncologist who has previously discussed with the patient about hospice care if there is no improvement of his general condition Discussed with the patient about hospice care at home and he is agreeable with that Palliative care is in agreement with the management We will plan to arrange discharge at home with hospice in a day or 2 Remains reasonably stable today with potassium being 4.4 Denies any significant symptoms Will be discharged home with hospice care this afternoon Severe anorexia We will try oral Megace Diet advanced as tolerated Has been tolerating regular diet-smaller more than 1 time Neutropenia - resolved - secondary to above - Neutropenic precautions Hypokalemia, hypomagnesemia - secondary to poor oral intake, GI loss/diarrhea - replete and monitor -Still remains hypokalemic -Supplemented and will be given regular doses to continue -Remains hypokalemic with potassium around 3.3 -We will continue oral supplement and will be given regularly -Potassium is 2.9 today -We will give more supplementation -We will continue oral supplement of electrolyt -Hypokalemia resolved (2) Diarrhea: History of rectosigmoid cancer status post surgery and radiation therapy and currently on chemo Status post placement of rectal tube in the past Admitted with diarrhea associated with abdominal pain C. difficile has been negative, stool culture - negative If he develops any obstructive type symptoms, consult general surgery and obtain stat imaging GI contacted, recommend to give tap water enema and cont. IVF and potassium supplementation. S/p flex sig, rectal tube placement (01/17), findings c/w colonic pseudo- obstruction Restart IVF,supplement K, discourage PO intake, ambulation - rectal tube dislodged (01/18) however pt clinically much improved, less distention and less pain, no n/v -KUB still showing gas-filled intestines but no evidence of obstruction -We will advance diet as tolerated as per recommendation from GI -Diarrhea seems to be under control -Continues to have diarrhea with electrolyte loss -Stool for C. difficile toxin has been negative -We will try to keep Imodium to control diarrhea -Continue Imodium -Diarrhea is under control (3) Abdominal pain: Denies any abdominal pain (4) Bowel obstruction: Possible bowel obstruction as part imaging studies Having watery diarrhea on admission Appreciate GI input Now s/p colonoscopy with stent in stent (01/13/2020) Had vomiting several hours later after the procedure KUB repeated by GI (01/17) continues to have diarrhea, nausea/vomiting, poor oral intake, on clear liquid diet - obtained KUB and subsequently CT abdomen - showed dilated small and large bowel above the stent. - GI contacted, recommend to give enema and cont. IVF and potassium supplementation. S/p flex sig, rectal tube placement (01/17) to help w/colonic decompression, findings c/w colonic pseudo-obstruction Restarted IVF,supplement K, discourage PO intake, ambulation - rectal tube dislodged (01/18) however pt clinically much improved, less distention and less pain, no n/v - 01/19, passed 2 small formed stools, no n/v, no significant abd. pain, KUB unchanged -KUB showed gaseous distention of the intestine but no obstruction -Gastroenterology service signed off and advised to advance diet as tolerated -No signs or symptoms of bowel obstruction -KUB did not show any obstruction of the intestine (5) Essential (primary) hypertension: Blood pressure remains stable DVT prophylaxis: SCDs heparin subcu We will get PT and OT evaluation Advised more ambulation Admission and Anticipated Discharge Date Admission Date: January 11, 2020 Anticipated date of discharge: 01/26/20 Subjective 01/20/2020 The patient was seen and examined in medical floor He remains generally weak and lethargic Has been passing liquid stool and denies any abdominal distention, nausea and or vomiting or any pain Denies any other significant symptoms 01/21/2020 Patient was seen and examined in medical floor He has been stable Complains to have anorexia Denies any abdominal distention and/or pain Was advised to ambulate more 01/22/2020 Patient was seen and examined in medical floor in presence of the family members He remains stable but continues to have extremely weak and tired Has been anorexic Diarrhea seems to be under control and does not have any symptoms of obstruction 01/23/2020 The patient was seen and examined in medical floor He looks a little bit better today Denies any abdominal pain Continues to have ongoing diarrhea 01/24/2020 The patient was seen and examined in medical unit He has been complaining of diarrhea but overall condition seems to be better Denies any abdominal distention or any increase in pain He has had an episode of abdominal pain while eating yesterday 01/25/2020 Patient was seen and examined in medical floor His condition remains more or less same without any improvement Abdominal distention and minimal pain are persisting Anorexia is a real problem Continues to have diarrhea and electrolyte imbalance 01/26/2020 The patient was seen and examined in telemetry unit He has had some nausea and vomiting last night Has been feeling reasonably better today and has been tolerating some food Denies any more distention of the abdomen and no more nausea and or vomiting Will be discharged this afternoon home with hospice care Review of Systems Review of Systems: All systems reviewed and are unremarkable except as noted below Constitutional: + fatigue, + weakness and + anorexia Gastrointestinal: + diarrhea/loose stools; no abdominal pain, no bloating, no nausea and no vomiting Physical Exam Physical Exam: Lying in bed without any acute symptoms Constitutional: well developed, well nourished, + ill appearing, + obese and + edematous; no acute distress Eyes: PERRL, conjunctivae normal, anicteric sclerae ENMT: external ear and nose normal, oropharynx normal Neck: trachea midline, no thyromegaly Respiratory: normal respiratory effort Auscultation: lungs clear to auscultation bilaterally Cardiovascular: Rate/Rhythm: regular rate and regular rhythm Heart Sounds: no murmur Gastrointestinal (Abdomen): Inspection/Auscultation: + abdomen distended and + hypoactive bowel sounds Percussion/Palpation: abdomen soft; abdomen nontender and no guarding Neurologic: moves all extremities; no focal motor deficits Lymphatic: no cervical or axillary lymphadenopathy Results & Data ([facility]) Vital Signs (Past 12 Hours) Vital Signs Temp Pulse Resp BP Pulse Ox 01/26/20 07:44 36.5 C 106 H 18 93/68 L 97 Laboratory Results [facility] 01/26/20 05:17 Sodium 141 Potassium 4.4 D Chloride 109 H Carbon Dioxide 27 BUN 63 H Creatinine 1.59 H D Glucose 110 H Calcium 7.9 L Medications Administered Current Inpatient Medications Acetaminophen (Tylenol) 650 mg PO Q4H PRN PRN Reason: pain/fever Stop: 02/10/20 23:49 Last Admin: 01/26/20 12:26 Dose: 650 mg Documented by: Al Hydrox/Mg Hydrox/Simethicone (Maalox) 30 ml PO Q4H PRN PRN Reason: Heartburn Stop: 02/24/20 18:05 Last Admin: 01/25/20 18:21 Dose: 30 ml Documented by: Finasteride (Proscar) 5 mg PO DAILY [facility] Stop: 02/11/20 08:59 Last Admin: 01/26/20 09:31 Dose: 5 mg Documented by: Heparin Sodium (Porcine) (Heparin Sod 100 Unit/Ml Flush) 5 ml FLUSH PRN PRN PRN Reason: Flush Stop: 02/11/20 06:59 Last Admin: 01/26/20 05:16 Dose: 5 ml Documented by: Heparin Sodium (Porcine) (Heparin Sodium (Porcine)) 5,000 units SQ Q12 [facility] Stop: 02/11/20 20:59 Last Admin: 01/26/20 09:31 Dose: 5,000 units Documented by: Promethazine HCl 12.5 mg/ (Sodium Chloride) 50.5 mls @ 202 mls/hr IV Q6H PRN PRN Reason: Nausea And Vomiting Stop: 02/13/20 01:44 Last Infusion: 01/17/20 05:07 Dose: Infused Documented by: Lactated Ringer's (Lr) 1,000 mls @ 60 mls/hr IV .[id number] [facility] Stop: 02/16/20 19:44 Last Infusion: 01/20/20 19:24 Dose: Infused Documented by: Ibuprofen (Advil) 400 mg PO QID PRN PRN Reason: Pain Stop: 02/11/20 00:35 Last Admin: 01/25/20 15:33 Dose: 400 mg Documented by: Loperamide HCl (Imodium) 2 mg PO Q4H PRN PRN Reason: Diarrhea Stop: 02/23/20 12:30 Last Admin: 01/25/20 08:19 Dose: 2 mg Documented by: Megestrol Acetate (Megace) 400 mg PO QAM [facility] Stop: 02/20/20 13:44 Last Admin: 01/26/20 09:30 Dose: 400 mg Documented by: Ondansetron HCl (Zofran) 4 mg IV Q6H PRN PRN Reason: Nausea Stop: 02/10/20 23:49 Last Admin: 01/25/20 08:23 Dose: 4 mg Documented by: Polyethylene Glycol (Miralax Powder Packet) 17 gm PO BID [facility] Stop: 02/12/20 20:59 Last Admin: 01/26/20 09:29 Dose: Not Given Documented by: Potassium Chloride (Klor-Con M20) 20 meq PO TID [facility] Stop: 02/21/20 20:59 Last Admin: 01/26/20 09:30 Dose: 20 meq Documented by: Pregabalin (Lyrica) 75 mg PO BID [facility] Stop: 02/11/20 08:59 Last Admin: 01/26/20 09:34 Dose: 75 mg Documented by: (1) Diarrhea Diarrhea type: unspecified type Qualified Code(s): R19.7 - Diarrhea, unspecified (2) Abdominal pain Abdominal location: unspecified location Qualified Code(s): R10.9 - Unspecified abdominal pain
--- NOTE | 2020-01-27 10:41 | Discharge Summary ---
Date of Service January 27, 2020 Admission HPI Per Admitting Provider DICTATED BY: Aldair Lambert MD DATE OF ADMISSION: 01/11/2020 CHIEF COMPLAINT: Diarrhea. HISTORY OF PRESENT ILLNESS: This is a 79-year-old male with past medical history significant for BPH, status post TURP, history of hypertension, history of diarrhea in the past, history of metastatic rectal cancer history of diverting colostomy in April 2016 complicated with pelvic abscess which was drained by the IR. Currently getting chemo. Chemo was recently held for diarrhea, but again last dose was last Saturday. Since then,having several episodes of diarrhea at home. No blood in the stool. No abdominal pain. He had an episode of vomiting last night and thinks he is getting dehydrated, so came to the hospital. He also has colonic stent placement in the past. CAT scan done in the ER, unchanged position of the metallic stent of the rectosigmoid. There is question of developing obstruction secondary to patient's known colorectal neoplasm, nonspecific enteritis. Currently resting comfortably and hemodynamically stable. Denies any other complaints. Denies any headache. No blurred vision, no earache, no runny nose, no sore throat, no cough. No dysphagia, no odynophagia. Appetite is poor. He says he is losing weight. No fever, no chills, no chest pain, no shortness of breath. No hematuria or burning micturition, no swelling in the legs, no rash. Admission Exam Per Admitting Provider GENERAL: The patient is of moderate build, not in acute distress. VITAL SIGNS: Temperature 36.6, pulse 87, respiratory rate 17, blood pressure 106/81, oxygen 96% on room air. HEENT: No pallor, no icterus. Pupils equal, round, and reactive to light. NECK: No JVD, no neck mass, no carotid bruit. CARDIOVASCULAR: S1, S2 heard, regular rate and rhythm, no murmur, no gallop. RESPIRATORY SYSTEM: Normal AP diameter. No accessory muscle use. No wheezing, no crackles. ABDOMEN: Soft, bowel sounds sluggish, nontender. No distention. CENTRAL NERVOUS SYSTEM: Cranial nerves II-XII grossly intact. Nonfocal. EXTREMITIES: No edema, no erythema. Principal Diagnosis Rectosigmoid cancer status post colonic stent placement, severe anorexia, abdominal pain, diarrhea with electrolyte imbalance, hypertension Discharge Exam Constitutional well developed, well nourished, + ill appearing, + obese and + edematous; no acute distress Eyes PERRL, conjunctivae normal, anicteric sclerae ENMT external ear and nose normal, oropharynx normal Neck trachea midline, no thyromegaly Respiratory normal respiratory effort Auscultation: lungs clear to auscultation bilaterally Cardiovascular Rate/Rhythm: regular rate and regular rhythm Heart Sounds: no murmur Gastrointestinal (Abdomen) Inspection/Auscultation: + abdomen distended and + hypoactive bowel sounds Percussion/Palpation: abdomen soft; abdomen nontender and no guarding Neurologic moves all extremities; no focal motor deficits Lymphatic no cervical or axillary lymphadenopathy Discharge Data Allergies Allergy/AdvReac Type Severity Reaction Status Date / Time No Known Allergies Allergy Verified 01/11/20 21:39 Consultations 01/11/20 21:49 ED Decision to Admit Stat 01/11/20 23:50 Consult Case Management - Discharge Planning Routine 01/12/20 08:00 Consult Gastroenterology Routine 01/22/20 11:11 Consult Palliative Care Routine Procedures Performed Operation Date: 01/13/20 07:00 Actual Procedures p Colonic Stent Placement - Rafael Johnston MD Operation Date: 01/17/20 13:15 Actual Procedures p Flexible Sigmoidoscopy Decomp Tube Place - Rafeal Johnston MD Ordered Studies 01/11/20 19:03 CT abd pelvis IV con only Stat 01/13/20 13:00 FL KUB Routine FL fluoroscopy <1hr Routine 01/17/20 09:08 CT abd pelvis wo con Stat Hospital Course (1) Rectal cancer: Rectosigmoid cancer with metastasis Status post surgery plus radiation treatment Ongoing chemotherapy Status post colonoscopy w/ stent in stent (01/13/2020), Admitted with possible ileus/obstruction Status post colonoscopy with restenting S/p flex sig, rectal tube placement (01/17), findings c/w colonic pseudo- obstruction Appreciate GI input and recommendation Has been having diarrhea without any significant obstructive symptoms Diarrhea seems to be better but continues to have profound weakness Remains hemodynamically stable with blood pressure on the lower side of normal Trying to eat but has profound anorexia We will prescribed Megace to stimulate appetite Case discussed in detail with the daughter and the Discussed with Dr. Espana and there is no plan for any further palliative chemotherapy until his general condition improves Palliative care consulted and appreciate their input and recommendation Continues to have diarrhea and electrolyte imbalance Discussed with his oncologist who has previously discussed with the patient about hospice care if there is no improvement of his general condition Discussed with the patient about hospice care at home and he is agreeable with that Palliative care is in agreement with the management We will plan to arrange discharge at home with hospice in a day or 2 Remains reasonably stable today with potassium being 4.4 Denies any significant symptoms Will be discharged home with hospice care this afternoon Severe anorexia We will try oral Megace Diet advanced as tolerated Has been tolerating regular diet-smaller more than 1 time Neutropenia - resolved - secondary to above - Neutropenic precautions Hypokalemia, hypomagnesemia - secondary to poor oral intake, GI loss/diarrhea - replete and monitor -Still remains hypokalemic -Supplemented and will be given regular doses to continue -Remains hypokalemic with potassium around 3.3 -We will continue oral supplement and will be given regularly -Potassium is 2.9 today -We will give more supplementation -We will continue oral supplement of electrolyt -Hypokalemia resolved (2) Diarrhea: History of rectosigmoid cancer status post surgery and radiation therapy and currently on chemo Status post placement of rectal tube in the past Admitted with diarrhea associated with abdominal pain C. difficile has been negative, stool culture - negative If he develops any obstructive type symptoms, consult general surgery and obtain stat imaging GI contacted, recommend to give tap water enema and cont. IVF and potassium supplementation. S/p flex sig, rectal tube placement (01/17), findings c/w colonic pseudo- obstruction Restart IVF,supplement K, discourage PO intake, ambulation - rectal tube dislodged (01/18) however pt clinically much improved, less distention and less pain, no n/v -KUB still showing gas-filled intestines but no evidence of obstruction -We will advance diet as tolerated as per recommendation from GI -Diarrhea seems to be under control -Continues to have diarrhea with electrolyte loss -Stool for C. difficile toxin has been negative -We will try to keep Imodium to control diarrhea -Continue Imodium -Diarrhea is under control (3) Abdominal pain: Denies any abdominal pain (4) Bowel obstruction: Possible bowel obstruction as part imaging studies Having watery diarrhea on admission Appreciate GI input Now s/p colonoscopy with stent in stent (01/13/2020) Had vomiting several hours later after the procedure KUB repeated by GI (01/17) continues to have diarrhea, nausea/vomiting, poor oral intake, on clear liquid diet - obtained KUB and subsequently CT abdomen - showed dilated small and large bowel above the stent. - GI contacted, recommend to give enema and cont. IVF and potassium supplementation. S/p flex sig, rectal tube placement (01/17) to help w/colonic decompression, findings c/w colonic pseudo-obstruction Restarted IVF,supplement K, discourage PO intake, ambulation - rectal tube dislodged (01/18) however pt clinically much improved, less distention and less pain, no n/v - 01/19, passed 2 small formed stools, no n/v, no significant abd. pain, KUB unchanged -KUB showed gaseous distention of the intestine but no obstruction -Gastroenterology service signed off and advised to advance diet as tolerated -No signs or symptoms of bowel obstruction -KUB did not show any obstruction of the intestine (5) Essential (primary) hypertension: Blood pressure remains stable DVT prophylaxis: SCDs heparin subcu We will get PT and OT evaluation Advised more ambulation Total Time Total Time Spent Total Time Spent (In Minutes): 40 minutes Total Time Includes: Examination of the Patient, Discharge Planning, Medication Reconciliation and Communication With Other Providers Discharge Plan Discharge Items Patient Disposition: Hospice - Home Reason For Visit: DIARRHEA Discharge Diagnosis: Rectosigmoid cancer status post colonic stent placement, severe anorexia, abdominal pain, diarrhea with electrolyte imbalance, hypertension Condition on Discharge: Critical Activity: Per Instructions section Activity Comment: Needs assistance with ADLs Non-emergency contact: Primary Care Provider Call non-emergency contact if: you have any medication questions Follow-up/Referrals: Donnie Cates PA-C [Primary Care Provider] - (Appointment with your primary care provider as per hospice care) Diet: Low Fiber Diet Texture: Mechanical soft (ground) Addtl Attending Provider Instructions: Please take precaution to avoid fall Try to take small bites of food at one time to avoid abdominal pain and nausea, vomiting Pending Studies at Discharge: No Stand-Alone Forms: [facility] [employer] Medications and DC Order Prescriptions: New potassium chloride [Klor-Con M20] 20 mEq Tablet,Er Particles/Crystals 20 meq PO TID Qty: 60 RF: 0 prednisone 10 mg tablet 10 mg PO DAILY Qty: 30 RF: 0 Continued finasteride 5 mg tablet 5 mg PO DAILY Qty: 90 RF: 3 prochlorperazine maleate [Compazine] 10 mg Tablet 10 mg PO DAILY PRN (Reason: Nausea) RF: 0 ibuprofen [Advil] 200 mg Tablet 400 mg PO QID PRN (Reason: Pain) RF: 0 pregabalin 75 mg capsule 75 mg PO BID RF: 0 diphenoxylate-atropine [Lomotil] 2.5-0.025 mg Tablet 1 tab PO QID PRN (Reason: Diarrhea) Qty: 20 RF: 2 loperamide [Imodium A-D] 2 mg Tablet 2 mg PO Q8H PRN (Reason: Diarrhea) RF: 0 Discontinued potassium chloride 10 mEq tablet,ER particles/crystals 10 meq PO DAILY RF: 0 Discharge Orders: Discharge Order (Routine); Ordered 01/26/20 Ordered By: Karin Diaz Admission Data Admit Date/Time: 01/11/20 22:32 Attending Provider: Karin Diaz Admit Provider: Aldair Lambert Primary Care Provider: Donnie Cates Other Providers: Naye Wallace ; Yue Manriquez Other Interventions: Discharge Summary Assessment (RN) Last Done: 01/26/20 15:13 DC Date/Time DO NOT enter until pt leaves facility: 01/26/20 15:49
== END 2020-01-26 15:49 | disposition hospice, home (50) | DRG 391 ==
LOC: ED 18:44 → SUATTDRO 22:32 → 4W 22:32